=== PATIENT | male | born 1980 | race African-American/Black ===

== ENCOUNTER 2022-12-09 18:18 | Inpatient (IN) | payer MEDICARE, MEDICAID, SELFPAY ==
[2022-12-09 18:20] VITALS: TEMP 36.6
--- NOTE | 2022-12-09 18:24 | CT_ITS ---
We are attempting to reach an attending provider to discuss findings. An addendum with communication details will be sent when the communication is complete. EXAM: CT ANGIOGRAPHY HEAD AND NECK WITH INTRAVENOUS CONTRAST CLINICAL INDICATION: CVA TECHNIQUE: [place]/head and neck CT angiography protocol performed with intravenous contrast. This CT exam was performed using one or more of the following dose reduction techniques: automated exposure control, adjustment of the mA and/or kV according to patient size, and/or use of iterative reconstruction technique. This report was created using [employer] report generation technology. MIP reconstructed images were created and reviewed. CONTRAST: IV 100mL Isovue-370 RADIATION DOSE: CTDIvol = 20.74 mGy, DLP = 809.94 mGy-cm COMPARISON: None. FINDINGS: HEAD: RIGHT ANTERIOR CEREBRAL ARTERY: Unremarkable. No significant stenosis at the visualized segments. Anterior communicating artery is present. No aneurysm. RIGHT MIDDLE CEREBRAL ARTERY: Unremarkable. No significant stenosis at the visualized segments. No aneurysm. RIGHT POSTERIOR CEREBRAL ARTERY: Unremarkable. No occlusion or significant stenosis. No aneurysm. RIGHT INTRACRANIAL INTERNAL CAROTID ARTERY: Unremarkable. No significant stenosis. No dissection or occlusion. RIGHT INTRACRANIAL VERTEBRAL ARTERY: Unremarkable. No significant stenosis. No dissection or occlusion. LEFT ANTERIOR CEREBRAL ARTERY: Unremarkable. No significant stenosis at the visualized segments. No aneurysm. LEFT MIDDLE CEREBRAL ARTERY: Unremarkable. No significant stenosis at the visualized segments. No aneurysm. LEFT POSTERIOR CEREBRAL ARTERY: Unremarkable. No occlusion or significant stenosis. No aneurysm. LEFT INTRACRANIAL INTERNAL CAROTID ARTERY: Unremarkable. No significant stenosis. No dissection or occlusion. LEFT INTRACRANIAL VERTEBRAL ARTERY: Unremarkable. No significant stenosis. No dissection or occlusion. BASILAR ARTERY: Unremarkable. No significant stenosis. No aneurysm. OTHER VASCULATURE: There are no acute findings of the right and left internal carotid artery. ALL ABOVE CRITERIA BY NASCET. No vascular malformation. NECK: RIGHT COMMON CAROTID ARTERY: Unremarkable. No significant stenosis. No dissection or occlusion. RIGHT EXTRACRANIAL INTERNAL CAROTID ARTERY: Unremarkable. No significant stenosis. No dissection or occlusion. RIGHT EXTERNAL CAROTID ARTERY: Unremarkable. No occlusion. RIGHT EXTRACRANIAL VERTEBRAL ARTERY: Unremarkable. No significant stenosis. No dissection or occlusion. LEFT COMMON CAROTID ARTERY: Unremarkable. No significant stenosis. No dissection or occlusion. LEFT EXTRACRANIAL INTERNAL CAROTID ARTERY: Unremarkable. No significant stenosis. No dissection or occlusion. LEFT EXTERNAL CAROTID ARTERY: Unremarkable. No occlusion. LEFT EXTRACRANIAL VERTEBRAL ARTERY: Unremarkable. No significant stenosis. No dissection or occlusion. BRACHIOCEPHALIC AND SUBCLAVIAN ARTERIES: Unremarkable as visualized. No occlusion or significant stenosis. LUNG APICES: Unremarkable as visualized. HEAD and NECK: BONES/JOINTS: Unremarkable. No discrete lytic or blastic abnormalities. SOFT TISSUES: Unremarkable. OTHER FINDINGS: There are no acute findings of the [place] without a demonstrated aneurysm or hemodynamically significant stenosis. ALL ABOVE CRITERIA BY NASCET. CAROTID STENOSIS REFERENCE USING NASCET CRITERIA: % ICA stenosis = (1 - narrowest ICA diameter/diameter of distal cervical ICA) x 100. Mild - <50% stenosis. Moderate - 50-69% stenosis. Severe - 70-94% stenosis. Near occlusion - 95-99% stenosis. Occluded - 100% stenosis. CT/STROKE CTA Head AND Neck W/Con IMPRESSION: 1. There are no acute findings of the [place] without a demonstrated aneurysm or hemodynamically significant stenosis. ALL ABOVE CRITERIA BY NASCET. 2. There are no acute findings of the right and left internal carotid artery. ALL ABOVE CRITERIA BY NASCET. Electronically Signed: Kota Flores MD at 18:51 EDT ,
--- NOTE | 2022-12-09 18:24 | CT_ITS ---
We are attempting to reach an attending provider to discuss findings. An addendum with communication details will be sent when the communication is complete. STUDY: CT BRAIN WITHOUT CONTRAST REASON FOR EXAM: Male, 42 years old. CVA TECHNIQUE: Transaxial CT imaging of the brain was performed without administration of intravenous contrast material. Individualized dose optimization techniques were used for this CT. COMPARISON: None FINDINGS: Normal calvarium. Normal soft tissues. Normal size ventricles and extra-axial spaces for the patient''s age. Normal white matter tracts of the cerebral hemispheres. Normal basal ganglia and thalami. Normal brainstem. Normal cerebellum. There is no intracranial hemorrhage. There are no findings of an acute ischemic infarction. Normal visualized paranasal sinuses. ASPECTS 10 CT/STROKE Brain/Head without Cont IMPRESSION: There are no acute intracranial findings. Electronically Signed: Kota Flores MD at 18:41 EDT ,
[2022-12-09 18:29] VITALS: BP 127/77; BP 132/80; PULSE 88; PULSE 91; RESP 18; TEMP 36.4; O2SAT 100; O2SAT 99
--- NOTE | 2022-12-09 18:29 | EKG12_ITS ---
Test Reason : NEURO Blood Pressure : / mmHG Vent. Rate : 085 BPM Atrial Rate : 085 BPM P-R Int : 148 ms QRS Dur : 078 ms QT Int : 340 ms P-R-T Axes : 029 035 024 degrees QTc Int : 404 ms Normal sinus rhythm Normal ECG Confirmed by YASHIRA SCHULZ ([id number]), newspaper or periodical editor BONNIE HUI ([id number]) on 12/12/2022 7:02:47 AM Referred By: PATRICK Confirmed By:YASHIRA SCHULZ
[2022-12-09 18:34] VITALS: BMI 36.2
[2022-12-09 18:35] VITALS: BP 127/77; PULSE 64; RESP 18; TEMP 36.6; O2SAT 99
[2022-12-09 18:35] LABS: Absolute Lymphocyte Count 2.58 X10^3/uL (0.83-4.51); Absolute Neutrophil Count 3.4 X10^3/uL (2.0-7.7); Basophil# 0.04 X10^3/uL; Basophil% 0.6 % (0-1); Eosinophil# 0.18 X10^3/uL; Eosinophils% 2.5 % (0-5); Hematocrit 38.2 % (40-54); Hemoglobin 12.8 g/dL (13.0-16.5); Lymphocyte # 2.58 X10^3/ul (0.83-4.51); Lymphocyte % 35.8 % (19-41); Mean Corp Hgb Conc 33.5 g/dL (32-36); Mean Corpuscular Hgb 29.2 pg (27.0-32.0); Mean Platelet Vol. 10.7 fl (6.2-12.0); Monocyte# 1.02 X10^3/uL; Monocyte% 14.1 % (0-10); NRBC Flagged by Analyzer 0 % (0-5); Neutrophil # 3.37 X10^3/uL (2.7-7.7); Neutrophil % 46.7 % (47-70); Platelet Count 178 K/mm3 (150-450); RBC Distribution Width CV 13.5 % (11.6-14.6); RBC Distribution Width SD 42.9 fl (35.1-43.9); Red Blood Count 4.39 M/mm3 (4.6-6.2); White Blood Count 7.2 K/mm3 (4.4-11.0)
[2022-12-09 18:46] LABS: Partial Thromboplast Time 30.6 Seconds (24.1-36.2); Prothrombin Time (Protime)PT. 13.2 SECONDS (11.7-14.9)
[2022-12-09 18:49] LABS: Anion Gap 4 (5-15); BUN 16 mg/dL (7-18); BUN/Creat Ratio 11.8 RATIO (10-20); Calcium,Total 9.3 mg/dL (8.5-10.1); Chloride 104 mmol/L (98-107); Creatinine, Serum 1.36 mg/dL (0.70-1.30); EST Glomerular Filtration Rate 61 mL/min (>60); Est Glom Filt Rate - Afr Amer 74 mL/min (>60); Estimated Creatinine Clearance 52.34 ml/min; Glucose 234 mg/dL (74-106); Potassium 3.5 mmol/L (3.5-5.1); Sodium Level 140 mmol/L (136-145); Troponin-I HS 4 pg/mL (3.0-78.0)
--- NOTE | 2022-12-09 18:53 | EDS_ITS ---
HPI History of Present Illness Chief Complaint: Stroke Alert Detail of Chief Complaint: Stroke alert patient Informant: patient and EMS Onset/Context/Timing Onset: Today (Per last known well 0800. Family noted shuffled gait at 10 AM.) Context: Sudden Onset Timing: Continuous Quality and Location: Positive for Left Facial Droop Onset: Last known well 0800 Current Severity: Mild Maximum Severity: Mild Worsened by: Nothing Relieved by: Nothing Associated Symptoms Associated Symptoms: Negative for Headache, Nausea, Vomiting or Chest Pain Narrative Narrative: Patient is a 42-year-old male with significant psychiatric history who presents because of shuffled gait and problems with coordination, difficulty swallowing. He was last known well at 0800. Family noted the supple gait at 1000. Patient not a good informant due to his psychiatric disorder. Stroke alert was initiated. Prior similar symptoms: No Recent Illness/Hospitalization: No PFSH PFS Medical History Anemia Anxiety Bipolar disorder Blindness Cannabis abuse Constipation Glaucoma Hyperlipidemia Insomnia Muscle weakness PVD (peripheral vascular disease) Schizoaffective disorder Seizures TBI (traumatic brain injury) Type 2 diabetes mellitus Social History Smoking Status: Current every day smoker tobacco type: cigarettes ROS ROS ED Review of Systems ROS Unobtainable: due to mental condition and due to mental status EXAM Physical Exam Const Vital Signs: 12/09/22 18:20 12/09/22 18:34 12/09/22 18:35 Temperature 97.8 F 97.8 F Temperature Source Temporal Temporal Pulse Rate 64 Respiratory Rate 18 Blood Pressure 127/77 H Blood Pressure Mean 93 Pulse Ox 99 Oxygen Delivery Method Room Air Room Air 12/09/22 18:29 12/09/22 18:29 Temperature 97.6 F L Temperature Source Temporal Pulse Rate 91 88 Respiratory Rate 18 18 Blood Pressure 127/77 H 132/80 H Blood Pressure Mean 93 97 Pulse Ox 100 99 Oxygen Delivery Method Room Air Room Air Positive well nourished, well developed and unkempt Constitutional Narrative: Patient does have slight drooling noted. Posterior pharynx unremarkable. General Appearance ED: unkempt, well developed and NAD HEENT Reports moist mucous membranes atraumatic Nose: other Other Details: Normal. Patient does have hyperplasia of the gingiva. Eyes PERRL and EOMs intact bilaterally Eyes Narrative: There is no nystagmus. There is no APD. General Eye ED: Negative for pale conjunctiva or scleral icterus Neck no lymphadenopathy, supple and no JVD Neck Narrative: There is no inspiratory expiratory stridor. Chest Wall inspection of chest normal and palpation of chest normal Resp normal respiratory effort and clear to auscultation bilaterally Cardio no murmurs Rate: regular rate Rhythm: regular rhythm Heart Sounds: S1 normal and S2 normal GI normal to inspection, nondistended, normoactive bowel sounds, soft to palpation, non-tender, non-distended and no masses Auscultation: hypoactive bowel sounds Back/Spine no CVA tenderness Extremity Negative for normal to inspection General Extremety ED: Yes edema; Negative for deformity or tenderness General Extremity: edema; Negative for deformity Neuro No oriented x3, No CN's II-XII intact bilaterally and no sensory deficits noted [place] Coma Scale: document GCS findings Spontaneous Obeys Commands Confused 14 Sensorium / Orientation: Negative for alert Motor Exam: strength 5/5 throughout Psych Psych Narrative: Slow psychomotor skills. Appearance: unkempt NIHSS NIHSS Initial: 1a Level of Consciousness: 1 1b LOC Questions (Score 2 if aphasic/stupor): 2 1c LOC Commands (Only score 1st attempt): 0 2 Best Gaze (If aphasic, use reflexive mvmts.): 0 3 Visual: 0 4 Facial Palsy: 1 5 Motor Arm Right (UN = amputation/fusion): 0 5 Motor Arm Left: 0 6 Motor Leg Right: 0 6 Motor Leg Left: 0 7 Limb ataxia (Only + if out of proportion): 0 8 Sensory (Aphasia/stupor=0 or 1, coma=2): 0 9 Best Language: 1 (Patient did not know the names of many objects. He was able to describe the scene that was shown to him. He was able to read sentences and words without any significant abnormality.) 10 Dysarthria (mute, coma=2, intubated=UN): 0 11 Extinction and Inattention (only scored if +): 0 Total Score: 5 MDM MDM MDM Narrative Medical decision making narrative: Stroke alert was initiated. I did receive call from radiologist that read the CT and CTA of the head neck as negative for acute stroke and negative for LVO. The neurologist [facility] Dr. Grace agrees there is a facial droop. She recommended admission unless there was an LVO which would require thrombectomy. Since there is no evidence of LVO will speak with hospitalist for admission. History & Record Review Discussion w/independent historian: EMS personnel and Patient Additional record(s) reviewed:: No prior records Lab Data Attestation: I reviewed the patient's lab results. Lab results narrative: CBC is unremarkable. Coags are unremarkable. Basic metabolic is remarked for an elevated creatinine of 1.36 with a GFR of 74. Troponin is normal. Blood sugar is elevated at 234. CO2 and anion gap are normal. Labs: Laboratory Results - last 24 hr 12/09/22 12/09/22 12/09/22 18:25 18:25 18:25 WBC 7.2 RBC 4.39 L Hgb 12.8 L Hct 38.2 L MCV 87.0 MCH 29.2 MCHC 33.5 RDW Std Deviation 42.9 RDW Coeff of Tana 13.5 Plt Count 178 MPV 10.7 Immature Gran % (Auto) 0.300 Neut % (Auto) 46.7 L Lymph % (Auto) 35.8 [place] % (Auto) 14.1 H Eos % (Auto) 2.5 Baso % (Auto) 0.6 Absolute Neuts (auto) 3.4 Absolute Lymphs (auto) 2.58 Nucleated RBC % 0 PT 13.2 INR 1.0 APTT 30.6 Sodium 140 Potassium 3.5 Chloride 104 Carbon Dioxide 32.0 Anion Gap 4 L BUN 16 Creatinine 1.36 H Estim Creat Clear Calc 52.34 Est GFR (MDRD) Af Amer 74 Est GFR (MDRD) Non-Af 61 BUN/Creatinine Ratio 11.8 Glucose 234 H Calcium 9.3 Troponin I High Sens 4 POC Glucose 12/09/22 18:34 WBC RBC Hgb Hct MCV MCH MCHC RDW Std Deviation RDW Coeff of [place] Plt Count MPV Immature Gran % (Auto) Neut % (Auto) Lymph % (Auto) [place] % (Auto) Eos % (Auto) Baso % (Auto) Absolute Neuts (auto) Absolute Lymphs (auto) Nucleated RBC % PT INR APTT Sodium Potassium Chloride Carbon Dioxide Anion Gap BUN Creatinine Estim Creat Clear Calc Est GFR (MDRD) Af Amer Est GFR (MDRD) Non-Af BUN/Creatinine Ratio Glucose Calcium Troponin I High Sens POC Glucose 267 H Radiography Diagnostic Testing: Clinical Impression(s) from Imaging Studies Brain CT 12/09/22 18:24 IMPRESSION: There are no acute intracranial findings. Electronically Signed: Kota Flores MD at 18:41 EDT , ADDENDUM: 12/09/228 IMPRESSION: There are no acute intracranial findings. N.B. : The above Results were Read Back by Kota Flores MD to Meir Maher MD, and understanding confirmed on 12/09/2022 18:52:03 (ET). Electronically Signed: Kota Flores MD at 18:41 EDT , Head/Neck CTA 12/09/22 18:24 IMPRESSION: 1. There are no acute findings of the [place] without a demonstrated aneurysm or hemodynamically significant stenosis. ALL ABOVE CRITERIA BY NASCET. 2. There are no acute findings of the right and left internal carotid artery. ALL ABOVE CRITERIA BY NASCET. Electronically Signed: Kota Flores MD at 18:51 EDT , ADDENDUM: 12/09/229 IMPRESSION: 1. There are no acute findings of the [place] without a demonstrated aneurysm or hemodynamically significant stenosis. ALL ABOVE CRITERIA BY NASCET. 2. There are no acute findings of the right and left internal carotid artery. ALL ABOVE CRITERIA BY NASCET. N.B. : The above Results were Read Back by Kota Flores MD to MD meir, and understanding confirmed on 12/09/2022 18:52:44 (ET). Electronically Signed: Kota Flores MD at 18:51 EDT , ADDENDUM: 12/09/22 191 IMPRESSION: 1. There are no acute findings of the [place] without a demonstrated aneurysm or hemodynamically significant stenosis. ALL ABOVE CRITERIA BY NASCET. 2. There are no acute findings of the right and left internal carotid artery. ALL ABOVE CRITERIA BY NASCET. N.B. : The above Results were Read Back by Kota Flores MD to Meir Maher MD, and understanding confirmed on 12/09/2022 19:04:48 (ET). Electronically Signed: Kota Flores MD at 18:51 EDT , Chest X-Ray 12/09/22 19:00 IMPRESSION: No radiographic evidence of acute cardiopulmonary disease. Electronically Signed: Kota Flores MD at 19:14 EDT , EKG Initial EKG: Attestation: I personally reviewed and interpreted this EKG as follows: Interpretation: Sinus Rhythm (Rate is 85. EKG is normal. WA interval is under 48 ms. QRS duration 78 ms. QT duration 340 ms. [place] is normal.) Treatment and Re-Evaluation Narrative: Concern patient has stroke since he has a facial droop. Also concerned this may be due to his psychiatric disorder. However with the facial droop would not expect this to be due to a psychiatric sorter. I believe there is an older lady of a stroke and his underlying psychiatric disorder at makes his assessment of objects more difficult. Discharge Plan Dx/Rx/DC Orders Clinical Impression: Acute CVA (cerebrovascular accident), Acute hyperglycemia, Elevated serum creatinine, Dysphagia, History of psychiatric disorder Disposition Disposition: Acute Care [facility]
[2022-12-09 18:54] VITALS: BMI 36.2
[2022-12-09 18:56] LABS: Bedside Glucose 267 mg/dL (74-106)
--- NOTE | 2022-12-09 19:00 | RAD_ITS ---
EXAM: XR CHEST, 1 VIEW CLINICAL INDICATION: Neuro deficit, acute, stroke suspected TECHNIQUE: Frontal view of the chest. This report was created using [employer] report generation technology. COMPARISON: None. FINDINGS: LUNGS AND PLEURAL SPACES: Unremarkable. No consolidation or edema. No pneumothorax. No effusion. HEART: Unremarkable. Cardiac silhouette not enlarged. MEDIASTINUM: Central airways and mediastinal contour are unremarkable. BONES/JOINTS: Unremarkable. SOFT TISSUES: Unremarkable. RAD/Chest 1 View IMPRESSION: No radiographic evidence of acute cardiopulmonary disease. Electronically Signed: Kota Flores MD at 19:14 EDT ,
[2022-12-09 19:29] VITALS: BP 123/68; PULSE 84; RESP 24; O2SAT 98
--- NOTE | 2022-12-09 19:38 | HP.PCM.HOS_ITS ---
HPI - General General Date of Admission: 12/09/22 Date of Service: 12/09/22 Chief Complaint: Unsteady gait HPI Narrative JERMAN ROLAND, is a 42 M with a significant history of bipolar disorder; tobacco abuse; cannabis abuse; hyperlipidemia; schizoaffective disorder; seizures and traumatic brain injury who presents to the emergency department with unsteady gait. Patient reports that anytime that he stood up he fell. Reportedly he was having a shuffling gait at home. Also reportedly he had a facial droop. Last time the patient was known well was 8 AM on the day of presentation and family noticed above symptoms at above 10 AM on the day of presentation. Patient presented to emergency department way beyond n 4.5 hours of last known well. Emergency department doctor reported that patient is unable to swallow. Emergency department doctor reported NIH of 5 on the day of presentation. History was taken from emergency department doctor. Only minimal history could be obtained from patient's secondary to his psychiatry disorder and aphasic speech. [facility] Medical History (Updated 12/10/22 @ 00:[address] Ramesh Randall MD) Anemia Anxiety Bipolar disorder Blindness Cannabis abuse Constipation Glaucoma Hyperlipidemia Insomnia Muscle weakness PVD (peripheral vascular disease) Schizoaffective disorder Seizures TBI (traumatic brain injury) Type 2 diabetes mellitus Home Medications atenolol 25 mg tablet 12.5 mg PO DAILY essential hypertension 12/09/22 [History Last Taken Unknown] cetirizine 10 mg tablet 10 mg PO QHS allergy symptoms 12/09/22 [History Last Taken Unknown] clozapine 100 mg tablet (Clozaril) 200 mg PO BID schizoaffective disorder 12/09/22 [History Last Taken Unknown] diphenhydramine HCl 50 mg tablet 50 mg PO Q8H PRN PRN agitation/anxiety 12/09/22 [History Last Taken Unknown] divalproex 250 mg tablet,delayed release (Depakote) 250 mg PO BID biplolar/schizoaffectoive disorder 12/09/22 [History Last Taken Unknown] divalproex 500 mg tablet,delayed release (Depakote) 500 mg PO BID bipolar disorder/schizoaffective disorder 12/09/22 [History Last Taken Unknown] famotidine 20 mg tablet (Pepcid) 20 mg PO DAILY heartburn 12/09/22 [History Last Taken Unknown] lorazepam 1 mg tablet (Ativan) 1 mg PO Q6H PRN agitiation/anxiety 12/09/22 [History Last Taken Unknown] metformin 500 mg tablet 500 mg PO DAILY type 2 diabetes mellitus 12/09/22 [History Last Taken Unknown] multivitamin 1 tab PO DAILY supplement 12/09/22 [History Last Taken Unknown] paliperidone palmitate 234 mg/1.5 mL intramuscular syringe (Invega Sustenna) 234 mg IM DAILY Check with primary doctor 12/09/22 [History Last Taken Unknown] polyethylene glycol 3350 17 gram oral powder packet (Miralax) 17 g PO DAILY constipation 12/09/22 [History Last Taken Unknown] sennosides 8.6 mg-docusate sodium 50 mg tablet (Senokot-S) 1 tab PO DAILY co nstipation 12/09/22 [History Last Taken Unknown] timolol maleate 0.5 % once daily eye 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 12/09/22 [History Last Taken Unknown] tuberculin PPD 1 unit/0.1 mL intradermal injection solution 1 tb unit intradermal LUNCH tuberculosis surveillance 12/09/22 [History Last Taken 08/27/22] Allergy/AdvReac Type Severity Reaction Status Date / Time No Known Allergies Allergy Verified 12/09/22 20:01 Family History unable to obtain unable to obtain (Mental condition) Surgical History unable to obtain unable to obtain (Mental condition) Social History Smoking Status: Current every day smoker tobacco type: cigarettes ROS Review of Systems ROS Unobtainable: due to mental condition Vital Signs Vital Signs Vital Signs: 12/09/22 18:20 12/09/22 18:34 12/09/22 18:35 Temperature 97.8 F 97.8 F Temperature Source Temporal Temporal Pulse Rate 64 Respiratory Rate 18 Blood Pressure 127/77 H Blood Pressure Mean 93 Pulse Ox 99 Oxygen Delivery Method Room Air Room Air 12/09/22 18:29 12/09/22 18:29 Temperature 97.6 F L Temperature Source Temporal Pulse Rate 91 88 Respiratory Rate 18 18 Blood Pressure 127/77 H 132/80 H Blood Pressure Mean 93 97 Pulse Ox 100 99 Oxygen Delivery Method Room Air Room Air Weight Weight: 87 kg Body Mass Index (BMI) 36.2 Physical Exam Narrative Physical exam: General: Well-nourished, well-developed. Head: Normocephalic, atraumatic, no tenderness Eyes: Vision is grossly intact. EOMI ENT, no trauma, moist mucous membranes, no rhinorrhea Neck: Nontender, No thyromegaly. CVS: Regular rate and rhythm. S1-S2 present. No murmur, gallop or rub. Respiratory : clear to auscultation bilaterally, chest wall nontender Abdomen: Soft, nontender, nondistended, normal bowel sounds, no masses : Deferred Back: Nontender, no CVA tenderness, no midline spinal tenderness, deformities, step-offs Extremities: Nontender full range of motion, no trauma Skin: Normal color, no trauma, abrasions Neuro: Alert, oriented, cranial nerves II through XII grossly intact. Strength in all extremities 5 out of 5 except left lower extremity 4 out of 5. Mild facial droop of left face. Unclear and aphasic speech (unclear whether baseline). No dysmetria. Psychiatry: Normal mood. Normal affect. Not depressed. Not anxious. Results Lab / Micro Data Result Diagrams: 12/09/22 18:25 12/09/22 18:25 Labs: Laboratory Results - last 24 hr 12/09/22 18:25: WBC 7.2, RBC 4.39 L, Hgb 12.8 L, Hct 38.2 L, MCV 87.0, MCH 29.2, MCHC 33.5, RDW Std Deviation 42.9, RDW Coeff of Tana 13.5, Plt Count 178, MPV 10.7, Immature Gran % (Auto) 0.300, Neut % (Auto) 46.7 L, Lymph % (Auto) 35.8, Holmes % (Auto) 14.1 H, Eos % (Auto) 2.5, Baso % (Auto) 0.6, Absolute Neuts (auto) 3.4, Absolute Lymphs (auto) 2.58, Nucleated RBC % 0 12/09/22 18:25: PT 13.2, INR 1.0, APTT 30.6 12/09/22 18:25: Sodium 140, Potassium 3.5, Chloride 104, Carbon Dioxide 32.0, Anion Gap 4 L, BUN 16, Creatinine 1.36 H, Estim Creat Clear Calc 52.34, Est GFR (MDRD) Af Amer 74, Est GFR (MDRD) Non-Af 61, BUN/Creatinine Ratio 11.8, Glucose 234 H, Calcium 9.3, Troponin I High Sens 4 12/09/22 18:34: POC Glucose 267 H Radiology Impression Brain CT 12/09/22 18:24 IMPRESSION: There are no acute intracranial findings. Electronically Signed: Kota Flores MD at 18:41 EDT , ADDENDUM: 12/09/22 1858 IMPRESSION: There are no acute intracranial findings. N.B. : The above Results were Read Back by Kota Flores MD to Meir Maher MD, and understanding confirmed on 12/09/2022 18:52:03 (ET). Electronically Signed: Kota Flores MD at 18:41 EDT , Head/Neck CTA 12/09/22 18:24 IMPRESSION: 1. There are no acute findings of the [place] without a demonstrated aneurysm or hemodynamically significant stenosis. ALL ABOVE CRITERIA BY NASCET. 2. There are no acute findings of the right and left internal carotid artery. ALL ABOVE CRITERIA BY NASCET. Electronically Signed: Kota Flores MD at 18:51 EDT , ADDENDUM: 12/09/22 1859 IMPRESSION: 1. There are no acute findings of the [place] without a demonstrated aneurysm or hemodynamically significant stenosis. ALL ABOVE CRITERIA BY NASCET. 2. There are no acute findings of the right and left internal carotid artery. ALL ABOVE CRITERIA BY NASCET. N.B. : The above Results were Read Back by Kota Flores MD to MD meir, and understanding confirmed on 12/09/2022 18:52:44 (ET). Electronically Signed: Kota Flores MD at 18:51 EDT , ADDENDUM: 12/09/22 1911 IMPRESSION: 1. There are no acute findings of the [place] without a demonstrated aneurysm or hemodynamically significant stenosis. ALL ABOVE CRITERIA BY NASCET. 2. There are no acute findings of the right and left internal carotid artery. ALL ABOVE CRITERIA BY NASCET. N.B. : The above Results were Read Back by Kota Flores MD to Meir Maher MD, and understanding confirmed on 12/09/2022 19:04:48 (ET). Electronically Signed: Kota Flores MD at 18:51 EDT , Chest X-Ray 12/09/22 19:00 IMPRESSION: No radiographic evidence of acute cardiopulmonary disease. Electronically Signed: Kota Flores MD at 19:14 EDT , Assessment & Plan Assessment/Plan (1) Acute CVA (cerebrovascular accident): (2) Diabetes: PLAN: Plan Acute CVA Serial NINDS NIH Scale ordered Impression of head CT by radiology:There are no acute intracranial findings. Upon my personal head CT image review: I agree with radiologist interpretation Head and neck CTA was unrevealing. Lipid profile and A1c ordered. Physical therapy, occupational therapy and speech therapy to work with patient. N.p.o. until bedside swallow eval. Daily aspirin. High intensity statin Permissive hypertension. Control blood pressure with labetalol for systolic blood pressure of more than 220 or diastolic blood pressure of more than 120. Home atenolol held. MRI brain ordered. Echocardiogram ordered. Elevated Creatinine Unclear baseline Gentle IV hydration. Trend BMP. Diabetes mellitus Patient with hyperglycemia on presentation Home metformin held Monitor Accu-Cheks Correction scale insulin ordered. Hypertension Blood pressure is stable Home atenolol held secondary to permissive hypertension. Trend blood pressures. Bipolar disorder/schizoaffective disorder/seizures/history of traumatic brain injury Persistent Home medication continued. DVT prophylaxis: SCDs ordered Charges/Coding Visit Charges Inpatient E&M: 06499 Init Hosp L3
[2022-12-09 20:00] VITALS: BP 111/73; BP 123/68; PULSE 84; PULSE 88; RESP 19; RESP 23; TEMP 36.5; O2SAT 100; O2SAT 99
[2022-12-09 20:03] VITALS: BMI 36.2
--- NOTE | 2022-12-09 21:08 | ECHOD_ITS ---
Reason For Study: TIA Procedure This was a 2D Doppler, Color Flow transthoracic echocardiogram. Exam performed portable in patient room. Left Ventricle Normal left ventricle. The estimated ejection fraction is 55-60 %. Right Ventricle Normal right ventricle. Normal systolic function. Atria Normal left atrium. Normal right atrium. Mitral Valve The mitral valve is structurally normal. No prolapse or stenosis seen. Tricuspid Valve Normal tricuspid valve. Aortic Valve Normal aortic valve. Pulmonic Valve The pulmonic valve is not well visualized. Great Vessels Normal aortic root. Pericardium/Pleural No pericardial effusion. MMode/2D Measurements & Calculations LVIDd: 3.9 cm IVSd: 0.92 cm Ao root diam: 2.7 cm LVIDs: 3.0 cm LVPWd: 0.95 cm RVDd: 3.0 cm FS: 23.2 % LAV(MOD-bp): 27.4 ml EDV(MOD-sp4): 79.5 ml EDV(MOD-sp2): 48.2 ml LAV(MOD-bp) Indexed: 15.3 ml/m2 ESV(MOD-sp4): 22.3 ml ESV(MOD-sp2): 17.7 ml LAV(MOD-sp2): 33.9 ml EF(MOD-sp4): 71.9 % EF(MOD-sp2): 63.2 % LAV(MOD-sp4): 22.1 ml SV(MOD-sp4): 57.2 ml SV(MOD-sp2): 30.5 ml LA A4 area: 10.6 cm2 LA dimension(2D): 2.9 cm RA A4 area: 9.8 cm2 Time Measurements MV dec time: 0.20 sec Doppler Measurements & Calculations MV E max leroy: 54.9 cm/sec Lat Peak E' Leroy: 7.0 cm/sec Med Peak E' Leroy: 8.5 cm/sec MV A max leroy: 68.9 cm/sec E/E' lat: 7.8 E/E' med: 6.4 MV E/A: 0.80 MV dec slope: 271.6 cm/sec2 Ao V2 max: 90.0 cm/sec LV V1 max: 68.6 cm/sec Ao max P.2 mmHg LV V1 max P.9 mmHg Ao V2 mean: 61.5 cm/sec LV V1 mean P.2 mmHg Ao mean P.6 mmHg LV V1 mean: 53.3 cm/sec Ao V2 VTI: 12.4 cm LV V1 VTI: 12.7 cm AV (velocity ratio): 1.0 PA V2 max: 82.7 cm/sec TR max leroy: 169.6 cm/sec TR max P.5 mmHg ECHO/Echo Complete Interpretation Summary The estimated ejection fraction is 55-60 %. No significant valvular abnormality No prior echocardiogram to compare. Ordering Physician: Ramesh Randall Referring Physician: Ever Avila Performed By: Dottie Bashir RDCS, RVT
[2022-12-09 21:15] VITALS: BMI 32.3
[2022-12-09 21:35] VITALS: BP 122/84; PULSE 84; RESP 15; TEMP 36.2; O2SAT 97
[2022-12-09] MEDS: Lactated Ringers 1,000 ML 75 ML IV (22:38)
[2022-12-09] MEDS: Insulin Lispro 100 UNIT/ML INSULN.PEN SC (22:46)
[2022-12-10] VITALS (7 sets, daily range): BP systolic 101–110; BP diastolic 62–77; PULSE 82–97; RESP 15–18; TEMP 36.2–37; O2SAT 94–99; BMI 32.3
[2022-12-10 00:40] LABS: Bedside Glucose 194 mg/dL (74-106)
[2022-12-10] MEDS: Divalproex Sodium 250 MG Tablet 750 MG PO ×3 (00:43→21:03)
[2022-12-10] MEDS: Atorvastatin Calcium 80 MG Tablet PO ×2 (00:43→21:02)
[2022-12-10] MEDS: Insulin Lispro 100 UNIT/ML INSULN.PEN SC ×3 (06:02→16:28)
[2022-12-10 06:57] LABS: Absolute Lymphocyte Count 2.62 X10^3/uL (0.83-4.51); Absolute Neutrophil Count 2.7 X10^3/uL (2.0-7.7); Basophil# 0.03 X10^3/uL; Basophil% 0.5 % (0-1); Eosinophil# 0.29 X10^3/uL; Eosinophils% 4.4 % (0-5); Hematocrit 38.1 % (40-54); Hemoglobin 13.3 g/dL (13.0-16.5); Lymphocyte # 2.62 X10^3/ul (0.83-4.51); Lymphocyte % 40.1 % (19-41); Mean Corp Hgb Conc 34.9 g/dL (32-36); Mean Platelet Vol. 10.3 fl (6.2-12.0); Monocyte# 0.87 X10^3/uL; Monocyte% 13.3 % (0-10); NRBC Flagged by Analyzer 0 % (0-5); Neutrophil # 2.71 X10^3/uL (2.7-7.7); Neutrophil % 41.5 % (47-70); Platelet Count 166 K/mm3 (150-450); RBC Distribution Width CV 13.6 % (11.6-14.6); RBC Distribution Width SD 42.5 fl (35.1-43.9); Red Blood Count 4.43 M/mm3 (4.6-6.2); White Blood Count 6.5 K/mm3 (4.4-11.0)
[2022-12-10 07:01] LABS: Bedside Glucose 170 mg/dL (74-106)
[2022-12-10 07:13] LABS: Anion Gap 5 (5-15); BUN 13 mg/dL (7-18); BUN/Creat Ratio 10.9 RATIO (10-20); Chloride 109 mmol/L (98-107); Cholesterol 179 mg/dL (200); Creatinine, Serum 1.19 mg/dL (0.70-1.30); EST Glomerular Filtration Rate 71 mL/min (>60); Est Glom Filt Rate - Afr Amer 86 mL/min (>60); Estimated Creatinine Clearance 62.45 ml/min; Glucose 168 mg/dL (74-106); High Density Lipoprotein 34 mg/dL; Potassium 3.8 mmol/L (3.5-5.1); Sodium Level 142 mmol/L (136-145); Triglycerides 212 mg/dL; Very Low Density Lipoprotein 42 mg/dL (5-40)
--- NOTE | 2022-12-10 08:01 | PN.HOSP_ITS ---
Reason for Visit Reason for Visit: Diagnoses Type 2 diabetes mellitus without complications (12/09/22) Cerebral infarction, unspecified (12/09/22) Subjective Subjective Patient reports he feels weak and does not feel like he can go home, did not n ote any other specific focal complaints Objective Data Objective Data Vital Signs: Vital Signs Temp Pulse Resp BP Pulse Ox O2 Del Method 98.0 F 97 18 102/63 99 Room Air 12/10/22 05:56 12/10/22 05:56 12/10/22 05:56 12/10/22 05:56 12/10/22 07:33 12/10/22 07:33 Oxygen Delivery Method Room Air Weight: 80.2 kg Body Mass Index (BMI) 32.3 Lab / Micro Data Result Diagrams: 12/10/22 06:35 12/10/22 06:35 Labs: Laboratory Results - last 24 hr 12/09/22 18:25: WBC 7.2, RBC 4.39 L, Hgb 12.8 L, Hct 38.2 L, MCV 87.0, MCH 29.2, MCHC 33.5, RDW Std Deviation 42.9, RDW Coeff of Tana 13.5, Plt Count 178, MPV 10.7, Immature Gran % (Auto) 0.300, Neut % (Auto) 46.7 L, Lymph % (Auto) 35.8, Ware % (Auto) 14.1 H, Eos % (Auto) 2.5, Baso % (Auto) 0.6, Absolute Neuts (auto) 3.4, Absolute Lymphs (auto) 2.58, Nucleated RBC % 0 12/09/22 18:25: PT 13.2, INR 1.0, APTT 30.6 12/09/22 18:25: Sodium 140, Potassium 3.5, Chloride 104, Carbon Dioxide 32.0, Anion Gap 4 L, BUN 16, Creatinine 1.36 H, Estim Creat Clear Calc 52.34, Est GFR (MDRD) Af Amer 74, Est GFR (MDRD) Non-Af 61, BUN/Creatinine Ratio 11.8, Glucose 234 H, Calcium 9.3, Troponin I High Sens 4 12/09/22 18:34: POC Glucose 267 H 12/09/22 22:42: POC Glucose 194 H 12/10/22 05:59: POC Glucose 170 H 12/10/22 06:35: WBC 6.5, RBC 4.43 L, Hgb 13.3, Hct 38.1 L, MCV 86.0, MCH 30.0, MCHC 34.9, RDW Std Deviation 42.5, RDW Coeff of Tana 13.6, Plt Count 166, MPV 10.3, Immature Gran % (Auto) 0.200, Neut % (Auto) 41.5 L, Lymph % (Auto) 40.1, Ware % (Auto) 13.3 H, Eos % (Auto) 4.4, Baso % (Auto) 0.5, Absolute Neuts (auto) 2.7, Absolute Lymphs (auto) 2.62, Nucleated RBC % 0 12/10/22 06:35: Sodium 142, Potassium 3.8, Chloride 109 H, Carbon Dioxide 28.0, Anion Gap 5, BUN 13, Creatinine 1.19, Estim Creat Clear Calc 62.45, Est GFR (MDRD) Af Amer 86, Est GFR (MDRD) Non-Af 71, BUN/Creatinine Ratio 10.9, Glucose 168 H, Calcium 9.0, Triglycerides 212 H, Cholesterol 179, LDL Cholesterol 103, VLDL Cholesterol 42 H, HDL Cholesterol 34 L Radiography Diagnostic Testing: Radiology Impression Brain CT 12/09/22 18:24 IMPRESSION: There are no acute intracranial findings. Electronically Signed: Kota Flores MD at 18:41 EDT , ADDENDUM: 12/09/22 1858 IMPRESSION: There are no acute intracranial findings. N.B. : The above Results were Read Back by Kota Flores MD to Meir Maher MD, and understanding confirmed on 12/09/2022 18:52:03 (ET). Electronically Signed: Kota Flores MD at 18:41 EDT , Head/Neck CTA 12/09/22 18:24 IMPRESSION: 1. There are no acute findings of the [place] without a demonstrated aneurysm or hemodynamically significant stenosis. ALL ABOVE CRITERIA BY NASCET. 2. There are no acute findings of the right and left internal carotid artery. ALL ABOVE CRITERIA BY NASCET. Electronically Signed: Kota Flores MD at 18:51 EDT , ADDENDUM: 12/09/22 1859 IMPRESSION: 1. There are no acute findings of the [place] without a demonstrated aneurysm or hemodynamically significant stenosis. ALL ABOVE CRITERIA BY NASCET. 2. There are no acute findings of the right and left internal carotid artery. ALL ABOVE CRITERIA BY NASCET. N.B. : The above Results were Read Back by Kota Flores MD to MD meir, and understanding confirmed on 12/09/2022 18:52:44 (ET). Electronically Signed: Kota Flores MD at 18:51 EDT , ADDENDUM: 12/09/22 1911 IMPRESSION: 1. There are no acute findings of the [place] without a demonstrated aneurysm or hemodynamically significant stenosis. ALL ABOVE CRITERIA BY NASCET. 2. There are no acute findings of the right and left internal carotid artery. ALL ABOVE CRITERIA BY NASCET. N.B. : The above Results were Read Back by Kota Flores MD to Meir Maher MD, and understanding confirmed on 12/09/2022 19:04:48 (ET). Electronically Signed: Kota Flores MD at 18:51 EDT , Chest X-Ray 12/09/22 19:00 IMPRESSION: No radiographic evidence of acute cardiopulmonary disease. Electronically Signed: Kota Flores MD at 19:14 EDT Reading Location ID and State: [facility] / [place] , Service support , Physical Exam Narrative General: Alert, oriented, no apparent distress HEENT: Atraumatic, normocephalic Eyes: Anicteric, normal conjunctiva, extraocular movements intact, no sustained nystagmus on bilateral lateral gaze Neck: Supple Respiratory: Clear to auscultation bilaterally, normal respiratory effort Cardiovascular: Regular rate and rhythm GI: Soft, nontender, nondistended Extremities: No edema Musculoskeletal: Good and symmetric strength in bilateral upper and lower ext remities Neuro: No overt focal neurological deficits, cranial nerves II through XII intact, [id number] without significant difficulty bilaterally Skin: No rashes appreciated Psych: Cooperative Assessment & Plan Assessment/Plan (1) Acute CVA (cerebrovascular accident): (2) Diabetes: PLAN: Plan #Coordination problems, abnormal gait -Unclear etiology -Stroke call in ED and [facility] neurologist was concerned for facial droop -He was admitted with NIH's and stroke work-up -CT head with no intracranial acute findings -CTA head and neck unrevealing -MRI brain with no acute infarct and mild chronic periventricular white matter disease -PT recommending placement as he is still overall weak -Neuro exam today nonfocal -Patient on aspirin, statin -Cannot r/o elevated VPA level or ammonia as culprit d/t negative stroke -Will check depakote level and ammonia #Diabetes mellitus type II -A1c 6.7 -Glucose checks, sliding scale insulin #Bipolar disorder/schizoaffective disorder/seizures/history of traumatic brain injury -Home medications continued -We will order Depakote level and ammonia as well as liver function for the a.m. DVT prophylaxis: SCDs ordered Charges/Coding Visit Charges Inpatient E&M: 09455 Subs Hosp L2
[2022-12-10 08:46] LABS: Hemoglobin A1c 6.7 % (3.8-5.6)
--- NOTE | 2022-12-10 08:58 | PT ---
B LE exercises program in supine for SLR, gluteal squeezes, SAQ, ankle pumps, and hip abduction/adduction provided with written and pictorial instructions provided
--- NOTE | 2022-12-10 08:58 | OT ---
SANIAE HEP for AROM; handout given
--- NOTE | 2022-12-10 09:00 | MRI_ITS ---
HISTORY: CVAno coronal T2 images Pt was climbing out of coil and scanner. TECHNIQUE: Multiplanar and multisequence MR images of the brain were obtained without contrast. 279 images. COMPARISON: CT prior day. FINDINGS: BRAIN PARENCHYMA: Mild periventricular white matter changes. No abnormal focus of restricted diffusion. No acute intracranial hemorrhage identified. CSF SPACES: Cerebral ventricles, cortical sulci, and other extra-axial CSF spaces within normal limits in size. No significant midline shift or other mass effect.No extra-axial fluid collection. VASCULAR SYSTEM: Major intracranial flow voids are maintained. PARANASAL SINUSES AND MASTOID AIR CELLS: No significant air fluid levels. ORBITS: Chronic left medial orbital wall fracture. MRI/Brain without Contrast IMPRESSION: No evidence for acute infarct. Mild chronic periventricular white matter changes. Electronically Signed: Palak Lugo MD at 10:40 EDT ,
[2022-12-10] MEDS: Timolol 0.5% 5ML OPTH.BTL 1 DRP EACH EYE (11:06)
[2022-12-10] MEDS: Multivitamins,Therapeutic Tablet 1 TABLET PO (11:07)
[2022-12-10] MEDS: Senna/Docusate Sodium 1 Tablet PO (11:07)
[2022-12-10] MEDS: Famotidine 20 MG Tablet PO (11:07)
[2022-12-10] MEDS: Aspirin 81 MG TAB.CHEW PO (11:08)
[2022-12-10] MEDS: Polyethylene Glycol 3350 17 GM PACKET PO (11:08)
[2022-12-10] MEDS: cloZAPine 100 MG TABLET 200 MG PO ×2 (11:11→21:02)
[2022-12-10 12:11] LABS: Bedside Glucose 248 mg/dL (74-106)
[2022-12-10] MEDS: Lactated Ringers 1,000 ML 75 ML IV (13:53)
[2022-12-10 16:50] LABS: Bedside Glucose 235 mg/dL (74-106)
[2022-12-10] MEDS: Loratadine 10 MG Tablet PO (21:02)
[2022-12-11 00:41] LABS: Bedside Glucose 126 mg/dL (74-106)
[2022-12-11 01:23] VITALS: BMI 32.3
[2022-12-11 03:06] VITALS: BP 119/89; PULSE 93; RESP 15; TEMP 36.2; O2SAT 97
[2022-12-11 06:05] LABS: Absolute Lymphocyte Count 2.45 X10^3/uL (0.83-4.51); Basophil# 0.03 X10^3/uL; Basophil% 0.6 % (0-1); Eosinophil# 0.21 X10^3/uL; Eosinophils% 3.9 % (0-5); Hematocrit 42.4 % (40-54); Hemoglobin 14.1 g/dL (13.0-16.5); Lymphocyte # 2.45 X10^3/ul (0.83-4.51); Lymphocyte % 46.1 % (19-41); Mean Corp Hgb Conc 33.3 g/dL (32-36); Mean Corpuscular Hgb 28.8 pg (27.0-32.0); Mean Corpuscular Volume 86.5 fL (80-94); Monocyte# 0.59 X10^3/uL; Monocyte% 11.1 % (0-10); NRBC Flagged by Analyzer 0 % (0-5); Neutrophil # 2.02 X10^3/uL (2.7-7.7); Neutrophil % 37.9 % (47-70); Platelet Count 168 K/mm3 (150-450); RBC Distribution Width CV 13.5 % (11.6-14.6); RBC Distribution Width SD 42.9 fl (35.1-43.9); White Blood Count 5.3 K/mm3 (4.4-11.0)
[2022-12-11 06:38] LABS: Valproic Acid (Depakene) Level 99 ug/mL (50-100)
[2022-12-11 07:00] LABS: ALB/GLOB Ratio 1.1 RATIO (0.9-2.4); AST(SGOT) 14 U/L (15-37); Alanine Aminotransfer ALT/SGPT 13 U/L (16-61); Albumin, Serum 3.3 g/dL (3.2-5.0); Alkaline Phosphatase 62 U/L (45-117); Anion Gap 4 (5-15); BUN 12 mg/dL (7-18); BUN/Creat Ratio 10.5 RATIO (10-20); Calcium,Total 9.1 mg/dL (8.5-10.1); Chloride 109 mmol/L (98-107); Creatinine, Serum 1.14 mg/dL (0.70-1.30); EST Glomerular Filtration Rate 75 mL/min (>60); Est Glom Filt Rate - Afr Amer 90 mL/min (>60); Estimated Creatinine Clearance 65.19 ml/min; Globulin 3.1 g/dL (2.2-4.2); Glucose 156 mg/dL (74-106); Potassium 3.6 mmol/L (3.5-5.1); Protein, Total 6.4 g/dL (6.4-8.2); Sodium Level 142 mmol/L (136-145)
[2022-12-11 07:05] LABS: Bedside Glucose 141 mg/dL (74-106)
[2022-12-11 07:34] VITALS: O2SAT 98
--- NOTE | 2022-12-11 10:38 | CASEMGMT ---
Update sent to [facility] with tentative discharge date. Elicia Rivera
[2022-12-11 11:00] VITALS: BP 109/71; PULSE 91; RESP 16; TEMP 36.8; O2SAT 100
[2022-12-11] MEDS: Timolol 0.5% 5ML OPTH.BTL 1 DRP EACH EYE (11:12)
[2022-12-11] MEDS: Polyethylene Glycol 3350 17 GM PACKET PO (11:13)
[2022-12-11] MEDS: Senna/Docusate Sodium 1 Tablet PO (11:13)
[2022-12-11] MEDS: Famotidine 20 MG Tablet PO (11:13)
[2022-12-11] MEDS: cloZAPine 100 MG TABLET 200 MG PO ×2 (11:13→21:17)
[2022-12-11] MEDS: Lactulose 20 GM/30 ML UDC PO ×3 (11:13→21:17)
[2022-12-11] MEDS: Divalproex Sodium 250 MG Tablet 750 MG PO ×2 (11:13→21:17)
[2022-12-11] MEDS: Aspirin 81 MG TAB.CHEW PO (11:14)
[2022-12-11] MEDS: Multivitamins,Therapeutic Tablet 1 TABLET PO (11:14)
[2022-12-11] MEDS: Insulin Lispro 100 UNIT/ML INSULN.PEN SC ×2 (11:31→21:17)
[2022-12-11 12:25] LABS: Bedside Glucose 295 mg/dL (74-106)
--- NOTE | 2022-12-11 16:08 | PN_ITS ---
Subjective Subjective Patient seen and examined. HE was drowsy and lethargic. He just mumbled in response to questions or answer any questions clearly. Objective Data Objective Data Vital Signs: Vital Signs Temp Pulse Resp BP Pulse Ox O2 Del Method 98.2 F 91 16 109/71 100 Room Air 12/11/22 11:00 12/11/22 11:00 12/11/22 11:00 12/11/22 11:00 12/11/22 11:00 12/11/22 11:00 Oxygen Delivery Method Room Air Weight: 176 lb 12.972 oz Body Mass Index (BMI) 32.3 Intake & Output: Intake and Output for Last 24 Hours 12/09/22 12/10/22 12/11/22 23:59 23:59 23:59 Intake Total 1450.0 / 1450.0 1240 / 1240 Output Total 1075 / 1075 770 / 770 Balance 375.0 / 375.0 470 / 470 Lab / Micro Data Result Diagrams: 12/11/22 05:45 12/11/22 05:45 Labs: Laboratory Results - last 24 hr 12/10/22 16:27: POC Glucose 235 H 12/10/22 21:16: POC Glucose 126 H 12/11/22 05:45: WBC 5.3, RBC 4.90, Hgb 14.1, Hct 42.4, MCV 86.5, MCH 28.8, MCHC 33.3, RDW Std Deviation 42.9, RDW Coeff of Tana 13.5, Plt Count 168, MPV 10.0, Immature Gran % (Auto) 0.400, Neut % (Auto) 37.9 L, Lymph % (Auto) 46.1 H, [place] % (Auto) 11.1 H, Eos % (Auto) 3.9, Baso % (Auto) 0.6, Absolute Neuts (auto) 2.0, Absolute Lymphs (auto) 2.45, Nucleated RBC % 0 12/11/22 05:45: Sodium 142, Potassium 3.6, Chloride 109 H, Carbon Dioxide 29.0, Anion Gap 4 L, BUN 12, Creatinine 1.14, Estim Creat Clear Calc 65.19, Est GFR (MDRD) Af Amer 90, Est GFR (MDRD) Non-Af 75, BUN/Creatinine Ratio 10.5, Glucose 156 H, Calcium 9.1, Total Bilirubin 0.70, AST 14 L, ALT 13 L, Alkaline Phosphatase 62, Total Protein 6.4, Albumin 3.3, Globulin 3.1, Albumin/Globulin Ratio 1.1 12/11/22 05:45: Valproic Acid 99 12/11/22 05:45: Ammonia 60.0 H 12/11/22 06:23: POC Glucose 141 H 12/11/22 11:29: POC Glucose 295 H Radiography Diagnostic Testing: Radiology Impression Echocardiogram 12/09/22 21:08 Interpretation Summary The estimated ejection fraction is 55-60 %. No significant valvular abnormality No prior echocardiogram to compare. Ordering Physician: Ramesh Randall Referring Physician: Ever Avila Performed By: Dottie Bashir, ALISON, RVT Physical Exam Const Constitutional Narrative: lerthargic, drowsy HEENT normocephalic, head/scalp atraumatic and moist oral mucous membranes Neck no lymphadenopathy Lymph Lymphatic: no lymphadenopathy noted Resp normal respiratory effort, normal air movement and clear to auscultation bilaterally Cardio regular rate, regular rhythm, S1 normal heart sound, S2 normal heart sound and no murmurs GI normal to inspection, nondistended, normoactive bowel sounds, soft to palpation, non-tender and non-distended Extremity normal capillary refill, no clubbing, cyanosis or edema and no calf tenderness General Extremity: cyanosis, edema and no tenderness to palpation of joints or extremities Skin General Skin Exam: no breakdown Neuro CN's II-XII intact bilaterally Neuro Narrative: drowsy, moves all extremities. Psych Psych Narrative: lethargic Assessment & Plan Assessment/Plan (1) Altered mental status: PLAN: Plan #Acute metabolic encephalopathy * MRI done today was negative for stroke. He did have a stroke evaluation in the ED on account of concerns for facial droop. * CT of the brain showed no acute intracranial pathology and CT of the head and neck was otherwise unremarkable. * His ammonia level was elevated so I suspect that the hyperammonemia is contributing to his confusion.\ * On lactulose. PT OT on board. Fall precautions * 2D echo showed EF of 55 to 60% with no significant valvular abnormality. * #Type 2 diabetes mellitus: On insulin sliding scale. Accu-Cheks ACHS. #History of bipolar disorder and schizoaffective disorder: #History of seizures: On Depakote. Depakote levels within normal limits. DVT prophylaxis: SCDs Disposition: Anticipate discharge tomorrow once mentation has improved since he has been started on lactulose. Total time spent on evaluation and management of patient, reviewing chart and specialist notes, discussion with nursing and ancillary staff as well as documentation: 38 mins Charges/Coding Visit Charges Inpatient E&M: 51870 Subs Hosp L2
--- NOTE | 2022-12-11 16:14 | CHAPLAIN ---
Type of Pastoral Visit ___ Initial Visit ___ Follow-up Visit ___ On-call Visit ___ General Patient Visit ___ Spiritual Assessment ___ Family Conference ___ Bereavement ___ Rapid Response ___ Code Blue ___ Other (describe below) Pastoral Care Referral From ___ Patient ___ Family ___ Nurse ___ Physician ___ Mail Processing Associate ___ Commercial Green Building Architect ___ Other (describe below) Sacrament/Intervention ___ Active listening ___ Anointing ___ Orthodoxy ___ Bereavement ___ Communion ___ Toyin exploration ___ ___ Life review ___ Prayer ___ Reconciliation ___ Sacrament of Sick ___ Supportive presence ___ Wedding ___ Other (describe below) Pastoral Comments two visit attempts and patient is sleeping soundly both times
[2022-12-11 17:00] VITALS: BP 117/77; PULSE 97; RESP 16; TEMP 37; O2SAT 100; BMI 32.3
[2022-12-11] MEDS: 0.9% Saline Lock 10 ML Syringe IV (17:41)
[2022-12-11 18:20] LABS: Bedside Glucose 125 mg/dL (74-106)
[2022-12-11 21:12] VITALS: BP 108/69; PULSE 82; RESP 20; TEMP 36.6; O2SAT 99
[2022-12-11] MEDS: Loratadine 10 MG Tablet PO (21:17)
[2022-12-11] MEDS: Atorvastatin Calcium 80 MG Tablet PO (21:23)
[2022-12-11 23:06] LABS: Bedside Glucose 207 mg/dL (74-106)
[2022-12-12 03:10] VITALS: BP 110/78; PULSE 98; RESP 20; TEMP 36.4; O2SAT 99
[2022-12-12 05:29] LABS: Absolute Neutrophil Count 2.6 X10^3/uL (2.0-7.7); Basophil# 0.03 X10^3/uL; Basophil% 0.5 % (0-1); Eosinophil# 0.22 X10^3/uL; Eosinophils% 3.6 % (0-5); Hemoglobin 14.5 g/dL (13.0-16.5); Lymphocyte % 39.5 % (19-41); Mean Corp Hgb Conc 33.7 g/dL (32-36); Mean Corpuscular Hgb 29.1 pg (27.0-32.0); Mean Corpuscular Volume 86.3 fL (80-94); Mean Platelet Vol. 10.6 fl (6.2-12.0); Monocyte% 13.2 % (0-10); NRBC Flagged by Analyzer 0 % (0-5); Neutrophil # 2.61 X10^3/uL (2.7-7.7); Platelet Count 191 K/mm3 (150-450); RBC Distribution Width CV 13.6 % (11.6-14.6); RBC Distribution Width SD 42.3 fl (35.1-43.9); Red Blood Count 4.98 M/mm3 (4.6-6.2); White Blood Count 6.1 K/mm3 (4.4-11.0)
[2022-12-12 05:57] LABS: AST(SGOT) 15 U/L (15-37); Alanine Aminotransfer ALT/SGPT 12 U/L (16-61); Albumin, Serum 3.6 g/dL (3.2-5.0); Alkaline Phosphatase 68 U/L (45-117); Anion Gap 5 (5-15); BUN 14 mg/dL (7-18); BUN/Creat Ratio 11.6 RATIO (10-20); Calcium,Total 9.8 mg/dL (8.5-10.1); Chloride 108 mmol/L (98-107); Creatinine, Serum 1.21 mg/dL (0.70-1.30); EST Glomerular Filtration Rate 70 mL/min (>60); Est Glom Filt Rate - Afr Amer 84 mL/min (>60); Estimated Creatinine Clearance 61.42 ml/min; Globulin 3.5 g/dL (2.2-4.2); Glucose 162 mg/dL (74-106); Potassium 3.6 mmol/L (3.5-5.1); Protein, Total 7.1 g/dL (6.4-8.2); Sodium Level 141 mmol/L (136-145)
[2022-12-12] MEDS: Insulin Lispro 100 UNIT/ML INSULN.PEN SC ×2 (06:58→11:14)
[2022-12-12] MEDS: Lactulose 20 GM/30 ML UDC PO (06:58)
[2022-12-12 07:20] LABS: Bedside Glucose 172 mg/dL (74-106)
--- NOTE | 2022-12-12 08:47 | CASEMGMT ---
HAKEEM called patient's guardian Nika and left her a voice mail letting her know about patient's admission to the hospital. HAKEEM let HAKEEM name and number for return call. Abbie GONZÁLES
[2022-12-12 08:50] VITALS: BP 116/80; PULSE 104; RESP 16; TEMP 36.7; O2SAT 94
[2022-12-12] MEDS: Timolol 0.5% 5ML OPTH.BTL 1 DRP EACH EYE (08:56)
[2022-12-12] MEDS: Famotidine 20 MG Tablet PO (08:57)
[2022-12-12] MEDS: Aspirin 81 MG TAB.CHEW PO (08:58)
[2022-12-12] MEDS: Senna/Docusate Sodium 1 Tablet PO (08:58)
[2022-12-12] MEDS: cloZAPine 100 MG TABLET 200 MG PO (08:58)
[2022-12-12] MEDS: Divalproex Sodium 250 MG Tablet 750 MG PO (08:58)
[2022-12-12] MEDS: Polyethylene Glycol 3350 17 GM PACKET PO (08:58)
[2022-12-12] MEDS: Multivitamins,Therapeutic Tablet 1 TABLET PO (08:58)
--- NOTE | 2022-12-12 09:00 | CASEMGMT ---
HAKEEM received a return call from Nika, patient's legal guardian. HAKEEM updated Nika on patient's admission and that patient will return today. She thanked HAKEEM for the update. Abbie GONZÁLES
[2022-12-12 10:25] VITALS: O2SAT 99
[2022-12-12 11:22] VITALS: BMI 32.3
[2022-12-12 11:36] LABS: Bedside Glucose 206 mg/dL (74-106)
--- NOTE | 2022-12-12 11:46 | TREXTCAR_ITS ---
Diet Diet Order/Speech Therapy: 12/09/22 23:27 Diet: Cardiac: Calorie-Controlled Food consistency:: Regular Liquid Consistency:: Regular/Thin Is pt able to select menu?: No Diet Comments: No plastic cups. Please give patient plastic silverware with no knives How many daily calories?: 1800 calorie Routine Orders/Code Status Enema Type: Fleetz Suppository Type: Dulcolax 10mg O2 Frequency: PRN Keep PO Greater than or Equal to (%): 90 Therapies Weight Bearing: Weight bearing as tolerated Physical Therapy: Eval and Treat Occupational Therapy: Eval and Treat Problem/Diagnosis (1) Altered mental status: Status: Acute Code(s): R41.82 - Altered mental status, unspecified Plan #Acute metabolic encephalopathy * MRI done today was negative for stroke. He did have a stroke evaluation in the ED on account of concerns for facial droop. * CT of the brain showed no acute intracranial pathology and CT of the head and neck was otherwise unremarkable. * His ammonia level was elevated so I suspect that the hyperammonemia is contributing to his confusion.\ * On lactulose. PT OT on board. Fall precautions * 2D echo showed EF of 55 to 60% with no significant valvular abnormality. * #Type 2 diabetes mellitus: On insulin sliding scale. Accu-Cheks ACHS. #History of bipolar disorder and schizoaffective disorder: #History of seizures: On Depakote. Depakote levels within normal limits. DVT prophylaxis: SCDs Disposition: Anticipate discharge tomorrow once mentation has improved since he has been started on lactulose. Total time spent on evaluation and management of patient, reviewing chart and specialist notes, discussion with nursing and ancillary staff as well as documentation: 38 mins Allergies/Procedures Done in Hospital Allergies No Known Allergies Allergy (Verified 12/09/22 20:01) Procedures: 2-D Echocardiogram Type of Care/Length of Stay Estimated LOS: Convalescent Care Less Than 30 days Type of Care Needed: Skilled Rehab Potential: Fair Prognosis: Fair Additional Orders/Day of Discharge Day of Discharge: 12/12/22 Dietary and Speech Recommendations Dietitian Recommendations/Changes: Will continue 1800 lulu Cardiac diet as ordered Discharge Plan Admission Admit Date/Time: 12/09/22 19:28 Primary Reason for Your Visit: acute encephalopathy Attending Provider: Adrienne Obrien Primary Care Provider: Ever Avila Consulting Providers: Ramesh Randall ; Ludy Owens Instructions Patient Instructions: ED Confusion Discharge Orders/Prescriptions Prescriptions: New lactulose 20 gram/30 mL solution 20 g PO TID Qty: 3000 0RF Rx Instructions: titrate until 2-3 loose stools daily Continued multivitamin Tablet 1 tab PO DAILY metformin 500 mg Tablet 500 mg PO DAILY divalproex [Depakote] 250 mg Tablet,Delayed Release (Dr/Ec) 250 mg PO BID polyethylene glycol 3350 [Miralax] 17 gram Powder In Packet 17 g PO DAILY cetirizine 10 mg Tablet 10 mg PO QHS diphenhydramine HCl 50 mg Tablet 50 mg PO Q8H PRN PRN (Reason: agitation/anxiety ) clozapine [Clozaril] 100 mg Tablet 200 mg PO BID atenolol 25 mg Tablet 12.5 mg PO DAILY divalproex [Depakote] 500 mg Tablet,Delayed Release (Dr/Ec) 500 mg PO BID lorazepam [Ativan] 1 mg Tablet 1 mg PO Q6H PRN (Reason: agitiation/anxiety ) Invega Sustenna 234 mg/1.5 mL Syringe 234 mg IM DAILY Rx Instructions: give every 28 days tuberculin PPD 1 unit/0.1 mL Solution 1 tb unit INTRADERMAL LUNCH sennosides-docusate sodium [Senokot-S] 8.6-50 mg Tablet 1 tab PO DAILY famotidine [Pepcid] 20 mg Tablet 20 mg PO DAILY timolol maleate 0.5 % Drops, Once Daily 1 drp EACH EYE DAILY Referrals / Follow Up: Ever Avila MD [Primary Care Provider] - Within 2 Weeks Care Physician,No Primary [Non-Staff] - Disposition Disposition (needs filled in before D/C Order can be placed): Senior Living Facility Charges/Coding Visit Charges Inpatient E&M: 58518 Disch Hosp >30min
--- NOTE | 2022-12-12 11:47 | DS.PCM_ITS ---
Providers Date of Admission: 12/09/22 Date of Discharge: 12/12/22 Primary Care Physician: Dr. Ever Avila MD Reason For Visit: CVA Diagnosis Discharge Diagnosis (1) Altered mental status: Status: Acute Code(s): R41.82 - Altered mental status, unspecified Plan #Acute metabolic encephalopathy * MRI done today was negative for stroke. He did have a stroke evaluation in the ED on account of concerns for facial droop. * CT of the brain showed no acute intracranial pathology and CT of the head and neck was otherwise unremarkable. * His ammonia level was elevated so I suspect that the hyperammonemia is contributing to his confusion.\ * On lactulose. PT OT on board. Fall precautions * 2D echo showed EF of 55 to 60% with no significant valvular abnormality. * #Type 2 diabetes mellitus: On insulin sliding scale. Accu-Cheks ACHS. #History of bipolar disorder and schizoaffective disorder: #History of seizures: On Depakote. Depakote levels within normal limits. DVT prophylaxis: SCDs Disposition: Anticipate discharge tomorrow once mentation has improved since he has been started on lactulose. Total time spent on evaluation and management of patient, reviewing chart and specialist notes, discussion with nursing and ancillary staff as well as documentation: 38 mins Medications at Discharge Home Medications atenolol 25 mg tablet 12.5 mg PO DAILY essential hypertension 12/09/22 cetirizine 10 mg tablet 10 mg PO QHS allergy symptoms 12/09/22 clozapine 100 mg tablet (Clozaril) 200 mg PO BID schizoaffective disorder 12/09/22 diphenhydramine HCl 50 mg tablet 50 mg PO Q8H PRN PRN agitation/anxiety 12/09/22 divalproex 250 mg tablet,delayed release (Depakote) 250 mg PO BID biplolar/schizoaffectoive disorder 12/09/22 divalproex 500 mg tablet,delayed release (Depakote) 500 mg PO BID bipolar disorder/schizoaffective disorder 12/09/22 famotidine 20 mg tablet (Pepcid) 20 mg PO DAILY heartburn 12/09/22 lorazepam 1 mg tablet (Ativan) 1 mg PO Q6H PRN agitiation/anxiety 12/09/22 metformin 500 mg tablet 500 mg PO DAILY type 2 diabetes mellitus 12/09/22 multivitamin 1 tab PO DAILY supplement 12/09/22 paliperidone palmitate 234 mg/1.5 mL intramuscular syringe (Invega Sustenna) 234 mg IM DAILY Check with primary doctor 12/09/22 polyethylene glycol 3350 17 gram oral powder packet (Miralax) 17 g PO DAILY constipation 12/09/22 sennosides 8.6 mg-docusate sodium 50 mg tablet (Senokot-S) 1 tab PO DAILY constipation 12/09/22 timolol maleate 0.5 % once daily eye 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 He was admitted through the ED on 12/09/2022 with a complaint of unsteady gait. He had been falling because in his nursing facility and had also been having a softening gait. He had also been noted to have a facial droop. He was therefore admitted to rule out a stroke. He had CT of the brain which showed no acute intracranial pathology. MRI of the brain also showed no evidence of stroke. His ammonia level was however elevated so he was started on lactulose. His ammonia level trended down and his confusion resolved and he felt much better. He was discharged back to intermediate facility on 12/12/2022. His liver enzymes all remained totally within normal limits during the admission. He was therefore question whether his elevated ammonia level may be due to medication side effect. He is to continue with the lactulose and is to follow-up with his primary care doctor and his eye doctor for adjustment of his medication as needed. Patient seen and examined prior to discharge. He was much more alert today and had no active complaints. He was able to answer a few questions and review of systems otherwise negative. Labs and vitals reviewed. Medication reviewed and reconciled. Physical Exam Const Constitutional Narrative: more alert and communicative today General Appearance: comfortable HEENT normocephalic, head/scalp atraumatic, hearing grossly normal bilaterally and mo ist oral mucous membranes Mouth: oral and palatal mucosa normal Eyes PERRL, EOMs intact bilaterally and conjunctivae normal Neck no lymphadenopathy and supple Lymph Lymphatic: no lymphadenopathy noted Resp normal respiratory effort, normal air movement and clear to auscultation bilaterally Cardio regular rate, regular rhythm, S1 normal heart sound, S2 normal heart sound and no murmurs GI normal to inspection, nondistended, normoactive bowel sounds, soft to palpation, non-tender and non-distended Extremity normal capillary refill, no clubbing, cyanosis or edema and no calf tenderness General Extremity: cyanosis, edema and no tenderness to palpation of joints or extremities Skin General Skin Exam: no breakdown Neuro CN's II-XII intact bilaterally Neuro Narrative: moves all extremities. Weight / BMI Weight Weight: 176 lb 12.972 oz Body Mass Index (BMI) 32.3 ABG / Lab / Microbiology Data Result Diagrams: 12/12/22 05:00 12/12/22 05:00 Laboratory: Laboratory Results - last 24 hr 12/11/22 11:29: POC Glucose 295 H 12/11/22 17:38: POC Glucose 125 H 12/11/22 21:14: POC Glucose 207 H 12/12/22 05:00: WBC 6.1, RBC 4.98, Hgb 14.5, Hct 43.0, MCV 86.3, MCH 29.1, MCHC 33.7, RDW Std Deviation 42.3, RDW Coeff of Tana 13.6, Plt Count 191, MPV 10.6, Immature Gran % (Auto) 0.200, Neut % (Auto) 43.0 L, Lymph % (Auto) 39.5, Morrow % (Auto) 13.2 H, Eos % (Auto) 3.6, Baso % (Auto) 0.5, Absolute Neuts (auto) 2.6, Absolute Lymphs (auto) 2.40, Nucleated RBC % 0 12/12/22 05:00: Sodium 141, Potassium 3.6, Chloride 108 H, Carbon Dioxide 28.0, Anion Gap 5, BUN 14, Creatinine 1.21, Estim Creat Clear Calc 61.42, Est GFR (MDRD) Af Amer 84, Est GFR (MDRD) Non-Af 70, BUN/Creatinine Ratio 11.6, Glucose 162 H, Calcium 9.8, Total Bilirubin 0.60, AST 15, ALT 12 L, Alkaline Phosphatase 68, Total Protein 7.1, Albumin 3.6, Globulin 3.5, Albumin/Globulin Ratio 1.0 12/12/22 05:00: Ammonia 24.0 12/12/22 06:56: POC Glucose 172 H 12/12/22 11:13: POC Glucose 206 H Microbiology: Microbiology 12/12/22 10:40 Nasal Secretion SARS-CoV-2 Antigen (Rapid) - Final Radiography Diagnostic Testing: Radiology Impression Echocardiogram 12/09/22 21:08 Interpretation Summary The estimated ejection fraction is 55-60 %. No significant valvular abnormality No prior echocardiogram to compare. Ordering Physician: Ramesh Randall Referring Physician: Ever Avila Performed By: Dottie Bashir, ALISON, RVT D/C Instructions Discharge Diet: Low fat / Low cholesterol Weight Bearing Status: Weight bearing as tolerated Call your doctor if you observe: Fever of 101 or Higher, Shortness of breath, Swelling in the ankles, Increased palpitations (irregular heartbeat) and - (worsening confusion) Meaningful Use Info Meaningful Use Diagnoses (Choose all that apply): None applicable Discharge Plan Admission Admit Date/Time: 12/09/22 19:28 Primary Reason for Your Visit: acute encephalopathy Attending Provider: Adrienne Obrien Primary Care Provider: Ever Avila Consulting Providers: Ramesh Randall ; Ludy Owens Instructions Patient Instructions: ED Confusion Discharge Orders/Prescriptions Prescriptions: New lactulose 20 gram/30 mL solution 20 g PO TID Qty: 3000 0RF Rx Instructions: titrate until 2-3 loose stools daily Continued multivitamin Tablet 1 tab PO DAILY metformin 500 mg Tablet 500 mg PO DAILY divalproex [Depakote] 250 mg Tablet,Delayed Release (Dr/Ec) 250 mg PO BID polyethylene glycol 3350 [Miralax] 17 gram Powder In Packet 17 g PO DAILY cetirizine 10 mg Tablet 10 mg PO QHS diphenhydramine HCl 50 mg Tablet 50 mg PO Q8H PRN PRN (Reason: agitation/anxiety ) clozapine [Clozaril] 100 mg Tablet 200 mg PO BID atenolol 25 mg Tablet 12.5 mg PO DAILY divalproex [Depakote] 500 mg Tablet,Delayed Release (Dr/Ec) 500 mg PO BID lorazepam [Ativan] 1 mg Tablet 1 mg PO Q6H PRN (Reason: agitiation/anxiety ) Invega Sustenna 234 mg/1.5 mL Syringe 234 mg IM DAILY Rx Instructions: give every 28 days tuberculin PPD 1 unit/0.1 mL Solution 1 tb unit INTRADERMAL LUNCH sennosides-docusate sodium [Senokot-S] 8.6-50 mg Tablet 1 tab PO DAILY famotidine [Pepcid] 20 mg Tablet 20 mg PO DAILY timolol maleate 0.5 % Drops, Once Daily 1 drp EACH EYE DAILY Referrals / Follow Up: Ever Avila MD [Primary Care Provider] - Within 2 Weeks Care Physician,No Primary [Non-Staff] - Disposition Disposition (needs filled in before D/C Order can be placed): Alf Facility Charges/Coding Visit Charges Inpatient E&M: 56665 Disch Hosp >30min
--- NOTE | 2022-12-12 12:21 | PHA.DC.MR ---
Pharmacy Service has performed discharge medication reconciliation for this patient. The patient's discharge medication list was reviewed for discrepancies and discrepancies were resolved. Home Medications atenolol 25 mg tablet 12.5 mg PO DAILY essential hypertension 12/09/22 cetirizine 10 mg tablet 10 mg PO QHS allergy symptoms 12/09/22 clozapine 100 mg tablet (Clozaril) 200 mg PO BID schizoaffective disorder 12/09/22 diphenhydramine HCl 50 mg tablet 50 mg PO Q8H PRN PRN agitation/anxiety 12/09/22 divalproex 250 mg tablet,delayed release (Depakote) 250 mg PO BID biplolar/schizoaffectoive disorder 12/09/22 divalproex 500 mg tablet,delayed release (Depakote) 500 mg PO BID bipolar disorder/schizoaffective disorder 12/09/22 famotidine 20 mg tablet (Pepcid) 20 mg PO DAILY heartburn 12/09/22 lorazepam 1 mg tablet (Ativan) 1 mg PO Q6H PRN agitiation/anxiety 12/09/22 metformin 500 mg tablet 500 mg PO DAILY type 2 diabetes mellitus 12/09/22 multivitamin 1 tab PO DAILY supplement 12/09/22 paliperidone palmitate 234 mg/1.5 mL intramuscular syringe (Invega Sustenna) 234 mg IM DAILY Check with primary doctor 12/09/22 polyethylene glycol 3350 17 gram oral powder packet (Miralax) 17 g PO DAILY constipation 12/09/22 sennosides 8.6 mg-docusate sodium 50 mg tablet (Senokot-S) 1 tab PO DAILY constipation 12/09/22 timolol maleate 0.5 % once daily eye 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 12/09/22 tuberculin PPD 1 unit/0.1 mL intradermal injection solution 1 tb unit intradermal LUNCH tuberculosis surveillance 12/09/22 lactulose 20 gram/30 mL oral solution 20 g (30 mL) PO TID #3,000 mL 12/12/22
--- NOTE | 2022-12-12 12:59 | CASEMGMT ---
Discharge orders faxed to patients guardian per her request. Elicia Rivera
[2022-12-12 13:40] VITALS: BP 115/65; PULSE 107; RESP 16; TEMP 36.8; O2SAT 96
--- NOTE | 2022-12-12 14:15 | CASEMGMT ---
Patient is ready for discharge back to [facility]. HAKEEM called [facility] and arranged for patient to get picked up at 2p via cot. Orders and COVID test were faxed to [facility] per their request. SW notified RN, secretary receptionist, and [facility]. Orders were also faxed to patient's legal guardian. Plan: d/c back to [facility] under intermediate level of care. Physicians transported patient via cot. Abbie GONZÁLES
--- NOTE | 2022-12-12 16:08 | NURSING ---
Report Called to [facility]
== END 2022-12-12 15:23 | disposition skilled nursing facility (03) | DRG 91 ==
LOC: ED 19:07 → PCU 19:56
PROVIDERS: Internal Medicine; Admitting Provider Hospitalist; Emergency Provider Emergency Medicine; PCP Family Medicine; Visit Provider Student in an Organized Health Care Education/Training Program
DX: R26.9 Unspecified abnormalities of gait and mobility (principal); G93.41 Metabolic encephalopathy; F25.9 Schizoaffective disorder, unspecified; E11.51 Type 2 diabetes mellitus with diabetic peripheral angiopathy without gangrene; F31.9 Bipolar disorder, unspecified; G40.909 Epilepsy, unspecified, not intractable, without status epilepticus; E78.5 Hyperlipidemia, unspecified; I10 Essential (primary) hypertension; F17.210 Nicotine dependence, cigarettes, uncomplicated; Z79.84 Long term (current) use of oral hypoglycemic drugs; Z87.820 Personal history of traumatic brain injury
CPT/HCPCS: 36415; 70450; 70496; 70498; 70551; 71045; 80048; 80053; 80061; 80164; 82140; 82962; 83036; 84484; 85025; 85610; 85730; 87811; 92507; 92523; 92610; 92611; 93005; 93306; 97110; 97116; 97162; 97166; 97530; 97535; 97802; 99285; J7120; Q9957; Q9967; A4216

== ENCOUNTER → 2023-01-23 | Outpatient (CLI) | payer MEDICARE, MEDICAID, SELFPAY ==
--- NOTE | 2023-01-23 14:45 | CT_ITS ---
INDICATION: R/O GRAVES DISEASE EXAMINATION: CT ORBITS WITH IV - CT IAC/PF/Orbit/Sella W/O Contrast Injection TECHNIQUE: Helically acquired images were obtained of the orbits with sagittal and coronal reconstructed images. Individualized dose optimization techniques were used for this CT. IV contrast dosage and agent: None. COMPARISON: 12/09/2022 CT. FINDINGS: ORBITAL CONTENTS: The extraocular muscles, optic nerves and retrobulbar fat are unremarkable. There is bilateral proptosis. Bilateral lacrimal glands appear normal. BRAIN: Visualized brain is unremarkable. SOFT TISSUES: The periorbital soft tissues are unremarkable. VISUALIZED PARANASAL SINUSES: Clear. BONES: No fracture. CT/Orb Sella Post Fossa Ear w/o IMPRESSION: Bilateral proptosis which is a finding associated with Graves'' disease. Extraocular muscles and retrobulbar fat appear normal. Electronically Signed: Douglas Romero DO at 1:42 EDT ,
== END | disposition home or self-care (01) ==
PROVIDERS: PCP Family Medicine; Referring Provider Family Medicine; Visit Provider Family Medicine
DX: H05.243 Constant exophthalmos, bilateral (principal)
CPT/HCPCS: 70480

== ENCOUNTER 2023-03-02 13:35 | Inpatient (IN) | payer MEDICARE, MEDICAID, SELFPAY ==
[2023-03-02] VITALS (15 sets, daily range): BP systolic 108–143; BP diastolic 62–108; PULSE 111–131; RESP 12–21; TEMP 36.3–36.5; O2SAT 98–100; BMI 28.6; BMI 29.0
--- NOTE | 2023-03-02 13:52 | EDS_ITS ---
HPI <NIXON Tavares - Last Filed: 03/02/23 14:52> History of Present Illness Chief Complaint: Nausea/Vomiting Narrative Narrative: 42-year-old male with past medical history of type 2 diabetes, psychiatric history presents via EMS from his extended care facility for nausea and vomiting. He states for the last 3 weeks he vomits a couple minutes after any p.o. intake. He has abdominal discomfort. He is having normal daily bowel movements and no urinary symptoms. He is on metformin. PFSH <NIXON Tavares - Last Filed: 03/02/23 14:52> [facility] Medical History Alternating exotropia Anemia Anxiety Bipolar disorder Blindness Cannabis abuse Chronic pain syndrome Constant exophthalmos, bilateral Constipation Diabetes Disorder of urea cycle metabolism, unspecified Disturbances of salivary secretion Dysphagia Essential (primary) hypertension GERD (gastroesophageal reflux disease) Glaucoma History of psychiatric disorder Hyperlipidemia Hypertensive retinopathy, right eye Insomnia Muscle weakness Myopia, unspecified eye Posterior subcapsular polar age-related cataract, bilateral PVD (peripheral vascular disease) Schizoaffective disorder Seizures TBI (traumatic brain injury) Type 2 diabetes mellitus Unspecified intellectual disabilities Unspecified psychosis 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 or known physiological condition Home Medications cetirizine 10 mg tablet 10 mg PO QHS allergy symptoms 12/09/22 [History Last Taken 03/01/23] clozapine 100 mg tablet (Clozaril) 200 mg PO BID schizoaffective disorder 12/09/22 [History Last Taken 03/02/23] diphenhydramine HCl 50 mg tablet 50 mg PO Q8H PRN PRN agitation/anxiety 12/09/22 [History Last Taken Unknown] divalproex 500 mg tablet,delayed release (Depakote) 500 mg PO QHS bipolar disorder/schizoaffective disorder 12/09/22 [History Last Taken 03/01/23] lorazepam 1 mg tablet (Ativan) 1 mg PO Q6H PRN agitiation/anxiety 12/09/22 [History Last Taken Unknown] multivitamin 1 tab PO DAILY supplement 12/09/22 [History Last Taken 03/02/23] paliperidone palmitate 234 mg/1.5 mL intramuscular syringe (Invega Sustenna) 234 mg IM DAILY Check with primary doctor 12/09/22 [History Last Taken Unknown] polyethylene glycol 3350 17 gram oral powder packet (Miralax) 17 g PO DAILY constipation 12/09/22 [History Last Taken 03/02/23] timolol maleate 0.5 % once daily eye 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 12/09/22 [History Last Taken 03/02/23] lactulose 20 gram/30 mL oral solution 20 g (30 mL) PO TID #3,000 mL 12/12/22 [Rx Last Taken 03/02/23] latanoprost 0.005 % eye drops 1 drp ophthalmic (eye) QPM 02/20/23 [History Last Taken 03/01/23] metoprolol tartrate 25 mg tablet 25 mg PO DAILY 02/20/23 [History Last Taken 03/02/23] acetaminophen 325 mg tablet 650 mg PO Q4H PRN fever or pain 03/02/23 [History Last Taken Unknown] divalproex 250 mg tablet,delayed release 250 mg PO DAILY BIPOLAR 03/02/23 [ History Last Taken 03/02/23] metformin 1,000 mg tablet 1,000 mg PO BID DM 03/02/23 [History Last Taken 03/02/23] pantoprazole 40 mg tablet,delayed release (Protonix) 40 mg PO DAILY GERD 03/02/23 [History Last Taken Unknown] sennosides 8.6 mg tablet (Senokot) 8.6 mg PO DAILY CONSTIPATION 03/02/23 [History Last Taken 03/02/23] Allergy/AdvReac Type Severity Reaction Status Date / Time Sulfa (Sulfonamide Allergy Mild Other Verified 03/02/23 13:36 Antibiotics) 5HTS Receptor antagonist Allergy Unknown Other Uncoded 02/20/23 13:32 Family History unable to obtain Social History (Updated 03/02/23 @ 15:[address] Cherry Grace, DO) housing: jail other: Patient has a legal guardian and is a long-term resident at [facility] Smoking Status: Unknown if ever smoked details: Unknown substance use type: other details: Unknown ROS <NIXON Tavares - Last Filed: 03/02/23 14:52> ROS ED ROS Narrative Constitutional: Negative for fever, chills, malaise. CVS: Negative for chest pain. Respiratory: Negative for shortness of breath. GI: Positive for abdominal pain, nausea, vomiting. Negative for diarrhea, constipation, melena, hematochezia. : Negative for dysuria, frequency. Neuro: Negative for headache. EXAM <NIXON Tavares - Last Filed: 03/02/23 14:52> Physical Exam Narrative Exam Narrative: CONST: Patient sitting in no acute distress. EYES: Normal inspection. ENT: Normal inspection, dry mucous membranes. NECK: Normal inspection. RESP: No respiratory distress, CTAB. CVS: Rapid but regular rhythm, no murmur, no gallop. ABD: Soft and nontender, no guarding or rebound, nondistended. SKIN: Color normal, no rash, warm, dry, intact. EXTREMITIES: Normal appearance, no pedal edema. NEURO: Oriented x4. PSYCH: Normal affect. Const Vital Signs: 03/02/23 13:41 03/02/23 13:56 03/02/23 14:36 Temperature 97.7 F L Temperature Source Oral Pulse Rate 131 H 130 H 124 H Respiratory Rate 16 18 Blood Pressure 142/77 H 122/80 H 143/84 H Blood Pressure Mean 98 94 103 Pulse Ox 100 100 Oxygen Delivery Method Room Air Room Air <Dr. Hermelindo Carvalho, DO - Last Filed: 03/02/23 22:10> Physical Exam Const Vital Signs: 03/02/23 13:41 03/02/23 13:56 03/02/23 14:36 Temperature 97.7 F L Temperature Source Oral Pulse Rate 131 H 130 H 124 H Respiratory Rate 16 18 Blood Pressure 142/77 H 122/80 H 143/84 H Blood Pressure Mean 98 94 103 Pulse Ox 100 100 Oxygen Delivery Method Room Air Room Air MDM <NIXON Tavares - Last Filed: 03/02/23 14:52> [facility] Narrative Medical decision making narrative: Patient with history of DM2 presents with nausea and vomiting over the last 3 weeks. History somewhat limited due to his psychiatric history. He appears well and nontoxic. Heart rates in the 130s with otherwise normal vital signs. He has dry mucous membranes and a soft, benign abdomen. He was given IV fluids and Zofran while labs were obtained to rule out DKA. CBC is within normal limits. BMP shows glucose of 453, CO2 18, anion gap of 20, positive ketones consistent with DKA. Creatinine is slightly elevated at 1.95 (previously 1.21). UA has ketones and glucosuria but is negative for infection. He was given IV fluids and started on an insulin drip. Case will be discussed with the hospitalist for admission to the ICU. Differential: Diabetic hyperglycemia, DKA, UTI, less likely intra-abdominal process with no abdominal tenderness Tests considered: No indication for CT as there is no abdominal tenderness and no leukocytosis. 35 minutes of critical care time was consumed by evaluation of patient, treatment and planning, and discussion with consultants. Lab Data Attestation: I reviewed the patient's lab results. Labs: Laboratory Results - last 24 hr 03/02/23 03/02/23 13:55 14:15 WBC 7.1 RBC 5.65 Hgb 16.0 Hct 47.5 MCV 84.1 MCH 28.3 MCHC 33.7 RDW Std Deviation 44.7 H RDW Coeff of Tana 14.7 H Plt Count 244 MPV 11.4 Immature Gran % (Auto) 0.400 Neut % (Auto) 59.3 Lymph % (Auto) 26.2 Weber % (Auto) 12.9 H Eos % (Auto) 0.6 Baso % (Auto) 0.6 Absolute Neuts (auto) 4.2 Absolute Lymphs (auto) 1.86 Nucleated RBC % 0 Sodium 133 L Potassium 5.1 Chloride 95 L Carbon Dioxide 18.0 L Anion Gap 20 H BUN 13 Creatinine 1.95 H Estim Creat Clear Calc 38.11 Est GFR (MDRD) Af Amer 49 L Est GFR (MDRD) Non-Af 40 L BUN/Creatinine Ratio 6.7 L Glucose 453 H* Calcium 10.2 H Magnesium 2.1 Lipase 32 Urine Color Yellow Urine Clarity Clear Urine pH 5.0 Ur Specific [place] 1.025 Urine Protein 15 H Urine Glucose (UA) 1000 H Urine Ketones 150 A* Urine Occult Blood Negative Urine Nitrite Negative Urine Bilirubin Negative Urine Urobilinogen Normal Ur Leukocyte Esterase Negative Urine RBC 0 SEEN Urine WBC 0 SEEN Ur Squamous Epith Cells 0 SEEN Urine Bacteria 0 SEEN Urine Mucus 0 SEEN Acetone Level MODERATE H <Dr. Hermelindo Carvalho, DO - Last Filed: 03/02/23 22:10> [facility] Lab Data Labs: Laboratory Results - last 24 hr 03/02/23 03/02/23 13:55 14:15 WBC 7.1 RBC 5.65 Hgb 16.0 Hct 47.5 MCV 84.1 MCH 28.3 MCHC 33.7 RDW Std Deviation 44.7 H RDW Coeff of Tana 14.7 H Plt Count 244 MPV 11.4 Immature Gran % (Auto) 0.400 Neut % (Auto) 59.3 Lymph % (Auto) 26.2 Weber % (Auto) 12.9 H Eos % (Auto) 0.6 Baso % (Auto) 0.6 Absolute Neuts (auto) 4.2 Absolute Lymphs (auto) 1.86 Nucleated RBC % 0 Sodium 133 L Potassium 5.1 Chloride 95 L Carbon Dioxide 18.0 L Anion Gap 20 H BUN 13 Creatinine 1.95 H Estim Creat Clear Calc 38.11 Est GFR (MDRD) Af Amer 49 L Est GFR (MDRD) Non-Af 40 L BUN/Creatinine Ratio 6.7 L Glucose 453 H* Calcium 10.2 H Magnesium 2.1 Lipase 32 Urine Color Yellow Urine Clarity Clear Urine pH 5.0 Ur Specific [place] 1.025 Urine Protein 15 H Urine Glucose (UA) 1000 H Urine Ketones 150 A* Urine Occult Blood Negative Urine Nitrite Negative Urine Bilirubin Negative Urine Urobilinogen Normal Ur Leukocyte Esterase Negative Urine RBC 0 SEEN Urine WBC 0 SEEN Ur Squamous Epith Cells 0 SEEN Urine Bacteria 0 SEEN Urine Mucus 0 SEEN Acetone Level MODERATE H Treatment and Re-Evaluation :: I have personally performed a face to face assessment of the patient and have reviewed the BETTY Note. I performed a substantive portion of the visit including all aspects of the following. My [place] findings include: History: Patient presents with nausea and vomiting that has been constant for the past 3 weeks. Patient states he is able to keep some liquids down. Patient denies any fevers or chills. Patient denies any hematemesis or coffee-ground emesis. Patient denies any diarrhea. Patient is diabetic. Patient is a poor informant. Exam: Vital signs are stable except for tachycardia of 130. Patient is afebrile. Patient is in no acute distress. Oral mucosa is pink and somewhat dry. Neck is supple. Trachea is midline. There is no JVD. Heart was regular and tachycardic. Lungs are clear and equal bilaterally. Abdomen is soft. Bowel sounds are normal. There is mild diffuse tenderness. There is no rebound or guarding noted. Cranial nerves II through XII are grossly intact. There are no focal motor or sensory deficits noted. Medical Decision Making: Differential diagnosis includes DKA, HHNC, electrolyte abnormality, dehydration, and infection. CBC will be obtained to assess for leukocytosis and anemia. Basic metabolic profile will be obtained to assess for electrolyte abnormality, glucose, and renal function. Urinalysis will be obta ined to assess for urinary ketones and urinary tract infection. Serum acetone will be obtained to assess for serum ketones. CBC was reviewed and was essentially within normal limits. Basic metabolic profile was reviewed. Glucose was elevated at 453. Anion gap was elevated at 20. CO2 was low at 18. Serum acetone was reviewed and was moderate. Urinalysis was reviewed. Urine ketones were 150. Urine glucose was 1000. There is no evidence of urinary tract infection. Patient was started on insulin drip. Case was discussed with the hospitalist. Patient will be admitted to ICU. <Dr. Hermelindo Carvalho, DO - Last Filed: 03/02/23 22:10> Critical Care Time Critical Care Time: Yes Critical care time (excluding procedures): 30-74 minutes (34), Including time spent:, Discussing w/Patient &/or Family/World History Teacher, Discussing w/Consultants, Arranging Admission or Transfer and Performing Direct Patient Care at Bedside Discharge Plan Dx/Rx/DC Orders Clinical Impression: Acute kidney injury, Acute dehydration, DKA (diabetic ketoacidosis), Nausea and vomiting Disposition Disposition: [facility] Discharge Date/Time: 03/02/23 16:19
[2023-03-02 14:09] LABS: Absolute Lymphocyte Count 1.86 X10^3/uL (0.83-4.51); Absolute Neutrophil Count 4.2 X10^3/uL (2.0-7.7); Basophil# 0.04 X10^3/uL; Basophil% 0.6 % (0-1); Eosinophil# 0.04 X10^3/uL; Eosinophils% 0.6 % (0-5); Hematocrit 47.5 % (40-54); Lymphocyte # 1.86 X10^3/ul (0.83-4.51); Lymphocyte % 26.2 % (19-41); Mean Corp Hgb Conc 33.7 g/dL (32-36); Mean Corpuscular Hgb 28.3 pg (27.0-32.0); Mean Corpuscular Volume 84.1 fL (80-94); Mean Platelet Vol. 11.4 fl (6.2-12.0); Monocyte# 0.92 X10^3/uL; Monocyte% 12.9 % (0-10); NRBC Flagged by Analyzer 0 % (0-5); Neutrophil # 4.22 X10^3/uL (2.7-7.7); Neutrophil % 59.3 % (47-70); Platelet Count 244 K/mm3 (150-450); RBC Distribution Width CV 14.7 % (11.6-14.6); RBC Distribution Width SD 44.7 fl (35.1-43.9); Red Blood Count 5.65 M/mm3 (4.6-6.2); White Blood Count 7.1 K/mm3 (4.4-11.0)
[2023-03-02] MEDS: Ondansetron 4 MG/2 ML Vial IV ×2 (14:21→18:15)
[2023-03-02] MEDS: 0.9% Normal Saline 1,000 ML 999 ML IV ×3 (14:21→17:29)
[2023-03-02 14:22] LABS: Bacteria 0 SEEN /hpf (None Seen); Mucous, Urine 0 SEEN /hpf (<or=2+); Red Blood Cells-Urine 0 SEEN /hpf (0-5); Squamous Epithelial Cells - UA 0 SEEN /hpf (0-5); White Blood Cells 0 SEEN /hpf (0-5)
[2023-03-02 14:30] LABS: Color, Urine Yellow (Yellow); Glucose, Dipstick 1000 mg/dl (Normal); Leukocyte Esterase-Dipstick Negative /ul (Negative); Nitrite-Dipstick Negative (Negative); Occult Blood-Urine Negative /ul (Negative); Protein-Dipstick 15 mg/dl (Negative); Specific Gravity, Urine 1.025 (1.002-1.030); Urine Bilirubin Dipstick Negative (Negative); Urine Clarity Clear (Clear); Urine Urobilinogen Normal (Normal)
[2023-03-02 14:32] LABS: Ketone-Dipstick 150 mg/dl (Negative)
[2023-03-02 14:37] LABS: Anion Gap 20 (5-15); BUN 13 mg/dL (7-18); BUN/Creat Ratio 6.7 RATIO (10-20); Calcium,Total 10.2 mg/dL (8.5-10.1); Chloride 95 mmol/L (98-107); Creatinine, Serum 1.95 mg/dL (0.70-1.30); EST Glomerular Filtration Rate 40 mL/min (>60); Est Glom Filt Rate - Afr Amer 49 mL/min (>60); Estimated Creatinine Clearance 38.11 ml/min; Glucose 453 mg/dL (74-106); Potassium 5.1 mmol/L (3.5-5.1); Sodium Level 133 mmol/L (136-145)
--- NOTE | 2023-03-02 15:03 | ED.RN ---
Left message for legal guardian Nika Garcia to give consent to treat.
[2023-03-02 15:29] LABS: Lipase 32 U/L (13-75); Magnesium 2.1 mg/dL (1.6-2.6)
--- NOTE | 2023-03-02 15:37 | PCM.HP.STD ---
HPI - General General Date of Admission: 03/02/23 Date of Service: 03/02/23 Chief Complaint: Intractable nausea and vomiting HPI Narrative JERMAN ROLAND, is a 42 M who presented to the emergency department from an [facility], with abdominal pain nausea and vomiting. The patient lives there chronically and has a legal guardian. Patient on presentation is extremely poor historian however he did indicate he had been having nausea and vomiting for what he reports to be 3 weeks. He states he is not having bowel movements but is passing gas. He is unable to really participate any other questioning. On presentation his temperature was 97.7, heart rate 131, blood pressure 142/77, respiratory rate was 16 and oxygen saturations are 100% on room air. CBC is unremarkable. BMP shows hyponatremia the sodium of 133, chloride of 95, serum bicarb of 18, anion gap of 20, serum creatinine of 1.95 with a baseline of 1.1-1.2, blood glucose of 453, normal magnesium level and a normal lipase. His UA shows ketones, glucose, and protein. Acetone level is moderate. The patient did have a recent hospitalization here in November at which time his hemoglobin A1c was assessed and found to be 6.7. He was on metformin prior to this. Fluids and started on insulin drip in the emergency department. [facility] Medical History Alternating exotropia Anemia Anxiety Bipolar disorder Blindness Cannabis abuse Chronic pain syndrome Constant exophthalmos, bilateral Constipation Diabetes Disorder of urea cycle metabolism, unspecified Disturbances of salivary secretion Dysphagia Essential (primary) hypertension GERD (gastroesophageal reflux disease) Glaucoma History of psychiatric disorder Hyperlipidemia Hypertensive retinopathy, right eye Insomnia Muscle weakness Myopia, unspecified eye Posterior subcapsular polar age-related cataract, bilateral PVD (peripheral vascular disease) Schizoaffective disorder Seizures TBI (traumatic brain injury) Type 2 diabetes mellitus Unspecified intellectual disabilities Unspecified psychosis 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 or known physiological condition Home Medications cetirizine 10 mg tablet 10 mg PO QHS allergy symptoms 12/09/22 [History Last Taken 03/01/23] clozapine 100 mg tablet (Clozaril) 200 mg PO BID schizoaffective disorder 12/09/22 [History Last Taken 03/02/23] diphenhydramine HCl 50 mg tablet 50 mg PO Q8H PRN PRN agitation/anxiety 12/09/22 [History Last Taken Unknown] divalproex 500 mg tablet,delayed release (Depakote) 500 mg PO QHS bipolar disorder/schizoaffective disorder 12/09/22 [History Last Taken 03/01/23] lorazepam 1 mg tablet (Ativan) 1 mg PO Q6H PRN agitiation/anxiety 12/09/22 [History Last Taken Unknown] multivitamin 1 tab PO DAILY supplement 12/09/22 [History Last Taken 03/02/23] paliperidone palmitate 234 mg/1.5 mL intramuscular syringe (Invega Sustenna) 234 mg IM DAILY Check with primary doctor 12/09/22 [History Last Taken Unknown] polyethylene glycol 3350 17 gram oral powder packet (Miralax) 17 g PO DAILY constipation 12/09/22 [History Last Taken 03/02/23] timolol maleate 0.5 % once daily eye 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 12/09/22 [History Last Taken 03/02/23] lactulose 20 gram/30 mL oral solution 20 g (30 mL) PO TID #3,000 mL 12/12/22 [Rx Last Taken 03/02/23] latanoprost 0.005 % eye drops 1 drp ophthalmic (eye) QPM 02/20/23 [History Last Taken 03/01/23] metoprolol tartrate 25 mg tablet 25 mg PO DAILY 02/20/23 [History Last Taken 03/02/23] acetaminophen 325 mg tablet 650 mg PO Q4H PRN fever or pain 03/02/23 [History Last Taken Unknown] divalproex 250 mg tablet,delayed release 250 mg PO DAILY BIPOLAR 03/02/23 [History Last Taken 03/02/23] metformin 1,000 mg tablet 1,000 mg PO BID DM 03/02/23 [History Last Taken 03/02/23] pantoprazole 40 mg tablet,delayed release (Protonix) 40 mg PO DAILY GERD 03/02/23 [History Last Taken Unknown] sennosides 8.6 mg tablet (Senokot) 8.6 mg PO DAILY CONSTIPATION 03/02/23 [History Last Taken 03/02/23] Allergy/AdvReac Type Severity Reaction Status Date / Time Sulfa (Sulfonamide Allergy Mild Other Verified 03/02/23 13:36 Antibiotics) 5HTS Receptor antagonist Allergy Unknown Other Uncoded 02/20/23 13:32 Family History unable to obtain unable to obtain Surgical History unable to obtain unable to obtain Social History (Updated 03/02/23 @ 15:[address] Cherry Grace DO) housing: prison other: Patient has a legal guardian and is a long-term resident at [facility] Smoking Status: Unknown if ever smoked details: Unknown substance use type: other details: Unknown ROS ROS Narrative Difficult to obtain review of systems due to the fact that the patient is a poor historian and has schizophrenia at baseline that appears to be fairly severe patient did acknowledge that he was having abdominal pain, nausea, and vomiting for what he reported to be is 3 weeks however history is questionable and very unclear Vital Signs Vital Signs Vital Signs: 03/02/23 13:41 03/02/23 13:56 03/02/23 14:36 Temperature 97.7 F L Temperature Source Oral Pulse Rate 131 H 130 H 124 H Respiratory Rate 16 18 Blood Pressure 142/77 H 122/80 H 143/84 H Blood Pressure Mean 98 94 103 Pulse Ox 100 100 Oxygen Delivery Method Room Air Room Air 03/02/23 15:00 Temperature 97.6 F L Temperature Source Oral Pulse Rate 122 H Respiratory Rate 18 Blood Pressure 140/88 H Blood Pressure Mean 105 Pulse Ox 100 Oxygen Delivery Method Room Air Weight Weight: 71.1 kg Body Mass Index (BMI) 28.6 Physical Exam Const alert and no apparent distress Constitutional Narrative: Middle-aged, -[place], male patient is oriented to place and self but not time, appears nontoxic, somewhat difficult to understand HEENT normocephalic, head/scalp atraumatic and hearing grossly normal bilaterally HEENT Narrative: Dentition is poor, Mallampati is 3, mucous membranes are slightly dry Eyes PERRL, EOMs intact bilaterally and conjunctivae normal Eyes Narrative: Arcus senilis present, no scleral icterus Neck no lymphadenopathy, supple, no JVD and no carotid bruits Resp no retractions, no use of accessory muscles and clear to auscultation bilaterally Resp Narrative: Mild tachypnea Auscultation: rales, rhonchi and wheezes Cardio regular rhythm, S1 normal heart sound, S2 normal heart sound, no murmurs, no rub, no gallops and no clicks Cardio Narrative: Tachycardia GI GI Narrative: Diffuse abdominal tenderness, soft and nondistended with normal bowel sounds Extremity no clubbing, cyanosis or edema Extremity Narrative: Decreased lean muscle mass, pedal pulses are 2+ Skin No skin turgor normal, no jaundice, no petechiae and no mottling Skin Narrative: Scattered tattoos, no significant lesions identified, skin turgor shows tenting Neuro CN's II-XII intact bilaterally, moves all extremities and no focal motor deficits Neuro Narrative: Significant generalized weakness noted, no clonus present, speech is somewhat garbled and at times difficult to understand Sensorium / Orientation: awake, alert, oriented to person and oriented to place Psych Psych Narrative: Affect is extremely flat, eye contact is poor Results Lab / Micro Data 03/02/23 13:55 03/02/23 13:55 Labs: Laboratory Results - last 24 hr 03/02/23 13:55: WBC 7.1, RBC 5.65, Hgb 16.0, Hct 47.5, MCV 84.1, MCH 28.3, MCHC 33.7, RDW Std Deviation 44.7 H, RDW Coeff of Tana 14.7 H, Plt Count 244, MPV 11.4, Immature Gran % (Auto) 0.400, Neut % (Auto) 59.3, Lymph % (Auto) 26.2, [place] % (Auto) 12.9 H, Eos % (Auto) 0.6, Baso % (Auto) 0.6, Absolute Neuts (auto) 4.2, Absolute Lymphs (auto) 1.86, Nucleated RBC % 0, Sodium 133 L, Potassium 5.1, Chloride 95 L, Carbon Dioxide 18.0 L, Anion Gap 20 H, BUN 13, Creatinine 1.95 H, Estim Creat Clear Calc 38.11, Est GFR (MDRD) Af Amer 49 L, Est GFR (MDRD) Non-Af 40 L, BUN/Creatinine Ratio 6.7 L, Glucose 453 H*, Calcium 10.2 H, Magnesium 2.1, Lipase 32, Acetone Level MODERATE H 03/02/23 14:15: Urine Color Yellow, Urine Clarity Clear, Urine pH 5.0, Ur Specific [place] 1.025, Urine Protein 15 H, Urine Glucose (UA) 1000 H, Urine Ketones 150 A*, Urine Occult Blood Negative, Urine Nitrite Negative, Urine Bilirubin Negative, Urine Urobilinogen Normal, Ur Leukocyte Esterase Negative, Urine RBC 0 SEEN, Urine WBC 0 SEEN, Ur Squamous Epith Cells 0 SEEN, Urine Bacteria 0 SEEN, Urine Mucus 0 SEEN Assessment & Plan Assessment/Plan (1) Nausea and vomiting: (2) DKA (diabetic ketoacidosis): (3) Acute dehydration: (4) Acute kidney injury: (5) Hyponatremia: (6) Metabolic acidosis: PLAN: Plan DKA -This picture is somewhat confusing as he had a hemoglobin A1c in November that was 6.7 and only on metformin -We will need to check his pancreas out further once his creatinine improves and check a CT with contrast IV of the abdomen and pelvis -Lipase was normal -Insulin drip -IV fluids per DKA protocol -Every 4 serial BMPs -Repeat a magnesium and phosphorus -Monitor electrolytes for replacement needs -Check hemoglobin A1c -He is on multiple antipsychotics and I would expect diabetes but not fulminant DKA from this KATIA secondary to dehydration -Aggressive IV fluid resuscitation -Current serum creatinine 1.95 -Baseline serum creatinine is between 1.0 and 1.2 -Repeat lab in a.m. Hyponatremia -Pseudohyponatremia with a serum glucose of 453 -Corrected serum sodium is 139 Abdominal pain/nausea and vomiting -May be related to DKA -Patient states that been ongoing however history is somewhat questionable -When renal function improves check CT of the abdomen pelvis with contrast History of hyperammonemia -On lactulose likely related to Depakote -Continue lactulose DM-2 -See above -Hold home metformin -Check hemoglobin A1c Bipolar disorder/schizoaffective disorder -has legal guardian and lives at [facility] -continue Clozaril -Continue diphenhydramine -Continue valproic acid -Continue Invega -Continue home Ativan -Continue home lactone low-dose Glaucoma -Continue eyedrops Constipation -Continue Senokot -Continue MiraLAX -Could conceptually be the etiology of his nausea, abdominal pain and vomiting if it does not improve with treatment of his DKA GERD -Continue Protonix History of TBI -Stable DVT prophylaxis -Heparin twice daily CODE STATUS -Full code Charges/Coding Visit Charges Inpatient E&M: 15546 Init Hosp L3
[2023-03-02 17:11] LABS: Bedside Glucose 316 mg/dL (74-106)
[2023-03-02 17:54] LABS: Bedside Glucose 317 mg/dL (74-106)
[2023-03-02] MEDS: 0.9% Normal Saline 1,000 ML 500 ML IV (18:41)
[2023-03-02 19:00] LABS: Anion Gap 18 (5-15); BUN 11 mg/dL (7-18); BUN/Creat Ratio 6.8 RATIO (10-20); Calcium,Total 8.7 mg/dL (8.5-10.1); Chloride 109 mmol/L (98-107); Creatinine, Serum 1.61 mg/dL (0.70-1.30); EST Glomerular Filtration Rate 50 mL/min (>60); Est Glom Filt Rate - Afr Amer 61 mL/min (>60); Estimated Creatinine Clearance 44.21 ml/min; Glucose 243 mg/dL (74-106); Potassium 4.1 mmol/L (3.5-5.1); Sodium Level 143 mmol/L (136-145)
[2023-03-02 19:02] LABS: Bedside Glucose 180 mg/dL (74-106)
[2023-03-02 20:12] LABS: Hemoglobin A1c 11.5 % (3.8-5.6)
[2023-03-02] MEDS: Divalproex (ER) 500 MG Tablet PO (21:40)
[2023-03-02] MEDS: Latanoprost 0.005% 1 Bottle 1 DRP EACH EYE (21:40)
[2023-03-02] MEDS: cloZAPine 100 MG TABLET 200 MG PO (21:40)
[2023-03-02] MEDS: Lactulose 20 GM/30 ML UDC PO (21:40)
[2023-03-02] MEDS: Heparin Injection (Vial) 5,000 UNIT/ML VIAL 5000 UNIT SC (21:41)
[2023-03-02 22:08] LABS: Bedside Glucose 137 mg/dL (74-106)
[2023-03-02 22:09] LABS: Bedside Glucose 117 mg/dL (74-106)
[2023-03-02 22:20] LABS: Anion Gap 13 (5-15); BUN 10 mg/dL (7-18); BUN/Creat Ratio 6.7 RATIO (10-20); Calcium,Total 8.7 mg/dL (8.5-10.1); Chloride 113 mmol/L (98-107); EST Glomerular Filtration Rate 54 mL/min (>60); Est Glom Filt Rate - Afr Amer 66 mL/min (>60); Estimated Creatinine Clearance 47.46 ml/min; Glucose 155 mg/dL (74-106); Sodium Level 145 mmol/L (136-145)
[2023-03-03] VITALS (12 sets, daily range): BP systolic 94–127; BP diastolic 61–84; PULSE 68–109; RESP 12–26; TEMP 35.7–36.8; O2SAT 97–100; BMI 29.3
[2023-03-03] MEDS: Potassium Chloride Oral Tablet 20 MEQ 40 MEQ PO ×2 (00:15→05:35)
[2023-03-03] MEDS: Dext 5%-0.45% NS 1,000 ML 150 ML IV (00:17)
[2023-03-03 01:18] LABS: Anion Gap 8 (5-15); BUN 8 mg/dL (7-18); BUN/Creat Ratio 5.2 RATIO (10-20); Calcium,Total 8.5 mg/dL (8.5-10.1); Chloride 114 mmol/L (98-107); Creatinine, Serum 1.54 mg/dL (0.70-1.30); EST Glomerular Filtration Rate 53 mL/min (>60); Est Glom Filt Rate - Afr Amer 64 mL/min (>60); Estimated Creatinine Clearance 46.22 ml/min; Glucose 164 mg/dL (74-106); Potassium 3.4 mmol/L (3.5-5.1); Sodium Level 145 mmol/L (136-145)
[2023-03-03 01:40] LABS: Bedside Glucose 136 mg/dL (74-106)
[2023-03-03 01:40] LABS: Bedside Glucose 174 mg/dL (74-106)
[2023-03-03 01:40] LABS: Bedside Glucose 123 mg/dL (74-106)
[2023-03-03 01:40] LABS: Bedside Glucose 126 mg/dL (74-106)
[2023-03-03] MEDS: Insulin Glargine-YFGN 100 UNIT/ML Pen 12 UNIT SC (04:05)
[2023-03-03 04:25] LABS: Bedside Glucose 115 mg/dL (74-106)
[2023-03-03 04:57] LABS: Absolute Lymphocyte Count 2.89 X10^3/uL (0.83-4.51); Absolute Neutrophil Count 2.1 X10^3/uL (2.0-7.7); Basophil# 0.03 X10^3/uL; Basophil% 0.5 % (0-1); Eosinophil# 0.15 X10^3/uL; Eosinophils% 2.5 % (0-5); Hematocrit 37.6 % (40-54); Hemoglobin 12.8 g/dL (13.0-16.5); Lymphocyte # 2.89 X10^3/ul (0.83-4.51); Lymphocyte % 48.6 % (19-41); Mean Corpuscular Hgb 28.3 pg (27.0-32.0); Monocyte# 0.81 X10^3/uL; Monocyte% 13.6 % (0-10); NRBC Flagged by Analyzer 0 % (0-5); Neutrophil # 2.05 X10^3/uL (2.7-7.7); Neutrophil % 34.5 % (47-70); Platelet Count 177 K/mm3 (150-450); RBC Distribution Width CV 14.9 % (11.6-14.6); RBC Distribution Width SD 44.7 fl (35.1-43.9); Red Blood Count 4.53 M/mm3 (4.6-6.2)
[2023-03-03] MEDS: Lactulose 20 GM/30 ML UDC PO ×2 (05:36→13:21)
[2023-03-03 06:10] LABS: AST(SGOT) 7 U/L (15-37); Alanine Aminotransfer ALT/SGPT 9 U/L (16-61); Alkaline Phosphatase 83 U/L (45-117); Anion Gap 7 (5-15); BUN 7 mg/dL (7-18); BUN/Creat Ratio 5.2 RATIO (10-20); Calcium,Total 8.6 mg/dL (8.5-10.1); Chloride 115 mmol/L (98-107); Creatinine, Serum 1.34 mg/dL (0.70-1.30); EST Glomerular Filtration Rate 62 mL/min (>60); Est Glom Filt Rate - Afr Amer 75 mL/min (>60); Estimated Creatinine Clearance 53.12 ml/min; Glucose 126 mg/dL (74-106); Magnesium 1.9 mg/dL (1.6-2.6); Potassium 3.8 mmol/L (3.5-5.1); Sodium Level 146 mmol/L (136-145); Thyroid Stim Hormone (TSH) 6.27 uIU/mL (0.358-3.74)
[2023-03-03 06:22] LABS: Phosphorus 2.1 mg/dL (2.5-4.9)
--- NOTE | 2023-03-03 07:18 | CT_ITS ---
STUDY: CT ABDOMEN AND PELVIS WITH CONTRAST REASON FOR EXAM: Male, 42 years old. Abdominal pain nausea and vomiting x3 weeks RADIATION DOSAGE (If Supplied By Facility): CTDIvol = ( 16.84 ) mGy, DLP = ( 972.16 ) mGycm TECHNIQUE: Transaxial images were obtained from the dome of the diaphragm to the symphysis pubis with oral contrast. Oral and amp; IV Gastrografin and amp; 100mL Isovue-370 was administered. Sagittal and coronal images were reconstructed. Individualized dose optimization techniques were used for this CT. COMPARISON: None. FINDINGS: The visualized lung bases are unremarkable. The visualized portions of the heart are within normal limits. Normal liver. The gallbladder is contracted. Normal spleen. Normal pancreas. Normal bilateral adrenal glands. No obstructive uropathy, or suspicious solid renal lesion, nonobstructing left renal stone. Normal visualized stomach. Normal small intestine. Normal colon. The appendix is visualized and appears normal. Appendix seen on coronal recon images 42 through 56 Normal abdominal aorta. Normal inferior vena cava. Normal retroperitoneum. Normal urinary bladder. Normal abdominal wall. Normal osseous structures. CT/Abdomen/Pelvis WITH Contrast IMPRESSION: No suspicious solid organ abnormality No free intraperitoneal fluid, air, or suspicious adenopathy. Normal appendix visualized Electronically Signed: Joel Brandon MD at 11:13 EDT ,
[2023-03-03] MEDS: 0.45% Normal Saline 1,000 ML 75 ML IV ×2 (08:05→21:58)
[2023-03-03] MEDS: Ondansetron 4 MG/2 ML Vial IV (08:05)
[2023-03-03 08:09] LABS: Bedside Glucose 145 mg/dL (74-106)
[2023-03-03 08:09] LABS: Bedside Glucose 109 mg/dL (74-106)
[2023-03-03 09:41] LABS: Anion Gap 10 (5-15); BUN 7 mg/dL (7-18); BUN/Creat Ratio 5.1 RATIO (10-20); Calcium,Total 8.8 mg/dL (8.5-10.1); Chloride 113 mmol/L (98-107); Creatinine, Serum 1.38 mg/dL (0.70-1.30); EST Glomerular Filtration Rate 60 mL/min (>60); Est Glom Filt Rate - Afr Amer 72 mL/min (>60); Estimated Creatinine Clearance 51.58 ml/min; Glucose 209 mg/dL (74-106); Sodium Level 145 mmol/L (136-145)
[2023-03-03] MEDS: Polyethylene Glycol 3350 17 GM PACKET PO (12:09)
[2023-03-03] MEDS: Metoprolol Tartrate 25 MG Tablet PO (12:09)
[2023-03-03] MEDS: Pantoprazole Sodium 40 MG Tablet PO (12:10)
[2023-03-03] MEDS: Senna/Docusate Sodium 1 Tablet 2 TABLET PO (12:10)
[2023-03-03] MEDS: cloZAPine 100 MG TABLET 200 MG PO ×2 (12:10→22:13)
[2023-03-03] MEDS: Heparin Injection (Vial) 5,000 UNIT/ML VIAL 5000 UNIT SC ×2 (12:11→22:10)
[2023-03-03] MEDS: Divalproex (ER) 250 MG Tablet PO (12:12)
--- NOTE | 2023-03-03 12:19 | PCM.PN.HOSP ---
Reason for Visit Reason for Visit: Abdominal pain/nausea/vomiting Subjective Subjective Patient was converted off the insulin drip this morning. Has not yet had any oral diet. Still complaining abdominal pain so we will check CT of the abdomen pelvis. Did just vomit up the contrast. A1c is markedly elevated 11.5 with previous A1c on 12/10/2022 being 6.7. I am unclear why he has had this dramatic change but now it appears that he will be insulin-dependent at discharge. Objective Data Objective Data Vital Signs: Vital Signs Temp Pulse Resp BP Pulse Ox O2 Del Method 96.7 F L 106 H 17 111/68 97 Room Air 03/03/23 04:00 03/03/23 12:09 03/03/23 07:00 03/03/23 12:09 03/03/23 07:00 03/03/23 07:00 Oxygen Delivery Method Room Air Weight: 72.348 kg Body Mass Index (BMI) 29.3 Intake & Output: Intake and Output for Last 24 Hours 03/01/23 03/02/23 03/03/23 23:59 23:59 23:59 Intake Total 2075.4 / 2075.4 8 / 2008. Output Total 450 / 700 700 / 700 Balance 1625.4 / 1375.4 1309.8 / 1309.8 Lab / Micro Data 03/03/23 04:49 03/03/23 08:55 Labs: Laboratory Results - last 24 hr 03/02/23 13:55: WBC 7.1, RBC 5.65, Hgb 16.0, Hct 47.5, MCV 84.1, MCH 28.3, MCHC 33.7, RDW Std Deviation 44.7 H, RDW Coeff of Tana 14.7 H, Plt Count 244, MPV 11.4, Immature Gran % (Auto) 0.400, Neut % (Auto) 59.3, Lymph % (Auto) 26.2, [place] % (Auto) 12.9 H, Eos % (Auto) 0.6, Baso % (Auto) 0.6, Absolute Neuts (auto) 4.2, Absolute Lymphs (auto) 1.86, Nucleated RBC % 0, Sodium 133 L, Potassium 5.1, Chloride 95 L, Carbon Dioxide 18.0 L, Anion Gap 20 H, BUN 13, Creatinine 1.95 H, Estim Creat Clear Calc 38.11, Est GFR (MDRD) Af Amer 49 L, Est GFR (MDRD) Non-Af 40 L, BUN/Creatinine Ratio 6.7 L, Glucose 453 H*, Calcium 10.2 H, Magnesium 2.1, Lipase 32, Acetone Level MODERATE H 03/02/23 14:15: Urine Color Yellow, Urine Clarity Clear, Urine pH 5.0, Ur Specific [place] 1.025, Urine Protein 15 H, Urine Glucose (UA) 1000 H, Urine Ketones 150 A*, Urine Occult Blood Negative, Urine Nitrite Negative, Urine Bilirubin Negative, Urine Urobilinogen Normal, Ur Leukocyte Esterase Negative, Urine RBC 0 SEEN, Urine WBC 0 SEEN, Ur Squamous Epith Cells 0 SEEN, Urine Bacteria 0 SEEN, Urine Mucus 0 SEEN 03/02/23 16:29: POC Glucose 316 H 03/02/23 16:46: Hemoglobin A1c 11.5 H 03/02/23 17:34: POC Glucose 317 H 03/02/23 18:17: Sodium 143, Potassium 4.1, Chloride 109 H, Carbon Dioxide 16.0 L, Anion Gap 18 H, BUN 11, Creatinine 1.61 H, Estim Creat Clear Calc 44.21, Est GFR (MDRD) Af Amer 61, Est GFR (MDRD) Non-Af 50 L, BUN/Creatinine Ratio 6.8 L, Glucose 243 H, Calcium 8.7 03/02/23 18:39: POC Glucose 180 H 03/02/23 20:23: POC Glucose 137 H 03/02/23 21:36: POC Glucose 117 H 03/02/23 21:39: Sodium 145, Potassium 4.0, Chloride 113 H, Carbon Dioxide 19.0 L, Anion Gap 13, BUN 10, Creatinine 1.50 H, Estim Creat Clear Calc 47.46, Est GFR (MDRD) Af Amer 66, Est GFR (MDRD) Non-Af 54 L, BUN/Creatinine Ratio 6.7 L, Glucose 155 H, Calcium 8.7 03/02/23 22:45: POC Glucose 126 H 03/02/23 23:31: POC Glucose 123 H 03/03/23 00:14: POC Glucose 136 H 03/03/23 00:51: Sodium 145, Potassium 3.4 L, Chloride 114 H, Carbon Dioxide 23.0, Anion Gap 8, BUN 8, Creatinine 1.54 H, Estim Creat Clear Calc 46.22, Est GFR (MDRD) Af Amer 64, Est GFR (MDRD) Non-Af 53 L, BUN/Creatinine Ratio 5.2 L, Glucose 164 H, Calcium 8.5 03/03/23 01:18: POC Glucose 174 H 03/03/23 04:04: POC Glucose 115 H 03/03/23 04:49: WBC 6.0, RBC 4.53 L, Hgb 12.8 L, Hct 37.6 L, MCV 83.0, MCH 28.3, MCHC 34.0, RDW Std Deviation 44.7 H, RDW Coeff of Tana 14.9 H, Plt Count 177, MPV 11.0, Immature Gran % (Auto) 0.300, Neut % (Auto) 34.5 L, Lymph % (Auto) 48.6 H, [place] % (Auto) 13.6 H, Eos % (Auto) 2.5, Baso % (Auto) 0.5, Absolute Neuts (auto) 2.1, Absolute Lymphs (auto) 2.89, Nucleated RBC % 0, Sodium 146 H, Potassium 3.8, Chloride 115 H, Carbon Dioxide 24.0, Anion Gap 7, BUN 7, Creatinine 1.34 H, Estim Creat Clear Calc 53.12, Est GFR (MDRD) Af Amer 75, Est GFR (MDRD) Non-Af 62, BUN/Creatinine Ratio 5.2 L, Glucose 126 H, Calcium 8.6, Phosphorus 2.1 L, Magnesium 1.9, Total Bilirubin 0.50, AST 7 L, ALT 9 L, Alkaline Phosphatase 83, Total Protein 6.0 L, Albumin 3.0 L, Globulin 3.0, Albumin/Globulin Ratio 1.0, TSH 6.27 H 03/03/23 05:26: POC Glucose 109 H 03/03/23 07:49: POC Glucose 145 H 03/03/23 08:55: Sodium 145, Potassium 4.0, Chloride 113 H, Carbon Dioxide 22.0, Anion Gap 10, BUN 7, Creatinine 1.38 H, Estim Creat Clear Calc 51.58, Est GFR (MDRD) Af Amer 72, Est GFR (MDRD) Non-Af 60, BUN/Creatinine Ratio 5.1 L, Glucose 209 H, Calcium 8.8 Radiography Diagnostic Testing: Radiology Impression Abdomen/Pelvis CT 03/03/23 07:18 IMPRESSION: No suspicious solid organ abnormality No free intraperitoneal fluid, air, or suspicious adenopathy. Normal appendix visualized Electronically Signed: Joel Brandon MD at 11:13 EDT , Physical Exam Const alert and no apparent distress Constitutional Narrative: Middle-aged, -Filipino, nasal oriented to self and place but not time appears nontoxic, appears more comfortable today, remains difficult to understand HEENT normocephalic, head/scalp atraumatic and hearing grossly normal bilaterally Resp normal respiratory effort, no retractions, no use of accessory muscles and clear to auscultation bilaterally Auscultation: rales, rhonchi and wheezes Cardio regular rate, regular rhythm, S1 normal heart sound, S2 normal heart sound, no murmurs, no rub, no gallops and no clicks Cardio Narrative: Mild tachycardia GI normal to inspection, nondistended, normoactive bowel sounds and soft to palpation GI Narrative: No significant tenderness noted today Neuro moves all extremities and no focal motor deficits Neuro Narrative: Oriented to self and place but not time, speech is difficult to understand at time Sensorium / Orientation: awake, alert, oriented to person and oriented to place Psych Psych Narrative: Affect is extremely flat, eye contact is poor Assessment & Plan Assessment/Plan (1) Nausea and vomiting: (2) DKA (diabetic ketoacidosis): (3) Acute dehydration: (4) Acute kidney injury: (5) Hyponatremia: (6) Metabolic acidosis: PLAN: Plan DKA -Resolved DM-2 -Hemoglobin A1c in November was 6.7-->Hemoglobin A1c is now 11.5--> unclear on why such a drastic change -No medications that induce DKA or worsening hyperglycemia other than his antipsychotics but it does not appear that these are new since November -We will require insulin at discharge -12 units of subcu Lantus initiated starting this morning just prior to removing insulin drip -Continue lispro 4 units 3 times daily -Sliding scale -Cardiac/carb controlled diet KATIA on CKD stage II -Serum creatinine 1.95 on admission -We will DC IV fluids if oral intake is okay -KATIA is resolved and serum creatinine is close to his baseline -Baseline appears to be between 1.1 and 1.3 -Repeat lab in a.m. Abdominal pain/nausea and vomiting -Patient not having pain right now but reports continued nausea and vomiting -CT of his abdomen is unremarkable -If nausea vomiting persists will check gastric emptying study on Sunday--> if p.o. intake is adequate may possibly be able to discharge back to facility tomorrow if socially that is able to happen History of hyperammonemia -On lactulose likely related to Depakote -Continue lactulose Bipolar disorder/schizoaffective disorder -has legal guardian and lives at [facility] -continue Clozaril -Continue diphenhydramine -Continue valproic acid -Continue Invega -Continue home Ativan -Continue home lactone low-dose Glaucoma -Continue eyedrops Constipation -Continue Senokot -Continue MiraLAX -No significant constipation noted on his CT of abdomen and pelvis GERD -Continue Protonix History of TBI -Stable DVT prophylaxis -Heparin twice daily CODE STATUS -Full code Charges/Coding Visit Charges Inpatient E&M: 26528 Subs Hosp L2
[2023-03-03] MEDS: Insulin Lispro 100 UNIT/ML INSULN.PEN SC ×5 (12:30→22:10)
[2023-03-03 12:34] LABS: Bedside Glucose 235 mg/dL (74-106)
[2023-03-03 12:35] LABS: Bedside Glucose 162 mg/dL (74-106)
[2023-03-03] MEDS: Timolol 0.5% 5ML OPTH.BTL 1 DRP EACH EYE (12:52)
--- NOTE | 2023-03-03 13:15 | NURSING ---
report called to med-surg, transferred with belongings per bed to room 305
[2023-03-03 14:44] LABS: T4 Free Direct 0.82 ng/dL (0.76-1.46)
--- NOTE | 2023-03-03 15:15 | CASEMGMT ---
Social Work SW left VM for legal guardian. [place] [facility] [place] ZAKIYA Silva. RN reviewed legal guardian contact information, no additional phone numbers available. 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 [place] [facility] [place] Tabitha TONEY, ELIECER
[2023-03-03] MEDS: Glucerna Shake 120 ML LIQUID PO (16:39)
[2023-03-03 16:59] LABS: Bedside Glucose 244 mg/dL (74-106)
[2023-03-03] MEDS: Divalproex (ER) 500 MG Tablet PO (22:13)
[2023-03-03] MEDS: Latanoprost 0.005% 1 Bottle 1 DRP EACH EYE (22:14)
[2023-03-03 23:44] LABS: Bedside Glucose 349 mg/dL (74-106)
[2023-03-04 05:33] VITALS: BP 111/71; PULSE 90; RESP 16; TEMP 36.7; O2SAT 97
[2023-03-04 05:36] VITALS: BMI 27.8
[2023-03-04] MEDS: Lactulose 20 GM/30 ML UDC PO (05:47)
[2023-03-04 06:49] LABS: Bedside Glucose 151 mg/dL (74-106)
[2023-03-04 06:54] LABS: Absolute Lymphocyte Count 2.29 X10^3/uL (0.83-4.51); Absolute Neutrophil Count 1.5 X10^3/uL (2.0-7.7); Basophil# 0.02 X10^3/uL; Basophil% 0.4 % (0-1); Eosinophil# 0.25 X10^3/uL; Eosinophils% 5.2 % (0-5); Hematocrit 36.9 % (40-54); Hemoglobin 12.3 g/dL (13.0-16.5); Lymphocyte # 2.29 X10^3/ul (0.83-4.51); Lymphocyte % 47.2 % (19-41); Mean Corp Hgb Conc 33.3 g/dL (32-36); Mean Corpuscular Hgb 27.8 pg (27.0-32.0); Mean Corpuscular Volume 83.5 fL (80-94); Mean Platelet Vol. 11.2 fl (6.2-12.0); Monocyte# 0.77 X10^3/uL; Monocyte% 15.9 % (0-10); NRBC Flagged by Analyzer 0 % (0-5); Neutrophil # 1.51 X10^3/uL (2.7-7.7); Neutrophil % 31.1 % (47-70); Platelet Count 174 K/mm3 (150-450); RBC Distribution Width CV 15.1 % (11.6-14.6); RBC Distribution Width SD 45.7 fl (35.1-43.9); Red Blood Count 4.42 M/mm3 (4.6-6.2); White Blood Count 4.9 K/mm3 (4.4-11.0)
[2023-03-04 07:55] LABS: Anion Gap 7 (5-15); BUN 4 mg/dL (7-18); BUN/Creat Ratio 3.4 RATIO (10-20); Calcium,Total 9.1 mg/dL (8.5-10.1); Chloride 109 mmol/L (98-107); Creatinine, Serum 1.18 mg/dL (0.70-1.30); EST Glomerular Filtration Rate 72 mL/min (>60); Est Glom Filt Rate - Afr Amer 87 mL/min (>60); Estimated Creatinine Clearance 60.33 ml/min; Glucose 153 mg/dL (74-106); Potassium 3.3 mmol/L (3.5-5.1); Sodium Level 142 mmol/L (136-145)
[2023-03-04 08:08] LABS: Phosphorus 2.8 mg/dL (2.5-4.9)
[2023-03-04 08:33] VITALS: BP 116/75; PULSE 92; RESP 18; TEMP 36.6; O2SAT 99
[2023-03-04] MEDS: Glucerna Shake 120 ML LIQUID PO (08:36)
[2023-03-04] MEDS: Insulin Lispro 100 UNIT/ML INSULN.PEN SC ×2 (08:37→11:26)
[2023-03-04] MEDS: Insulin Glargine-YFGN 100 UNIT/ML Pen 12 UNIT SC (08:38)
[2023-03-04] MEDS: Insulin Lispro 100 UNIT/ML INSULN.PEN 8 UNIT SC ×2 (08:38→11:27)
[2023-03-04] MEDS: Potassium Chloride Oral Tablet 20 MEQ 40 MEQ PO (08:39)
[2023-03-04] MEDS: Pantoprazole Sodium 40 MG Tablet PO (08:39)
[2023-03-04] MEDS: Polyethylene Glycol 3350 17 GM PACKET PO (08:40)
[2023-03-04] MEDS: cloZAPine 100 MG TABLET 200 MG PO (08:40)
[2023-03-04] MEDS: Divalproex (ER) 250 MG Tablet PO (08:40)
[2023-03-04 08:41] VITALS: PULSE 97
[2023-03-04] MEDS: Senna/Docusate Sodium 1 Tablet 2 TABLET PO (08:41)
[2023-03-04] MEDS: Metoprolol Tartrate 25 MG Tablet PO (08:41)
[2023-03-04 10:00] VITALS: BP 116/75; PULSE 92; RESP 18; TEMP 36.6; O2SAT 93
--- NOTE | 2023-03-04 11:18 | PCM.TXEXTCAR ---
Diet Diet Order/Speech Therapy: 03/03/23 10:21 Diet: Cardiac: Calorie-Controlled Dietary Modifications:: Cardiac / Heart Healthy How many daily calories?: 1800 calorie Routine Orders/Code Status Routine Lab Work: CBC (1 week), BMP (1 week) and - (A1c 3 months) Code Status: Full Code Problem/Diagnosis (1) Nausea and vomiting: Status: Acute Code(s): R11.2 - Nausea with vomiting, unspecified (2) DKA (diabetic ketoacidosis): Status: Acute Code(s): E11.10 - Type 2 diabetes mellitus with ketoacidosis without coma (3) Acute dehydration: Status: Acute Code(s): E86.0 - Dehydration (4) Acute kidney injury: Status: Acute Code(s): N17.9 - Acute kidney failure, unspecified (5) Hyponatremia: Status: Acute Code(s): E87.1 - Hypo-osmolality and hyponatremia (6) Metabolic acidosis: Status: Acute Code(s): E87.20 - Acidosis, unspecified Allergies/Procedures Done in Hospital Allergies Sulfa (Sulfonamide Antibiotics) Allergy (Mild, Verified 03/02/23 13:36) Other 5HTS Receptor antagonist Allergy (Unknown, Uncoded 02/20/23 13:32) Other Type of Care/Length of Stay Estimated LOS: More Than 30 Days Type of Care Needed: Intermediate Rehab Potential: Fair Prognosis: Fair Additional Orders/Day of Discharge Day of Discharge: 03/04/23 Dietary and Speech Recommendations Dietitian Recommendations/Changes: Change diet to Cardiac / 1800 lulu CHO Consistent diet Order shannon kirkpatrick w/ medpass for increased nutrition if consumed Follow Up Care Please Follow Up With: Ronni Sepulveda MD When: 1 month Discharge Plan Admission Admit Date/Time: 03/02/23 14:49 Attending Provider: Cherry Grace Primary Care Provider: Ever Avila Discharge Orders/Prescriptions Prescriptions: No Action latanoprost 0.005 % drops 1 drp ophthalmic (eye) QPM Rx Instructions: both eyes metoprolol tartrate 25 mg tablet 25 mg PO DAILY multivitamin Tablet 1 tab PO DAILY polyethylene glycol 3350 [Miralax] 17 gram Powder In Packet 17 g PO DAILY cetirizine 10 mg Tablet 10 mg PO QHS diphenhydramine HCl 50 mg Tablet 50 mg PO Q8H PRN PRN (Reason: agitation/anxiety ) Patient Comments: PRN PER [facility] clozapine [Clozaril] 100 mg Tablet 200 mg PO BID divalproex [Depakote] 500 mg Tablet,Delayed Release (Dr/Ec) 500 mg PO QHS Patient Comments: PER [facility] PT TAKES 1 (250 MG) TAB IN THE AM AND 1 (500 MG) TAB IN THE PM. lorazepam [Ativan] 1 mg Tablet 1 mg PO Q6H PRN (Reason: agitiation/anxiety ) Patient Comments: PRN PER [facility] Invega Sustenna 234 mg/1.5 mL Syringe 234 mg IM DAILY Patient Comments: PER ASSISTED [facility] PT IS DUE FOR MONTHLY INJECTION ON 03/12/23. Rx Instructions: give every 28 days timolol maleate 0.5 % Drops, Once Daily 1 drp EACH EYE DAILY lactulose 20 gram/30 mL solution 20 g PO TID Qty: 3000 0RF Rx Instructions: titrate until 2-3 loose stools daily divalproex 250 mg tablet,delayed release (DR/EC) 250 mg PO DAILY Patient Comments: PER [facility] PT TAKES 1 (250 MG) TAB IN THE AM AND 1 (500 MG) TAB IN THE PM. pantoprazole [Protonix] 40 mg tablet,delayed release (DR/EC) 40 mg PO DAILY Patient Comments: PER ASSISTED [facility] PT TO START ON 03/03/23 metformin 1,000 mg tablet 1,000 mg PO BID acetaminophen 325 mg tablet 650 mg PO Q4H PRN (Reason: fever or pain) Patient Comments: PRN PER [facility] sennosides [Senokot] 8.6 mg tablet 8.6 mg PO DAILY Referrals / Follow Up: Ever Avila MD [Primary Care Provider] -
[2023-03-04] MEDS: Timolol 0.5% 5ML OPTH.BTL 1 DRP EACH EYE (11:22)
--- NOTE | 2023-03-04 11:28 | PCM.DC.SUM ---
Providers Date of Admission: 03/02/23 Date of Discharge: 03/04/23 Primary Care Physician: Dr. Ever Avila MD Reason For Visit: DKA Diagnosis Discharge Diagnosis (1) Nausea and vomiting: Status: Acute Code(s): R11.2 - Nausea with vomiting, unspecified (2) DKA (diabetic ketoacidosis): Status: Acute Code(s): E11.10 - Type 2 diabetes mellitus with ketoacidosis without coma (3) Acute dehydration: Status: Acute Code(s): E86.0 - Dehydration (4) Acute kidney injury: Status: Acute Code(s): N17.9 - Acute kidney failure, unspecified (5) Hyponatremia: Status: Acute Code(s): E87.1 - Hypo-osmolality and hyponatremia (6) Metabolic acidosis: Status: Acute Code(s): E87.20 - Acidosis, unspecified Medications at Discharge Home Medications cetirizine 10 mg tablet 10 mg PO QHS allergy symptoms 12/09/22 clozapine 100 mg tablet (Clozaril) 200 mg PO BID schizoaffective disorder 12/09/22 diphenhydramine HCl 50 mg tablet 50 mg PO Q8H PRN PRN agitation/anxiety 12/09/22 divalproex 500 mg tablet,delayed release (Depakote) 500 mg PO QHS bipolar disorder/schizoaffective disorder 12/09/22 lorazepam 1 mg tablet (Ativan) 1 mg PO Q6H PRN agitiation/anxiety 12/09/22 multivitamin 1 tab PO DAILY supplement 12/09/22 paliperidone palmitate 234 mg/1.5 mL intramuscular syringe (Invega Sustenna) 234 mg IM DAILY Check with primary doctor 12/09/22 polyethylene glycol 3350 17 gram oral powder packet (Miralax) 17 g PO DAILY constipation 12/09/22 timolol maleate 0.5 % once daily eye 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 12/09/22 lactulose 20 gram/30 mL oral solution 20 g (30 mL) PO TID #3,000 mL 12/12/22 latanoprost 0.005 % eye drops 1 drp ophthalmic (eye) QPM 02/20/23 metoprolol tartrate 25 mg tablet 25 mg PO DAILY 02/20/23 acetaminophen 325 mg tablet 650 mg PO Q4H PRN fever or pain 03/02/23 divalproex 250 mg tablet,delayed release 250 mg PO DAILY BIPOLAR 03/02/23 metformin 1,000 mg tablet 1,000 mg PO BID DM 03/02/23 pantoprazole 40 mg tablet,delayed release (Protonix) 40 mg PO DAILY GERD 03/02/23 sennosides 8.6 mg tablet (Senokot) 8.6 mg PO DAILY CONSTIPATION 03/02/23 insulin glargine-yfgn 100 unit/mL (3 mL) subcutaneous pen 12 unit (0.12 mL) subcut BREAKFAST #0 mL 03/04/23 insulin lispro 100 unit/mL subcutaneous pen (Humalog KwikPen (U-100) Insulin) 8 unit (0.08 mL) subcut BREAKFAST #0 mL 03/04/23 insulin lispro 100 unit/mL subcutaneous pen (Humalog KwikPen (U-100) Insulin) 8 unit (0.08 mL) subcut DINNER #0 mL 03/04/23 insulin lispro 100 unit/mL subcutaneous pen (Humalog KwikPen (U-100) Insulin) 8 unit (0.08 mL) subcut LUNCH #0 mL 03/04/23 Hospital Course Procedures - (CT of the abdomen and pelvis with IV and p.o. contrast) Summary of Care Provided Minutes Spent on Discharge: 37 Hospital Course: Mr. Packer is a 42-year-old resident of [facility] who presented to the emergency department at [facility] on 03/02/2023 complaining of intractable nausea and vomiting along with abdominal pain. He lives there chronically and has a legal guardian. Placement is for psychiatric purposes with his history of schizoaffective disorder and bipolar disorder. History was difficult on admission as he is extremely poor historian however he reported he had been having nausea and vomiting for what he said was 3 weeks however his labs did not reflect 3 weeks of intractable nausea and vomiting. He indicated he was having bowel movements but not passing flatus. On presentation his temperature was 97.7, heart rate 131, blood pressure 142/77, respiratory rate was 16 and oxygen saturations are 100% on room air. CBC is unremarkable. BMP shows hyponatremia the sodium of 133, chloride of 95, serum bicarb of 18, anion gap of 20, serum creatinine of 1.95 with a baseline of 1.1-1.2, blood glucose of 453, normal magnesium level and a normal lipase. His UA shows ketones, glucose, and protein. Acetone level is moderate. The patient did have a recent hospitalization here in November at which time his hemoglobin A1c was assessed and found to be 6.7. He was on metformin prior to this. Given his diagnosis of DKA, he was started on IV fluids and insulin drip and admitted to the ICU. Serial labs were monitored and he was placed on DKA protocol. His DKA was resolved by the a.m. of 03/03/2023 and we were able to transition him to subcutaneous insulin. His hemoglobin A1c was 11.5 up from 6.7 when he was here in November. It was not clear why he had the dramatic change however it does not sound like he really watches his diet at baseline. With his abdominal pain and the dramatic fluctuation in his A1c we did obtain a CT of his abdomen pelvis with p.o. and IV contrast and was completely unremarkable. I was looking for any changes in the pancreas or elsewhere but none were found. After transition off the insulin drip we started a carb controlled diet of which she tolerated extremely well. When taken off the insulin drip we started 12 units of Lantus and initially 4 units 3 times daily with meals of prandial insulin however his prandial blood sugars remain elevated so we increased the dose to 8 3 times daily with meals. His fasting blood sugar this morning after having 12 units yesterday was 153 so we will maintain this dose at discharge. He had some mild electrolyte disorders during his hospital course which were rectified. His serum creatinine had normalized and at discharge was 1.18. As noted, we will start Lantus 12 units in the morning, Humalog 8 units 3 times a day with meals, and he will continue his metformin. I have asked that he follow-up with endocrinology-Dr. Sepulveda to be seen as soon as appointment is available within the next month. He also will need to follow-up with his primary care physician within the next 1 to 2 weeks. Repeat hemoglobin A1c is advised in 3 months. He was able to be discharged back to his ECF in stable condition on 03/04/2023. He will need to continue a carbohydrate controlled diet and I would recommend repeat lab work with a CBC and a BMP in 1 week. Discharge diagnoses: DKA-resolved [id number] KATIA-resolved Hypophosphatemia-resolved Hypokalemia-resolved CKD stage II Abdominal pain-resolved Nausea vomiting-resolved History of hyperammonemia Bipolar disorder Schizoaffective disorder Glaucoma Constipation GERD History of TBI Physical Exam Const alert, no apparent distress, average body habitus and well nourished Constitutional Narrative: Middle-aged, -Tristanian, nasal oriented to self and place but not time appears nontoxic, appears comfortable, nontoxic, asking to use the bathroom, speech remains difficult at times to understand General Appearance: cooperative, comfortable and well developed Orientation / Consciousness: awake, oriented to person and oriented to place Exam Limitations: no limitations Nutritional Appearance: overweight HEENT normocephalic, head/scalp atraumatic and hearing grossly normal bilaterally HEENT Narrative: Mallampati 2-3, no thrush Eyes PERRL, EOMs intact bilaterally and conjunctivae normal Eyes Narrative: Arcus senilis present, no scleral icterus Neck no lymphadenopathy, supple, no JVD and no carotid bruits Neck Narrative: Trachea midline, no thyroid enlargement Resp normal respiratory effort, no retractions, no use of accessory muscles and clear to auscultation bilaterally Auscultation: rales, rhonchi and wheezes Cardio regular rate, regular rhythm, S1 normal heart sound, S2 normal heart sound, no murmurs, no rub, no gallops and no clicks GI normal to inspection, nondistended, normoactive bowel sounds, soft to palpation and non-tender Extremity no clubbing, cyanosis or edema Extremity Narrative: Decreased lean muscle mass, pedal pulses are 2+ Skin no rashes or lesions noted, no wounds, skin turgor normal, no jaundice, no petechiae and no mottling Skin Narrative: Scattered tattoos Neuro CN's II-XII intact bilaterally, moves all extremities and no focal motor deficits Neuro Narrative: Oriented to self and place but not time, speech is difficult to understand at time Sensorium / Orientation: awake, alert, oriented to person and oriented to place Speech: Negative for speech normal Psych Psych Narrative: Affect is extremely flat, eye contact is poor Weight / BMI Weight Weight: 68.6 kg Body Mass Index (BMI) 27.8 ABG / Lab / Microbiology Data 03/04/23 05:30 03/04/23 05:30 Laboratory: Laboratory Results - last 24 hr 03/03/23 02:35: POC Glucose 162 H 03/03/23 08:55: Free T4 0.82 03/03/23 12:07: POC Glucose 235 H 03/03/23 16:37: POC Glucose 244 H 03/03/23 22:07: POC Glucose 349 H 03/04/23 05:30: WBC 4.9, RBC 4.42 L, Hgb 12.3 L, Hct 36.9 L, MCV 83.5, MCH 27.8, MCHC 33.3, RDW Std Deviation 45.7 H, RDW Coeff of Tana 15.1 H, Plt Count 174, MPV 11.2, Immature Gran % (Auto) 0.200, Neut % (Auto) 31.1 L, Lymph % (Auto) 47.2 H, [place] % (Auto) 15.9 H, Eos % (Auto) 5.2 H, Baso % (Auto) 0.4, Absolute Neuts (auto) 1.5 L, Absolute Lymphs (auto) 2.29, Nucleated RBC % 0, Sodium 142, Potassium 3.3 L, Chloride 109 H, Carbon Dioxide 26.0, Anion Gap 7, BUN 4 L, Creatinine 1.18, Estim Creat Clear Calc 60.33, Est GFR (MDRD) Af Amer 87, Est GFR (MDRD) Non-Af 72, BUN/Creatinine Ratio 3.4 L, Glucose 153 H, Calcium 9.1, Phosphorus 2.8 03/04/23 05:45: POC Glucose 151 H D/C Instructions Discharge Diet: 1800 Calorie Control Diet Discharge Activity: Return to Normal Activity Please Follow Up With: Ronni Sepulveda MD Meaningful Use Info Meaningful Use Diagnoses (Choose all that apply): None applicable Discharge Plan Admission Admit Date/Time: 03/02/23 14:49 Primary Reason for Your Visit: Abdominal pain/nausea/vomiting Attending Provider: Cherry Grace Primary Care Provider: Ever Avila Instructions Additional Instructions / Restrictions: Accu-Cheks 3 times daily before meals Discharge Orders/Prescriptions Prescriptions: New insulin glargine-yfgn 100 unit/mL (3 mL) Insulin Pen 12 unit subcut BREAKFAST Qty: 0 0RF insulin lispro [Humalog KwikPen Insulin] 100 unit/mL Insulin Pen 8 unit subcut BREAKFAST Qty: 0 0RF insulin lispro [Humalog KwikPen Insulin] 100 unit/mL Insulin Pen 8 unit subcut LUNCH Qty: 0 0RF insulin lispro [Humalog KwikPen Insulin] 100 unit/mL Insulin Pen 8 unit subcut DINNER Qty: 0 0RF Continued latanoprost 0.005 % drops 1 drp ophthalmic (eye) QPM Rx Instructions: both eyes metoprolol tartrate 25 mg tablet 25 mg PO DAILY multivitamin Tablet 1 tab PO DAILY polyethylene glycol 3350 [Miralax] 17 gram Powder In Packet 17 g PO DAILY cetirizine 10 mg Tablet 10 mg PO QHS diphenhydramine HCl 50 mg Tablet 50 mg PO Q8H PRN PRN (Reason: agitation/anxiety ) Patient Comments: PRN PER [facility] clozapine [Clozaril] 100 mg Tablet 200 mg PO BID divalproex [Depakote] 500 mg Tablet,Delayed Release (Dr/Ec) 500 mg PO QHS Patient Comments: PER [facility] PT TAKES 1 (250 MG) TAB IN THE AM AND 1 (500 MG) TAB IN THE PM. lorazepam [Ativan] 1 mg Tablet 1 mg PO Q6H PRN (Reason: agitiation/anxiety ) Patient Comments: PRN PER [facility] Invega Sustenna 234 mg/1.5 mL Syringe 234 mg IM DAILY Patient Comments: PER [facility] PT IS DUE FOR MONTHLY INJECTION ON 03/12/23. Rx Instructions: give every 28 days timolol maleate 0.5 % Drops, Once Daily 1 drp EACH EYE DAILY lactulose 20 gram/30 mL solution 20 g PO TID Qty: 3000 0RF Rx Instructions: titrate until 2-3 loose stools daily divalproex 250 mg tablet,delayed release (DR/EC) 250 mg PO DAILY Patient Comments: PER [facility] PT TAKES 1 (250 MG) TAB IN THE AM AND 1 (500 MG) TAB IN THE PM. pantoprazole [Protonix] 40 mg tablet,delayed release (DR/EC) 40 mg PO DAILY Patient Comments: PER [facility] PT TO START ON 03/03/23 metformin 1,000 mg tablet 1,000 mg PO BID acetaminophen 325 mg tablet 650 mg PO Q4H PRN (Reason: fever or pain) Patient Comments: PRN PER [facility] sennosides [Senokot] 8.6 mg tablet 8.6 mg PO DAILY Referrals / Follow Up: Ronni Sepulveda MD [Med Staff - Courtesy Staff] - Within 1 Month Ever Avila MD [Primary Care Provider] - Within 1 Week Disposition Disposition (needs filled in before D/C Order can be placed): NonSkilled NH/Intermed Care Charges/Coding Visit Charges Inpatient E&M: 20750 SNF Disch >30 Min
[2023-03-04 11:47] LABS: Bedside Glucose 176 mg/dL (74-106)
== END 2023-03-04 12:23 | disposition intermediate care facility (04) | DRG 638 ==
LOC: ED 15:00 → ICU 15:08 → MS3 03-03 13:03
PROVIDERS: Hospitalist; Physician Assistant; Admitting Provider Internal Medicine; Emergency Provider Emergency Medicine; PCP Family Medicine; Visit Provider Internal Medicine
DX: E11.10 Type 2 diabetes mellitus with ketoacidosis without coma (principal); N17.9 Acute kidney failure, unspecified; E83.39 Other disorders of phosphorus metabolism; E11.22 Type 2 diabetes mellitus with diabetic chronic kidney disease; E11.51 Type 2 diabetes mellitus with diabetic peripheral angiopathy without gangrene; E11.39 Type 2 diabetes mellitus with other diabetic ophthalmic complication; Z79.4 Long term (current) use of insulin; F31.9 Bipolar disorder, unspecified; F25.9 Schizoaffective disorder, unspecified; E87.6 Hypokalemia; K21.9 Gastro-esophageal reflux disease without esophagitis; K59.00 Constipation, unspecified; N18.2 Chronic kidney disease, stage 2 (mild); I12.9 Hypertensive chronic kidney disease with stage 1 through stage 4 chronic kidney disease, or unspecified chronic kidney disease; E86.0 Dehydration; E78.5 Hyperlipidemia, unspecified; H40.9 Unspecified glaucoma; Z87.820 Personal history of traumatic brain injury
CPT/HCPCS: 36415; 74177; 80048; 80053; 81001; 82009; 82962; 83036; 83690; 83735; 84100; 84439; 84443; 85025; 90471; 97162; 97166; 97802; 99285; J7030; J7050; Q9967; A4216; J2405; J7799

== ENCOUNTER 2023-03-19 09:31 | Emergency (ER) | payer MEDICARE, MEDICAID, SELFPAY ==
[2023-03-19 09:32] VITALS: BP 121/74; TEMP 36.4; BMI 29.8
--- NOTE | 2023-03-19 09:57 | EKG12_ITS ---
Test Reason : SOB Blood Pressure : / mmHG Vent. Rate : 088 BPM Atrial Rate : 088 BPM P-R Int : 142 ms QRS Dur : 080 ms QT Int : 340 ms P-R-T Axes : 048 056 040 degrees QTc Int : 411 ms Normal sinus rhythm Normal ECG No previous ECGs available Confirmed by SHADY MENDIOLA, VERONICA ([id number]), newspaper editor BONNIE HUI ([id number]) on 03/22/2023 1:41:40 PM Referred By: ELEANOR Confirmed By:VERONICA CARUSO MD
--- NOTE | 2023-03-19 09:57 | RAD_ITS ---
STUDY: X-RAY CHEST REASON FOR EXAM: Male, 42 years old. Vomiting. Chest pain. TECHNIQUE: Single frontal view of the chest. COMPARISON: Chest dated December 09, 2022. FINDINGS: Stable low volume inspiration. There is no demonstrated pleural abnormality. Normal size heart. Normal mediastinum and sean. Normal visualized pulmonary arteries. Normal visualized aortic arch and descending thoracic aorta. Normal visualized thoracic spine. Normal visualized ribs, clavicles, and shoulders. No abnormality of the visualized soft tissue structures of the upper abdomen. RAD/Chest 1 View (Portable) IMPRESSION: Stable low volume inspiration with no acute or active cardiopulmonary disease. Electronically Signed: Ever Diane MD at 10:24 EDT ,
--- NOTE | 2023-03-19 10:15 | EX.ED.DYSGE1 ---
HPI History of Present Illness Chief Complaint: Nausea/Vomiting Narrative Narrative: Patient is a 42-year-old male with history of dementia, insulin-dependent diabetes mellitus and recent mission for DKA presenting with nausea and vomiting. Patient states he has been having nausea and vomiting specially after eating since he was in the hospital. (That was his presenting symptom for DKA earlier this month). Patient is a resident of [facility]. He does have a legal guardian is there for psychiatric purposes due to schizoaffective disorder and bipolar disorder. Patient had a CT of his abdomen pelvis in the hospital during his last admission which did not show any acute process. Patient denies any alcohol or illicit drug use. In the hospital patient did have an KATIA however his creatinine normalized to 1.18 and he was discharged on insulin. Patient is also complaining of substernal chest pain. He states he feels mildly short of breath. States this started this morning. Patient is a poor historian but seems to think that these are the same symptoms and that he never got better since his last admission. Patient's blood sugar was 240 per squad. [facility] Medical History Alternating exotropia Anemia Anxiety Bipolar disorder Blindness Cannabis abuse Chronic pain syndrome Constant exophthalmos, bilateral Constipation Diabetes Disorder of urea cycle metabolism, unspecified Disturbances of salivary secretion Dysphagia Essential (primary) hypertension GERD (gastroesophageal reflux disease) Glaucoma History of psychiatric disorder Hyperlipidemia Hypertensive retinopathy, right eye Insomnia Muscle weakness Myopia, unspecified eye Posterior subcapsular polar age-related cataract, bilateral PVD (peripheral vascular disease) Schizoaffective disorder Seizures TBI (traumatic brain injury) Type 2 diabetes mellitus Unspecified intellectual disabilities Unspecified psychosis 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 or known physiological condition Home Medications cetirizine 10 mg tablet 10 mg PO QHS allergy symptoms 12/09/22 [History Last Taken 03/01/23] clozapine 100 mg tablet (Clozaril) 200 mg PO BID schizoaffective disorder 12/09/22 [History Last Taken 03/02/23] diphenhydramine HCl 50 mg tablet 50 mg PO Q8H PRN PRN agitation/anxiety 12/09/22 [History Last Taken Unknown] divalproex 500 mg tablet,delayed release (Depakote) 500 mg PO QHS bipolar disorder/schizoaffective disorder 12/09/22 [History Last Taken 03/01/23] lorazepam 1 mg tablet (Ativan) 1 mg PO Q6H PRN agitiation/anxiety 12/09/22 [History Last Taken Unknown] multivitamin 1 tab PO DAILY supplement 12/09/22 [History Last Taken 03/02/23] paliperidone palmitate 234 mg/1.5 mL intramuscular syringe (Invega Sustenna) 234 mg IM DAILY Check with primary doctor 12/09/22 [History Last Taken Unknown] polyethylene glycol 3350 17 gram oral powder packet (Miralax) 17 g PO DAILY constipation 12/09/22 [History Last Taken 03/02/23] timolol maleate 0.5 % once daily eye 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 12/09/22 [History Last Taken 03/02/23] latanoprost 0.005 % eye drops 1 drp ophthalmic (eye) QPM 02/20/23 [History Last Taken 03/01/23] metoprolol tartrate 25 mg tablet 25 mg PO DAILY 02/20/23 [History Last Taken 03/02/23] acetaminophen 325 mg tablet 650 mg PO Q4H PRN fever or pain 03/02/23 [History Last Taken Unknown] divalproex 250 mg tablet,delayed release 250 mg PO DAILY BIPOLAR 03/02/23 [History Last Taken 03/02/23] metformin 1,000 mg tablet 1,000 mg PO BID DM 03/02/23 [History Last Taken 03/02/23] pantoprazole 40 mg tablet,delayed release (Protonix) 40 mg PO DAILY GERD 03/02/23 [History Last Taken Unknown] sennosides 8.6 mg tablet (Senokot) 8.6 mg PO DAILY CONSTIPATION 03/02/23 [History Last Taken 03/02/23] insulin glargine-yfgn 100 unit/mL (3 mL) subcutaneous pen 12 unit (0.12 mL) subcut BREAKFAST #0 mL 03/04/23 [Rx Last Taken Unknown] insulin lispro 100 unit/mL subcutaneous pen (Humalog KwikPen (U-100) Insulin) 8 unit (0.08 mL) subcut BREAKFAST #0 mL 03/04/23 [Rx Last Taken Unknown] insulin lispro 100 unit/mL subcutaneous pen (Humalog KwikPen (U-100) Insulin) 8 unit (0.08 mL) subcut DINNER #0 mL 03/04/23 [Rx Last Taken Unknown] insulin lispro 100 unit/mL subcutaneous pen (Humalog KwikPen (U-100) Insulin) 8 unit (0.08 mL) subcut LUNCH #0 mL 03/04/23 [Rx Last Taken Unknown] lactulose 20 gram/30 mL oral solution 20 g (30 mL) PO TID #3,000 mL 03/19/23 [Rx Last Taken 03/02/23] Allergy/AdvReac Type Severity Reaction Status Date / Time Sulfa (Sulfonamide Allergy Mild Other Verified 03/19/23 09:55 Antibiotics) 5HTS Receptor antagonist Allergy Unknown Other Uncoded 02/20/23 13:32 Social History housing: senior living other: Patient has a legal guardian and is a long-term resident at [facility] Smoking Status: Unknown if ever smoked details: Unknown substance use type: other details: Unknown ROS ROS ED Review of Systems ROS Unobtainable: due to mental condition Cardiovascular Cardiovascular: Reports chest pain Respiratory/Chest Respiratory/Chest: Reports dyspnea Gastrointestinal Gastrointestinal: Reports abdominal pain, nausea and vomiting Neurologic Neurologic: Reports weakness EXAM Physical Exam Const Vital Signs: 03/19/23 09:32 03/19/23 11:31 03/19/23 13:14 Temperature 97.6 F L Temperature Source Temporal Pulse Rate 78 76 Respiratory Rate 14 14 Blood Pressure 121/74 H 114/78 96/64 Blood Pressure Mean 89 90 74 Pulse Ox 97 99 Oxygen Delivery Method Room Air Room Air Positive well nourished and well developed General Appearance ED: well developed and NAD HEENT Reports dry mucous membranes Mouth ED: Yes dry mucous membranes Mouth: dry mucous membranes Eyes PERRL and EOMs intact bilaterally Eyes Narrative: Slight exophthalmos present Neck supple Chest Wall inspection of chest normal and palpation of chest normal Resp normal respiratory effort and clear to auscultation bilaterally Cardio regular rate, regular rhythm and no murmurs GI normal to inspection, nondistended, normoactive bowel sounds and non-tender Neuro oriented x3 Sensorium / Orientation: alert Motor Exam: general weakness Psych mental status grossly normal Skin no rashes or lesions noted and no wounds MDM MDM MDM Narrative Medical decision making narrative: Patient is evaluated for nausea and vomiting. Nursing facility was concerned about possible obstruction versus esophageal impaction. Patient tells me that this nausea and vomiting is been going on for weeks. Last time he presented like this he was in DKA. DKA work-up is obtained. His abdomen is soft and nontender. He does not have any vomiting while in the emergency room. Is given some IV fluids and Zofran. Work-up is remarkable for mild hyperglycemia with a normal anion gap, normal creatinine and a mild hyponatremia the sodium of 147. Depakote level is obtained which is therapeutic. CT of the abdomen pelvis obtained shows large amount of fecal material in the colon, nonobstructive left intrarenal calculi but no other acute process. Patient is given an enema for his increased fecal material of the colon with some bowel movements. In addition he is given a p.o. challenge with for Sprite and then a turkey sandwich and applesauce. He tolerates all of this. Low suspicion of esophageal impaction or small bowel obstruction given p.o. challenge as well as imaging. Case is discussed with his PCP, Dr. Avila, who is amenable with outpatient treatments given no signs of an impaction or obstruction. We will start the patient on lactulose to help with his bowel movements as he is already on senna. Will return to the emergency room if he has progression or worsening of his symptoms. Patient discharged home Lab Data Labs: Laboratory Results - last 24 hr 03/19/23 03/19/23 03/19/23 10:10 11:05 11:16 WBC 6.0 RBC 4.75 Hgb 13.1 Hct 41.5 MCV 87.4 MCH 27.6 MCHC 31.6 L RDW Std Deviation 51.8 H RDW Coeff of Tana 16.1 H Plt Count 224 MPV 10.5 Immature Gran % (Auto) 0.200 Neut % (Auto) 42.0 L Lymph % (Auto) 43.0 H Meade % (Auto) 10.9 H Eos % (Auto) 3.6 Baso % (Auto) 0.3 Absolute Neuts (auto) 2.5 Absolute Lymphs (auto) 2.59 Nucleated RBC % 0 Sodium 147 H Potassium 3.8 Chloride 110 H Carbon Dioxide 32.0 Anion Gap 5 BUN 7 Creatinine 1.21 Estim Creat Clear Calc 61.42 Est GFR (MDRD) Af Amer 84 Est GFR (MDRD) Non-Af 70 BUN/Creatinine Ratio 5.8 L Glucose 216 H Calcium 9.0 Phosphorus 3.8 Magnesium 2.1 Total Bilirubin 0.30 AST 6 L ALT 10 L Alkaline Phosphatase 70 Troponin I High Sens 3 Total Protein 6.4 Albumin 3.2 Globulin 3.2 Albumin/Globulin Ratio 1.0 Urine Color Urine Clarity Urine pH Ur Specific [place] Urine Protein Urine Glucose (UA) Urine Ketones Urine Occult Blood Urine Nitrite Urine Bilirubin Urine Urobilinogen Ur Leukocyte Esterase Urine RBC Urine WBC Ur Squamous Epith Cells Urine Bacteria Urine Mucus Valproic Acid 76 Acetone Level NEGATIVE POC Glucose 185 H 03/19/23 11:41 WBC RBC Hgb Hct MCV MCH MCHC RDW Std Deviation RDW Coeff of Tana Plt Count MPV Immature Gran % (Auto) Neut % (Auto) Lymph % (Auto) Me[place] % (Auto) Eos % (Auto) Baso % (Auto) Absolute Neuts (auto) Absolute Lymphs (auto) Nucleated RBC % Sodium Potassium Chloride Carbon Dioxide Anion Gap BUN Creatinine Estim Creat Clear Calc Est GFR (MDRD) Af Amer Est GFR (MDRD) Non-Af BUN/Creatinine Ratio Glucose Calcium Phosphorus Magnesium Total Bilirubin AST ALT Alkaline Phosphatase Troponin I High Sens Total Protein Albumin Globulin Albumin/Globulin Ratio Urine Color Yellow Urine Clarity Clear Urine pH 6.5 Ur Specific [place] 1.010 Urine Protein Negative Urine Glucose (UA) 1000 H Urine Ketones 5 H Urine Occult Blood Negative Urine Nitrite Negative Urine Bilirubin Negative Urine Urobilinogen Normal Ur Leukocyte Esterase Negative Urine RBC 0 SEEN Urine WBC 0 SEEN Ur Squamous Epith Cells 0 SEEN Urine Bacteria 0 SEEN Urine Mucus 0 SEEN Valproic Acid Acetone Level POC Glucose ABG Data ABG results: ABG 03/19/23 11:40 Specimen Type GARETH VBG pH 7.35 VBG pO2 54 H VBG HCO3 31 H VBG Total CO2 32 VBG O2 Sat (Calc) 85 H VBG Base Excess 5 H POC Mix VBG pCO2 Pt Tmp 55.5 H Radiography Diagnostic Testing: Clinical Impression(s) from Imaging Studies Chest X-Ray 03/19/23 09:57 IMPRESSION: Stable low volume inspiration with no acute or active cardiopulmonary disease. Electronically Signed: Ever Diane MD at 10:24 EDT , Abdomen/Pelvis CT 03/19/23 11:23 IMPRESSION: Large amount of fecal material is seen in the colon. Stable tiny nonobstructive left intrarenal calculus. Electronically Signed: Pradeep Guerrero MD at 12:00 EDT , Rhythm Strip Rhythm Strip: Sinus Rhythm Rate: 88 Ectopy: None EKG Initial EKG: Attestation: I personally reviewed and interpreted this EKG as follows: Interpretation: Sinus Rhythm Comments: Normal sinus rhythm rate of 88 bpm Normal axis Normal intervals Normal ST segments No change compared to prior EKG Discharge Plan Triage Chief Complaint: Nausea/Vomiting ED Provider: Lita Phillips Dx/Rx/DC Orders Clinical Impression: Hypernatremia, Constipation Instructions: Hypernatremia Dc, ED Constipation (Adult) Prescriptions: Continued lactulose 20 gram/30 mL solution 20 g PO TID Qty: 3000 0RF Rx Instructions: titrate until 2-3 loose stools daily No Action latanoprost 0.005 % drops 1 drp ophthalmic (eye) QPM Rx Instructions: both eyes metoprolol tartrate 25 mg tablet 25 mg PO DAILY multivitamin Tablet 1 tab PO DAILY polyethylene glycol 3350 [Miralax] 17 gram Powder In Packet 17 g PO DAILY cetirizine 10 mg Tablet 10 mg PO QHS diphenhydramine HCl 50 mg Tablet 50 mg PO Q8H PRN PRN (Reason: agitation/anxiety ) Patient Comments: PRN PER OCT clozapine [Clozaril] 100 mg Tablet 200 mg PO BID divalproex [Depakote] 500 mg Tablet,Delayed Release (Dr/Ec) 500 mg PO QHS Patient Comments: PER OCT PT TAKES 1 (250 MG) TAB IN THE AM AND 1 (500 MG) TAB IN THE PM. lorazepam [Ativan] 1 mg Tablet 1 mg PO Q6H PRN (Reason: agitiation/anxiety ) Patient Comments: PRN PER OCT Invega Sustenna 234 mg/1.5 mL Syringe 234 mg IM DAILY Patient Comments: PER LONG-TERM MAR PT IS DUE FOR MONTHLY INJECTION ON 03/12/23. Rx Instructions: give every 28 days timolol maleate 0.5 % Drops, Once Daily 1 drp EACH EYE DAILY divalproex 250 mg tablet,delayed release (DR/EC) 250 mg PO DAILY Patient Comments: PER MAR PT TAKES 1 (250 MG) TAB IN THE AM AND 1 (500 MG) TAB IN THE PM. pantoprazole [Protonix] 40 mg tablet,delayed release (DR/EC) 40 mg PO DAILY Patient Comments: PER LONG-TERM MAR PT TO START ON 03/03/23 metformin 1,000 mg tablet 1,000 mg PO BID acetaminophen 325 mg tablet 650 mg PO Q4H PRN (Reason: fever or pain) Patient Comments: PRN PER OCT sennosides [Senokot] 8.6 mg tablet 8.6 mg PO DAILY insulin glargine-yfgn 100 unit/mL (3 mL) Insulin Pen 12 unit subcut BREAKFAST Qty: 0 0RF insulin lispro [Humalog KwikPen Insulin] 100 unit/mL Insulin Pen 8 unit subcut BREAKFAST Qty: 0 0RF insulin lispro [Humalog KwikPen Insulin] 100 unit/mL Insulin Pen 8 unit subcut LUNCH Qty: 0 0RF insulin lispro [Humalog KwikPen Insulin] 100 unit/mL Insulin Pen 8 unit subcut DINNER Qty: 0 0RF Primary Care Provider: Ever Avila Referrals: Russ Covarrubias DO [Med Staff - Active Staff] - As soon as possible Ever Avila MD [Primary Care Provider] - Activity Restrictions/Additional Instructions: Aureliano sodium is mildly high. Need to increase his free water in addition he has some findings consistent with constipation. It is important that he takes his MiraLAX, senna and lactulose. He might need to increase his lactulose if he is not having regular bowel movements. Please follow closely with his PCP. He has been given referral for GI as well. At this time there is no signs of an obstruction or blockage of food in his GI tract or small bowel obstruction. If his symptoms worsen please return to the emergency room. Disposition Disposition: Assisted Living
[2023-03-19 10:41] LABS: Absolute Lymphocyte Count 2.59 X10^3/uL (0.83-4.51); Absolute Neutrophil Count 2.5 X10^3/uL (2.0-7.7); Basophil# 0.02 X10^3/uL; Basophil% 0.3 % (0-1); Eosinophil# 0.22 X10^3/uL; Eosinophils% 3.6 % (0-5); Hematocrit 41.5 % (40-54); Hemoglobin 13.1 g/dL (13.0-16.5); Lymphocyte # 2.59 X10^3/ul (0.83-4.51); Mean Corp Hgb Conc 31.6 g/dL (32-36); Mean Corpuscular Hgb 27.6 pg (27.0-32.0); Mean Corpuscular Volume 87.4 fL (80-94); Mean Platelet Vol. 10.5 fl (6.2-12.0); Monocyte# 0.66 X10^3/uL; Monocyte% 10.9 % (0-10); NRBC Flagged by Analyzer 0 % (0-5); Neutrophil # 2.53 X10^3/uL (2.7-7.7); Platelet Count 224 K/mm3 (150-450); RBC Distribution Width CV 16.1 % (11.6-14.6); RBC Distribution Width SD 51.8 fl (35.1-43.9); Red Blood Count 4.75 M/mm3 (4.6-6.2)
[2023-03-19 10:57] LABS: AST(SGOT) 6 U/L (15-37); Alanine Aminotransfer ALT/SGPT 10 U/L (16-61); Albumin, Serum 3.2 g/dL (3.2-5.0); Alkaline Phosphatase 70 U/L (45-117); Anion Gap 5 (5-15); BUN 7 mg/dL (7-18); BUN/Creat Ratio 5.8 RATIO (10-20); Chloride 110 mmol/L (98-107); Creatinine, Serum 1.21 mg/dL (0.70-1.30); EST Glomerular Filtration Rate 70 mL/min (>60); Est Glom Filt Rate - Afr Amer 84 mL/min (>60); Estimated Creatinine Clearance 61.42 ml/min; Globulin 3.2 g/dL (2.2-4.2); Glucose 216 mg/dL (74-106); Magnesium 2.1 mg/dL (1.6-2.6); Potassium 3.8 mmol/L (3.5-5.1); Protein, Total 6.4 g/dL (6.4-8.2); Sodium Level 147 mmol/L (136-145)
[2023-03-19 11:01] LABS: Phosphorus 3.8 mg/dL (2.5-4.9); Troponin-I HS 3 pg/mL (3.0-78.0)
[2023-03-19] MEDS: Ondansetron 4 MG/2 ML Vial IV (11:07)
[2023-03-19] MEDS: 0.9% Normal Saline 1,000 ML 999 ML IV (11:07)
[2023-03-19 11:23] LABS: Bedside Glucose 185 mg/dL (74-106)
--- NOTE | 2023-03-19 11:23 | CT_ITS ---
STUDY: CT ABDOMEN AND PELVIS WITH CONTRAST REASON FOR EXAM: Male, 42 years old. Postprandial pain and vomiting. RADIATION DOSAGE (If Supplied By Facility): CTDIvol = ( 14.34 ) mGy, DLP = ( 630.74 ) mGycm TECHNIQUE: Transaxial images were obtained from the dome of the diaphragm to the symphysis pubis without oral contrast. IV 100mL Isovue-300 was administered. Sagittal and coronal images were reconstructed. Individualized dose optimization techniques were used for this CT. COMPARISON: Comparison is made with prior study dated March 03, 2023. FINDINGS: The visualized lung bases are unremarkable. The visualized portions of the heart are within normal limits. There is decreased attenuation of the liver consistent with steatosis. Normal gallbladder and extrahepatic biliary system. Normal spleen. Normal pancreas. Normal bilateral adrenal glands. Normal right kidney. Stable 5 mm nonobstructive calculus in the mid posterior calyx of the left kidney. Normal visualized stomach. Normal small intestine. Large amount of fecal material is seen in the colon. Scattered sigmoid diverticula. The appendix is visualized and appears normal. Normal abdominal aorta. Normal inferior vena cava. Normal retroperitoneum. Normal urinary bladder. There is a small umbilical hernia containing fat. Normal osseous structures. CT/Abdomen/Pelvis W IV Cont ONLY IMPRESSION: Large amount of fecal material is seen in the colon. Stable tiny nonobstructive left intrarenal calculus. Electronically Signed: Pradeep Guerrero MD at 12:00 EDT ,
[2023-03-19 11:31] VITALS: BP 114/78; PULSE 78; RESP 14; O2SAT 97
[2023-03-19 11:45] LABS: Blood Gas Specimen Type VEN; VBG BASE EXCESS 5 mmol/L (-1.0-3.5); VBG Bicarbonate 31 mmol/L (22-26); VBG PO2 54 mmHg (25-40); VBG SO2 85 % (50-70); VBG TCO2 32 mmol/L (23-33); VBG pCO2 55.5 mmHg (41-51); VBG pH 7.35 (7.32-7.42)
[2023-03-19 11:46] LABS: Bacteria 0 SEEN /hpf (None Seen); Mucous, Urine 0 SEEN /hpf (<or=2+); Red Blood Cells-Urine 0 SEEN /hpf (0-5); Squamous Epithelial Cells - UA 0 SEEN /hpf (0-5); White Blood Cells 0 SEEN /hpf (0-5)
[2023-03-19 11:56] LABS: Color, Urine Yellow (Yellow); Glucose, Dipstick 1000 mg/dl (Normal); Ketone-Dipstick 5 mg/dl (Negative); Leukocyte Esterase-Dipstick Negative /ul (Negative); Nitrite-Dipstick Negative (Negative); Occult Blood-Urine Negative /ul (Negative); Protein-Dipstick Negative (Negative); Urine Bilirubin Dipstick Negative (Negative); Urine Clarity Clear (Clear); Urine Urobilinogen Normal (Normal); Urine pH 6.5 (5.0 - 8.0)
[2023-03-19 12:09] LABS: Valproic Acid (Depakene) Level 76 ug/mL (50-100)
[2023-03-19 13:14] VITALS: BP 96/64; PULSE 76; RESP 14; O2SAT 99
[2023-03-19 15:06] VITALS: BP 132/72; PULSE 64; RESP 14; O2SAT 98
== END 2023-03-19 16:35 | disposition home or self-care (01) ==
PROVIDERS: Emergency Provider Emergency Medicine; PCP Family Medicine; Visit Provider Emergency Medicine
DX: E87.0 Hyperosmolality and hypernatremia (principal); F25.9 Schizoaffective disorder, unspecified; F31.9 Bipolar disorder, unspecified; E11.65 Type 2 diabetes mellitus with hyperglycemia; Z79.4 Long term (current) use of insulin; K59.00 Constipation, unspecified; I10 Essential (primary) hypertension; E78.5 Hyperlipidemia, unspecified; F41.9 Anxiety disorder, unspecified; H40.9 Unspecified glaucoma; Z79.899 Other long term (current) drug therapy
CPT/HCPCS: 71045; 74177; 80053; 80164; 81001; 82009; 82803; 82962; 83735; 84100; 84484; 85025; 93005; 96361; 96374; 99285; J7030; Q9967; A4216; J2405

== ENCOUNTER → 2023-04-02 | Outpatient (CLI) | payer MEDICARE, MEDICAID, SELFPAY ==
--- NOTE | 2023-04-02 16:35 | CT_ITS ---
We are attempting to reach an attending provider to discuss findings. An addendum with communication details will be sent when the communication is complete. INDICATION: WEIGHT LOSS, VOMITING, DYSPHAGIA EXAMINATION: CT CHEST WITH CONTRAST - CT Chest W/ Contrast Injection TECHNIQUE: Helically acquired images were obtained of the chest following IV contrast. A radiation dose optimization technique was used for this scan. IV Contrast dosage and agent: COMPARISON: None. FINDINGS: LUNGS, PLEURA AND LARGE AIRWAYS: No masses, consolidation, or edema. No pleural effusion or thickening. No pneumothorax. THYROID: No thyroid lesions. HEART AND PERICARDIUM: Heart size is normal. No pericardial effusion. VESSELS: Thoracic aorta is not dilated. No aortic dissection. No obvious central pulmonary embolism although this study was not performed with the pulmonary embolism protocol. MEDIASTINUM AND ANDRES: No mediastinal or hilar adenopathy. There is dilatation of the proximal cervical and thoracic esophagus to the level of the aortic knob where there is collapse or occlusion of the lumen and the possibility of obstructing lesion at that point cannot be excluded. No hiatal hernia. UPPER ABDOMEN: Tiny nonobstructing left renal calculus. BONES: No suspicious lytic or blastic abnormality. CT/Chest WITH Contrast IMPRESSION: No acute cardiopulmonary pathology. No definitive evidence for pulmonary embolus. Dilatation of the proximal esophagus which becomes collapsed or occluded at the level of aortic knob and possibly obstructing lesion cannot be excluded esophagoscopy or barium swallow recommended for more definitive evaluation Left nephrolithiasis without evidence for obstruction Electronically Signed: Douglas Sosa MD at 17:23 EDT ,
== END | disposition home or self-care (01) ==
LOC: CT 16:34
PROVIDERS: PCP Family Medicine; Referring Provider Family Medicine; Visit Provider Family Medicine
DX: R13.10 Dysphagia, unspecified (principal); R11.10 Vomiting, unspecified; R63.4 Abnormal weight loss
CPT/HCPCS: 71260; Q9967; A4216

== ENCOUNTER → 2023-05-10 | Outpatient (CLI) | payer MEDICARE, MEDICAID, SELFPAY ==
--- NOTE | 2023-05-10 14:19 | US_ITS ---
STUDY: THYROID ULTRASOUND REASON FOR EXAM: Male, 42 years old. Elevated tsh TECHNIQUE: Ultrasound evaluation of the thyroid was performed with real-time and static mi-scale imaging. COMPARISON: None. FINDINGS: RIGHT LOBE: The right lobe of the thyroid gland measures 3.7 cm x 1.3 cm x 1.1 cm. There is a homogeneous echotexture. There are no demonstrated solid, cystic or complex lesions. LEFT LOBE: The left lobe of the thyroid gland measures 3.7 cm x 1.7 cm x 0.9 cm. There is a homogeneous echotexture. There are no demonstrated solid, cystic or complex lesions. ISTHMUS: The isthmus measures 2.1 mm. The regional lymph nodes are normal. US/Thyroid IMPRESSION: Normal ultrasound examination of the thyroid. Electronically Signed: Pradeep Guerrero MD at 15:42 EDT ,
== END | disposition home or self-care (01) ==
PROVIDERS: PCP Family Medicine; Referring Provider Nurse Practitioner Family; Visit Provider Nurse Practitioner Family
DX: R79.89 Other specified abnormal findings of blood chemistry (principal)
CPT/HCPCS: 76536

== ENCOUNTER 2023-11-26 15:06 | Inpatient (IN) | payer MEDICARE, OTHER, SELFPAY ==
[2023-11-26] VITALS (7 sets, daily range): BP systolic 92–115; BP diastolic 60–76; PULSE 87–95; RESP 15–18; TEMP 36.3–36.5; O2SAT 95–100; BMI 23.1
--- NOTE | 2023-11-26 15:44 | CT_ITS ---
EXAMINATION : Head CT w/out contrast HISTORY : ams COMPARISON : None. TECHNIQUE : Multiple contiguous axial images were obtained from the skull base to the vertex without intravenous contrast. A radiation dose optimization technique was used for this scan. FINDINGS : The ventricles and sulci are normal in size. There is no evidence for acute intracranial hemorrhage, mass effect, or midline shift. There is no extra-axial fluid collection. There is normal rhoades-white differentiation, without CT evidence of acute ischemia or infarct. The skull base and calvarium are unremarkable. The orbits are unremarkable. The paranasal sinuses are clear. The mastoid air cells are well-aerated. The soft tissues are unremarkable. CT/Brain/Head without Contrast IMPRESSION: No acute intracranial abnormality. Electronically Signed: Cm Espinal MD at 16:44 EDT ,
--- NOTE | 2023-11-26 15:45 | EKG12_ITS ---
Test Reason : Blood Pressure : / mmHG Vent. Rate : 090 BPM Atrial Rate : 090 BPM P-R Int : 136 ms QRS Dur : 078 ms QT Int : 364 ms P-R-T Axes : 046 048 024 degrees QTc Int : 445 ms Normal sinus rhythm Normal ECG Confirmed by Delfino Jamison ([id number]), manager editorial BONNIE HUI ([id number]) on 11/27/2023 10:10:54 AM Referred By: RADHA Confirmed By:Delfino Jamison
--- NOTE | 2023-11-26 15:46 | EDS_ITS ---
HPI History of Present Illness Chief Complaint: Alt LOC Narrative Narrative: 43-year-old male presented with altered mental status. Is a poor informant as he is very confused. Upon asking him he points to his stomach and he mumbles. Per EMS his blood sugar was 93 and he has a history of diabetes with DKA. Patient denies feeling like he will vomit. He is unable to give further history. [facility] Medical History Alternating exotropia Anemia Anxiety Bipolar disorder Blindness Cannabis abuse Chronic pain syndrome Constant exophthalmos, bilateral Constipation Dementia Diabetes Disorder of urea cycle metabolism, unspecified Disturbances of salivary secretion Dysphagia Essential (primary) hypertension Exophthalmos Generalized muscle weakness GERD (gastroesophageal reflux disease) Glaucoma History of psychiatric disorder Hyperlipidemia Hypertensive retinopathy, right eye Insomnia Muscle weakness Myopia, unspecified eye Posterior subcapsular polar age-related cataract, bilateral PVD (peripheral vascular disease) Schizoaffective disorder Seizures TBI (traumatic brain injury) Type 2 diabetes mellitus Unspecified intellectual disabilities Unspecified psychosis 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 or known physiological condition Home Medications cetirizine 10 mg tablet 10 mg PO QHS allergy symptoms 12/09/22 [History Last Taken 03/01/23] clozapine 100 mg tablet (Clozaril) 200 mg PO BID schizoaffective disorder 12/09/22 [History Last Taken 03/02/23] diphenhydramine HCl 50 mg tablet 50 mg PO Q8H PRN PRN agitation/anxiety 12/09/22 [History Last Taken Unknown] divalproex 500 mg tablet,delayed release (Depakote) 500 mg PO QHS bipolar disorder/schizoaffective disorder 12/09/22 [History Last Taken 03/01/23] lorazepam 1 mg tablet (Ativan) 1 mg PO Q6H PRN agitiation/anxiety 12/09/22 [History Last Taken Unknown] multivitamin 1 tab PO DAILY supplement 12/09/22 [History Last Taken 03/02/23] polyethylene glycol 3350 17 gram oral powder packet (Miralax) 17 g PO DAILY constipation 12/09/22 [History Last Taken 03/02/23] timolol maleate 0.5 % once daily eye 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 12/09/22 [History Last Taken 03/02/23] latanoprost 0.005 % eye drops 1 drp ophthalmic (eye) QPM 02/20/23 [History Last Taken 03/01/23] metoprolol tartrate 25 mg tablet 25 mg PO DAILY 02/20/23 [History Last Taken 03/02/23] acetaminophen 325 mg tablet 650 mg PO Q4H PRN fever or pain 03/02/23 [History Last Taken Unknown] divalproex 250 mg tablet,delayed release 250 mg PO DAILY BIPOLAR 03/02/23 [History Last Taken 03/02/23] metformin 1,000 mg tablet 1,000 mg PO BID DM 03/02/23 [History Last Taken 03/02/23] pantoprazole 40 mg tablet,delayed release (Protonix) 40 mg PO DAILY GERD 03/02/23 [History Last Taken Unknown] sennosides 8.6 mg tablet (Senokot) 8.6 mg PO DAILY CONSTIPATION 03/02/23 [History Last Taken 03/02/23] insulin glargine-yfgn 100 unit/mL (3 mL) subcutaneous pen 12 unit (0.12 mL) sub cut BREAKFAST #0 mL 03/04/23 [Rx Last Taken Unknown] insulin lispro 100 unit/mL subcutaneous pen (Humalog KwikPen (U-100) Insulin) 8 unit (0.08 mL) subcut BREAKFAST #0 mL 03/04/23 [Rx Last Taken Unknown] insulin lispro 100 unit/mL subcutaneous pen (Humalog KwikPen (U-100) Insulin) 8 unit (0.08 mL) subcut DINNER #0 mL 03/04/23 [Rx Last Taken Unknown] insulin lispro 100 unit/mL subcutaneous pen (Humalog KwikPen (U-100) Insulin) 8 unit (0.08 mL) subcut LUNCH #0 mL 03/04/23 [Rx Last Taken Unknown] lactulose 20 gram/30 mL oral solution 20 g (30 mL) PO TID #3,000 mL 03/19/23 [Rx Last Taken 03/02/23] empagliflozin 10 mg tablet (Jardiance) 10 mg PO DAILY 04/25/23 [History Last Taken Unknown] metoclopramide HCl 5 mg tablet (Reglan) 5 mg PO TID 04/25/23 [History Last Taken Unknown] paliperidone palmitate 234 mg/1.5 mL intramuscular syringe (Invega Sustenna) 234 mg IM DAILY Check with primary doctor 04/25/23 [History Last Taken Unknown] Allergy/AdvReac Type Severity Reaction Status Date / Time Sulfa (Sulfonamide Allergy Mild Other Verified 04/25/23 09:55 Antibiotics) 5HTS Receptor antagonist Allergy Unknown Other Uncoded 04/25/23 09:55 Surgical History H/O eye surgery Social History [facility] other: Patient has a legal guardian and is a long-term resident at [facility] Smoking Status: Unknown if ever smoked alcohol intake: never substance use type: does not use and other details: Unknown EXAM Physical Exam Const Vital Signs: 11/26/23 15:09 11/26/23 16:08 11/26/23 17:00 Temperature 97.3 F L Temperature Source Temporal Pulse Rate 94 91 91 Respiratory Rate 16 16 15 Blood Pressure 100/75 106/70 115/76 Blood Pressure Mean 83 82 89 Pulse Ox 98 95 99 Oxygen Delivery Method Room Air Room Air Room Air Positive unkempt General Appearance ED: unkempt Neck no lymphadenopathy and supple Chest Wall inspection of chest normal and palpation of chest normal Resp normal respiratory effort and clear to auscultation bilaterally Auscultation: Negative for rales, rhonchi or wheezes Cardio regular rate and regular rhythm GI normal to inspection, nondistended, normoactive bowel sounds and non-distended Auscultation: normoactive bowel sounds Palpation: soft Narrative: Deferred Extremity normal to inspection Neuro Sensorium / Orientation: alert Psych Psych Narrative: Confused Appearance: unkempt Attitude: No agitated Skin no rashes or lesions noted and no wounds General Skin Exam: Negative for jaundice MDM MDM MDM Narrative Medical decision making narrative: 43-year-old male presenting with altered mental status. Currently has a baseline of dementia but is alert and oriented x 3 and able to ambulate. Patient acute mental status change around 1300 today. No evidence of trauma on examination. Patient is able to indicate that he has a little bit of abdominal pain although his abdominal exam is benign. Patient is on Depakote as well as lactulose. Differential includes Depakote toxicity, hyperammonemia, seizure, stroke, intracranial hemorrhage, dehydration, anemia, electrode abnormalities, dysrhythmia, cardiac ischemia, hypothyroidism, hyperthyroidism, pneumonia, UTI. Patient given IV fluids. CBC was obtained to assess white blood cell count, hemoglobin, platelets CMP to assess liver function, renal function, electrolytes, glucose. High-sensitivity troponin EKG to assess for ischemia/dysrhythmia. Chest x-ray to rule out pneumonia. CT brain was obtained to rule out intracranial abnormality. Ammonia level to assess for hyperammonemia. Depakote level to assess for Depakote toxicity. TSH to assess for hypothyroidism. CBC shows normal white blood count 8.5. Hemoglobin 14.2. Platelets 295. Creatinine elevated today 1.44 the patient was given IV fluids. Electrolytes unremarkable. Ammonia level slightly elevated at 37 which I do not believe explains his altered mental status. TSH is normal at 1.49, T4 is normal at 0.4. Depakote level is low at 22. Chest x-ray on my interpretation shows no acute process. Radiologist interprets and agrees. CT of the brain was negative for acute intracranial process. Given the patient's altered mental status will need to be admitted for further evaluation. It is possible patient had a seizure at some point. Impression: 1. Acute delirium 2. Debility 3. Dehydration 4. History of epilepsy 5. Subtherapeutic Depakote level Lab Data Attestation: I reviewed the patient's lab results. Labs: Laboratory Results - last 24 hr 11/26/23 11/26/23 15:40 17:06 WBC 8.5 RBC 5.37 Hgb 14.2 Hct 42.9 MCV 79.9 L MCH 26.4 L MCHC 33.1 RDW Std Deviation 40.3 RDW Coeff of Tana 14.2 Plt Count 295 MPV 10.0 Immature Gran % (Auto) 0.400 Neut % (Auto) 54.8 Lymph % (Auto) 26.4 [place] % (Auto) 14.6 H Eos % (Auto) 3.3 Baso % (Auto) 0.5 Absolute Neuts (auto) 4.7 Absolute Lymphs (auto) 2.24 Nucleated RBC % 0 Sodium 138 Potassium 4.1 Chloride 106 Carbon Dioxide 28.0 Anion Gap 4 L BUN 15 Creatinine 1.44 H Est GFR (MDRD) Af Amer 69 Est GFR (MDRD) Non-Af 57 L BUN/Creatinine Ratio 10.4 Glucose 83 Calcium 8.8 Total Bilirubin 0.60 Direct Bilirubin 0.13 AST 20 ALT 13 L Alkaline Phosphatase 69 Ammonia 37.0 H Troponin I High Sens < 3 L Total Protein 6.9 Albumin 3.1 L Globulin 3.8 Lipase 29 TSH 1.49 Free T4 0.84 Free T3 pg/dL 1.5 L Valproic Acid 22 L Radiography Diagnostic Testing: Clinical Impression(s) from Imaging Studies Brain CT 11/26/23 15:44 IMPRESSION: No acute intracranial abnormality. Electronically Signed: Cm Espinal MD at 16:44 EDT , Chest X-Ray 11/26/23 16:09 IMPRESSION: No acute radiographic abnormalities. Electronically Signed: Cm Espinal MD at 16:44 EDT , Discharge Plan Triage Chief Complaint: Alt LOC ED Provider: Patricio Gaitan Dx/Rx/DC Orders Prescriptions: No Action Jardiance 10 mg tablet 10 mg PO DAILY metoclopramide HCl [Reglan] 5 mg tablet 5 mg PO TID Rx Instructions: 30 mins before meal latanoprost 0.005 % drops 1 drp ophthalmic (eye) QPM Rx Instructions: both eyes metoprolol tartrate 25 mg tablet 25 mg PO DAILY multivitamin Tablet 1 tab PO DAILY polyethylene glycol 3350 [Miralax] 17 gram Powder In Packet 17 g PO DAILY cetirizine 10 mg Tablet 10 mg PO QHS diphenhydramine HCl 50 mg Tablet 50 mg PO Q8H PRN PRN (Reason: agitation/anxiety ) Patient Comments: PRN PER OCT clozapine [Clozaril] 100 mg Tablet 200 mg PO BID divalproex [Depakote] 500 mg Tablet,Delayed Release (Dr/Ec) 500 mg PO QHS Patient Comments: PER OCT PT TAKES 1 (250 MG) TAB IN THE AM AND 1 (500 MG) TAB IN THE PM. lorazepam [Ativan] 1 mg Tablet 1 mg PO Q6H PRN (Reason: agitiation/anxiety ) Patient Comments: PRN PER MAR timolol maleate 0.5 % Drops, Once Daily 1 drp EACH EYE DAILY Invega Sustenna 234 mg/1.5 mL syringe 234 mg IM DAILY Patient Comments: PER CUSTODIAL MAR PT IS DUE FOR MONTHLY INJECTION ON 03/12/23. Rx Instructions: give every 28 days divalproex 250 mg tablet,delayed release (DR/EC) 250 mg PO DAILY Patient Comments: PER MAR PT TAKES 1 (250 MG) TAB IN THE AM AND 1 (500 MG) TAB IN THE PM. pantoprazole [Protonix] 40 mg tablet,delayed release (DR/EC) 40 mg PO DAILY Patient Comments: PER CUSTODIAL [facility] PT TO START ON 03/03/23 metformin 1,000 mg tablet 1,000 mg PO BID acetaminophen 325 mg tablet 650 mg PO Q4H PRN (Reason: fever or pain) Patient Comments: PRN PER MAR sennosides [Senokot] 8.6 mg tablet 8.6 mg PO DAILY insulin glargine-yfgn 100 unit/mL (3 mL) Insulin Pen 12 unit subcut BREAKFAST Qty: 0 0RF insulin lispro [Humalog KwikPen Insulin] 100 unit/mL Insulin Pen 8 unit subcut BREAKFAST Qty: 0 0RF insulin lispro [Humalog KwikPen Insulin] 100 unit/mL Insulin Pen 8 unit subcut LUNCH Qty: 0 0RF insulin lispro [Humalog KwikPen Insulin] 100 unit/mL Insulin Pen 8 unit subcut DINNER Qty: 0 0RF lactulose 20 gram/30 mL solution 20 g PO TID Qty: 3000 0RF Rx Instructions: titrate until 2-3 loose stools daily Primary Care Provider: Ever Avila Referrals: Ever Avila MD [Primary Care Provider] -
[2023-11-26] MEDS: 0.9% Normal Saline (1000mL) 1,000 ML 1000 ML IV (15:53)
[2023-11-26 16:02] LABS: Absolute Lymphocyte Count 2.24 X10^3/uL (0.83-4.51); Absolute Neutrophil Count 4.7 X10^3/uL (2.0-7.7); Basophil# 0.04 X10^3/uL; Basophil% 0.5 % (0-1); Eosinophil# 0.28 X10^3/uL; Eosinophils% 3.3 % (0-5); Hematocrit 42.9 % (40-54); Hemoglobin 14.2 g/dL (13.0-16.5); Lymphocyte # 2.24 X10^3/ul (0.83-4.51); Lymphocyte % 26.4 % (19-41); Mean Corp Hgb Conc 33.1 g/dL (32-36); Mean Corpuscular Hgb 26.4 pg (27.0-32.0); Mean Corpuscular Volume 79.9 fL (80-94); Monocyte# 1.24 X10^3/uL; Monocyte% 14.6 % (0-10); NRBC Flagged by Analyzer 0 % (0-5); Neutrophil # 4.65 X10^3/uL (2.7-7.7); Neutrophil % 54.8 % (47-70); Platelet Count 295 K/mm3 (150-450); RBC Distribution Width CV 14.2 % (11.6-14.6); RBC Distribution Width SD 40.3 fl (35.1-43.9); Red Blood Count 5.37 M/mm3 (4.6-6.2); White Blood Count 8.5 K/mm3 (4.4-11.0)
--- NOTE | 2023-11-26 16:09 | RAD_ITS ---
INDICATION: weaknes EXAMINATION/TECHNIQUE: X-RAY - XR Chest 1 View COMPARISON: None. FINDINGS: The lungs are clear. The cardiomediastinal silhouette is unremarkable. No pleural effusion or pneumothorax. No acute osseous abnormalities. RAD/Chest 1 View (Portable) IMPRESSION: No acute radiographic abnormalities. Electronically Signed: Cm Espinal MD at 16:44 EDT ,
[2023-11-26 16:37] LABS: Glucose 83 mg/dL (74-106)
[2023-11-26 16:38] LABS: Albumin, Serum 3.1 g/dL (3.2-5.0); BUN 15 mg/dL (7-18); BUN/Creat Ratio 10.4 RATIO (10-20); Calcium,Total 8.8 mg/dL (8.5-10.1); Creatinine, Serum 1.44 mg/dL (0.70-1.30); EST Glomerular Filtration Rate 57 mL/min (>60); Est Glom Filt Rate - Afr Amer 69 mL/min (>60); Globulin 3.8 g/dL (2.2-4.2); Lipase 29 U/L (13-75); Protein, Total 6.9 g/dL (6.4-8.2)
[2023-11-26 16:39] LABS: AST(SGOT) 20 U/L (15-37); Alanine Aminotransfer ALT/SGPT 13 U/L (16-61); Alkaline Phosphatase 69 U/L (45-117); Bilirubin, Direct 0.13 mg/dL (0.00-0.30); Chloride 106 mmol/L (98-107); Potassium 4.1 mmol/L (3.5-5.1); Sodium Level 138 mmol/L (136-145); Troponin-I HS < 3 pg/mL (3.0-78.0)
[2023-11-26 16:40] LABS: Anion Gap 4 (5-15); Free T3 1.5 pg/mL (2.18-3.98); T4 Free Direct 0.84 ng/dL (0.76-1.46); Thyroid Stim Hormone (TSH) 1.49 uIU/mL (0.358-3.74)
--- NOTE | 2023-11-26 17:12 | ED.RN ---
GEAR [employer]APER SET UP OPERATOR at [facility] informed of plan to admit patient to [facility].
[2023-11-26 17:37] LABS: Valproic Acid (Depakene) Level 22 ug/mL (50-100)
[2023-11-26 17:42] LABS: Bacteria 0 SEEN /hpf (None Seen); Mucous, Urine 0 SEEN /hpf (<or=2+); Red Blood Cells-Urine 0 SEEN /hpf (0-5); White Blood Cells 0 SEEN /hpf (0-5)
[2023-11-26 18:00] LABS: Color, Urine Yellow (Yellow); Glucose, Dipstick 250 mg/dl (Normal); Ketone-Dipstick Negative (Negative); Leukocyte Esterase-Dipstick Negative /ul (Negative); Nitrite-Dipstick Negative (Negative); Occult Blood-Urine Negative /ul (Negative); Protein-Dipstick Negative (Negative); Urine Bilirubin Dipstick Negative (Negative); Urine Clarity Sl. Cloudy (Clear); Urine Urobilinogen Normal (Normal)
[2023-11-26 18:55] LABS: Squamous Epithelial Cells - UA 0-5 SEEN /hpf (0-5)
--- NOTE | 2023-11-26 20:43 | HP.PCM.HOS_ITS ---
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 According to the nursing staff at the psychiatric senior living, patient was found approximately 1 PM this afternoon and was not able to speak and appeared confused. He was transferred to the emergency room at [facility] for evaluation. Examination of the patient revealed him to be nonverbal, he was alert and responded to painful stimuli but was not able to carry on a conversation. Labs were obtained in the emergency room, other than a slightly elevated creatinine, patient's labs are unremarkable. Patient had a CT of the brain which was also unremarkable. Patient's ammonia level was 37, patient's valproic acid level was 22. Urinalysis was unremarkable. During the time the patient was in the emergency room, patient gradually began to be more alert and was able to say a few words but still has slurred speech. I think the most likely explanation for what happened to the patient is that he had an unwitnessed seizure and he was postictal. Patient was admitted to PCU, he will have an EEG, I have elected to increase the patient's Keppra dosage to 1500 mg twice daily, he is on valproic acid for behavioral control but I have decided to increase his valproic acid to 500 twice daily. [facility] Medical History (Updated 11/26/23 @ 20:11 by Virginia Fuentes) Alcohol abuse Alternating exotropia Anemia Anxiety Asthma Bipolar disorder Blindness Cannabis abuse Chronic pain syndrome Constant exophthalmos, bilateral Constipation Dementia Depression Diabetes Diabetes Disorder of urea cycle metabolism, unspecified Disturbances of salivary secretion Dysphagia Essential (primary) hypertension Exophthalmos Generalized muscle weakness GERD (gastroesophageal reflux disease) GI bleed Glaucoma History of psychiatric disorder Hyperlipidemia Hypertension Hypertensive retinopathy, right eye Insomnia Kidney stones Muscle weakness Myopia, unspecified eye Posterior subcapsular polar age-related cataract, bilateral Pulmonary embolism PVD (peripheral vascular disease) Schizoaffective disorder Schizophrenia Seizures Substance abuse TBI (traumatic brain injury) Type 2 diabetes mellitus Unspecified intellectual disabilities Unspecified psychosis 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 or known physiological condition Home Medications cetirizine 10 mg tablet 10 mg PO QHS allergy symptoms 12/09/22 [History Last Taken 03/01/23] clozapine 100 mg tablet (Clozaril) 100 mg PO DAILY schizoaffective disorder 12/09/22 [History Last Taken 03/02/23] diphenhydramine HCl 50 mg tablet 50 mg PO Q8H PRN PRN agitation/anxiety 12/09/22 [History Last Taken Unknown] lorazepam 1 mg tablet (Ativan) 1 mg PO Q6H PRN agitiation/anxiety 12/09/22 [History Last Taken Unknown] multivitamin 1 tab PO DAILY supplement 12/09/22 [History Last Taken 03/02/23] polyethylene glycol 3350 17 gram oral powder packet (Miralax) 17 g PO DAILY constipation 12/09/22 [History Last Taken 03/02/23] timolol maleate 0.5 % once daily eye 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 12/09/22 [History Last Taken 03/02/23] latanoprost 0.005 % eye drops 1 drp ophthalmic (eye) QPM eyes 02/20/23 [History Last Taken 03/01/23] metoprolol tartrate 25 mg tablet 25 mg PO DAILY hypertension 02/20/23 [History Last Taken 03/02/23] acetaminophen 325 mg tablet 650 mg PO Q4H PRN fever or pain 03/02/23 [History Last Taken Unknown] divalproex 250 mg tablet,delayed release 250 mg PO DAILY BIPOLAR 03/02/23 [History Last Taken 03/02/23] metformin 1,000 mg tablet 1,000 mg PO BID DM 03/02/23 [History Last Taken 03/02/23] pantoprazole 40 mg tablet,delayed release (Protonix) 40 mg PO BID GERD 03/02/23 [History Last Taken Unknown] sennosides 8.6 mg tablet (Senokot) 8.6 mg PO DAILY CONSTIPATION 03/02/23 [History Last Taken 03/02/23] insulin lispro 100 unit/mL subcutaneous pen (Humalog KwikPen (U-100) Insulin) 8 unit (0.08 mL) subcut BREAKFAST #0 mL 03/04/23 [Rx Last Taken Unknown] insulin lispro 100 unit/mL subcutaneous pen (Humalog KwikPen (U-100) Insulin) 8 unit (0.08 mL) subcut DINNER #0 mL 03/04/23 [Rx Last Taken Unknown] insulin lispro 100 unit/mL subcutaneous pen (Humalog KwikPen (U-100) Insulin) 8 unit (0.08 mL) subcut LUNCH #0 mL 03/04/23 [Rx Last Taken Unknown] lactulose 20 gram/30 mL oral solution 20 g (30 mL) PO TID elevated ammonia #3,000 mL 03/19/23 [Rx Last Taken 03/02/23] empagliflozin 10 mg tablet (Jardiance) 10 mg PO DAILY diabetes 04/25/23 [History Last Taken Unknown] metoclopramide HCl 5 mg tablet (Reglan) 5 mg PO TID gastroparesis 04/25/23 [History Last Taken Unknown] paliperidone palmitate 234 mg/1.5 mL intramuscular syringe (Invega Sustenna) 234 mg IM DAILY Check with primary doctor 04/25/23 [History Last Taken Unknown] citalopram 10 mg tablet (Celexa) 10 mg PO DAILY depression 11/26/23 [History Last Taken Unknown] clozapine 200 mg tablet 200 mg PO DAILY bipolar 11/26/23 [History Last Taken Unknown] hydroxyzine pamoate 50 mg capsule 50 mg PO TID anxiety 11/26/23 [History Last Taken Unknown] insulin glargine-yfgn 100 unit/mL (3 mL) subcutaneous pen 15 unit subcut BREAKFAST diabetes 11/26/23 [History Last Taken Unknown] levetiracetam 1,000 mg tablet (Keppra) 1,000 mg PO Q12H epilepsy 11/26/23 [History Last Taken Unknown] Allergy/AdvReac Type Severity Reaction Status Date / Time Sulfa (Sulfonamide Allergy Mild Other Verified 04/25/23 09:55 Antibiotics) 5HTS Receptor antagonist Allergy Unknown Other Uncoded 04/25/23 09:55 Surgical History H/O eye surgery Social History housing: senior living other: Patient has a legal guardian and is a long-term resident at [facility] Smoking Status: Unknown if ever smoked alcohol intake: never substance use type: does not use and other details: Unknown ROS ROS Narrative Review of systems was unobtainable due to patient's encephalopathy Review of Systems ROS Unobtainable: due to encephalopathy, due to mental condition and due to mental status Vital Signs Vital Signs Vital Signs: 11/26/23 15:09 11/26/23 16:08 11/26/23 17:00 Temperature 97.3 F L Temperature Source Temporal Pulse Rate 94 91 91 Respiratory Rate 16 16 15 Blood Pressure 100/75 106/70 115/76 Blood Pressure Mean 83 82 89 Pulse Ox 98 95 99 Oxygen Delivery Method Room Air Room Air Room Air 11/26/23 18:00 11/26/23 19:00 11/26/23 19:38 Temperature 97.6 F L Temperature Source Pulse Rate 91 95 87 Respiratory Rate 18 17 18 Blood Pressure 99/66 109/73 96/60 Blood Pressure Mean 77 85 72 Pulse Ox 99 100 97 Oxygen Delivery Method Room Air Room Air Weight Weight: 62.9 kg Body Mass Index (BMI) 23.1 Physical Exam Const alert, no apparent distress and healthy appearing General Appearance: well developed Orientation / Consciousness: awake HEENT normocephalic, head/scalp atraumatic and moist oral mucous membranes Eyes PERRL, EOMs intact bilaterally and conjunctivae normal Neck supple, no JVD, thyroid normal and no carotid bruits General: trachea midline Resp normal respiratory effort, no retractions, no use of accessory muscles and clear to auscultation bilaterally Auscultation: Negative for rales, rhonchi or wheezes Cardio regular rate, regular rhythm, S1 normal heart sound, S2 normal heart sound, no murmurs, no rub and no gallops GI normal to inspection, nondistended, normoactive bowel sounds, soft to palpation, non-tender and non-distended Extremity no clubbing, cyanosis or edema Skin no rashes or lesions noted General Skin Exam: no breakdown Neuro CN's II-XII intact bilaterally, moves all extremities and no focal motor deficits Neuro Narrative: Patient appears confused and is not able to carry on conversation Sensorium / Orientation: awake and alert Psych Psych Narrative: Patient is confused, he is not able to carry on a conversation Results Lab / Micro Data 11/26/23 15:40 11/26/23 15:40 Labs: Laboratory Results - last 24 hr 11/26/23 15:40: WBC 8.5, RBC 5.37, Hgb 14.2, Hct 42.9, MCV 79.9 L, MCH 26.4 L, MCHC 33.1, RDW Std Deviation 40.3, RDW Coeff of Tana 14.2, Plt Count 295, MPV 10.0, Immature Gran % (Auto) 0.400, Neut % (Auto) 54.8, Lymph % (Auto) 26.4, [place] % (Auto) 14.6 H, Eos % (Auto) 3.3, Baso % (Auto) 0.5, Absolute Neuts (auto) 4.7, Absolute Lymphs (auto) 2.24, Nucleated RBC % 0, Sodium 138, Potassium 4.1, Chloride 106, Carbon Dioxide 28.0, Anion Gap 4 L, BUN 15, Creatinine 1.44 H, Est GFR (MDRD) Af Amer 69, Est GFR (MDRD) Non-Af 57 L, BUN/Creatinine Ratio 10.4, Glucose 83, Calcium 8.8, Total Bilirubin 0.60, Direct Bilirubin 0.13, AST 20, ALT 13 L, Alkaline Phosphatase 69, Ammonia 37.0 H, Troponin I High Sens < 3 L, T otal Protein 6.9, Albumin 3.1 L, Globulin 3.8, Lipase 29, TSH 1.49, Free T4 0 .84, Free T3 pg/dL 1.5 L 11/26/23 17:06: Valproic Acid 22 L 11/26/23 17:30: Urine Color Yellow, Urine Clarity Sl. Cloudy, Urine pH 6.0, Ur Specific [place] 1.010, Urine Protein Negative, Urine Glucose (UA) 250 H, Urine Ketones Negative, Urine Occult Blood Negative, Urine Nitrite Negative, Urine Bilirubin Negative, Urine Urobilinogen Normal, Ur Leukocyte Esterase Negative, Urine RBC 0 SEEN, Urine WBC 0 SEEN, Ur Squamous Epith Cells 0-5 SEEN, Urine Bacteria 0 SEEN, Urine Mucus 0 SEEN Imaging Radiology Impression Brain CT 11/26/23 15:44 IMPRESSION: No acute intracranial abnormality. Electronically Signed: Cm Espinal MD at 16:44 EDT , Chest X-Ray 11/26/23 16:09 IMPRESSION: No acute radiographic abnormalities. Electronically Signed: Cm Espinal MD at 16:44 EDT , Assessment & Plan Assessment/Plan (1) Type 2 diabetes mellitus: QUALIFIERS: Diabetes mellitus custodial insulin use: with terminal make up operator use Diabetes mellitus complication status: with hyperglycemia Qualified Code(s): E11.65 - Type 2 diabetes mellitus with hyperglycemia; Z79.4 - MCFP (current) use of insulin PLAN: Plan 1. Acute encephalopathy-most probably secondary to postictal state, I think this likely the patient had a seizure which was unwitnessed at his psychiatric senior living. Patient was admitted to PCU, EEG will be obtained, patient's Keppra dose was adjusted, his valproic acid dosage was adjusted. #2 type 2 diabetes-patient's blood sugars will be monitored, sliding scale insulin be given as needed, patient will be kept on his current insulin dose in the psychiatric senior living #3 bipolar disorder-complicates care, management, recovery, and prognosis #4 right eye blindness-complicates care, management, recovery, and prognosis #5 behavioral disturbances-secondary to illicit drug usage and bipolar disorder- complicates care, management, recovery, and prognosis, patient will need to return to his psychiatric senior living when he is discharged to the hospital here #6 schizoaffective disorder-complicates care, management, recovery, and prognosis #7 seizure disorder-again I have a adjusted the patient's Keppra dosage and he is also on valproic acid which is actually used for a mood stabilizer, I have elected to increase his valproic acid dosage also. EEG will be performed. Total clinical time spent by myself addressing the patient's medical issues, reviewing all of his data, and collaborating with patient's care team: 75 minutes Charges/Coding Visit Charges Inpatient E&M: 31220 Init Hosp L3
[2023-11-26] MEDS: Lactulose 20 GM/30 ML UDC PO (21:31)
[2023-11-26] MEDS: levETIRAcetam 500 MG Tablet 1500 MG PO (21:31)
[2023-11-26] MEDS: Pantoprazole Sodium 40 MG Tablet PO (21:31)
[2023-11-26] MEDS: Latanoprost 0.005% 1 Bottle 1 DRP EACH EYE (21:31)
[2023-11-26 22:08] LABS: Bedside Glucose 81 mg/dL (74-106)
[2023-11-27] VITALS (7 sets, daily range): BP systolic 93–107; BP diastolic 64–88; PULSE 90–103; RESP 18–20; TEMP 36.3–36.6; O2SAT 94–95
[2023-11-27] MEDS: cloZAPine 100 MG TABLET 200 MG PO ×2 (00:08→21:20)
[2023-11-27] MEDS: Acetaminophen 325 MG Tablet 650 MG PO (00:14)
[2023-11-27 04:16] LABS: Bedside Glucose 184 mg/dL (74-106)
[2023-11-27 05:56] LABS: Absolute Lymphocyte Count 2.11 X10^3/uL (0.83-4.51); Absolute Neutrophil Count 2.5 X10^3/uL (2.0-7.7); Basophil# 0.04 X10^3/uL; Basophil% 0.7 % (0-1); Eosinophil# 0.25 X10^3/uL; Eosinophils% 4.3 % (0-5); Hemoglobin 14.3 g/dL (13.0-16.5); Lymphocyte # 2.11 X10^3/ul (0.83-4.51); Lymphocyte % 36.3 % (19-41); Mean Corp Hgb Conc 33.3 g/dL (32-36); Mean Corpuscular Hgb 26.1 pg (27.0-32.0); Mean Corpuscular Volume 78.5 fL (80-94); Mean Platelet Vol. 9.6 fl (6.2-12.0); Monocyte# 0.92 X10^3/uL; Monocyte% 15.8 % (0-10); NRBC Flagged by Analyzer 0 % (0-5); Neutrophil # 2.49 X10^3/uL (2.7-7.7); Neutrophil % 42.7 % (47-70); Platelet Count 301 K/mm3 (150-450); RBC Distribution Width CV 13.8 % (11.6-14.6); Red Blood Count 5.48 M/mm3 (4.6-6.2); White Blood Count 5.8 K/mm3 (4.4-11.0)
[2023-11-27 06:20] LABS: ALB/GLOB Ratio 0.9 RATIO (0.9-2.4); AST(SGOT) 16 U/L (15-37); Alanine Aminotransfer ALT/SGPT 14 U/L (16-61); Albumin, Serum 3.2 g/dL (3.2-5.0); Alkaline Phosphatase 71 U/L (45-117); Anion Gap 6 (5-15); BUN 13 mg/dL (7-18); BUN/Creat Ratio 9.9 RATIO (10-20); Calcium,Total 8.9 mg/dL (8.5-10.1); Chloride 103 mmol/L (98-107); Creatinine, Serum 1.31 mg/dL (0.70-1.30); EST Glomerular Filtration Rate 63 mL/min (>60); Est Glom Filt Rate - Afr Amer 77 mL/min (>60); Estimated Creatinine Clearance 63.25 ml/min; Globulin 3.5 g/dL (2.2-4.2); Glucose 164 mg/dL (74-106); Protein, Total 6.7 g/dL (6.4-8.2); Sodium Level 141 mmol/L (136-145)
[2023-11-27 08:09] LABS: Bedside Glucose 107 mg/dL (74-106)
--- NOTE | 2023-11-27 09:07 | PN.HOSP_ITS ---
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 Patient could not provide much history. There was a suspicion of possible postictal phase following seizure. Admitted to a monitored bed Objective Data Objective Data Vital Signs: Vital Signs Temp Pulse Resp BP Pulse Ox O2 Del Method 97.4 F L 90 18 94/64 95 Room Air 11/27/23 05:08 11/27/23 09:01 11/27/23 05:08 11/27/23 05:08 11/27/23 05:08 11/27/23 05:08 Oxygen Delivery Method Room Air Weight: 62.9 kg Body Mass Index (BMI) 23.1 Intake & Output: Intake and Output for Last 24 Hours 11/25/23 11/26/23 11/27/23 23:59 23:59 23:59 Intake Total 1000 / 1700 940 / 940 Output Total 250 / 250 Balance 1000 / 1700 690 / 690 Lab / Micro Data 11/27/23 05:32 11/27/23 05:32 Labs: Laboratory Results - last 24 hr 11/26/23 15:40: WBC 8.5, RBC 5.37, Hgb 14.2, Hct 42.9, MCV 79.9 L, MCH 26.4 L, MCHC 33.1, RDW Std Deviation 40.3, RDW Coeff of Tana 14.2, Plt Count 295, MPV 10.0, Immature Gran % (Auto) 0.400, Neut % (Auto) 54.8, Lymph % (Auto) 26.4, [place] % (Auto) 14.6 H, Eos % (Auto) 3.3, Baso % (Auto) 0.5, Absolute Neuts (auto) 4.7, Absolute Lymphs (auto) 2.24, Nucleated RBC % 0, Sodium 138, Potassium 4.1, Chloride 106, Carbon Dioxide 28.0, Anion Gap 4 L, BUN 15, Creatinine 1.44 H, Est GFR (MDRD) Af Amer 69, Est GFR (MDRD) Non-Af 57 L, BUN/Creatinine Ratio 10.4, Glucose 83, Calcium 8.8, Total Bilirubin 0.60, Direct Bilirubin 0.13, AST 20, ALT 13 L, Alkaline Phosphatase 69, Ammonia 37.0 H, Troponin I High Sens < 3 L, Total Protein 6.9, Albumin 3.1 L, Globulin 3.8, Lipase 29, TSH 1.49, Free T4 0.84, Free T3 pg/dL 1.5 L 11/26/23 17:06: Valproic Acid 22 L 11/26/23 17:30: Urine Color Yellow, Urine Clarity Sl. Cloudy, Urine pH 6.0, Ur Specific [place] 1.010, Urine Protein Negative, Urine Glucose (UA) 250 H, Urine Ketones Negative, Urine Occult Blood Negative, Urine Nitrite Negative, Urine Bilirubin Negative, Urine Urobilinogen Normal, Ur Leukocyte Esterase Negative, Urine RBC 0 SEEN, Urine WBC 0 SEEN, Ur Squamous Epith Cells 0-5 SEEN, Urine Bacteria 0 SEEN, Urine Mucus 0 SEEN 11/26/23 21:43: POC Glucose 81 11/27/23 03:57: POC Glucose 184 H 11/27/23 05:32: WBC 5.8, RBC 5.48, Hgb 14.3, Hct 43.0, MCV 78.5 L, MCH 26.1 L, MCHC 33.3, RDW Std Deviation 39.0, RDW Coeff of Tana 13.8, Plt Count 301, MPV 9.6, Immature Gran % (Auto) 0.200, Neut % (Auto) 42.7 L, Lymph % (Auto) 36.3, [place] % (Auto) 15.8 H, Eos % (Auto) 4.3, Baso % (Auto) 0.7, Absolute Neuts (auto) 2.5, Absolute Lymphs (auto) 2.11, Nucleated RBC % 0, Sodium 141, Potassium 3.0 L , Chloride 103, Carbon Dioxide 32.0, Anion Gap 6, BUN 13, Creatinine 1.31 H, Estim Creat Clear Calc 63.25, Est GFR (MDRD) Af Amer 77, Est GFR (MDRD) Non-Af 63, BUN/Creatinine Ratio 9.9 L, Glucose 164 H, Calcium 8.9, Total Bilirubin 0.40, AST 16, ALT 14 L, Alkaline Phosphatase 71, Total Protein 6.7, Albumin 3.2, Globulin 3.5, Albumin/Globulin Ratio 0.9 11/27/23 07:44: POC Glucose 107 H Radiography Diagnostic Testing: Radiology Impression Brain CT 11/26/23 15:44 IMPRESSION: No acute intracranial abnormality. Electronically Signed: Cm Espinal MD at 16:44 EDT , Chest X-Ray 11/26/23 16:09 IMPRESSION: No acute radiographic abnormalities. Electronically Signed: Cm Espinal MD at 16:44 EDT , Physical Exam Narrative GENERAL: cooperative HEENT: Atraumatic; normocephalic EYES; Anicteric, Normal Conjunctiva NECK; supple, normal thyroid, RESPIRATORY: Diminished to auscultation CARDIOVASCULAR: Regular S1 S2, GI: soft, normoactive bowel sounds, : No Renal angle tenderness; EXTREMITIES: No edema, no clubbing, MUSCULOSKELETAL: no muscle wasting NEURO: Awake; no lateralizing signs. SKIN: No Rash PSYCH; Flat affect Assessment & Plan Assessment/Plan (1) Type 2 diabetes mellitus: QUALIFIERS: Diabetes mellitus complication status: with hyperglycemia Diabetes mellitus terminal operations manager insulin use: with terminal operations manager use Qualified Code(s): E11.65 - Type 2 diabetes mellitus with hyperglycemia; Z79.4 - intermediate (current) use of insulin PLAN: Plan Patient is a 43-year-old gentleman with history of schizoaffective disorder resident at the psychiatric facility brought to the emergency department with altered mental status. Patient could not provide much history. There was a suspicion of possible postictal phase following seizure. Admitted to a monitored bed 1. Acute encephalopathy ? Suspected to be secondary to postictal phase. Admitted to a monitored bed EEG ordered. Patient is on Keppra as well as valproic acid. Doses adjusted on a dmission. Consult placed to teleneurology 2. Diabetes mellitus type II -patient's oral hypoglycemics held. Placed on long acting insulin, Accu-Cheks a.c. and at bedtime and covered with sliding scale insulin 3. Schizoaffective disorder ? Home meds continue 4. Right eye blindness -Complicating care 5. Hypokalemia -Corrected per protocol, repeat labs ordered for monitoring 6. Chronic kidney disease stage III ? Kidney function at baseline 6. DVT prophylaxis ? SC Lovenox Time spent in the patient's overall evaluation,decision-making process, review of diagnostic data, adjustment of management, discussion with other providers, nursing nursing and ancillary staff involved in patient's care documentation, 38 Minutes Charges/Coding Visit Charges Inpatient E&M: 58395 Subs Hosp L2
[2023-11-27] MEDS: cloZAPine 100 MG TABLET PO (09:14)
[2023-11-27] MEDS: levETIRAcetam 500 MG Tablet 1500 MG PO ×2 (09:15→21:19)
[2023-11-27] MEDS: Pantoprazole Sodium 40 MG Tablet PO ×2 (09:16→21:20)
[2023-11-27] MEDS: Divalproex Sodium 250 MG Tablet 500 MG PO ×2 (09:16→18:09)
[2023-11-27] MEDS: Citalopram 10 MG Tablet PO (09:17)
[2023-11-27] MEDS: Timolol 0.5% 5ML OPTH.BTL 1 DRP EACH EYE (09:17)
[2023-11-27] MEDS: metFORMIN HCl 1,000 MG Tablet 1000 MG PO (09:17)
[2023-11-27] MEDS: Metoprolol Tartrate 25 MG Tablet PO (09:17)
[2023-11-27] MEDS: Insulin Glargine-YFGN 100 UNIT/ML Pen 15 UNIT SC (09:18)
[2023-11-27] MEDS: Senna Tablet 1 TABLET PO (09:18)
[2023-11-27] MEDS: Insulin Lispro 100 UNIT/ML INSULN.PEN 8 UNIT SC (09:24)
[2023-11-27] MEDS: Potassium Chloride Oral Tablet 20 MEQ 40 MEQ PO (09:39)
[2023-11-27] MEDS: Enoxaparin 40 MG/0.4 ML Syringe SC (09:39)
[2023-11-27] MEDS: 0.9% Saline Lock 10 ML Syringe IV (11:32)
[2023-11-27] MEDS: Dextrose 50%-Water 25 GM/50 ML DISP.SYRIN IV (11:32)
--- NOTE | 2023-11-27 11:54 | NURSING ---
1120 pt slightly shakey and slurred speech. low blood glucose. Dr Malik aware. 1147 15 minutes after an amp of d50 was given, pt is more alert, no shaking noted.
--- NOTE | 2023-11-27 12:56 | CHAPLAIN ---
Type of Pastoral Visit _x__ Initial Visit ___ Follow-up Visit ___ On-call Visit ___ General Patient Visit ___ Spiritual Assessment ___ Family Conference ___ Bereavement ___ Rapid Response ___ Code Blue ___ Other (describe below) Pastoral Care Referral From _x__ Patient ___ Family ___ Nurse ___ Physician ___ Facing End Trimmer ___ Quantitative Analyst Developer ___ Other (describe below) Sacrament/Intervention _x__ Active listening ___ Anointing ___ Tenriism ___ Bereavement ___ Communion ___ Toyin exploration ___ ___ Life review _x__ Prayer ___ Reconciliation ___ Sacrament of Sick _x__ Supportive presence ___ Wedding ___ Other (describe below) Pastoral Comments patient was writing on his visitor information and TV guide sheets supplied in patient packet; pt repeatedly asked this clothing sorter to put these papers into the mail so the workers will get them; this clothing sorter explained that the papers were for him and did not need to be returned or mailed to anyone; offered supportive presence and listening ear; pt states that he is not going back to where he came from; he said things are no good there; when explaining what this clothing sorter could do for the pt, he responded that you can pray; led pt in a prayer; pt did not come up with other needs or concerns for an action at this point
[2023-11-27] MEDS: Lactulose 20 GM/30 ML UDC PO ×2 (13:10→21:19)
--- NOTE | 2023-11-27 13:35 | CASEMGMT ---
Social Work Pt has a guardian through [facility] Guardian Services Board. There is a copy of the guardianship form on file here. SW called Yvette [facility], at present is guardian is Sherrill Ramos, . ANGELITA Fernandez
--- NOTE | 2023-11-27 13:37 | CASEMGMT ---
Social Work Pt is here from [facility] [place], [place]. SW spoke w/[facility] [place], [place], given new guardianship information. Pt has been there since August of 2022. SW called pt's guardian Sherrill Richard, verified plan will be for pt to return when medically ready. She is okay w/SW leaving her a voicemail if she does not answer letting her know pt is returning. SW also let Sherrill know that pt has expressed not wanting to return. She states that pt wants to live back in the community and unfortunately at this time due to his diagnoses this is not possible. Elicia, d/c email marketing assistant, will send updates in [facility] today. Plan will be for pt return to [facility] [place], [place] when medically ready. ANGELITA Fernandez
--- NOTE | 2023-11-27 14:36 | CASEMGMT ---
Discharge Planning Updates sent via fax to [facility] Annette. Elicia Rivera, Discharge Planning Asst.
[2023-11-27 15:27] LABS: Bedside Glucose 217 mg/dL (74-106)
[2023-11-27 15:27] LABS: Bedside Glucose 107 mg/dL (74-106)
[2023-11-27 15:27] LABS: Bedside Glucose 61 mg/dL (74-106)
[2023-11-27 15:27] LABS: Bedside Glucose 96 mg/dL (74-106)
[2023-11-27 15:30] LABS: Bedside Glucose 54 mg/dL (74-106)
[2023-11-27 15:30] LABS: Bedside Glucose 49 mg/dL (74-106)
[2023-11-27 16:14] LABS: Bedside Glucose 98 mg/dL (74-106)
[2023-11-27] MEDS: Potassium Chloride Oral Tablet 20 MEQ PO (18:10)
[2023-11-27] MEDS: Glucerna Shake 120 ML LIQUID PO ×2 (18:11→21:20)
[2023-11-27] MEDS: Latanoprost 0.005% 1 Bottle 1 DRP EACH EYE (21:19)
[2023-11-28 00:21] LABS: Bedside Glucose 98 mg/dL (74-106)
[2023-11-28 05:43] LABS: Absolute Lymphocyte Count 3.17 X10^3/uL (0.83-4.51); Basophil# 0.04 X10^3/uL; Basophil% 0.5 % (0-1); Eosinophil# 0.34 X10^3/uL; Eosinophils% 4.5 % (0-5); Hematocrit 47.4 % (40-54); Hemoglobin 15.8 g/dL (13.0-16.5); Lymphocyte # 3.17 X10^3/ul (0.83-4.51); Lymphocyte % 41.5 % (19-41); Mean Corp Hgb Conc 33.3 g/dL (32-36); Mean Corpuscular Hgb 26.4 pg (27.0-32.0); Mean Corpuscular Volume 79.1 fL (80-94); Mean Platelet Vol. 9.4 fl (6.2-12.0); Monocyte# 1.04 X10^3/uL; Monocyte% 13.6 % (0-10); NRBC Flagged by Analyzer 0 % (0-5); Neutrophil # 3.04 X10^3/uL (2.7-7.7); Neutrophil % 39.8 % (47-70); Platelet Count 328 K/mm3 (150-450); RBC Distribution Width CV 13.9 % (11.6-14.6); RBC Distribution Width SD 39.8 fl (35.1-43.9); Red Blood Count 5.99 M/mm3 (4.6-6.2); White Blood Count 7.6 K/mm3 (4.4-11.0)
[2023-11-28 06:25] LABS: Anion Gap 5 (5-15); BUN 13 mg/dL (7-18); BUN/Creat Ratio 10.3 RATIO (10-20); Calcium,Total 9.5 mg/dL (8.5-10.1); Chloride 104 mmol/L (98-107); Creatinine, Serum 1.26 mg/dL (0.70-1.30); EST Glomerular Filtration Rate 66 mL/min (>60); Est Glom Filt Rate - Afr Amer 80 mL/min (>60); Estimated Creatinine Clearance 65.76 ml/min; Glucose 103 mg/dL (74-106); Magnesium 2.1 mg/dL (1.6-2.6); Phosphorus 3.7 mg/dL (2.5-4.9); Sodium Level 141 mmol/L (136-145)
[2023-11-28] MEDS: Lactulose 20 GM/30 ML UDC PO ×3 (06:37→21:04)
[2023-11-28 06:45] VITALS: BP 92/66; PULSE 94; RESP 18; TEMP 36.7; O2SAT 97
[2023-11-28 07:07] LABS: Bedside Glucose 112 mg/dL (74-106)
[2023-11-28 08:02] VITALS: BP 109/88; PULSE 80; RESP 18; TEMP 36.6; O2SAT 98
[2023-11-28 08:09] VITALS: PULSE 80
[2023-11-28] MEDS: Potassium Chloride Oral Tablet 20 MEQ PO ×2 (08:09→16:16)
[2023-11-28] MEDS: Metoprolol Tartrate 25 MG Tablet PO (08:09)
[2023-11-28] MEDS: levETIRAcetam 500 MG Tablet 1500 MG PO ×2 (08:09→21:04)
[2023-11-28] MEDS: Citalopram 10 MG Tablet PO (08:10)
[2023-11-28] MEDS: Pantoprazole Sodium 40 MG Tablet PO ×2 (08:10→21:04)
[2023-11-28] MEDS: cloZAPine 100 MG TABLET PO (08:10)
[2023-11-28] MEDS: Divalproex Sodium 250 MG Tablet 500 MG PO ×2 (08:10→16:16)
[2023-11-28] MEDS: Senna Tablet 1 TABLET PO (08:10)
[2023-11-28] MEDS: Enoxaparin 40 MG/0.4 ML Syringe SC (08:11)
[2023-11-28] MEDS: Insulin Glargine-YFGN 100 UNIT/ML Pen 15 UNIT SC (08:12)
[2023-11-28] MEDS: Timolol 0.5% 5ML OPTH.BTL 1 DRP EACH EYE (08:12)
--- NOTE | 2023-11-28 08:41 | PCM.PN.HOSP ---
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 Do suspect that is the reason for his altered mental status prior to his admission. Subsequent adjustment made to his insulin regimen Objective Data Objective Data Vital Signs: Vital Signs Temp Pulse Resp BP Pulse Ox O2 Del Method 97.9 F 80 18 109/88 H 98 Room Air 11/28/23 08:02 11/28/23 08:09 11/28/23 08:02 11/28/23 08:02 11/28/23 08:02 11/28/23 08:02 Oxygen Delivery Method Room Air Weight: 62.9 kg Body Mass Index (BMI) 23.1 Intake & Output: Intake and Output for Last 24 Hours 11/26/23 11/27/23 11/28/23 23:59 23:59 23:59 Intake Total 1000 / 1700 1522 / 1922 800 / 800 Output Total 250 / 250 Balance 1000 / 1700 1272 / 1672 800 / 800 Lab / Micro Data 11/28/23 05:18 11/28/23 05:18 Labs: Laboratory Results - last 24 hr 11/27/23 11:09: POC Glucose 49 L 11/27/23 11:23: POC Glucose 54 L 11/27/23 11:43: POC Glucose 217 H 11/27/23 12:32: POC Glucose 61 L 11/27/23 13:08: POC Glucose 96 11/27/23 13:57: POC Glucose 107 H 11/27/23 15:52: POC Glucose 98 11/27/23 21:29: POC Glucose 98 11/28/23 05:18: WBC 7.6, RBC 5.99, Hgb 15.8, Hct 47.4, MCV 79.1 L, MCH 26.4 L, MCHC 33.3, RDW Std Deviation 39.8, RDW Coeff of Tana 13.9, Plt Count 328, MPV 9.4, Immature Gran % (Auto) 0.100, Neut % (Auto) 39.8 L, Lymph % (Auto) 41.5 H, Kay % (Auto) 13.6 H, Eos % (Auto) 4.5, Baso % (Auto) 0.5, Absolute Neuts (auto) 3.0, Absolute Lymphs (auto) 3.17, Nucleated RBC % 0, Sodium 141, Potassium 4.0, Chloride 104, Carbon Dioxide 32.0, Anion Gap 5, BUN 13, Creatinine 1.26, Estim Creat Clear Calc 65.76, Est GFR (MDRD) Af Amer 80, Est GFR (MDRD) Non-Af 66, BUN/Creatinine Ratio 10.3, Glucose 103, Calcium 9.5, Phosphorus 3.7, Magnesium 2.1 11/28/23 06:43: POC Glucose 112 H Physical Exam Narrative GENERAL: cooperative HEENT: Atraumatic; normocephalic EYES; Anicteric, Normal Conjunctiva NECK; supple, normal thyroid, RESPIRATORY: Diminished to auscultation CARDIOVASCULAR: Regular S1 S2, GI: soft, normoactive bowel sounds, : No Renal angle tenderness; EXTREMITIES: No edema, no clubbing, MUSCULOSKELETAL: no muscle wasting NEURO: Awake; no lateralizing signs. SKIN: No Rash PSYCH; Flat affect Assessment & Plan Assessment/Plan (1) Type 2 diabetes mellitus: QUALIFIERS: Diabetes mellitus terminal gauger insulin use: with terminal gauger use Diabetes mellitus complication status: with hyperglycemia Qualified Code(s): E11.65 - Type 2 diabetes mellitus with hyperglycemia; Z79.4 - penitentiary (current) use of insulin PLAN: Plan Patient is a 43-year-old gentleman with history of schizoaffective disorder resident at the psychiatric facility brought to the emergency department with altered mental status. Patient could not provide much history. There was a suspicion of possible postictal phase following seizure. Admitted to a monitored bed 1. Acute encephalopathy suspected to be secondary to hypoglycemia ? Initial suspicion was that patient was postictal from a possible breakthrough seizure (unwitnessed) admitted to a monitored bed EEG ordered. Patient is on Keppra as well as valproic acid. Doses adjusted on admission. Consult placed to teleneurology ? 11/28/2023 given patient hypoglycemic episode the day prior to suspect his encephalopathy to be secondary to hypoglycemia rather than breakthrough seizure with a postictal phase 2. Diabetes mellitus type II -patient's oral hypoglycemics held. Placed on long acting insulin, Accu-Cheks a.c. and at bedtime and covered with sliding scale insulin 3. Schizoaffective disorder ? Home meds continue 4. Right eye blindness -Complicating care 5. Hypokalemia -Corrected per protocol, repeat labs ordered for monitoring 6. Chronic kidney disease stage III ? Kidney function at baseline 6. DVT prophylaxis ? SC Lovenox Time spent in the patient's overall evaluation,decision-making process, review of diagnostic data, adjustment of management, discussion with other providers, nursing nursing and ancillary staff involved in patient's care documentation, 38 Minutes Charges/Coding Visit Charges Inpatient E&M: 33364 Subs Hosp L2
--- NOTE | 2023-11-28 09:39 | NURSING ---
PCU charge nurse monitoring tele prn
--- NOTE | 2023-11-28 11:36 | NURSING ---
face to face via computer at bedside with .
[2023-11-28 11:42] LABS: Bedside Glucose 136 mg/dL (74-106)
--- NOTE | 2023-11-28 11:48 | NEURO.CONS ---
Assessment and Plan: Neuro Assessment/Plan JERMAN ROLAND is a 43 M being evaluated by Teleneurology for episode of unresponsiveness.,resolved on my evaluation and he appears to be a baseline . As per documentation, patient lives in nursing facility and had one episode of unresponsiveness but does not appear to have shaking,B/B incontinence or tongue biting. Unclear reason for unresponsiveness however breakthrough seizure is a possibility. Toxic metabolic encephalopathy cannot be ruled out . Agree with increasing dose of VPA given subtherapeutic level. Continue with Keppra at same dose. I have reviewed EEG which is consistent with mild diffuse encephalopathy, no IEA or seizures noted . Can check LFT, ammonia and VPA in 6-[address] head reviewed that is wnl. At this point, patient appears to be at baseline and MRI brain was deemed unnecessary, if he is not at baseline ,recommend MRI brain. I personally attended this patient and spent a total time of 50 minutes evaluating this patient including clinical assessment, review of chart, medical history imaging, and determining appropriate treatment and workup. Socorro Armstrong MD [facility] Teleneurology Department HPI Consult Data Date of Consult: 11/28/23 HPI Narrative HPI Narrative: JERMAN ROLAND, is a 43 M who presents to the emergency room at 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 According to the nursing staff at the psychiatric long term, patient was found approximately 1 PM this afternoon and was not able to speak and appeared confused. He was transferred to the emergency room at [facility] for evaluation. On my evaluation, patient had non sense speech and was able to answer some of questions appropriately. Patient had a CT of the brain which was also unremarkable. Patient's ammonia level was 37, patient's valproic acid level was 22. Urinalysis was unremarkable. [facility] Medical History (Updated 11/26/23 @ 20:11 by Virginia Fuentes) Alcohol abuse Alternating exotropia Anemia Anxiety Asthma Bipolar disorder Blindness Cannabis abuse Chronic pain syndrome Constant exophthalmos, bilateral Constipation Dementia Depression Diabetes Diabetes Disorder of urea cycle metabolism, unspecified Disturbances of salivary secretion Dysphagia Essential (primary) hypertension Exophthalmos Generalized muscle weakness GERD (gastroesophageal reflux disease) GI bleed Glaucoma History of psychiatric disorder Hyperlipidemia Hypertension Hypertensive retinopathy, right eye Insomnia Kidney stones Muscle weakness Myopia, unspecified eye Posterior subcapsular polar age-related cataract, bilateral Pulmonary embolism PVD (peripheral vascular disease) Schizoaffective disorder Schizophrenia Seizures Substance abuse TBI (traumatic brain injury) Type 2 diabetes mellitus Unspecified intellectual disabilities Unspecified psychosis 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 or known physiological condition Home Medications cetirizine 10 mg tablet 10 mg PO QHS allergy symptoms 12/09/22 [History Last Taken 03/01/23] clozapine 100 mg tablet (Clozaril) 100 mg PO DAILY schizoaffective disorder 12/09/22 [History Last Taken 03/02/23] diphenhydramine HCl 50 mg tablet 50 mg PO Q8H PRN PRN agitation/anxiety 12/09/22 [History Last Taken Unknown] lorazepam 1 mg tablet (Ativan) 1 mg PO Q6H PRN agitiation/anxiety 12/09/22 [History Last Taken Unknown] multivitamin 1 tab PO DAILY supplement 12/09/22 [History Last Taken 03/02/23] polyethylene glycol 3350 17 gram oral powder packet (Miralax) 17 g PO DAILY constipation 12/09/22 [History Last Taken 03/02/23] timolol maleate 0.5 % once daily eye 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 12/09/22 [History Last Taken 03/02/23] latanoprost 0.005 % eye drops 1 drp ophthalmic (eye) QPM eyes 02/20/23 [History Last Taken 03/01/23] metoprolol tartrate 25 mg tablet 25 mg PO DAILY hypertension 02/20/23 [History Last Taken 03/02/23] acetaminophen 325 mg tablet 650 mg PO Q4H PRN fever or pain 03/02/23 [History Last Taken Unknown] divalproex 250 mg tablet,delayed release 250 mg PO DAILY BIPOLAR 03/02/23 [History Last Taken 03/02/23] metformin 1,000 mg tablet 1,000 mg PO BID DM 03/02/23 [History Last Taken 03/02/23] pantoprazole 40 mg tablet,delayed release (Protonix) 40 mg PO BID GERD 03/02/23 [History Last Taken Unknown] sennosides 8.6 mg tablet (Senokot) 8.6 mg PO DAILY CONSTIPATION 03/02/23 [History Last Taken 03/02/23] insulin lispro 100 unit/mL subcutaneous pen (Humalog KwikPen (U-100) Insulin) 8 unit (0.08 mL) subcut BREAKFAST #0 mL 03/04/23 [Rx Last Taken Unknown] insulin lispro 100 unit/mL subcutaneous pen (Humalog KwikPen (U-100) Insulin) 8 unit (0.08 mL) subcut DINNER #0 mL 03/04/23 [Rx Last Taken Unknown] insulin lispro 100 unit/mL subcutaneous pen (Humalog KwikPen (U-100) Insulin) 8 unit (0.08 mL) subcut LUNCH #0 mL 03/04/23 [Rx Last Taken Unknown] lactulose 20 gram/30 mL oral solution 20 g (30 mL) PO TID elevated ammonia #3,000 mL 03/19/23 [Rx Last Taken 03/02/23] empagliflozin 10 mg tablet (Jardiance) 10 mg PO DAILY diabetes 04/25/23 [History Last Taken Unknown] metoclopramide HCl 5 mg tablet (Reglan) 5 mg PO TID gastroparesis 04/25/23 [History Last Taken Unknown] paliperidone palmitate 234 mg/1.5 mL intramuscular syringe (Invega Sustenna) 234 mg IM DAILY Check with primary doctor 04/25/23 [History Last Taken Unknown] citalopram 10 mg tablet (Celexa) 10 mg PO DAILY depression 11/26/23 [History Last Taken Unknown] clozapine 200 mg tablet 200 mg PO DAILY bipolar 11/26/23 [History Last Taken Unknown] hydroxyzine pamoate 50 mg capsule 50 mg PO TID anxiety 11/26/23 [History Last Taken Unknown] insulin glargine-yfgn 100 unit/mL (3 mL) subcutaneous pen 15 unit subcut BREAKFAST diabetes 11/26/23 [History Last Taken Unknown] levetiracetam 1,000 mg tablet (Keppra) 1,000 mg PO Q12H epilepsy 11/26/23 [History Last Taken Unknown] Allergy/AdvReac Type Severity Reaction Status Date / Time Sulfa (Sulfonamide Allergy Mild Other Verified 04/25/23 09:55 Antibiotics) 5HTS Receptor antagonist Allergy Unknown Other Uncoded 04/25/23 09:55 Surgical History H/O eye surgery Social History housing: long term other: Patient has a legal guardian and is a long-term resident at [facility] Smoking Status: Unknown if ever smoked alcohol intake: never substance use type: does not use and other details: Unknown Vital Signs Vital Signs Vital Signs: 11/27/23 13:59 11/27/23 14:02 11/27/23 22:00 Temperature 97.6 F L Temperature Source Temporal Pulse Rate 90 97 Pulse Strength Normal (2+) Respiratory Rate 20 H Respiratory Effort Normal Respiratory Depth Respiratory Pattern Blood Pressure 93/72 Blood Pressure [BP] Blood Pressure Mean 79 Blood Pressure Mean [BP] Blood Pressure Source Monitor Blood Pressure Source [BP] Blood Pressure Position Semi-Fowlers Blood Pressure Position [BP] Blood Pressure Location Right Arm Blood Pressure Location [BP] Pulse Ox 94 Oxygen Delivery Method Room Air Room Air 11/27/23 22:00 11/28/23 02:53 11/27/23 22:40 Temperature 97.4 F L Temperature Source Temporal Pulse Rate 96 Pulse Strength Respiratory Rate 18 Respiratory Effort Normal Non-Labored Normal Non-Labored Respiratory Depth Normal Normal Respiratory Pattern Normal Normal Blood Pressure 97/74 Blood Pressure [BP] Blood Pressure Mean 81 Blood Pressure Mean [BP] Blood Pressure Source Monitor Blood Pressure Source [BP] Blood Pressure Position Semi-Fowlers Blood Pressure Position [BP] Blood Pressure Location Right Arm Blood Pressure Location [BP] Pulse Ox 94 Oxygen Delivery Method Room Air Room Air Room Air 11/28/23 06:45 11/28/23 08:02 11/28/23 08:09 Temperature 98.0 F 97.9 F Temperature Source Temporal Temporal Pulse Rate 94 80 80 Pulse Strength Respiratory Rate 18 18 Respiratory Effort Respiratory Depth Respiratory Pattern Blood Pressure 92/66 Blood Pressure [BP] 109/88 H Blood Pressure Mean 74 Blood Pressure Mean [BP] 95 Blood Pressure Source Monitor Blood Pressure Source [BP] Monitor Blood Pressure Position Semi-Fowlers Blood Pressure Position [BP] Semi-Fowlers Blood Pressure Location Left Arm Blood Pressure Location [BP] Right Arm Pulse Ox 97 98 Oxygen Delivery Method Room Air Room Air Weight Weight: 62.9 kg Body Mass Index (BMI) 23.1 EEG Results Procedure Details EEG Procedure Details: EEG consistent with mild diffuse encephalopathy. Final report will be faxed over. Physical Exam Neuro Neuro Narrative: -? General: Laying comfortably in bed; in no acute distress. -? HENT: Normal oropharynx and mucosa. Normal external appearance of ears and nose. Exophthalmos. -? Neck: Supple, no pain or tenderness -? CV:? No peripheral edema. -? Pulmonary:? Normal respiratory effort. -? Ext: No cyanosis, edema, or deformity -? Skin: No rash. Normal palpation of skin.? -? Musculoskeletal: full range of motion; no joint tenderness. Normal digits and nails by inspection. No clubbing. -? NEURO: -? Mental Status: The patient was alert and was not oriented to time, place and person. -? Language: speech is fluent but content was out of context and at times incomprehensible. -? Cranial Nerves: PERRL 3mm/brisk. EOMI, visual cardoso full, no facial asymmetry, facial sensation intact, hearing intact, tongue midline, no evidence of atrophy or fibrillations. As performed by the nurse. Sternocleidomastoid and trapezius were equally strong. Soft palate raises equally, no uvular deviations -? Motor: normal bulk, tone, and strength throughout. No pronator drift Upper and lower extremities equal bilaterally. R L R L -? Tone: is normal and bulk is normal -? Sensation- Intact to light touch bilaterally -? Coordination: No dysmetria on [id number], -? Gait- deferred Lab / Micro Data 11/28/23 05:18 11/28/23 05:18 Labs: Laboratory Results - last 24 hr 11/27/23 11:09: POC Glucose 49 L 11/27/23 11:23: POC Glucose 54 L 11/27/23 11:43: POC Glucose 217 H 11/27/23 12:32: POC Glucose 61 L 11/27/23 13:08: POC Glucose 96 11/27/23 13:57: POC Glucose 107 H 11/27/23 15:52: POC Glucose 98 11/27/23 21:29: POC Glucose 98 11/28/23 05:18: WBC 7.6, RBC 5.99, Hgb 15.8, Hct 47.4, MCV 79.1 L, MCH 26.4 L, MCHC 33.3, RDW Std Deviation 39.8, RDW Coeff of Tana 13.9, Plt Count 328, MPV 9.4, Immature Gran % (Auto) 0.100, Neut % (Auto) 39.8 L, Lymph % (Auto) 41.5 H, [place] % (Auto) 13.6 H, Eos % (Auto) 4.5, Baso % (Auto) 0.5, Absolute Neuts (auto) 3.0, Absolute Lymphs (auto) 3.17, Nucleated RBC % 0, Sodium 141, Potassium 4.0, Chloride 104, Carbon Dioxide 32.0, Anion Gap 5, BUN 13, Creatinine 1.26, Estim Creat Clear Calc 65.76, Est GFR (MDRD) Af Amer 80, Est GFR (MDRD) Non-Af 66, BUN/Creatinine Ratio 10.3, Glucose 103, Calcium 9.5, Phosphorus 3.7, Magnesium 2.1 11/28/23 06:43: POC Glucose 112 H 11/28/23 11:24: POC Glucose 136 H Active Medications Active Medications Active Medications: Current Medications Generic Name Dose Route Start Last Admin Trade Name Familiaq PRN Reason Stop Dose Admin Acetaminophen 650 mg 11/26/23 20:34 11/27/23 00:14 Acetaminophen 325 Mg Tablet PO 650 mg Q4H PRN PRN Administration fever or pain 1-10 Citalopram Hydrobromide 10 mg 11/27/23 10:00 11/28/23 08:10 Citalopram 10 Mg Tablet PO 10 mg DAILY ALEXANDRA Administration Clozapine 100 mg 11/27/23 10:00 11/28/23 08:10 Clozapine 100 Mg Tablet PO 100 mg DAILY ALEXANDRA Administration Protocol Clozapine 200 mg 11/26/23 23:45 11/27/23 21:20 Clozapine 100 Mg Tablet PO 200 mg QHS ALEXANDRA Administration Dextrose 0 gm 11/27/23 11:36 11/27/23 11:32 Dextrose 50%-Water 25 Gm/50 Ml Disp.Syrin IV 25 gm X1 PRN Administration Hypoglycemia Protocol Divalproex Sodium 500 mg 11/27/23 08:00 11/28/23 08:10 Divalproex Sodium 250 Mg Tablet PO 500 mg BIDCM ALEXANDRA Administration Enoxaparin Sodium 40 mg 11/27/23 10:00 11/28/23 08:11 Enoxaparin 40 Mg/0.4 Ml Syringe SC 40 mg DAILY ALEXANDRA Administration Glucagon 1 mg 11/27/23 11:36 Glucagon 1 Mg/Ml Syringe IM X1 PRN Hypoglycemia Insulin Glargine 15 unit 11/27/23 08:00 11/28/23 08:12 Insulin Glargine-Yfgn 100 Unit/Ml Pen SC 15 unit BREAKFAST ALEXANDRA Administration Insulin Human Lispro 0 unit 11/27/23 16:00 11/28/23 11:36 Insulin Lispro 100 Unit/Ml Insuln.Pen SC Not Given ACHS ALEXANDRA Protocol Lactulose 20 gm 11/26/23 22:00 11/28/23 06:37 Lactulose 20 Gm/30 Ml Udc PO 20 gm TID ALEXANDRA Administration Latanoprost 1 drp 11/26/23 22:00 11/27/23 21:19 Latanoprost 0.005% 1 Bottle EACH EYE 1 drp QHS ALEXANDRA Administration Levetiracetam 1,500 mg 11/26/23 22:00 11/28/23 08:09 Levetiracetam 500 Mg Tablet PO 1,500 mg BID ALEXANDRA Administration Metoprolol Tartrate 25 mg 11/27/23 10:00 11/28/23 08:09 Metoprolol Tartrate 25 Mg Tablet PO 25 mg DAILY ALEXANDRA Administration Protocol Nutritional Formula (Lactose Free) 120 ml 11/27/23 18:00 11/28/23 08:11 Glucerna Shake 120 Ml Liquid PO Not Given 4X/DAY ALEXANDRA Pantoprazole Sodium 40 mg 11/26/23 22:00 11/28/23 08:10 Pantoprazole Sodium 40 Mg Tablet PO 40 mg BID ALEXANDRA Administration Potassium Chloride 20 meq 11/27/23 17:00 11/28/23 08:09 Potassium Chloride Oral Tablet 20 Meq PO 20 meq BIDCM ALEXANDRA Administration Senna 1 tablet 11/27/23 10:00 11/28/23 08:10 Senna Tablet PO 1 tablet DAILY ALEXANDRA Administration Sodium Chloride 10 - 40 ml 11/26/23 20:01 11/27/23 11:32 0.9% Saline Lock 10 Ml Syringe IV 10 ml UD PRN Administration SALINE FLUSH Timolol Maleate 1 drp 11/27/23 10:00 11/28/23 08:12 Timolol 0.5% 5ml Opth.Btl EACH EYE 1 dose DAILY ALEXANDRA Administration
[2023-11-28 14:11] VITALS: BP 104/84; PULSE 87; RESP 16; TEMP 36.6; O2SAT 94
[2023-11-28] MEDS: Glucerna Shake 120 ML LIQUID PO ×3 (14:19→21:07)
[2023-11-28 16:38] LABS: Bedside Glucose 105 mg/dL (74-106)
[2023-11-28] MEDS: Latanoprost 0.005% 1 Bottle 1 DRP EACH EYE (21:03)
[2023-11-28] MEDS: cloZAPine 100 MG TABLET 200 MG PO (21:04)
[2023-11-28 21:13] VITALS: BP 108/79; PULSE 91; RESP 20; TEMP 36.7; O2SAT 99
[2023-11-28 22:50] LABS: Bedside Glucose 149 mg/dL (74-106)
[2023-11-29 04:30] VITALS: BP 112/78; PULSE 94; RESP 16; TEMP 36.7; O2SAT 98
[2023-11-29] MEDS: Lactulose 20 GM/30 ML UDC PO (06:29)
[2023-11-29] MEDS: Insulin Lispro 100 UNIT/ML INSULN.PEN SC (06:33)
[2023-11-29 06:54] LABS: Bedside Glucose 157 mg/dL (74-106)
[2023-11-29 08:05] LABS: Absolute Lymphocyte Count 2.44 X10^3/uL (0.83-4.51); Absolute Neutrophil Count 3.3 X10^3/uL (2.0-7.7); Basophil# 0.08 X10^3/uL; Basophil% 1.1 % (0-1); Eosinophil# 0.38 X10^3/uL; Eosinophils% 5.2 % (0-5); Hematocrit 47.9 % (40-54); Hemoglobin 16.1 g/dL (13.0-16.5); Lymphocyte # 2.44 X10^3/ul (0.83-4.51); Lymphocyte % 33.4 % (19-41); Mean Corp Hgb Conc 33.6 g/dL (32-36); Mean Corpuscular Hgb 26.5 pg (27.0-32.0); Mean Corpuscular Volume 78.8 fL (80-94); Mean Platelet Vol. 9.8 fl (6.2-12.0); Monocyte# 1.05 X10^3/uL; Monocyte% 14.4 % (0-10); NRBC Flagged by Analyzer 0 % (0-5); Neutrophil # 3.32 X10^3/uL (2.7-7.7); Neutrophil % 45.5 % (47-70); Platelet Count 328 K/mm3 (150-450); RBC Distribution Width CV 13.9 % (11.6-14.6); RBC Distribution Width SD 39.3 fl (35.1-43.9); Red Blood Count 6.08 M/mm3 (4.6-6.2); White Blood Count 7.3 K/mm3 (4.4-11.0)
[2023-11-29 08:33] LABS: Anion Gap 5 (5-15); BUN 15 mg/dL (7-18); BUN/Creat Ratio 11.9 RATIO (10-20); Calcium,Total 9.5 mg/dL (8.5-10.1); Chloride 104 mmol/L (98-107); Creatinine, Serum 1.26 mg/dL (0.70-1.30); EST Glomerular Filtration Rate 66 mL/min (>60); Est Glom Filt Rate - Afr Amer 80 mL/min (>60); Estimated Creatinine Clearance 65.76 ml/min; Glucose 139 mg/dL (74-106); Potassium 3.9 mmol/L (3.5-5.1); Sodium Level 140 mmol/L (136-145)
[2023-11-29 09:04] VITALS: BP 106/79; PULSE 93; RESP 16; TEMP 36.5; O2SAT 97
[2023-11-29] MEDS: Pantoprazole Sodium 40 MG Tablet PO (09:07)
[2023-11-29] MEDS: Senna Tablet 1 TABLET PO (09:07)
[2023-11-29] MEDS: Divalproex Sodium 250 MG Tablet 500 MG PO (09:07)
[2023-11-29] MEDS: Potassium Chloride Oral Tablet 20 MEQ PO (09:07)
[2023-11-29 09:08] VITALS: PULSE 93
[2023-11-29] MEDS: Metoprolol Tartrate 25 MG Tablet PO (09:08)
[2023-11-29] MEDS: cloZAPine 100 MG TABLET PO (09:08)
[2023-11-29] MEDS: levETIRAcetam 500 MG Tablet 1500 MG PO (09:08)
[2023-11-29] MEDS: Citalopram 10 MG Tablet PO (09:08)
[2023-11-29] MEDS: Insulin Glargine-YFGN 100 UNIT/ML Pen 15 UNIT SC (09:09)
[2023-11-29] MEDS: Enoxaparin 40 MG/0.4 ML Syringe SC (09:09)
[2023-11-29] MEDS: Timolol 0.5% 5ML OPTH.BTL 1 DRP EACH EYE (09:10)
--- NOTE | 2023-11-29 11:06 | PCM.DC.SUM ---
Providers Date of Admission: 11/26/23 Date of Discharge: 11/29/23 Primary Care Physician: Dr. Ever Avila MD Consultations 11/27/23 10:20 Tele [Consult: Tele-Neurology] Routine Consulting Provider: [facility] Reason for Consult: seizures EMERGENT Consult: No MD Notified: Yes Date Notified: 11/27/23 Time Notified: 10:20 Method of Notification: Answering Service Nursing Unit Staff Notify [facility] of Tele-Neurology Consult: Yes Reason For Visit: ENCEPHALOPATHY Diagnosis Discharge Diagnosis (1) Type 2 diabetes mellitus: Status: Chronic Code(s): E11.9 - Type 2 diabetes mellitus without complications Qualifiers: Diabetes mellitus complication status: with hyperglycemia Diabetes mellitus chcf insulin use: with chcf use Qualified Code(s): E11.65 - Type 2 diabetes mellitus with hyperglycemia; Z79.4 - [facility] (current) use of insulin Plan Patient is a 43-year-old gentleman with history of schizoaffective disorder resident at the psychiatric facility brought to the emergency department with altered mental status. Patient could not provide much history. There was a suspicion of possible postictal phase following seizure. Admitted to a monitored bed 1. Acute metabolic encephalopathy suspected to be secondary to hypoglycemia ? Initial suspicion was that patient was postictal from a possible breakthrough seizure (unwitnessed) admitted to a monitored bed EEG ordered. Patient is on Keppra as well as valproic acid. Doses adjusted on admission. Consult placed to teleneurology ? 11/28/2023 given patient hypoglycemic episode the day prior to suspect his encephalopathy to be secondary to hypoglycemia rather than breakthrough seizure with a postictal phase ? For 12/15/2023 patient was initially seen in consultation by teleneuro recommended for continuation of patient's home Keppra dose with adjustment of his valproic acid dose. 2. Diabetes mellitus type II -patient's oral hypoglycemics held. Placed on long acting insulin, Accu-Cheks a.c. and at bedtime and covered with sliding scale insulin 3. Schizoaffective disorder ? Home meds continue 4. Right eye blindness -Complicating care 5. Hypokalemia -Corrected per protocol, repeat labs ordered for monitoring 6. Chronic kidney disease stage III ? Kidney function at baseline 6. DVT prophylaxis ? SC Lovenox Time spent in the patient's overall evaluation,decision-making process, review of diagnostic data, adjustment of management, discussion with other providers, nursing nursing and ancillary staff involved in patient's care documentation, 38 Minutes Medications at Discharge Home Medications cetirizine 10 mg tablet 10 mg PO QHS allergy symptoms 12/09/22 clozapine 100 mg tablet (Clozaril) 100 mg PO DAILY schizoaffective disorder 12/09/22 diphenhydramine HCl 50 mg tablet 50 mg PO Q8H PRN PRN agitation/anxiety 12/09/22 multivitamin 1 tab PO DAILY supplement 12/09/22 polyethylene glycol 3350 17 gram oral powder packet (Miralax) 17 g PO DAILY constipation 12/09/22 timolol maleate 0.5 % once daily eye 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 12/09/22 latanoprost 0.005 % eye drops 1 drp ophthalmic (eye) QPM eyes 02/20/23 metoprolol tartrate 25 mg tablet 25 mg PO DAILY hypertension 02/20/23 acetaminophen 325 mg tablet 650 mg PO Q4H PRN fever or pain 03/02/23 metformin 1,000 mg tablet 1,000 mg PO BID DM 03/02/23 pantoprazole 40 mg tablet,delayed release (Protonix) 40 mg PO BID GERD 03/02/23 sennosides 8.6 mg tablet (Senokot) 8.6 mg PO DAILY CONSTIPATION 03/02/23 lactulose 20 gram/30 mL oral solution 20 g (30 mL) PO TID elevated ammonia #3,000 mL 03/19/23 empagliflozin 10 mg tablet (Jardiance) 10 mg PO DAILY diabetes 04/25/23 metoclopramide HCl 5 mg tablet (Reglan) 5 mg PO TID gastroparesis 04/25/23 paliperidone palmitate 234 mg/1.5 mL intramuscular syringe (Invega Sustenna) 234 mg IM DAILY Check with primary doctor 04/25/23 citalopram 10 mg tablet (Celexa) 10 mg PO DAILY depression 11/26/23 clozapine 200 mg tablet 200 mg PO DAILY bipolar 11/26/23 hydroxyzine pamoate 50 mg capsule 50 mg PO TID anxiety 11/26/23 insulin glargine-yfgn 100 unit/mL (3 mL) subcutaneous pen 15 unit subcut BREAKFAST diabetes 11/26/23 levetiracetam 1,000 mg tablet (Keppra) 1,000 mg PO Q12H epilepsy 11/26/23 divalproex 250 mg tablet,delayed release 500 mg (2 x 250 mg) PO BIDCM #0 tabs 11/29/23 insulin lispro 100 unit/mL subcutaneous pen (Humalog KwikPen (U-100) Insulin) See Protocol subcut ACHS #0 mL 11/29/23 lorazepam 1 mg tablet (Ativan) 1 mg PO Q6H PRN agitiation/anxiety #3 tabs 11/29/23 potassium chloride 20 mEq tablet,extended release(part/cryst) 20 meq PO BIDCM #0 tabs 11/29/23 Physical Exam Narrative GENERAL: cooperative HEENT: Atraumatic; normocephalic EYES; Anicteric, Normal Conjunctiva NECK; supple, normal thyroid, RESPIRATORY: Diminished to auscultation CARDIOVASCULAR: Regular S1 S2, GI: soft, normoactive bowel sounds, : No Renal angle tenderness; EXTREMITIES: No edema, no clubbing, MUSCULOSKELETAL: no muscle wasting NEURO: Awake; no lateralizing signs. SKIN: No Rash PSYCH; Flat affect Weight / BMI Weight Weight: 62.9 kg Body Mass Index (BMI) 23.1 ABG / Lab / Microbiology Data 11/29/23 07:40 11/29/23 07:40 Laboratory: Laboratory Results - last 24 hr 11/28/23 11:24: POC Glucose 136 H 11/28/23 16:12: POC Glucose 105 11/28/23 21:00: POC Glucose 149 H 11/29/23 06:32: POC Glucose 157 H 11/29/23 07:40: WBC 7.3, RBC 6.08, Hgb 16.1, Hct 47.9, MCV 78.8 L, MCH 26.5 L, MCHC 33.6, RDW Std Deviation 39.3, RDW Coeff of Tana 13.9, Plt Count 328, MPV 9.8, Immature Gran % (Auto) 0.400, Neut % (Auto) 45.5 L, Lymph % (Auto) 33.4, [place] % (Auto) 14.4 H, Eos % (Auto) 5.2 H, Baso % (Auto) 1.1 H, Absolute Neuts (auto) 3.3, Absolute Lymphs (auto) 2.44, Nucleated RBC % 0, Sodium 140, Potassium 3.9, Chloride 104, Carbon Dioxide 31.0, Anion Gap 5, BUN 15, Creatinine 1.26, Estim Creat Clear Calc 65.76, Est GFR (MDRD) Af Amer 80, Est GFR (MDRD) Non-Af 66, BUN/Creatinine Ratio 11.9, Glucose 139 H, Calcium 9.5 D/C Instructions Discharge Diet: 1800 Calorie Control Diet Discharge Activity: Return to Normal Activity Call your doctor if you observe: Fever of 101 or Higher, Shortness of breath, Fainting spells and Chest pain Meaningful Use Info Meaningful Use Diagnoses (Choose all that apply): None applicable Discharge Plan Admission Admit Date/Time: 11/26/23 19:20 Attending Provider: Tanner Malik Primary Care Provider: Ever Avila Consulting Providers: Kailash Marcum; Jacinto De La Paz; Valentine Chu; Socorro Armstrong; Karin Thomason; Mendoza Baig; Kaylynn Owusu; Sue Nixon; Konstantin Rivero; Lenore Valente; Jaison Mathis; Aureliano Starr; Ed Andrade; Bev Finch; Laura Guerra; Duke Orellana; Shalonda Daniel; David Wynn; Mary Grace; Emilia Sanchez; Nika Rosenberg; Duncan Arechiga; Jean Hardwick; LILIA MEJIA; Dom Paulino; Lexie Gaviria Discharge Orders/Prescriptions Prescriptions: New insulin lispro [Humalog KwikPen Insulin] 100 unit/mL Insulin Pen See Protocol subcut ACHS Qty: 0 0RF Protocol: 4. Sliding Scale Insulin High-Med Dosing Condition: 150-199 mg/dl = 2 units Condition: 200-259 mg/dl = 4 units Condition: 260-324 mg/dl = 6 units Condition: 325-374 mg/dl = 8 units Condition: 375-409 mg/dl = 10 units Condition: 410-449 mg/dl = 11 units Condition: Greater than 449 call physician Protocol Text: - Use for Total Daily Dose of Insulin 56-80 units - Patient who are insulin resistant or septic HIGH MEDIUM DOSING ALGORITHM divalproex 250 mg Tablet,Delayed Release (Dr/Ec) 500 mg PO BIDCM Qty: 0 0RF potassium chloride 20 mEq Tablet,Er Particles/Crystals 20 meq PO BIDCM Qty: 0 0RF Continued Jardiance 10 mg tablet 10 mg PO DAILY metoclopramide HCl [Reglan] 5 mg tablet 5 mg PO TID Rx Instructions: 30 mins before meal latanoprost 0.005 % drops 1 drp ophthalmic (eye) QPM Rx Instructions: both eyes metoprolol tartrate 25 mg tablet 25 mg PO DAILY multivitamin Tablet 1 tab PO DAILY polyethylene glycol 3350 [Miralax] 17 gram Powder In Packet 17 g PO DAILY cetirizine 10 mg Tablet 10 mg PO QHS diphenhydramine HCl 50 mg Tablet 50 mg PO Q8H PRN PRN (Reason: agitation/anxiety ) Patient Comments: PRN PER [facility] clozapine [Clozaril] 100 mg Tablet 100 mg PO DAILY timolol maleate 0.5 % Drops, Once Daily 1 drp EACH EYE DAILY Invega Sustenna 234 mg/1.5 mL syringe 234 mg IM DAILY Patient Comments: [facility] PT IS DUE FOR MONTHLY INJECTION ON 03/12/23. Rx Instructions: give every 28 days pantoprazole [Protonix] 40 mg tablet,delayed release (DR/EC) 40 mg PO BID Patient Comments: PER [facility] PT TO START ON 03/03/23 metformin 1,000 mg tablet 1,000 mg PO BID acetaminophen 325 mg tablet 650 mg PO Q4H PRN (Reason: fever or pain) Patient Comments: PRN PER [facility] sennosides [Senokot] 8.6 mg tablet 8.6 mg PO DAILY lactulose 20 gram/30 mL solution 20 g PO TID Qty: 3000 0RF Rx Instructions: titrate until 2-3 loose stools daily citalopram [Celexa] 10 mg tablet 10 mg PO DAILY clozapine 200 mg tablet 200 mg PO DAILY levetiracetam [Keppra] 1,000 mg tablet 1,000 mg PO Q12H hydroxyzine pamoate 50 mg capsule 50 mg PO TID insulin glargine-yfgn 100 unit/mL (3 mL) Insulin Pen 15 unit subcut BREAKFAST lorazepam [Ativan] 1 mg Tablet 1 mg PO Q6H PRN (Reason: agitiation/anxiety ) Qty: 3 0RF Discontinued divalproex 250 mg tablet,delayed release (DR/EC) 250 mg PO DAILY Patient Comments: PER [facility] PT TAKES 1 (250 MG) TAB IN THE AM AND 1 (500 MG) TAB IN THE PM. insulin lispro [Humalog KwikPen Insulin] 100 unit/mL Insulin Pen 8 unit subcut BREAKFAST Qty: 0 0RF insulin lispro [Humalog KwikPen Insulin] 100 unit/mL Insulin Pen 8 unit subcut LUNCH Qty: 0 0RF insulin lispro [Humalog KwikPen Insulin] 100 unit/mL Insulin Pen 8 unit subcut DINNER Qty: 0 0RF Referrals / Follow Up: Ever Avila MD [Primary Care Provider] - Disposition Disposition (needs filled in before D/C Order can be placed): NonSkilled NH/Intermed Care Charges/Coding Visit Charges Inpatient E&M: 44706 Disch Hosp >30min
--- NOTE | 2023-11-29 11:15 | TREXTCAR_ITS ---
Diet Diet Order/Speech Therapy: 11/27/23 17:18 Diet: Consistent Carb - Calorie Controlled Is pt able to select menu?: No How many daily calories?: 2000 calorie Therapies Physical Therapy: Eval and Treat Occupational Therapy: Eval and Treat Problem/Diagnosis (1) Type 2 diabetes mellitus: Status: Chronic Code(s): E11.9 - Type 2 diabetes mellitus without complications Plan Patient is a 43-year-old gentleman with history of schizoaffective disorder resident at the psychiatric facility brought to the emergency department with altered mental status. Patient could not provide much history. There was a suspicion of possible postictal phase following seizure. Admitted to a monitor ed bed 1. Acute encephalopathy suspected to be secondary to hypoglycemia ? Initial suspicion was that patient was postictal from a possible breakthrough seizure (unwitnessed) admitted to a monitored bed EEG ordered. Patient is on Keppra as well as valproic acid. Doses adjusted on admission. Consult placed to teleneurology ? 11/28/2023 given patient hypoglycemic episode the day prior to suspect his encephalopathy to be secondary to hypoglycemia rather than breakthrough seizure with a postictal phase 2. Diabetes mellitus type II -patient's oral hypoglycemics held. Placed on long acting insulin, Accu-Cheks a.c. and at bedtime and covered with sliding scale insulin 3. Schizoaffective disorder ? Home meds continue 4. Right eye blindness -Complicating care 5. Hypokalemia -Corrected per protocol, repeat labs ordered for monitoring 6. Chronic kidney disease stage III ? Kidney function at baseline 6. DVT prophylaxis ? SC Lovenox Time spent in the patient's overall evaluation,decision-making process, review of diagnostic data, adjustment of management, discussion with other providers, nursing nursing and ancillary staff involved in patient's care documentation, 38 Minutes Allergies/Procedures Done in Hospital Allergies Sulfa (Sulfonamide Antibiotics) Allergy (Mild, Verified 04/25/23 09:55) Other 5HTS Receptor antagonist Allergy (Unknown, Uncoded 04/25/23 09:55) Other Type of Care/Length of Stay Estimated LOS: More Than 30 Days Type of Care Needed: Intermediate Rehab Potential: Fair Prognosis: Fair Additional Orders/Day of Discharge Day of Discharge: 11/29/23 Dietary and Speech Recommendations Dietitian Recommendations/Changes: Will change diet to 2000 lulu diet Will order 4 oz glucerna shake 4x/day w/ medpass for increased nutrition if consumed. Discharge Plan Admission Admit Date/Time: 11/26/23 19:20 Attending Provider: Tanner Malik Primary Care Provider: Ever Avila Consulting Providers: Kailash Marcum; Jacinto De La Paz; Valentine Chu; Socorro Armstrong; Karin Thomason; Mendoza Baig; Kaylynn Owusu; Sue Nixon; Konstantin Rivero; Lenore Valente; Jaison Mathis; Aureliano Starr; Ed Andrade; Bev Finch; Mari,bisi Feldman; Duke Orellana; Shalonda Daniel; David Wynn; aMry Grace; Emilia Sanchez; Nika Rosenberg; Duncan Arechiga; Jean Hardwick; LILIA MEJIA; Dom Paulino; Lexie Gaviria Discharge Orders/Prescriptions Prescriptions: New insulin lispro [Humalog KwikPen Insulin] 100 unit/mL Insulin Pen See Protocol subcut ACHS Qty: 0 0RF Protocol: 4. Sliding Scale Insulin High-Med Dosing Condition: 150-199 mg/dl = 2 units Condition: 200-259 mg/dl = 4 units Condition: 260-324 mg/dl = 6 units Condition: 325-374 mg/dl = 8 units Condition: 375-409 mg/dl = 10 units Condition: 410-449 mg/dl = 11 units Condition: Greater than 449 call physician Protocol Text: - Use for Total Daily Dose of Insulin 56-80 units - Patient who are insulin resistant or septic HIGH MEDIUM DOSING ALGORITHM divalproex 250 mg Tablet,Delayed Release (Dr/Ec) 500 mg PO BIDCM Qty: 0 0RF potassium chloride 20 mEq Tablet,Er Particles/Crystals 20 meq PO BIDCM Qty: 0 0RF Continued Jardiance 10 mg tablet 10 mg PO DAILY metoclopramide HCl [Reglan] 5 mg tablet 5 mg PO TID Rx Instructions: 30 mins before meal latanoprost 0.005 % drops 1 drp ophthalmic (eye) QPM Rx Instructions: both eyes metoprolol tartrate 25 mg tablet 25 mg PO DAILY multivitamin Tablet 1 tab PO DAILY polyethylene glycol 3350 [Miralax] 17 gram Powder In Packet 17 g PO DAILY cetirizine 10 mg Tablet 10 mg PO QHS diphenhydramine HCl 50 mg Tablet 50 mg PO Q8H PRN PRN (Reason: agitation/anxiety ) Patient Comments: PRN PER MAR clozapine [Clozaril] 100 mg Tablet 100 mg PO DAILY timolol maleate 0.5 % Drops, Once Daily 1 drp EACH EYE DAILY Invega Sustenna 234 mg/1.5 mL syringe 234 mg IM DAILY Patient Comments: PER [facility] PT IS DUE FOR MONTHLY INJECTION ON 03/12/23. Rx Instructions: give every 28 days pantoprazole [Protonix] 40 mg tablet,delayed release (DR/EC) 40 mg PO BID Patient Comments: PER [facility] PT TO START ON 03/03/23 metformin 1,000 mg tablet 1,000 mg PO BID acetaminophen 325 mg tablet 650 mg PO Q4H PRN (Reason: fever or pain) Patient Comments: PRN PER MAR sennosides [Senokot] 8.6 mg tablet 8.6 mg PO DAILY lactulose 20 gram/30 mL solution 20 g PO TID Qty: 3000 0RF Rx Instructions: titrate until 2-3 loose stools daily citalopram [Celexa] 10 mg tablet 10 mg PO DAILY clozapine 200 mg tablet 200 mg PO DAILY levetiracetam [Keppra] 1,000 mg tablet 1,000 mg PO Q12H hydroxyzine pamoate 50 mg capsule 50 mg PO TID insulin glargine-yfgn 100 unit/mL (3 mL) Insulin Pen 15 unit subcut BREAKFAST lorazepam [Ativan] 1 mg Tablet 1 mg PO Q6H PRN (Reason: agitiation/anxiety ) Qty: 3 0RF Discontinued divalproex 250 mg tablet,delayed release (DR/EC) 250 mg PO DAILY Patient Comments: PER MAR PT TAKES 1 (250 MG) TAB IN THE AM AND 1 (500 MG) TAB IN THE PM. insulin lispro [Humalog KwikPen Insulin] 100 unit/mL Insulin Pen 8 unit subcut BREAKFAST Qty: 0 0RF insulin lispro [Humalog KwikPen Insulin] 100 unit/mL Insulin Pen 8 unit subcut LUNCH Qty: 0 0RF insulin lispro [Humalog KwikPen Insulin] 100 unit/mL Insulin Pen 8 unit subcut DINNER Qty: 0 0RF Referrals / Follow Up: Ever Avila MD [Primary Care Provider] - Disposition Disposition (needs filled in before D/C Order can be placed): NonSkilled NH/Intermed Care (1) Type 2 diabetes mellitus Qualifiers: Diabetes mellitus senior living insulin use: with senior living use Diabetes mellitus complication status: with hyperglycemia Qualified Code(s): E11.65 - Type 2 diabetes mellitus with hyperglycemia; Z79.4 - nursing home (current) use of insulin
[2023-11-29 12:01] LABS: Bedside Glucose 142 mg/dL (74-106)
[2023-11-29 14:05] VITALS: BP 100/75; PULSE 85; RESP 17; TEMP 36.4; O2SAT 95
--- NOTE | 2023-11-29 14:15 | NURSING ---
Report called to [facility] to nurse Reid.
== END 2023-11-29 14:05 | DRG 637 ==
LOC: ED 17:28 → PCU 19:27
PROVIDERS: Family Medicine; Admitting Provider Internal Medicine; Emergency Provider Student in an Organized Health Care Education/Training Program; PCP Family Medicine; Visit Provider Internal Medicine
DX: E11.649 Type 2 diabetes mellitus with hypoglycemia without coma (principal); G93.41 Metabolic encephalopathy; E11.22 Type 2 diabetes mellitus with diabetic chronic kidney disease; F25.9 Schizoaffective disorder, unspecified; G40.909 Epilepsy, unspecified, not intractable, without status epilepticus; N18.30 Chronic kidney disease, stage 3 unspecified; E11.65 Type 2 diabetes mellitus with hyperglycemia; Z79.4 Long term (current) use of insulin; F31.9 Bipolar disorder, unspecified; I12.9 Hypertensive chronic kidney disease with stage 1 through stage 4 chronic kidney disease, or unspecified chronic kidney disease; E78.5 Hyperlipidemia, unspecified; E86.0 Dehydration; E87.6 Hypokalemia; F41.9 Anxiety disorder, unspecified; H54.7 Unspecified visual loss; F59 Unspecified behavioral syndromes associated with physiological disturbances and physical factors; R53.81 Other malaise; Z79.899 Other long term (current) drug therapy
CPT/HCPCS: 36415; 70450; 71045; 80048; 80053; 80076; 80164; 81001; 82140; 82962; 83690; 83735; 84100; 84439; 84443; 84481; 84484; 85025; 93005; 95819; 97162; 97166; 97535; 97802; 99283; 99406; J7030; A4216

== ENCOUNTER 2024-01-08 08:43 | Emergency (ER) | payer MEDICARE, OTHER, SELFPAY ==
[2024-01-08] VITALS (10 sets, daily range): BP systolic 99–134; BP diastolic 64–81; PULSE 64–104; RESP 11–17; TEMP -8.8–35.9; O2SAT 97–98; BMI 23.1
--- NOTE | 2024-01-08 08:47 | CT_ITS ---
STUDY: CT BRAIN WITHOUT CONTRAST REASON FOR EXAM: Male, 43 years old. Altered mental status RADIATION DOSAGE (If Supplied By Facility): CTDIvol = ( 44.99 ) mGy, DLP = ( 762.36 ) mGycm TECHNIQUE: Transaxial CT imaging of the brain was performed without administration of intravenous contrast material. Individualized dose optimization techniques were used for this CT. COMPARISON: Comparison is made with prior study dated November 26, 2023. FINDINGS: Normal soft tissue structures. Normal calvarium. Normal size ventricles and extra-axial spaces for the patient''s age. Normal white matter tracts of the cerebral hemispheres. There are small punctate calcifications of the bilateral basal ganglia. The differential diagnostic considerations includes: Fahrs disease, or endocrine disorders (hyperparathyroidism, hypoparathyroidism, pseudohypoparathyroidism). The incidental discovery of basal ganglia calcifications in a patient less than 50 years of age merits investigation. Normal brainstem. Normal cerebellum. There is no intracranial hemorrhage. There are no findings of an acute ischemic infarction. Mild degree mucosal thickening of the ethmoid sinuses. CT/Brain/Head without Contrast IMPRESSION: Small punctate calcifications are seen in the basal ganglia bilaterally. No other abnormality is seen. Electronically Signed: Pradeep Guerrero MD at 10:59 EDT ,
--- NOTE | 2024-01-08 09:02 | EX.ED.DYSGE1 ---
HPI History of Present Illness Chief Complaint: Alt LOC Detail of Chief Complaint: Unresponsiveness, history of seizures Informant: SNF (Documents that accompanied and what nurse relayed to me.) Onset/Context/Timing Onset: - (Exact time unknown) Context: - (Presumed sudden) Timing: Continuous (Patient is presently nonresponsive.) Quality: Patient is lying on examination bed with head turned to the left in no dist Current Severity: Per HPI narrative Maximum Severity: Per HPI Worsened by: Uncertain Relieved by: Apparently nothing Associated Symptoms Associated Symptoms: Unable to determine Narrative Narrative: Patient is a 43-year-old male. He has history of dementia, elevated TSH, seizure disorder. He does have history of diabetes. He is on insulin. He also has history of glaucoma per notes from nursing facility as well as hypertensive retinopathy with blindness in his right eye. Presently patient does not respond to verbal or tactile stimuli. Prior similar symptoms: No Recent Illness/Hospitalization: Yes (Reportedly recent seizure. He was seen November 26, 2023 for Acute delirium) [facility] Medical History Substance abuse Alcohol abuse Schizophrenia Depression Diabetes Kidney stones GI bleed Pulmonary embolism Asthma Hypertension Dementia Exophthalmos Generalized muscle weakness Constant exophthalmos, bilateral Disorder of urea cycle metabolism, unspecified Unspecified psychosis 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 or known physiological condition Chronic pain syndrome Disturbances of salivary secretion Essential (primary) hypertension Myopia, unspecified eye Alternating exotropia Hypertensive retinopathy, right eye Posterior subcapsular polar age-related cataract, bilateral Unspecified intellectual disabilities GERD (gastroesophageal reflux disease) Diabetes History of psychiatric disorder Dysphagia PVD (peripheral vascular disease) Constipation Seizures Anemia Schizoaffective disorder Cannabis abuse TBI (traumatic brain injury) Blindness Hyperlipidemia Muscle weakness Anxiety Insomnia Glaucoma Bipolar disorder Type 2 diabetes mellitus Home Medications ?Medication ?Instructions ?Recorded ?Last Taken ?Type cetirizine 10 mg tablet 10 mg PO QHS allergy symptoms 12/09/22 03/01/23 History clozapine 100 mg tablet (Clozaril) 100 mg PO DAILY schizoaffective 12/09/22 03/02/23 History disorder diphenhydramine HCl 50 mg tablet 50 mg PO Q8H PRN PRN 12/09/22 Unknown History agitation/anxiety multivitamin 1 tab PO DAILY supplement 12/09/22 03/02/23 History polyethylene glycol 3350 17 gram 17 g PO DAILY constipation 12/09/22 03/02/23 History oral powder packet (Miralax) timolol maleate 0.5 % once daily 1 drp EACH EYE DAILY congenital 12/09/22 03/02/23 History eye drops glaucoma latanoprost 0.005 % eye drops 1 drp ophthalmic (eye) QPM eyes 02/20/23 03/01/23 History metoprolol tartrate 25 mg tablet 25 mg PO DAILY hypertension 02/20/23 03/02/23 History acetaminophen 325 mg tablet 650 mg PO Q4H PRN fever or pain 03/02/23 Unknown History metformin 1,000 mg tablet 1,000 mg PO BID DM 03/02/23 03/02/23 History pantoprazole 40 mg tablet,delayed 40 mg PO BID GERD 03/02/23 Unknown History release (Protonix) sennosides 8.6 mg tablet (Senokot) 8.6 mg PO DAILY CONSTIPATION 03/02/23 03/02/23 History lactulose 20 gram/30 mL oral 20 g (30 mL) PO TID elevated 03/19/23 03/02/23 Rx solution ammonia #3,000 mL empagliflozin 10 mg tablet 10 mg PO DAILY diabetes 04/25/23 Unknown History (Jardiance) metoclopramide HCl 5 mg tablet 5 mg PO TID gastroparesis 04/25/23 Unknown History (Reglan) paliperidone palmitate 234 mg/1.5 234 mg IM DAILY Check with primary 04/25/23 Unknown History mL intramuscular syringe (Emmy doctor Marichuy) citalopram 10 mg tablet (Celexa) 10 mg PO DAILY depression 11/26/23 Unknown History clozapine 200 mg tablet 200 mg PO DAILY bipolar 11/26/23 Unknown History hydroxyzine pamoate 50 mg capsule 50 mg PO TID anxiety 11/26/23 Unknown History insulin glargine-yfgn 100 unit/mL 15 unit subcut BREAKFAST diabetes 11/26/23 Unknown History (3 mL) subcutaneous pen levetiracetam 1,000 mg tablet 1,000 mg PO Q12H epilepsy 11/26/23 Unknown History (Keppra) divalproex 250 mg tablet,delayed 500 mg (2 x 250 mg) PO BIDCM #0 11/29/23 Unknown Rx release tabs insulin lispro 100 unit/mL See Protocol subcut ACHS #0 mL 11/29/23 Unknown Rx subcutaneous pen (Humalog KwikPen (U-100) Insulin) lorazepam 1 mg tablet (Ativan) 1 mg PO Q6H PRN agitiation/anxiety 11/29/23 Unknown Rx #3 tabs potassium chloride 20 mEq 20 meq PO BIDCM #0 tabs 11/29/23 Unknown Rx tablet,extended release(part/cryst) ciprofloxacin HCl 0.3 % eye drops 1 drp EACH EYE Q2H #5 mL 01/08/24 Unknown Rx Allergy/AdvReac Type Severity Reaction Status Date / Time Sulfa (Sulfonamide Allergy Mild Other Verified 01/08/24 10:06 Antibiotics) 5HTS Receptor antagonist Allergy Unknown Other Uncoded 04/25/23 09:55 Surgical History H/O eye surgery Social History housing: jail other: Patient has a legal guardian and is a long-term resident at [facility] Smoking Status: Unknown if ever smoked alcohol intake: never substance use type: does not use and other details: Unknown ROS ROS ED Review of Systems ROS Unobtainable: due to mental condition and due to mental status EXAM Physical Exam Const Vital Signs: 01/08/24 08:42 01/08/24 08:43 01/08/24 09:42 Temperature 96.7 F L Temperature Source Temporal Pulse Rate 94 96 104 H Respiratory Rate 11 L 16 16 Blood Pressure 103/76 99/75 104/78 Blood Pressure Mean 85 83 86 Pulse Ox 98 98 98 Oxygen Delivery Method Room Air Room Air Room Air 01/08/24 10:00 01/08/24 11:00 01/08/24 12:00 Temperature Temperature Source Pulse Rate 104 H 64 78 Respiratory Rate 16 16 16 Blood Pressure 108/76 101/76 107/64 Blood Pressure Mean 86 84 78 Pulse Ox 98 98 97 Oxygen Delivery Method Room Air Room Air Room Air Positive well nourished and well developed General Appearance ED: well developed and NAD; Negative for cyanotic, diaphoretic or pallor HEENT Reports moist mucous membranes HEENT Narrative: Head is atraumatic normocephalic. Ears normal. Nares patent. Unable to see posterior pharynx. Eyes Eyes Narrative: Pupils are pinpoint. Patient has proptosis on the right. His sclera is injected on the right. Conjunctive is injected bilaterally with what appears to be purulent drainage. General Eye ED: Negative for pale conjunctiva or scleral icterus Neck no lymphadenopathy, supple and no JVD Neck Narrative: There is no JVD. Chest Wall inspection of chest normal and palpation of chest normal Resp normal respiratory effort and clear to auscultation bilaterally Cardio regular rate, regular rhythm, S1 normal heart sound, S2 normal heart sound and no murmurs GI normal to inspection, nondistended, normoactive bowel sounds, non-tender, non-distended and no masses; Negative for hepatosplenomegaly Back/Spine no CVA tenderness Extremity normal to inspection General Extremety ED: Negative for edema or tenderness General Extremity: Negative for edema Neuro Neuro Narrative: Unable to determine. Patient has a positive arm avoidance test. Patient has a startle response to lung collapse. Patient withdraws to Babinski testing. Suspect there is a psychogenic component to this. Psych Psych Narrative: Unable to determine Skin no rashes or lesions noted, no wounds and skin turgor normal General Skin Exam: Negative for jaundice or pallor MDM MDM MDM Narrative Medical decision making narrative: Differential diagnosis would include conversion reaction, postictal state, malingering, metabolic or infectious abnormality. Will obtain CT, appropriate blood work including tox screen and UA. Since patient is on Keppra level was obtained. History & Record Review Additional record(s) reviewed:: Prior ED visit (Seen November 26, [address] Gaitan for acute delirium, debility, dehydration. He was subtherapeutic on his Depakote dose at that time.) and Prior labs Lab Data Attestation: I reviewed the patient's lab results. Lab results narrative: Comprehensive metabolic panel is unremarkable. Creatinine is slightly elevated at 1.31 with an estimated GFR of 63. Glucose is 108 with a normal CO2 anion gap. Urinalysis reveals glucosuria and ketones. Otherwise unremarkable. CBC is remarkable for slight shift. Otherwise unremarkable. Labs: Laboratory Results - last 24 hr 01/08/24 01/08/24 01/08/24 09:57 10:30 11:10 WBC 9.1 RBC 6.18 Hgb 16.5 Hct 50.5 MCV 81.7 MCH 26.7 L MCHC 32.7 RDW Std Deviation 46.9 H RDW Coeff of Tana 16.4 H Plt Count 246 MPV 10.2 Immature Gran % (Auto) 0.300 Neut % (Auto) 70.4 H Lymph % (Auto) 19.8 [place] % (Auto) 7.1 Eos % (Auto) 2.1 Baso % (Auto) 0.3 Absolute Neuts (auto) 6.4 Absolute Lymphs (auto) 1.80 Nucleated RBC % 0 Sodium 143 Potassium 4.4 Chloride 107 Carbon Dioxide 31.0 Anion Gap 5 BUN 11 Creatinine 1.31 H Estim Creat Clear Calc 63.25 Est GFR (MDRD) Af Amer 77 Est GFR (MDRD) Non-Af 63 BUN/Creatinine Ratio 8.4 L Glucose 108 H Lactic Acid 1.8 Calcium 9.7 Total Bilirubin 0.50 AST 15 ALT 14 L Alkaline Phosphatase 62 Total Protein 7.0 Albumin 3.8 Globulin 3.2 Albumin/Globulin Ratio 1.2 Urine Color Yellow Urine Clarity Clear Urine pH 5.0 Ur Specific Raymond 1.015 Urine Protein Negative Urine Glucose (UA) 1000 H Urine Ketones 15 H Urine Occult Blood Negative Urine Nitrite Negative Urine Bilirubin Negative Urine Urobilinogen Normal Ur Leukocyte Esterase Negative Urine RBC 0 SEEN Urine WBC 0 SEEN Ur Squamous Epith Cells 0 SEEN Urine Bacteria 0 SEEN Urine Mucus 0 SEEN Urine Opiates Screen NEGATIVE Urine Methadone Screen NEGATIVE Ur Barbiturates Screen NEGATIVE Ur Phencyclidine Scrn NEGATIVE Ur Amphetamines Screen NEGATIVE MDMA (Ecstasy) Screen NEGATIVE U Benzodiazepines Scrn NEGATIVE Urine Cocaine Screen NEGATIVE U Cannabinoids Screen NEGATIVE Ur Drug Screen Comment Talk screen is negative. Lactate was normal. Apparently the Keppra level is a send out. Radiography Diagnostic Testing: Clinical Impression(s) from Imaging Studies Brain CT 01/08/24 08:47 IMPRESSION: Small punctate calcifications are seen in the basal ganglia bilaterally. No other abnormality is seen. Electronically Signed: Pradeep Guerrero MD at 10:59 EDT , CAT scan was reviewed by me and interpretation by Dr. Guerrero was read. Treatment and Re-Evaluation :: Patient was reassessed at 0939. Nurse informing that he arouses to pain only. Patient was evaluated 2 additional times prior to going in with nurse to informed that he will be discharged. Patient was able to respond. My opinion patient is aware of his surroundings. He does have conjunctivitis. Will place on ophthalmic drops to treat this. Since his vitals are normal his workup is unremarkable he will be discharged back to the nursing facility. One of his diagnosis is dementia with behavioral issues as well. Discharge Plan Triage Chief Complaint: Alt LOC ED Provider: Meir Maher Dx/Rx/DC Orders Clinical Impression: Conversion reaction, Dementia in other diseases classified elsewhere, unspecified severity, with other behavioral disturbance, Poor venous access, Acute conjunctivitis of both eyes, History of seizure disorder, Hx of schizophrenia, Type 2 diabetes mellitus treated with insulin Instructions: ED Conjunctivitis, Nonspecific, ED Conversion Reaction Prescriptions: New ciprofloxacin HCl 0.3 % drops 1 drp EACH EYE Q2H Qty: 5 0RF Rx Instructions: 1 drp into Each EYE; No Action Jardiance 10 mg tablet 10 mg PO DAILY metoclopramide HCl [Reglan] 5 mg tablet 5 mg PO TID Rx Instructions: 30 mins before meal latanoprost 0.005 % drops 1 drp ophthalmic (eye) QPM Rx Instructions: both eyes metoprolol tartrate 25 mg tablet 25 mg PO DAILY multivitamin Tablet 1 tab PO DAILY polyethylene glycol 3350 [Miralax] 17 gram Powder In Packet 17 g PO DAILY cetirizine 10 mg Tablet 10 mg PO QHS diphenhydramine HCl 50 mg Tablet 50 mg PO Q8H PRN PRN (Reason: agitation/anxiety ) Patient Comments: PRN PER [facility] clozapine [Clozaril] 100 mg Tablet 100 mg PO DAILY timolol maleate 0.5 % Drops, Once Daily 1 drp EACH EYE DAILY Invega Sustenna 234 mg/1.5 mL syringe 234 mg IM DAILY Patient Comments: PER [facility] PT IS DUE FOR MONTHLY INJECTION ON 03/12/23. Rx Instructions: give every 28 days pantoprazole [Protonix] 40 mg tablet,delayed release (DR/EC) 40 mg PO BID Patient Comments: PER [facility] PT TO START ON 03/03/23 metformin 1,000 mg tablet 1,000 mg PO BID acetaminophen 325 mg tablet 650 mg PO Q4H PRN (Reason: fever or pain) Patient Comments: PRN PER [facility] sennosides [Senokot] 8.6 mg tablet 8.6 mg PO DAILY lactulose 20 gram/30 mL solution 20 g PO TID Qty: 3000 0RF Rx Instructions: titrate until 2-3 loose stools daily citalopram [Celexa] 10 mg tablet 10 mg PO DAILY clozapine 200 mg tablet 200 mg PO DAILY levetiracetam [Keppra] 1,000 mg tablet 1,000 mg PO Q12H hydroxyzine pamoate 50 mg capsule 50 mg PO TID insulin glargine-yfgn 100 unit/mL (3 mL) Insulin Pen 15 unit subcut BREAKFAST insulin lispro [Humalog KwikPen Insulin] 100 unit/mL Insulin Pen See Protocol subcut ACHS Qty: 0 0RF Protocol: 4. Sliding Scale Insulin High-Med Dosing Condition: 150-199 mg/dl = 2 units Condition: 200-259 mg/dl = 4 units Condition: 260-324 mg/dl = 6 units Condition: 325-374 mg/dl = 8 units Condition: 375-409 mg/dl = 10 units Condition: 410-449 mg/dl = 11 units Condition: Greater than 449 call physician Protocol Text: - Use for Total Daily Dose of Insulin 56-80 units - Patient who are insulin resistant or septic HIGH MEDIUM DOSING ALGORITHM divalproex 250 mg Tablet,Delayed Release (Dr/Ec) 500 mg PO BIDCM Qty: 0 0RF potassium chloride 20 mEq Tablet,Er Particles/Crystals 20 meq PO BIDCM Qty: 0 0RF lorazepam [Ativan] 1 mg Tablet 1 mg PO Q6H PRN (Reason: agitiation/anxiety ) Qty: 3 0RF Primary Care Provider: Ever Avila Referrals: Ever Avila MD [Primary Care Provider] - Print Language: Namibian Disposition Disposition: Home, Self Care
[2024-01-08 10:30] LABS: Absolute Neutrophil Count 6.4 X10^3/uL (2.0-7.7); Basophil# 0.03 X10^3/uL; Basophil% 0.3 % (0-1); Eosinophil# 0.19 X10^3/uL; Eosinophils% 2.1 % (0-5); Hematocrit 50.5 % (40-54); Hemoglobin 16.5 g/dL (13.0-16.5); Lymphocyte % 19.8 % (19-41); Mean Corp Hgb Conc 32.7 g/dL (32-36); Mean Corpuscular Hgb 26.7 pg (27.0-32.0); Mean Corpuscular Volume 81.7 fL (80-94); Mean Platelet Vol. 10.2 fl (6.2-12.0); Monocyte# 0.64 X10^3/uL; Monocyte% 7.1 % (0-10); NRBC Flagged by Analyzer 0 % (0-5); Neutrophil # 6.38 X10^3/uL (2.7-7.7); Neutrophil % 70.4 % (47-70); Platelet Count 246 K/mm3 (150-450); RBC Distribution Width CV 16.4 % (11.6-14.6); RBC Distribution Width SD 46.9 fl (35.1-43.9); Red Blood Count 6.18 M/mm3 (4.6-6.2); White Blood Count 9.1 K/mm3 (4.4-11.0)
[2024-01-08 10:36] LABS: ALB/GLOB Ratio 1.2 RATIO (0.9-2.4); AST(SGOT) 15 U/L (15-37); Alanine Aminotransfer ALT/SGPT 14 U/L (16-61); Albumin, Serum 3.8 g/dL (3.2-5.0); Alkaline Phosphatase 62 U/L (45-117); Anion Gap 5 (5-15); BUN 11 mg/dL (7-18); BUN/Creat Ratio 8.4 RATIO (10-20); Calcium,Total 9.7 mg/dL (8.5-10.1); Chloride 107 mmol/L (98-107); Creatinine, Serum 1.31 mg/dL (0.70-1.30); EST Glomerular Filtration Rate 63 mL/min (>60); Est Glom Filt Rate - Afr Amer 77 mL/min (>60); Estimated Creatinine Clearance 63.25 ml/min; Globulin 3.2 g/dL (2.2-4.2); Glucose 108 mg/dL (74-106); Potassium 4.4 mmol/L (3.5-5.1); Sodium Level 143 mmol/L (136-145)
[2024-01-08 10:47] LABS: Bacteria 0 SEEN /hpf (None Seen); Color, Urine Yellow (Yellow); Glucose, Dipstick 1000 mg/dl (Normal); Ketone-Dipstick 15 mg/dl (Negative); Leukocyte Esterase-Dipstick Negative /ul (Negative); Mucous, Urine 0 SEEN /hpf (<or=2+); Nitrite-Dipstick Negative (Negative); Occult Blood-Urine Negative /ul (Negative); Protein-Dipstick Negative (Negative); Red Blood Cells-Urine 0 SEEN /hpf (0-5); Specific Gravity, Urine 1.015 (1.002-1.030); Squamous Epithelial Cells - UA 0 SEEN /hpf (0-5); Urine Bilirubin Dipstick Negative (Negative); Urine Clarity Clear (Clear); Urine Urobilinogen Normal (Normal); White Blood Cells 0 SEEN /hpf (0-5)
--- NOTE | 2024-01-08 11:48 | PCM.OP.PRO ---
Procedure Report Date of Procedure: 01/08/24 Assessment & Plan Assessment/Plan (1) Poor venous access: PLAN: PROCEDURE: IV Placement under Ultrasound Guidance PERFORMED BY: ELIZABETH Tyson INDICATION: IV access required. Poor venous access. TECHNIQUE: Patient identity was verified with two patient identifiers. Hands were sanitized. The patient was positioned supine with left arm at 90 degrees. The patient's upper arm vasculature was assessed using ultrasound, and the left brachial vein was externally marked. The vein was suitable for insertion of a 20 gauge 8 cm extended dwell catheter. The sterile kit was opened with additional supplies dropped in. Mask and prep gloves were donned. The underdrape was placed under the patient's arm. The site was prepped with chlorhexidine, and tourniquet was loosely applied. Prep gloves were discarded, and hands were sanitized. Sterile gloves were donned, and the patient's arm was draped. The sterile kit was assembled with needless connector and loop flushed with sterile normal saline. The left brachial vein was then accessed using dynamic ultrasound guidance, and the catheter advanced easily. 1 attempt was required. The tourniquet was released. The flushed loop and needless connector were attached. Blood return was easily aspirated. 10 ml sterile normal saline was delivered via pulsatile flush, and the loop was clamped prior to removal of the syringe to prevent back flow. Skin was prepped and followed by application of a stat-lock and a clear dressing was applied to secure the IV. The patient tolerated the procedure well. The tourniquet was removed, waist obtained, and lactic acid was drawn and placed on ice. This was sent to the laboratory. The line was then flushed again with 10 mL of normal saline in a pulsatile fashion and clamped. Procedures Radiology Radiology Access Procedures: MIDL
[2024-01-08 12:09] LABS: Lactic Acid 1.8 mmol/L (0.4-1.9)
[2024-01-08 12:25] LABS: Amphetamine Urine VISTA NEGATIVE (<1000 ng/mL); Barbiturate Urine VISTA NEGATIVE (< 200 ng/mL); Benzodiazepine Urine VISTA NEGATIVE (< 200 ng/mL); Cocaine Urine VISTA NEGATIVE (< 300 ng/mL); Ecstacy Urine VISTA NEGATIVE (< 500 ng/mL); Methadone Urine VISTA NEGATIVE (< 300 ng/mL); PCP Urine VISTA NEGATIVE (< 25 ng/mL); THC Urine VISTA NEGATIVE (< 50 ng/mL); Vista UDS pH Range 5
[2024-01-10 15:08] LABS: KEPPRA (LEVETIRACETAM) 16.5 ug/mL (10.0-40.0)
== END 2024-01-08 16:10 | disposition home or self-care (01) ==
PROVIDERS: Emergency Provider Emergency Medicine; PCP Family Medicine; Visit Provider Emergency Medicine
DX: F44.9 Dissociative and conversion disorder, unspecified (principal); F20.9 Schizophrenia, unspecified; F31.9 Bipolar disorder, unspecified; F03.918 Unspecified dementia, unspecified severity, with other behavioral disturbance; G40.909 Epilepsy, unspecified, not intractable, without status epilepticus; E11.9 Type 2 diabetes mellitus without complications; Z79.4 Long term (current) use of insulin; H10.33 Unspecified acute conjunctivitis, bilateral; I10 Essential (primary) hypertension; E78.5 Hyperlipidemia, unspecified; Z79.899 Other long term (current) drug therapy; Z79.84 Long term (current) use of oral hypoglycemic drugs; K21.9 Gastro-esophageal reflux disease without esophagitis; F41.9 Anxiety disorder, unspecified
CPT/HCPCS: 70450; 80053; 80177; 80307; 81001; 83605; 85025; 99285; P9612; A4216

== ENCOUNTER 2024-05-30 14:52 | Inpatient (IN) | payer MEDICARE, MEDICAID, SELFPAY ==
[2024-05-30] VITALS (7 sets, daily range): BP systolic 99–122; BP diastolic 60–92; PULSE 92–110; RESP 12–19; TEMP 36.3–36.6; O2SAT 99–100; BMI 24.3; BMI 20.7
--- NOTE | 2024-05-30 15:17 | EX.ED.DYSGE1 ---
HPI History of Present Illness Chief Complaint: Seizure Informant: patient and EMS Onset/Context/Timing Onset: Today Context: Sudden Onset Timing: Intermittent Quality: Shaking Location: Generalized Worsened by: Nothing Relieved by: Nothing Narrative Narrative: Patient presents with seizure that occurred today. Patient has a history of seizures. Patient does not remember any events around the seizure. Patient states that he has had some visual changes, back pain, and abdominal pain since the seizure. Patient is a poor informant and does not answer questions appropriately. [facility] Medical History Substance abuse Alcohol abuse Schizophrenia Depression Diabetes Kidney stones GI bleed Pulmonary embolism Asthma Hypertension Dementia Exophthalmos Generalized muscle weakness Constant exophthalmos, bilateral Disorder of urea cycle metabolism, unspecified Unspecified psychosis 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 or known physiological condition Chronic pain syndrome Disturbances of salivary secretion Essential (primary) hypertension Myopia, unspecified eye Alternating exotropia Hypertensive retinopathy, right eye Posterior subcapsular polar age-related cataract, bilateral Unspecified intellectual disabilities GERD (gastroesophageal reflux disease) Diabetes History of psychiatric disorder Dysphagia PVD (peripheral vascular disease) Constipation Seizures Anemia Schizoaffective disorder Cannabis abuse TBI (traumatic brain injury) Blindness Hyperlipidemia Muscle weakness Anxiety Insomnia Glaucoma Bipolar disorder Type 2 diabetes mellitus Home Medications ?Medication ?Instructions ?Recorded ?Last Taken ?Type cetirizine 10 mg tablet 10 mg PO QHS allergy symptoms 12/09/22 03/01/23 History clozapine 100 mg tablet (Clozaril) 100 mg PO DAILY schizoaffective 12/09/22 03/02/23 History disorder diphenhydramine HCl 50 mg tablet 50 mg PO Q8H PRN PRN 12/09/22 Unknown History agitation/anxiety multivitamin 1 tab PO DAILY supplement 12/09/22 03/02/23 History polyethylene glycol 3350 17 gram 17 g PO DAILY constipation 12/09/22 03/02/23 History oral powder packet (Miralax) timolol maleate 0.5 % once daily 1 drp EACH EYE DAILY congenital 12/09/22 03/02/23 History eye drops glaucoma latanoprost 0.005 % eye drops 1 drp ophthalmic (eye) QPM eyes 02/20/23 03/01/23 History metoprolol tartrate 25 mg tablet 25 mg PO DAILY hypertension 02/20/23 03/02/23 History acetaminophen 325 mg tablet 650 mg PO Q4H PRN fever or pain 03/02/23 Unknown History metformin 1,000 mg tablet 1,000 mg PO BID DM 03/02/23 03/02/23 History pantoprazole 40 mg tablet,delayed 40 mg PO BID GERD 03/02/23 Unknown History release (Protonix) sennosides 8.6 mg tablet (Senokot) 8.6 mg PO DAILY CONSTIPATION 03/02/23 03/02/23 History lactulose 20 gram/30 mL oral 20 g (30 mL) PO TID elevated 03/19/23 03/02/23 Rx solution ammonia #3,000 mL empagliflozin 10 mg tablet 10 mg PO DAILY diabetes 04/25/23 Unknown History (Jardiance) metoclopramide HCl 5 mg tablet 5 mg PO TID gastroparesis 04/25/23 Unknown History (Reglan) paliperidone palmitate 234 mg/1.5 234 mg IM DAILY Check with primary 04/25/23 Unknown History mL intramuscular syringe (Invega doctor Marichuy) citalopram 10 mg tablet (Celexa) 10 mg PO DAILY depression 11/26/23 Unknown History clozapine 200 mg tablet 200 mg PO DAILY bipolar 11/26/23 Unknown History hydroxyzine pamoate 50 mg capsule 50 mg PO TID anxiety 11/26/23 Unknown History insulin glargine-yfgn 100 unit/mL 15 unit subcut BREAKFAST diabetes 11/26/23 Unknown History (3 mL) subcutaneous pen levetiracetam 1,000 mg tablet 1,000 mg PO Q12H epilepsy 11/26/23 Unknown History (Keppra) divalproex 250 mg tablet,delayed 500 mg (2 x 250 mg) PO BIDCM #0 11/29/23 Unknown Rx release tabs lorazepam 1 mg tablet (Ativan) 1 mg PO Q6H PRN agitiation/anxiety 11/29/23 Unknown Rx #3 tabs potassium chloride 20 mEq 20 meq PO BIDCM #0 tabs 11/29/23 Unknown Rx tablet,extended release(part/cryst) ciprofloxacin HCl 0.3 % eye drops 1 drp EACH EYE Q2H 5 days #5 mL 01/08/24 Unknown Rx Allergy/AdvReac Type Severity Reaction Status Date / Time Sulfa (Sulfonamide Allergy Mild Other Verified 05/30/24 14:58 Antibiotics) 5HTS Receptor antagonist Allergy Unknown Other Uncoded 04/25/23 09:55 Family History unable to obtain Surgical History H/O eye surgery Social History housing: prison other: Patient has a legal guardian and is a long-term resident at [facility] Smoking Status: Current every day smoker tobacco type: cigarettes alcohol intake: never substance use type: does not use and other details: Unknown ROS ROS ED Review of Systems ROS Unobtainable: due to mental condition EXAM Physical Exam Const Vital Signs: 05/30/24 14:53 05/30/24 16:52 05/30/24 18:00 Temperature 97.6 F L Temperature Source Oral Pulse Rate 110 H 103 H 104 H Respiratory Rate 18 18 16 Blood Pressure 113/80 105/71 115/60 Blood Pressure Mean 91 82 78 Pulse Ox 100 99 100 Oxygen Delivery Method Room Air Room Air Room Air 05/30/24 19:36 Temperature 98 F Temperature Source Pulse Rate 110 H Respiratory Rate 15 Blood Pressure 114/92 H Blood Pressure Mean 99 Pulse Ox 100 Oxygen Delivery Method Positive well nourished and well developed General Appearance ED: well developed and NAD HEENT Reports moist mucous membranes Neck supple and no JVD Chest Wall palpation of chest normal Resp normal respiratory effort and clear to auscultation bilaterally Cardio regular rhythm Rate: tachycardic GI non-tender and non-distended Palpation: soft Neuro CN's II-XII intact bilaterally and no sensory deficits noted Sensorium / Orientation: alert Motor Exam: strength 5/5 throughout MDM MDM MDM Narrative Medical decision making narrative: Differential diagnosis includes seizure with postictal episode, stroke, intracranial bleeding, substance abuse, infection, sepsis, electrolyte abnormality, and schizophrenia. CT scan of the brain will be obtained to assess for intracranial bleeding and stroke. CBC will be obtained to assess for leukocytosis and anemia. Basic metabolic profile will be obtained to assess for electrolyte abnormality and renal function. Serum lactate will be obtained to assess for sepsis. Urinalysis will be obtained to assess for urinary tract infection and hematuria. Chest x-ray will be obtained to assess for pneumonia and pneumothorax. Valproic acid level and Keppra level will be obtained to assess for medication compliance. Lab Data Attestation: I reviewed the patient's lab results. Lab results narrative: CBC was reviewed and was within normal limits. Comprehensive metabolic profile was reviewed and was within normal limits. Serum lactate was reviewed and was elevated at 4.5. Urinalysis was reviewed. There is no evidence of urinary tract infection or hematuria. Valproic acid level was reviewed and was therapeutic at 80. Labs: Laboratory Results - last 24 hr 05/30/24 05/30/24 05/30/24 15:00 15:00 17:44 WBC 8.0 RBC 5.09 Hgb 13.5 Hct 41.1 MCV 80.7 MCH 26.5 L MCHC 32.8 RDW Std Deviation 42.5 RDW Coeff of Tana 14.6 Plt Count 272 MPV 9.8 Immature Gran % (Auto) 0.400 Neut % (Auto) 61.7 Lymph % (Auto) 24.1 Dixon % (Auto) 11.5 H Eos % (Auto) 2.0 Baso % (Auto) 0.3 Absolute Neuts (auto) 4.9 Absolute Lymphs (auto) 1.93 Nucleated RBC % 0 Sodium 142 Potassium 4.9 Chloride 108 H Carbon Dioxide 29.0 Anion Gap 5 BUN 10 Creatinine 1.30 Estim Creat Clear Calc 63.73 Est GFR (MDRD) Af Amer 77 Est GFR (MDRD) Non-Af 64 BUN/Creatinine Ratio 7.7 L Glucose 134 H Lactic Acid 4.5 H* Calcium 9.4 Total Bilirubin 0.30 AST 50 H ALT 12 L Alkaline Phosphatase 62 Total Protein 7.1 Albumin 3.3 Globulin 3.8 Albumin/Globulin Ratio 0.9 Urine Color Yellow Urine Clarity Clear Urine pH 6.0 Ur Specific [place] 1.015 Urine Protein 15 H Urine Glucose (UA) 1000 H Urine Ketones 5 H Urine Occult Blood Negative Urine Nitrite Negative Urine Bilirubin Negative Urine Urobilinogen Normal Ur Leukocyte Esterase Negative Urine RBC 0 SEEN Urine WBC 0 SEEN Ur Squamous Epith Cells 0 SEEN Urine Bacteria 0 SEEN Urine Mucus 0 SEEN Valproic Acid Cancelled 80 Radiography Chest X-Ray - ED: 2 View, Read by ED Physician, Read by Radiologist and No Acute Disease Diagnostic Testing: Clinical Impression(s) from Imaging Studies Brain CT 05/30/24 17:12 IMPRESSION: No acute intracranial abnormality. Electronically Signed: Cm Espinal MD at 17:30 EDT , Chest X-Ray 05/30/24 17:15 IMPRESSION: Low lung volumes. Electronically Signed: Cm Espinal MD at 17:57 EDT , CT scan of the brain was obtained. There is no acute intracranial abnormality. This was interpreted by the radiologist and was also independently reviewed by myself. PA and lateral chest x-ray was obtained. There are 2 views. On my independent interpretation, lung cardoso are clear. There is normal cardiac silhouette. Bony thorax is normal. There is no acute process noted. Radiologist also interpreted the x-ray and agrees. Management Discussion w/another healthcare provider: Hospitalist Treatment and Re-Evaluation :: Patient was still not making any sense on reevaluation. shelter where he lives was contacted and stated that he is normally alert and oriented x 3 and is able to sustain conversations. Because of his mental status changes, will discuss case with the hospitalist. Case was discussed hospitalist. She will admit the patient to her service. She requested patient was given IV doses of his antiepileptic medications. These were ordered. Discharge Plan Triage Chief Complaint: Seizure ED Provider: Hermelindo Carvalho Dx/Rx/DC Orders Clinical Impression: Altered mental status, Nicotine dependence, unspecified, uncomplicated, Seizure, Lactic acidosis Prescriptions: No Action Jardiance 10 mg tablet 10 mg PO DAILY metoclopramide HCl [Reglan] 5 mg tablet 5 mg PO TID Rx Instructions: 30 mins before meal latanoprost 0.005 % drops 1 drp ophthalmic (eye) QPM Rx Instructions: both eyes metoprolol tartrate 25 mg tablet 25 mg PO DAILY multivitamin Tablet 1 tab PO DAILY polyethylene glycol 3350 [Miralax] 17 gram Powder In Packet 17 g PO DAILY cetirizine 10 mg Tablet 10 mg PO QHS diphenhydramine HCl 50 mg Tablet 50 mg PO Q8H PRN PRN (Reason: agitation/anxiety ) Patient Comments: PRN PER MAR clozapine [Clozaril] 100 mg Tablet 100 mg PO DAILY timolol maleate 0.5 % Drops, Once Daily 1 drp EACH EYE DAILY Invega Sustenna 234 mg/1.5 mL syringe 234 mg IM DAILY Patient Comments: PER SKILLED NURSING MAR PT IS DUE FOR MONTHLY INJECTION ON 03/12/23. Rx Instructions: give every 28 days pantoprazole [Protonix] 40 mg tablet,delayed release (DR/EC) 40 mg PO BID Patient Comments: PER SKILLED NURSING MAR PT TO START ON 03/03/23 metformin 1,000 mg tablet 1,000 mg PO BID acetaminophen 325 mg tablet 650 mg PO Q4H PRN (Reason: fever or pain) Patient Comments: PRN PER MAR sennosides [Senokot] 8.6 mg tablet 8.6 mg PO DAILY lactulose 20 gram/30 mL solution 20 g PO TID Qty: 3000 0RF Rx Instructions: titrate until 2-3 loose stools daily citalopram [Celexa] 10 mg tablet 10 mg PO DAILY clozapine 200 mg tablet 200 mg PO DAILY levetiracetam [Keppra] 1,000 mg tablet 1,000 mg PO Q12H Rx Instructions: TAKE 1000 MG IN MORNING, 1500 AT BEDTIME hydroxyzine pamoate 50 mg capsule 50 mg PO TID insulin glargine-yfgn 100 unit/mL (3 mL) Insulin Pen 15 unit subcut BREAKFAST divalproex 250 mg Tablet,Delayed Release (Dr/Ec) 500 mg PO BIDCM Qty: 0 0RF potassium chloride 20 mEq Tablet,Er Particles/Crystals 20 meq PO BIDCM Qty: 0 0RF lorazepam [Ativan] 1 mg Tablet 1 mg PO Q6H PRN (Reason: agitiation/anxiety ) Qty: 3 0RF ciprofloxacin HCl 0.3 % drops 1 drp EACH EYE Q2H 5 Days Qty: 5 0RF Rx Instructions: administer while awake Primary Care Provider: Ever Avila Referrals: Ever Avila MD [Primary Care Provider] - Print Language: Wolof Disposition Disposition: [facility]
[2024-05-30 15:58] LABS: Absolute Lymphocyte Count 1.93 X10^3/uL (0.83-4.51); Absolute Neutrophil Count 4.9 X10^3/uL (2.0-7.7); Basophil# 0.02 X10^3/uL; Basophil% 0.3 % (0-1); Eosinophil# 0.16 X10^3/uL; Hematocrit 41.1 % (40-54); Hemoglobin 13.5 g/dL (13.0-16.5); Lymphocyte # 1.93 X10^3/ul (0.83-4.51); Lymphocyte % 24.1 % (19-41); Mean Corp Hgb Conc 32.8 g/dL (32-36); Mean Corpuscular Hgb 26.5 pg (27.0-32.0); Mean Corpuscular Volume 80.7 fL (80-94); Mean Platelet Vol. 9.8 fl (6.2-12.0); Monocyte# 0.92 X10^3/uL; Monocyte% 11.5 % (0-10); NRBC Flagged by Analyzer 0 % (0-5); Neutrophil # 4.94 X10^3/uL (2.7-7.7); Neutrophil % 61.7 % (47-70); Platelet Count 272 K/mm3 (150-450); RBC Distribution Width CV 14.6 % (11.6-14.6); RBC Distribution Width SD 42.5 fl (35.1-43.9); Red Blood Count 5.09 M/mm3 (4.6-6.2)
[2024-05-30 16:19] LABS: ALB/GLOB Ratio 0.9 RATIO (0.9-2.4); AST(SGOT) 50 U/L (15-37); Alanine Aminotransfer ALT/SGPT 12 U/L (16-61); Albumin, Serum 3.3 g/dL (3.2-5.0); Alkaline Phosphatase 62 U/L (45-117); Anion Gap 5 (5-15); BUN 10 mg/dL (7-18); BUN/Creat Ratio 7.7 RATIO (10-20); Calcium,Total 9.4 mg/dL (8.5-10.1); Chloride 108 mmol/L (98-107); EST Glomerular Filtration Rate 64 mL/min (>60); Est Glom Filt Rate - Afr Amer 77 mL/min (>60); Estimated Creatinine Clearance 63.73 ml/min; Globulin 3.8 g/dL (2.2-4.2); Glucose 134 mg/dL (74-106); Potassium 4.9 mmol/L (3.5-5.1); Protein, Total 7.1 g/dL (6.4-8.2); Sodium Level 142 mmol/L (136-145)
[2024-05-30 16:32] LABS: Valproic Acid (Depakene) Level 80 ug/mL (50-100)
[2024-05-30 16:39] LABS: Lactic Acid 4.5 mmol/L (0.4-1.9)
--- NOTE | 2024-05-30 17:12 | CT_ITS ---
EXAMINATION : Head CT w/out contrast HISTORY : Seizure COMPARISON : None. TECHNIQUE : Multiple contiguous axial images were obtained from the skull base to the vertex without intravenous contrast. A radiation dose optimization technique was used for this scan. FINDINGS : The ventricles and sulci are normal in size. There is no evidence for acute intracranial hemorrhage, mass effect, or midline shift. There is no extra-axial fluid collection. There is normal rhoades-white differentiation, without CT evidence of acute ischemia or infarct. The skull base and calvarium are unremarkable. The orbits are unremarkable. The paranasal sinuses are clear. The mastoid air cells are well-aerated. The soft tissues are unremarkable. CT/Brain/Head without Contrast IMPRESSION: No acute intracranial abnormality. Electronically Signed: Cm Espinal MD at 17:30 EDT ,
--- NOTE | 2024-05-30 17:15 | RAD_ITS ---
INDICATION: Seizure EXAMINATION/TECHNIQUE: X-RAY - XR Chest 2 Views COMPARISON: 11/26/2023. FINDINGS: Low lung volumes. Lungs are otherwise clear. The cardiomediastinal silhouette is unremarkable. No pleural effusion or pneumothorax. No acute osseous abnormalities. RAD/Chest PA and Lateral IMPRESSION: Low lung volumes. Electronically Signed: Cm Espinal MD at 17:57 EDT ,
[2024-05-30 17:49] LABS: Bacteria 0 SEEN /hpf (None Seen); Mucous, Urine 0 SEEN /hpf (<or=2+); Red Blood Cells-Urine 0 SEEN /hpf (0-5); Squamous Epithelial Cells - UA 0 SEEN /hpf (0-5); White Blood Cells 0 SEEN /hpf (0-5)
[2024-05-30 17:54] LABS: Color, Urine Yellow (Yellow); Glucose, Dipstick 1000 mg/dl (Normal); Ketone-Dipstick 5 mg/dl (Negative); Leukocyte Esterase-Dipstick Negative /ul (Negative); Nitrite-Dipstick Negative (Negative); Occult Blood-Urine Negative /ul (Negative); Protein-Dipstick 15 mg/dl (Negative); Specific Gravity, Urine 1.015 (1.002-1.030); Urine Bilirubin Dipstick Negative (Negative); Urine Clarity Clear (Clear); Urine Urobilinogen Normal (Normal)
[2024-05-30 19:49] LABS: Reflex Lactate? Y
--- NOTE | 2024-05-30 20:07 | HP.PCM.HOS_ITS ---
HPI - General General Date of Admission: 05/30/24 Date of Service: 05/30/24 Chief Complaint: Breakthrough seizure HPI Narrative The patient is a 43 y/o M residing in a nursing facility with a legal guardian in place w/ PMHx: EtOH abuse, Polysubstance abuse, Anxiety and Depression/Bipolar disorder/Schizophrenia/Schizoaffective disorder, Dementia with significant intellectual disabilities unclear type with unclear behavioral disturbance history but reportedly per skilled facility patient is normally alert and oriented x 3 and able to sustain conversations, Hx VTE (DVT, PE), Hx GI bleed, HTN, HLD, GERD, Diabetes mellitus type II, legal blindness with significant myopia/congenital glaucoma, history of significant hypertensive retinopathy, posterior subcapsular polar age-related cataract bilaterally with history of previous eye surgeries, Tobacco use who presents to the [facility] ED on 05/30/24 with sudden onset seizure activity occurring today with history of seizures with no recollection of the event with some abdominal discomfort as well as back discomfort since the seizure however patient is a poor historian prompting skilled facility to transition to the ED for evaluation. Workup in the ED included T97.6, heart rate 110, BP 113/80, respiratory rate 18, 100% on room air, CBC with WBC 8, human 13.5, platelet 272 without marked shift, CMP with chloride 108, glucose 134, lactic acid 4.5, total bilirubin 0.30, AST/LT 50/12 otherwise not marked appearing, urinalysis not marked aside from protein 15, glucose of thousand, ketone 5, valproic acid level normal range at 80, Keppra level pending, CT of the brain with no acute intracranial findings, chest x-ray with decreased lung volume otherwise no acute cardiopulmonary findings. Discussed current status with ED physician and requested that Depacon and Keppra at home dosing be administered as unclear last timeline of intake. [facility] Medical History Substance abuse Alcohol abuse Schizophrenia Depression Diabetes Kidney stones GI bleed Pulmonary embolism Asthma Hypertension Dementia Exophthalmos Generalized muscle weakness Constant exophthalmos, bilateral Disorder of urea cycle metabolism, unspecified Unspecified psychosis 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 or known physiological condition Chronic pain syndrome Disturbances of salivary secretion Essential (primary) hypertension Myopia, unspecified eye Alternating exotropia Hypertensive retinopathy, right eye Posterior subcapsular polar age-related cataract, bilateral Unspecified intellectual disabilities GERD (gastroesophageal reflux disease) Diabetes History of psychiatric disorder Dysphagia PVD (peripheral vascular disease) Constipation Seizures Anemia Schizoaffective disorder Cannabis abuse TBI (traumatic brain injury) Blindness Hyperlipidemia Muscle weakness Anxiety Insomnia Glaucoma Bipolar disorder Type 2 diabetes mellitus Home Medications ?Medication ?Instructions ?Recorded ?Last Taken ?Type cetirizine 10 mg tablet 10 mg PO QHS allergy symptoms 12/09/22 03/01/23 History clozapine 100 mg tablet (Clozaril) 100 mg PO DAILY schizoaffective 12/09/22 03/02/23 History disorder diphenhydramine HCl 50 mg tablet 50 mg PO Q8H PRN PRN 12/09/22 Unknown History agitation/anxiety multivitamin 1 tab PO DAILY supplement 12/09/22 03/02/23 History polyethylene glycol 3350 17 gram 17 g PO DAILY constipation 12/09/22 03/02/23 History oral powder packet (Miralax) timolol maleate 0.5 % once daily 1 drp EACH EYE DAILY congenital 12/09/22 03/02/23 History eye drops glaucoma latanoprost 0.005 % eye drops 1 drp ophthalmic (eye) QPM eyes 02/20/23 03/01/23 History metoprolol tartrate 25 mg tablet 25 mg PO DAILY hypertension 02/20/23 03/02/23 History acetaminophen 325 mg tablet 650 mg PO Q4H PRN fever or pain 03/02/23 Unknown History metformin 1,000 mg tablet 1,000 mg PO BID DM 03/02/23 03/02/23 History pantoprazole 40 mg tablet,delayed 40 mg PO BID GERD 03/02/23 Unknown History release (Protonix) sennosides 8.6 mg tablet (Senokot) 8.6 mg PO DAILY CONSTIPATION 03/02/23 03/02/23 History lactulose 20 gram/30 mL oral 20 g (30 mL) PO TID elevated 03/19/23 03/02/23 Rx solution ammonia #3,000 mL empagliflozin 10 mg tablet 10 mg PO DAILY diabetes 04/25/23 Unknown History (Jardiance) metoclopramide HCl 5 mg tablet 5 mg PO TID gastroparesis 04/25/23 Unknown History (Reglan) paliperidone palmitate 234 mg/1.5 234 mg IM DAILY Check with primary 04/25/23 Unknown History mL intramuscular syringe (Invega doctor Marichuy) citalopram 10 mg tablet (Celexa) 10 mg PO DAILY depression 11/26/23 Unknown History clozapine 200 mg tablet 200 mg PO DAILY bipolar 11/26/23 Unknown History hydroxyzine pamoate 50 mg capsule 50 mg PO TID anxiety 11/26/23 Unknown History insulin glargine-yfgn 100 unit/mL 15 unit subcut BREAKFAST diabetes 11/26/23 Unknown History (3 mL) subcutaneous pen levetiracetam 1,000 mg tablet 1,000 mg PO Q12H epilepsy 11/26/23 Unknown History (Keppra) divalproex 250 mg tablet,delayed 500 mg (2 x 250 mg) PO BIDCM #0 11/29/23 Unknown Rx release tabs lorazepam 1 mg tablet (Ativan) 1 mg PO Q6H PRN agitiation/anxiety 11/29/23 Unknown Rx #3 tabs potassium chloride 20 mEq 20 meq PO BIDCM #0 tabs 11/29/23 Unknown Rx tablet,extended release(part/cryst) ciprofloxacin HCl 0.3 % eye drops 1 drp EACH EYE Q2H 5 days #5 mL 01/08/24 Unknown Rx Allergy/AdvReac Type Severity Reaction Status Date / Time Sulfa (Sulfonamide Allergy Mild Other Verified 05/30/24 14:58 Antibiotics) 5HTS Receptor antagonist Allergy Unknown Other Uncoded 04/25/23 09:55 Family History unable to obtain unable to obtain Surgical History H/O eye surgery Social History (Updated 05/30/24 @ 21:[address] Denise Ashby MD) housing: [facility] other: Patient has a legal guardian and is a long-term resident at [facility] Smoking Status: Current every day smoker tobacco type: cigarettes alcohol intake: former substance use type: former substance user ROS Review of Systems ROS Unobtainable: due to encephalopathy and due to mental condition Vital Signs Vital Signs Vital Signs: 05/30/24 14:53 05/30/24 16:52 05/30/24 18:00 Temperature 97.6 F L Temperature Source Oral Pulse Rate 110 H 103 H 104 H Respiratory Rate 18 18 16 Blood Pressure 113/80 105/71 115/60 Blood Pressure Mean 91 82 78 Pulse Ox 100 99 100 Oxygen Delivery Method Room Air Room Air Room Air 05/30/24 19:36 Temperature 98 F Temperature Source Pulse Rate 110 H Respiratory Rate 15 Blood Pressure 114/92 H Blood Pressure Mean 99 Pulse Ox 100 Oxygen Delivery Method Weight Weight: 146 lb 6.191 oz Body Mass Index (BMI) 24.3 Physical Exam Narrative Physical Examination: General: Patient does awaken, alert but not oriented and conversation is very nonsensical, patient initially sleeping, fatigued, does follow some commands but likely not at baseline based on description from facility, laying in the ED bed. Skin: Normal color, normal turgor, no icterus, no cyanosis. HEENT: AT/NC, EOM appear intact but difficult as patient is legally blind and not following commands well, patient with significant underlying glaucoma/legal blindness with exophthalmos demonstrated, dry MM, no carotid bruits or JVD noted. Lungs: Diminished, greater bases, appropriate effort, no rales, ronchi or wheezing. Heart: Mildly tachycardic with regular rhythm; no gallop, rub audible. Abdomen: Soft, NTTP, ND, hyperactive BS, no appreciated HSM. Extremities: No cyanosis, clubbing, or edema. Neurological: Patient does awaken, alert but not oriented and conversation is very nonsensical, patient initially sleeping, fatigued, does follow some commands but likely not at baseline based on description from facility, laying in the ED bed, cognitive function not baseline ntact; cranial nerves difficult to assess given current status but aside from vision issues appear grossly normal, moving all 4 extremities, no obvious focal deficits, strength impaired, moderately to severely globally decreased Psychiatric: Affect appears fatigued and lethargic, conversation is nonsensical, no acute evidence of depressive or anxiety feelings but does have extensive psychiatric history as noted. Results Lab / Micro Data 05/30/24 15:00 05/30/24 15:00 Labs: Laboratory Results - last 24 hr 05/30/24 15:00: WBC 8.0, RBC 5.09, Hgb 13.5, Hct 41.1, MCV 80.7, MCH 26.5 L, MCHC 32.8, RDW Std Deviation 42.5, RDW Coeff of Tana 14.6, Plt Count 272, MPV 9.8, Immature Gran % (Auto) 0.400, Neut % (Auto) 61.7, Lymph % (Auto) 24.1, [place] % (Auto) 11.5 H, Eos % (Auto) 2.0, Baso % (Auto) 0.3, Absolute Neuts (auto) 4.9, Absolute Lymphs (auto) 1.93, Nucleated RBC % 0, Sodium 142, Potassium 4.9, C hloride 108 H, Carbon Dioxide 29.0, Anion Gap 5, BUN 10, Creatinine 1.30, Estim Creat Clear Calc 63.73, Est GFR (MDRD) Af Amer 77, Est GFR (MDRD) Non-Af 64, B UN/Creatinine Ratio 7.7 L, Glucose 134 H, Lactic Acid 4.5 H*, Calcium 9.4, Total Bilirubin 0.30, AST 50 H, ALT 12 L, Alkaline Phosphatase 62, Total Protein 7.1, Albumin 3.3, Globulin 3.8, Albumin/Globulin Ratio 0.9, Valproic Acid Cancelled 05/30/24 15:00: Valproic Acid 80 05/30/24 17:44: Urine Color Yellow, Urine Clarity Clear, Urine pH 6.0, Ur Specific [place] 1.015, Urine Protein 15 H, Urine Glucose (UA) 1000 H, Urine Ketones 5 H, Urine Occult Blood Negative, Urine Nitrite Negative, Urine Bilirubin Negative, Urine Urobilinogen Normal, Ur Leukocyte Esterase Negative, Urine RBC 0 SEEN, Urine WBC 0 SEEN, Ur Squamous Epith Cells 0 SEEN, Urine Bacteria 0 SEEN, Urine Mucus 0 SEEN Imaging Radiology Impression Brain CT 05/30/24 17:12 IMPRESSION: No acute intracranial abnormality. Electronically Signed: Cm Espinal MD at 17:30 EDT , Chest X-Ray 05/30/24 17:15 IMPRESSION: Low lung volumes. Electronically Signed: Cm Espinal MD at 17:57 EDT , Assessment & Plan Assessment/Plan (1) Seizure: PLAN: Plan The patient is a 43 y/o M residing in a nursing facility with a legal guardian in place w/ PMHx: EtOH abuse, Polysubstance abuse, Anxiety and Depression/Bipolar disorder/Schizophrenia/Schizoaffective disorder, Dementia with significant intellectual disabilities unclear type with unclear behavioral disturbance history but reportedly per skilled facility patient is normally alert and oriented x 3 and able to sustain conversations, Hx VTE (DVT, PE), Hx GI bleed, HTN, HLD, GERD, Diabetes mellitus type II, legal blindness with significant myopia/congenital glaucoma, history of significant hypertensive retinopathy, posterior subcapsular polar age-related cataract bilaterally with history of previous eye surgeries, Tobacco use who presents to the [facility] ED on 05/30/24 with sudden onset seizure activity occurring today with history of seizures with no recollection of the event with some abdominal discomfort as well as back discomfort since the seizure however patient is a poor historian prompting skilled facility to transition to the ED for evaluation. #1. Seizure disorder with breakthrough seizures with prolonged post-ictal phase/acute encephalopathy w/ associated lactic acidosis secondary to his seizure activity, low suspicion for infectious process: Seizure witnessed with postictal state. Still not at baseline in the ED per skilled facility. CT head without acute intracranial pathology. Will additionally obtain TSH and free T4, urine tox, NH level, alcohol level to be cautious. Depakote level appropriate, pending Keppra level. Will admit to PCU, maintain on telemetry in PCU on seizure precautions, obtain EEG, obtain brain MRI. Will place on Keppra and Depakote IV given encephalopathy with concern for possibility of inappropriate oral intake. Will request neurology consultation. PRN ativan IV for seizure activity. NPO until cleared per RN swallow. #2. Questionable ongoing EtOH Abuse: Per reports patient may be allowed 1 alcoholic drink per day at facility but unsure. To be cautious given presentation will maintain on CIWA protocol, MVI, thiamine and folic acid. Case management consulted. Magnesium and phosphorus levels requested. #3. Diabetes mellitus type II: Hold oral home regimen, n.p.o. until assure oral intake safe, will allow long-acting with potential for half dosing pending blood sugar trending until oral intake safe, maintain on every 6 hours accu checks w/ ISS. #4. Anxiety and Depression/Bipolar disorder/Schizophrenia/Schizoaffective disorder: Given unsafe oral intake with postictal phase temporarily holding patient oral psychiatric regimen, add back once appropriate especially given extensive history and on several medications. #5. Dementia with significant intellectual disabilities unclear type with unclear behavioral disturbance history: Complicates presentation, chart reported history of mental intellectual debility, maintain on fall and aspiration precautions, may consider therapy additions once improved from current encephalopathic state. #6. Hx VTE (DVT, PE): Per current list does not appear to be on any anticoagulant therapy, possibly remote history, will maintain on chemoprophylaxis is noted. #7. Hx GI bleed, GERD: Will maintain on IV PPI until assure oral intake safe. #8. Legal blindness with significant myopia/congenital glaucoma, history of significant hypertensive retinopathy, posterior subcapsular polar age-related cataract bilaterally: Patient with significant eye surgery history but uncertain exact interventions, maintain on fall precautions and continue eyedrops. #9. Hypertension: Until assure appropriate oral intake holding all home regimen, PRN IV hydralazine. #10. Hyperlipidemia: Noted chart history, not on regimen, defer to outpatient. #11. History of polysubstance abuse: Urine drug screen requested, unclear if any current use. #12. Tobacco Abuse: Encouraged cessation, inpatient consultation per RT, NR if desired. #13. DVT prophylaxis: Lovenox. #14. CODE STATUS: Full code per facility paperwork. Charges/Coding Visit Charges Inpatient E&M: 75640 Init Hosp L3
[2024-05-30] MEDS: Valproate Sodium 500 MG in Dextrose 5%-Water (50mL Bag) 50 ML 50 MG IV (20:37)
[2024-05-30 21:07] LABS: Lactic Acid 3.4 mmol/L (0.4-1.9)
[2024-05-30 22:02] LABS: Alcohol, Blood (Medical)-Serum < 3.0 mg/dL
[2024-05-30 22:04] LABS: Magnesium 2.2 mg/dL (1.6-2.6)
[2024-05-30 22:11] LABS: Procalcitonin 0.05 ng/mL (0.00-0.09)
[2024-05-30 22:18] LABS: Amphetamine Urine VISTA NEGATIVE (<1000 ng/mL); Barbiturate Urine VISTA NEGATIVE (< 200 ng/mL); Benzodiazepine Urine VISTA NEGATIVE (< 200 ng/mL); Cocaine Urine VISTA NEGATIVE (< 300 ng/mL); Ecstacy Urine VISTA NEGATIVE (< 500 ng/mL); Methadone Urine VISTA NEGATIVE (< 300 ng/mL); PCP Urine VISTA NEGATIVE (< 25 ng/mL); THC Urine VISTA NEGATIVE (< 50 ng/mL); Vista UDS pH Range 5
[2024-05-30] MEDS: Pantoprazole Sodium 40 MG in 0.9% Normal Saline (100mL MB+) 100 ML 330 MG IV (22:48)
[2024-05-30] MEDS: levETIRAcetam IV 1,000 MG/100 ML BAG 400 MG IV (22:48)
[2024-05-30] MEDS: Latanoprost 0.005% 1 Bottle 1 DRP EACH EYE (22:49)
[2024-05-30] MEDS: 0.9% Normal Saline (1000mL) 1,000 ML 100 ML IV (22:51)
[2024-05-30 23:09] LABS: Ammonia < 10.0 umol/L (11-32)
[2024-05-31] VITALS (9 sets, daily range): BP systolic 92–118; BP diastolic 55–78; PULSE 82–101; RESP 20–22; TEMP 36.5–36.6; O2SAT 96–98; BMI 20.7
[2024-05-31] MEDS: Valproate Sodium 500 MG in Dextrose 5%-Water (50mL Bag) 50 ML 50 MG IV (05:23)
[2024-05-31 07:14] LABS: Absolute Lymphocyte Count 2.35 X10^3/uL (0.83-4.51); Absolute Neutrophil Count 6.4 X10^3/uL (2.0-7.7); Basophil# 0.04 X10^3/uL; Basophil% 0.4 % (0-1); Eosinophil# 0.37 X10^3/uL; Eosinophils% 3.5 % (0-5); Hematocrit 38.7 % (40-54); Hemoglobin 12.9 g/dL (13.0-16.5); Lymphocyte # 2.35 X10^3/ul (0.83-4.51); Lymphocyte % 22.2 % (19-41); Mean Corp Hgb Conc 33.3 g/dL (32-36); Mean Corpuscular Hgb 26.9 pg (27.0-32.0); Mean Corpuscular Volume 80.6 fL (80-94); Mean Platelet Vol. 9.4 fl (6.2-12.0); Monocyte# 1.45 X10^3/uL; Monocyte% 13.7 % (0-10); NRBC Flagged by Analyzer 0 % (0-5); Neutrophil # 6.36 X10^3/uL (2.7-7.7); Neutrophil % 59.9 % (47-70); Platelet Count 250 K/mm3 (150-450); RBC Distribution Width CV 14.4 % (11.6-14.6); RBC Distribution Width SD 41.8 fl (35.1-43.9); White Blood Count 10.6 K/mm3 (4.4-11.0)
--- NOTE | 2024-05-31 07:40 | PN.HOSP_ITS ---
Reason for Visit Reason for Visit: Diagnoses Unspecified convulsions (05/30/24) Subjective Subjective Patient is a 43-year-old gentleman resident at an extended care facility with significant past medical history including bipolar disorder, depression, schizoaffective disorder seizure disorder who was admitted with breakthrough seizure Objective Data Objective Data Vital Signs: Vital Signs Temp Pulse Resp BP Pulse Ox O2 Del Method 97.3 F L 82 12 122/76 H 100 Room Air 05/30/24 22:54 05/31/24 03:44 05/30/24 22:54 05/30/24 22:54 05/30/24 22:54 05/30/24 23:53 Oxygen Delivery Method Room Air Weight: 63.8 kg Body Mass Index (BMI) 20.7 Lab / Micro Data 05/31/24 06:45 05/31/24 06:45 Labs: Laboratory Results - last 24 hr 05/30/24 15:00: WBC 8.0, RBC 5.09, Hgb 13.5, Hct 41.1, MCV 80.7, MCH 26.5 L, MCHC 32.8, RDW Std Deviation 42.5, RDW Coeff of Tana 14.6, Plt Count 272, MPV 9.8, Immature Gran % (Auto) 0.400, Neut % (Auto) 61.7, Lymph % (Auto) 24.1, [place] % (Auto) 11.5 H, Eos % (Auto) 2.0, Baso % (Auto) 0.3, Absolute Neuts (auto) 4.9, Absolute Lymphs (auto) 1.93, Nucleated RBC % 0, Sodium 142, Potassium 4.9, C hloride 108 H, Carbon Dioxide 29.0, Anion Gap 5, BUN 10, Creatinine 1.30, Estim Creat Clear Calc 63.73, Est GFR (MDRD) Af Amer 77, Est GFR (MDRD) Non-Af 64, B UN/Creatinine Ratio 7.7 L, Glucose 134 H, Lactic Acid 4.5 H*, Calcium 9.4, Phosphorus 3.0, Magnesium 2.2, Total Bilirubin 0.30, AST 50 H, ALT 12 L, Alkaline Phosphatase 62, Total Protein 7.1, Albumin 3.3, Globulin 3.8, Albumin/Globulin Ratio 0.9, Procalcitonin 0.05, Valproic Acid Cancelled 05/30/24 15:00: Valproic Acid 80, Ethyl Alcohol < 3.0 05/30/24 17:44: Urine Color Yellow, Urine Clarity Clear, Urine pH 6.0, Ur Specific [place] 1.015, Urine Protein 15 H, Urine Glucose (UA) 1000 H, Urine Ketones 5 H, Urine Occult Blood Negative, Urine Nitrite Negative, Urine Bilirubin Negative, Urine Urobilinogen Normal, Ur Leukocyte Esterase Negative, Urine RBC 0 SEEN, Urine WBC 0 SEEN, Ur Squamous Epith Cells 0 SEEN, Urine Bacteria 0 SEEN, Urine Mucus 0 SEEN, Urine Opiates Screen NEGATIVE, Urine Methadone Screen NEGATIVE, Ur Barbiturates Screen NEGATIVE, Ur Phencyclidine Scrn NEGATIVE, Ur Amphetamines Screen NEGATIVE, MDMA (Ecstasy) Screen NEGATIVE, U Benzodiazepines Scrn NEGATIVE, Urine Cocaine Screen NEGATIVE, U Cannabinoids Screen NEGATIVE, Ur Drug Screen Comment 05/30/24 20:17: Lactic Acid 3.4 H* 05/30/24 22:30: Ammonia < 10.0 L 05/31/24 06:45: WBC 10.6, RBC 4.80, Hgb 12.9 L, Hct 38.7 L, MCV 80.6, MCH 26.9 L , MCHC 33.3, RDW Std Deviation 41.8, RDW Coeff of Tana 14.4, Plt Count 250, MPV 9.4, Immature Gran % (Auto) 0.300, Neut % (Auto) 59.9, Lymph % (Auto) 22.2, [place] % (Auto) 13.7 H, Eos % (Auto) 3.5, Baso % (Auto) 0.4, Absolute Neuts (auto) 6.4, Absolute Lymphs (auto) 2.35, Nucleated RBC % 0 Radiography Diagnostic Testing: Radiology Impression Brain CT 05/30/24 17:12 IMPRESSION: No acute intracranial abnormality. Electronically Signed: Cm Espinal MD at 17:30 EDT , Chest X-Ray 05/30/24 17:15 IMPRESSION: Low lung volumes. Electronically Signed: Cm Espinal MD at 17:57 EDT , Physical Exam Narrative GENERAL: Patient in no apparent distress but keeps on ruminating HEENT: Atraumatic; normocephalic EYES; Anicteric, Normal Conjunctiva NECK; supple, normal thyroid, RESPIRATORY: Diminished to auscultation CARDIOVASCULAR: Regular S1 S2, GI: soft, normoactive bowel sounds, : No Renal angle tenderness; EXTREMITIES: No edema, no clubbing, MUSCULOSKELETAL: no muscle wasting NEURO: Awake; no lateralizing signs. SKIN: No Rash PSYCH; Flat affect Assessment & Plan Assessment/Plan (1) Seizure: PLAN: Plan Patient is a 43-year-old gentleman resident at an extended care facility with significant past medical history including bipolar disorder, depression, schizoaffective disorder seizure disorder who was admitted with breakthrough seizure 1. Seizure disorder ? With breakthrough seizure. Did continue patient antiseizure medications with consultation placed to neurology on admission 2.. Diabetes mellitus type II -patient's oral hypoglycemics held. Placed on long acting insulin, Accu-Cheks a.c. and at bedtime and covered with sliding scale insulin 3. Schizoaffective disorder ? Home meds continue 4. Right eye blindness -Complicating care 5. Hypokalemia -Corrected per protocol, repeat labs ordered for monitoring 6. Chronic kidney disease stage III ? Kidney function at baseline 7. Lactic acidosis ? Secondary to patient breakthrough seizure no evidence of factious etiology 8. DVT prophylaxis ? [place] Lovenox Time spent in the patient's overall evaluation,decision-making process, review of diagnostic data, adjustment of management, discussion with other providers, nursing nursing and ancillary staff involved in patient's care documentation, 40 Minutes Charges/Coding Visit Charges Inpatient E&M: 36131 Subs Hosp L2
[2024-05-31 07:44] LABS: ALB/GLOB Ratio 0.9 RATIO (0.9-2.4); AST(SGOT) 9 U/L (15-37); Alanine Aminotransfer ALT/SGPT 8 U/L (16-61); Alkaline Phosphatase 65 U/L (45-117); Anion Gap 6 (5-15); BUN 9 mg/dL (7-18); BUN/Creat Ratio 9.1 RATIO (10-20); Calcium,Total 9.2 mg/dL (8.5-10.1); Chloride 108 mmol/L (98-107); Creatinine, Serum 0.99 mg/dL (0.70-1.30); EST Glomerular Filtration Rate 87 mL/min (>60); Est Glom Filt Rate - Afr Amer 105 mL/min (>60); Estimated Creatinine Clearance 86.82 ml/min; Globulin 3.3 g/dL (2.2-4.2); Glucose 105 mg/dL (74-106); Potassium 3.7 mmol/L (3.5-5.1); Protein, Total 6.3 g/dL (6.4-8.2); Sodium Level 142 mmol/L (136-145); T4 Free Direct 1.14 ng/dL (0.76-1.46)
[2024-05-31] MEDS: Folic Acid 1 MG Tablet PO (09:40)
[2024-05-31] MEDS: Multivitamins,Ther W-Minerals Tablet 1 TABLET PO (09:40)
[2024-05-31] MEDS: Thiamine Hydrochloride 100 MG Tablet PO (09:40)
[2024-05-31] MEDS: Citalopram 10 MG Tablet PO (09:41)
[2024-05-31] MEDS: cloZAPine 100 MG TABLET PO (09:42)
[2024-05-31] MEDS: levETIRAcetam 1,000 MG Tablet 1000 MG PO ×2 (09:43→21:55)
[2024-05-31] MEDS: Metoprolol Tartrate 25 MG Tablet PO (09:44)
[2024-05-31] MEDS: Enoxaparin 40 MG/0.4 ML Syringe SC (09:44)
[2024-05-31] MEDS: Timolol 0.5% 5ML OPTH.BTL 1 DRP EACH EYE (09:45)
[2024-05-31] MEDS: hydrOXYzine PAM 25 MG Capsule 50 MG PO ×3 (09:47→21:55)
[2024-05-31] MEDS: Divalproex Sodium 250 MG Tablet 500 MG PO ×2 (09:48→17:22)
--- NOTE | 2024-05-31 10:00 | MRI_ITS ---
HISTORY: H/O seizure, BREAK THROUGH SEIZURE. TECHNIQUE: Multiplanar and multisequence MR images of the brain were obtained without contrast. 427 images. COMPARISON: CT prior day, MR 12/10/2022. FINDINGS: BRAIN PARENCHYMA: Very mild periventricular white matter changes. Grossly symmetric morphology and signal of the medial temporal lobes. No abnormal focus of restricted diffusion. No acute intracranial hemorrhage identified. CSF SPACES: Cerebral ventricles, cortical sulci, and other extra-axial CSF spaces within normal limits in size for age. No significant midline shift or other mass effect.No extra-axial fluid collection. VASCULAR SYSTEM: Major intracranial flow voids are maintained. PARANASAL SINUSES AND MASTOID AIR CELLS: No significant air fluid levels. OTHER: Mildly enlarged adenoids again seen. Symmetrical orbital contents. MRI/Brain without Contrast IMPRESSION: No evidence for acute infarct. Mild chronic periventricular white matter changes. Electronically Signed: Palak Lugo MD at 11:55 EDT ,
--- NOTE | 2024-05-31 10:24 | CASEMGMT ---
Social Work SW reviewed chart, pt is here from [facility]. SW called [facility], spoke w/Kathy. SW confirmed pt is residential and can return when medically ready. Pt has a guardian through [facility] [employer]. The document is in [employer], as per [facility] their contact officer at this time is Sherrill Kingsleyst. [facility], left a message letting them know pt is here and he may be discharged on the weekend. SW faxed updates to [facility] as they do not use [facility] as per Kathy. SW will place green sheet w/transport forms on chart in event pt is ready for d/c on the weekend. ANGELITA Fernandez
--- NOTE | 2024-05-31 11:53 | NEURO.CONS ---
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 Questionable compliance on PO meds Toxic/metabolic/infectious workup has been negative MRI brain with no acute findings He seems to be returning to baseline with some speech difficulties, but he also has dementia and cognitive impairment at baseline. Recommendations: - Continue the same Keppra and VPA maintenance doses Will follow clinically see how he is doing tomorrow I personally attended this patient and spent a total time of 50 minutes evaluating this patient including clinical assessment, review of chart, medical history imaging, and determining appropriate treatment and workup. HPI Consult Data Date of Consult: 05/31/24 HPI Narrative HPI Narrative: JERMAN ROLAND, is a 43 man with alcohol use, polysubstance use, cognitive impairment secondary to drug use, schizophernia, seizures on home VPA ER 500 mg BID, and Keppra 1 gram BID, who is presenting from long term with breakthrough witnessed grand mal seizure. There was questionable complaince with PO meds. In the ER, Na 142, WBC normal. Ammonia normal. UA not consistent with infection CTH with no acute findings He was confused and postictal upon arrival, he did not have safe PO access. His VPA and Keppra were resumed IV. His psych meds were hel for the past 24 hours. MRI brain with no acute findings or stroke At baseline, he is reportedly alert oriented can have a conversation [facility] Medical History Substance abuse Alcohol abuse Schizophrenia Depression Diabetes Kidney stones GI bleed Pulmonary embolism Asthma Hypertension Dementia Exophthalmos Generalized muscle weakness Constant exophthalmos, bilateral Disorder of urea cycle metabolism, unspecified Unspecified psychosis 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 or known physiological condition Chronic pain syndrome Disturbances of salivary secretion Essential (primary) hypertension Myopia, unspecified eye Alternating exotropia Hypertensive retinopathy, right eye Posterior subcapsular polar age-related cataract, bilateral Unspecified intellectual disabilities GERD (gastroesophageal reflux disease) Diabetes History of psychiatric disorder Dysphagia PVD (peripheral vascular disease) Constipation Seizures Anemia Schizoaffective disorder Cannabis abuse TBI (traumatic brain injury) Blindness Hyperlipidemia Muscle weakness Anxiety Insomnia Glaucoma Bipolar disorder Type 2 diabetes mellitus Home Medications ?Medication ?Instructions ?Recorded ?Last Taken ?Type cetirizine 10 mg tablet 10 mg PO QHS allergy symptoms 12/09/22 03/01/23 History clozapine 100 mg tablet (Clozaril) 100 mg PO DAILY schizoaffective 12/09/22 03/02/23 History disorder diphenhydramine HCl 50 mg tablet 50 mg PO Q8H PRN PRN 12/09/22 Unknown History agitation/anxiety multivitamin 1 tab PO DAILY supplement 12/09/22 03/02/23 History polyethylene glycol 3350 17 gram 17 g PO DAILY constipation 12/09/22 03/02/23 History oral powder packet (Miralax) timolol maleate 0.5 % once daily 1 drp EACH EYE DAILY congenital 12/09/22 03/02/23 History eye drops glaucoma latanoprost 0.005 % eye drops 1 drp ophthalmic (eye) QPM eyes 02/20/23 03/01/23 History metoprolol tartrate 25 mg tablet 25 mg PO DAILY hypertension 02/20/23 03/02/23 History acetaminophen 325 mg tablet 650 mg PO Q4H PRN fever or pain 03/02/23 Unknown History metformin 1,000 mg tablet 1,000 mg PO BID DM 03/02/23 03/02/23 History pantoprazole 40 mg tablet,delayed 40 mg PO BID GERD 03/02/23 Unknown History release (Protonix) sennosides 8.6 mg tablet (Senokot) 8.6 mg PO DAILY CONSTIPATION 03/02/23 03/02/23 History lactulose 20 gram/30 mL oral 20 g (30 mL) PO TID elevated 03/19/23 03/02/23 Rx solution ammonia #3,000 mL empagliflozin 10 mg tablet 10 mg PO DAILY diabetes 04/25/23 Unknown History (Jardiance) metoclopramide HCl 5 mg tablet 5 mg PO TID gastroparesis 04/25/23 Unknown History (Reglan) paliperidone palmitate 234 mg/1.5 234 mg IM DAILY Check with primary 04/25/23 Unknown History mL intramuscular syringe (Invega doctor Marichuy) citalopram 10 mg tablet (Celexa) 10 mg PO DAILY depression 11/26/23 Unknown History clozapine 200 mg tablet 200 mg PO DAILY bipolar 11/26/23 Unknown History hydroxyzine pamoate 50 mg capsule 50 mg PO TID anxiety 11/26/23 Unknown History insulin glargine-yfgn 100 unit/mL 15 unit subcut BREAKFAST diabetes 11/26/23 Unknown History (3 mL) subcutaneous pen levetiracetam 1,000 mg tablet 1,000 mg PO Q12H epilepsy 11/26/23 Unknown History (Keppra) divalproex 250 mg tablet,delayed 500 mg (2 x 250 mg) PO BIDCM #0 11/29/23 Unknown Rx release tabs lorazepam 1 mg tablet (Ativan) 1 mg PO Q6H PRN agitiation/anxiety 11/29/23 Unknown Rx #3 tabs potassium chloride 20 mEq 20 meq PO BIDCM #0 tabs 11/29/23 Unknown Rx tablet,extended release(part/cryst) ciprofloxacin HCl 0.3 % eye drops 1 drp EACH EYE Q2H 5 days #5 mL 01/08/24 Unknown Rx Allergy/AdvReac Type Severity Reaction Status Date / Time Sulfa (Sulfonamide Allergy Mild Other Verified 05/30/24 14:58 Antibiotics) 5HTS Receptor antagonist Allergy Unknown Other Uncoded 04/25/23 09:55 Family History unable to obtain Surgical History H/O eye surgery Social History (Updated 05/30/24 @ 21:[address] Denise Ashby MD) housing: long term other: Patient has a legal guardian and is a long-term resident at [facility] Smoking Status: Current every day smoker tobacco type: cigarettes alcohol intake: former substance use type: former substance user Vital Signs Vital Signs Vital Signs: 05/30/24 14:53 05/30/24 16:52 05/30/24 18:00 Temperature 97.6 F L Temperature Source Oral Pulse Rate 110 H 103 H 104 H Respiratory Rate 18 18 16 Blood Pressure 113/80 105/71 115/60 Blood Pressure Mean 91 82 78 Blood Pressure Source Blood Pressure Position Blood Pressure Location Pulse Ox 100 99 100 Oxygen Delivery Method Room Air Room Air Room Air 05/30/24 19:36 05/30/24 20:00 05/30/24 22:11 Temperature 98 F Temperature Source Pulse Rate 110 H 110 H 92 Respiratory Rate 15 19 H Blood Pressure 114/92 H 99/74 Blood Pressure Mean 99 82 Blood Pressure Source Blood Pressure Position Blood Pressure Location Pulse Ox 100 100 Oxygen Delivery Method Room Air 05/30/24 22:54 05/30/24 23:53 05/31/24 03:44 Temperature 97.3 F L Temperature Source Oral Pulse Rate 92 82 Respiratory Rate 12 Blood Pressure 122/76 H Blood Pressure Mean 91 Blood Pressure Source Monitor Blood Pressure Position Supine Blood Pressure Location Right Arm Pulse Ox 100 Oxygen Delivery Method Room Air Room Air 05/31/24 07:00 05/31/24 07:31 05/31/24 08:25 Temperature 97.8 F Temperature Source Oral Pulse Rate 101 H 92 Respiratory Rate 22 H Blood Pressure 111/78 Blood Pressure Mean 89 Blood Pressure Source Monitor Blood Pressure Position Semi-Fowlers Blood Pressure Location Right Arm Pulse Ox 96 98 Oxygen Delivery Method Room Air Room Air 05/31/24 09:44 Temperature Temperature Source Pulse Rate 92 Respiratory Rate Blood Pressure 111/78 Blood Pressure Mean Blood Pressure Source Blood Pressure Position Blood Pressure Location Pulse Ox Oxygen Delivery Method Weight Weight: 63.8 kg Body Mass Index (BMI) 20.7 EEG Results Procedure Details EEG Procedure Details: JERMAN ROLAND is a 43 year old M with a past medical history of , who presents for evaluation of Electroencephalogram on DATE at TIME Physical Exam Narrative On exam, he is alert, oriented to self, year, knows who the president is Speech is slurred and hard to understand, he is saying sentences that are not making sense Face symmetric He follows simple and complex commands All extremities antigravity Lab / Micro Data 05/31/24 06:45 05/31/24 06:45 Labs: Laboratory Results - last 24 hr 05/30/24 15:00: WBC 8.0, RBC 5.09, Hgb 13.5, Hct 41.1, MCV 80.7, MCH 26.5 L, MCHC 32.8, RDW Std Deviation 42.5, RDW Coeff of Tana 14.6, Plt Count 272, MPV 9.8, Immature Gran % (Auto) 0.400, Neut % (Auto) 61.7, Lymph % (Auto) 24.1, [place] % (Auto) 11.5 H, Eos % (Auto) 2.0, Baso % (Auto) 0.3, Absolute Neuts (auto) 4.9, Absolute Lymphs (auto) 1.93, Nucleated RBC % 0, Sodium 142, Potassium 4.9, Chloride 108 H, Carbon Dioxide 29.0, Anion Gap 5, BUN 10, Creatinine 1.30, Estim Creat Clear Calc 63.73, Est GFR (MDRD) Af Amer 77, Est GFR (MDRD) Non-Af 64, BUN/Creatinine Ratio 7.7 L, Glucose 134 H, Lactic Acid 4.5 H*, Calcium 9.4, Phosphorus 3.0, Magnesium 2.2, Total Bilirubin 0.30, AST 50 H, ALT 12 L, Alkaline Phosphatase 62, Total Protein 7.1, Albumin 3.3, Globulin 3.8, Albumin/Globulin Ratio 0.9, Procalcitonin 0.05, Valproic Acid Cancelled 05/30/24 15:00: Valproic Acid 80, Ethyl Alcohol < 3.0 05/30/24 17:44: Urine Color Yellow, Urine Clarity Clear, Urine pH 6.0, Ur Specific [place] 1.015, Urine Protein 15 H, Urine Glucose (UA) 1000 H, Urine Ketones 5 H, Urine Occult Blood Negative, Urine Nitrite Negative, Urine Bilirubin Negative, Urine Urobilinogen Normal, Ur Leukocyte Esterase Negative, Urine RBC 0 SEEN, Urine WBC 0 SEEN, Ur Squamous Epith Cells 0 SEEN, Urine Bacteria 0 SEEN, Urine Mucus 0 SEEN, Urine Opiates Screen NEGATIVE, Urine Methadone Screen NEGATIVE, Ur Barbiturates Screen NEGATIVE, Ur Phencyclidine Scrn NEGATIVE, Ur Amphetamines Screen NEGATIVE, MDMA (Ecstasy) Screen NEGATIVE, U Benzodiazepines Scrn NEGATIVE, Urine Cocaine Screen NEGATIVE, U Cannabinoids Screen NEGATIVE, Ur Drug Screen Comment 05/30/24 20:17: Lactic Acid 3.4 H* 05/30/24 22:30: Ammonia < 10.0 L 05/31/24 06:45: WBC 10.6, RBC 4.80, Hgb 12.9 L, Hct 38.7 L, MCV 80.6, MCH 26.9 L, MCHC 33.3, RDW Std Deviation 41.8, RDW Coeff of Tana 14.4, Plt Count 250, MPV 9.4, Immature Gran % (Auto) 0.300, Neut % (Auto) 59.9, Lymph % (Auto) 22.2, [place] % (Auto) 13.7 H, Eos % (Auto) 3.5, Baso % (Auto) 0.4, Absolute Neuts (auto) 6.4, Absolute Lymphs (auto) 2.35, Nucleated RBC % 0, Sodium 142, Potassium 3.7, Chloride 108 H, Carbon Dioxide 29.0, Anion Gap 6, BUN 9, Creatinine 0.99, Estim Creat Clear Calc 86.82, Est GFR (MDRD) Af Amer 105, Est GFR (MDRD) Non-Af 87, BUN/Creatinine Ratio 9.1 L, Glucose 105, Calcium 9.2, Total Bilirubin 0.70, AST 9 L, ALT 8 L, Alkaline Phosphatase 65, Total Protein 6.3 L, Albumin 3.0 L, Globulin 3.3, Albumin/Globulin Ratio 0.9, TSH 3.780 H, Free T4 1.14 Imaging Radiology Impression Brain CT 05/30/24 17:12 IMPRESSION: No acute intracranial abnormality. Electronically Signed: Cm Espinal MD at 17:30 EDT , Chest X-Ray 05/30/24 17:15 IMPRESSION: Low lung volumes. Electronically Signed: Cm Espinal MD at 17:57 EDT , Active Medications Active Medications Active Medications: Current Medications Generic Name Dose Route Start Last Admin Trade Name Freq PRN Reason Stop Dose Admin Acetaminophen 650 mg 05/30/24 22:13 Acetaminophen 650 Mg Suppository RC Q4H PRN PRN Fever, pain 1-10 Acetaminophen 650 mg 05/30/24 22:13 Acetaminophen 325 Mg Tablet PO Q4H PRN PRN Fever, pain 1-1010 Al Hydroxide/Mg Hydroxide 30 ml 05/30/24 22:13 Mag Hydrox/Al Hydrox/Simeth 30 Ml Udc PO Q6H PRN PRN Gastric Burning Albuterol Sulfate 2.5 mg 05/30/24 22:13 Albuterol 2.5 Mg/3 Ml Vial.Neb. INHALATION Q2H PRN PRN Dyspnea, wheezing Budesonide 0.5 mg 05/30/24 22:13 Budesonide Respules 0.5 Mg/2 Ml Ampul.Neb. INHALATION BID.RT ALEXANDRA Citalopram Hydrobromide 10 mg 05/31/24 10:00 05/31/24 09:41 Citalopram 10 Mg Tablet PO 10 mg DAILY ALEXANDRA Administration Clozapine 200 mg 05/31/24 22:00 Clozapine 100 Mg Tablet PO QHS ALEXANDRA Clozapine 100 mg 05/31/24 10:00 05/31/24 09:42 Clozapine 100 Mg Tablet PO 100 mg DAILY ALEXANDRA Administration Protocol Divalproex Sodium 500 mg 05/31/24 17:00 05/31/24 09:48 Divalproex Sodium 250 Mg Tablet PO 500 mg BIDCM ALEXANDRA Administration Enoxaparin Sodium 40 mg 05/31/24 10:00 05/31/24 09:44 Enoxaparin 40 Mg/0.4 Ml Syringe SC 40 mg DAILY ALEXANDRA Administration Folic Acid 1 mg 05/31/24 08:00 05/31/24 09:40 Folic Acid 1 Mg Tablet PO 1 mg BREAKFAST ALEXANDRA Administration Glucagon 1 mg 05/30/24 22:13 Glucagon 1 Mg/Ml Syringe IM X1 PRN HYPOGLYCEMIA Protocol Guaifenesin 20 ml 05/30/24 22:13 Guaifenesin 10 Ml Udc (200mg/10ml) PO Q4H PRN PRN COUGH Hydralazine HCl 10 mg 05/30/24 22:13 Hydralazine 20 Mg/Ml Vial IV Q4H PRN PRN SBP > 160 Protocol Hydroxyzine Pamoate 50 mg 05/31/24 14:00 05/31/24 09:47 Hydroxyzine Mónica 25 Mg Capsule PO 50 mg TID ALEXANDRA Administration Sodium Chloride 250 mls @ 15 mls/hr 05/30/24 22:12 IV .[id number] PRN Additional IVPB Infusion Sodium Chloride 250 mls @ 15 mls/hr 05/30/24 22:12 IV .[id number] PRN Saline Flush Valproic Acid 500 mg/ Dextrose 55 mls @ 50 mls/hr 05/31/24 06:00 05/31/24 09:45 IV Infused Q8 ALEXANDRA Infusion Pantoprazole Sodium 40 mg/ 110 mls @ 330 mls/hr 05/30/24 22:13 05/31/24 09:44 Sodium Chloride IV Infused Q12 ALEXANDRA Infusion Dextrose 250 mls @ 0 mls/hr 05/30/24 22:13 Dextrose 10%-Water IV .Q0M PRN HYPOGLYCEMIA Protocol As Directed Insulin Glargine 15 unit 05/31/24 08:00 Insulin Glargine-Yfgn 100 Unit/Ml Pen SC BREAKFAST [facility] Insulin Human Lispro 0 unit 05/30/24 22:13 05/31/24 08:27 Insulin Lispro 100 Unit/Ml Insuln.Pen SC Not Given ACHS [facility] Protocol Latanoprost 1 drp 05/30/24 22:13 05/30/24 22:49 Latanoprost 0.005% 1 Bottle EACH EYE 1 drp QHS ALEXANDRA Administration Levetiracetam 1,000 mg 05/31/24 10:00 05/31/24 09:43 Levetiracetam 1,000 Mg Tablet PO 1,000 mg Q12 ALEXANDRA Administration Levetiracetam 500 mg 05/31/24 22:00 Levetiracetam 500 Mg Tablet PO QHS ALEXANDRA Loratadine 10 mg 05/31/24 22:00 Loratadine 10 Mg Tablet PO QHS ALEXANDRA Lorazepam 1 mg 05/30/24 22:13 Lorazepam 2 Mg/Ml Syringe IV PRN PRN Seizure, notify MD of use Lorazepam 0.5 - 1 mg 05/30/24 22:13 Lorazepam 2 Mg/Ml Syringe IV X1 PRN Agitation with MRI Lorazepam 2 mg 05/30/24 22:13 Lorazepam 2 Mg/Ml Syringe IV UD PRN CIWA score >/=15. Protocol Lorazepam 2 mg 05/30/24 22:13 Lorazepam 2 Mg/Ml Syringe IV Q2H PRN PRN CIWA score > 8 but <15 Protocol Lorazepam 2 mg 05/30/24 22:13 Lorazepam 1 Mg Tablet PO UD PRN CIWA score >/=15. Protocol Lorazepam 2 mg 05/30/24 22:13 Lorazepam 1 Mg Tablet PO Q2H PRN PRN CIWA score > 8 but <15 Protocol Lorazepam 1 mg 05/31/24 08:36 Lorazepam 1 Mg Tablet PO Q6H PRN agitiation/anxiety Melatonin 3 mg 05/30/24 22:13 Melatonin 3 Mg Tablet PO QHS PRN PRN INSOMNIA Metoprolol Tartrate 25 mg 05/31/24 10:00 05/31/24 09:44 Metoprolol Tartrate 25 Mg Tablet PO 25 mg DAILY ALEXANDRA Administration Protocol Multivitamins/Minerals 1 tablet 05/31/24 08:00 05/31/24 09:40 Multivitamins,Ther W-Minerals Tablet PO 1 tablet BREAKFAST ALEXANDRA Administration Non-Formulary Medication 50 mg 05/31/24 08:36 Diphenhydramine Hcl PO Q8H PRN PRN agitation/anxiety Ondansetron HCl 4 mg 05/30/24 22:13 Ondansetron 4 Mg/2 Ml Vial IV Q8H PRN PRN NAUSEA/VOMITING Prochlorperazine Edisylate 5 mg 05/30/24 22:13 Prochlorperazine 10 Mg/2 Ml Vial IV Q4H PRN PRN Breakthrough Nausea/Vomiting Senna/Docusate Sodium 2 tablet 05/30/24 22:13 Senna/Docusate Sodium 1 Tablet PO BID PRN PRN Constipation Sodium Chloride 10 - 40 ml 05/30/24 22:12 0.9% Saline Lock 10 Ml Syringe IV UD PRN SALINE FLUSH Thiamine HCl 100 mg 05/31/24 08:00 05/31/24 09:40 Thiamine Hydrochloride 100 Mg Tablet PO 100 mg BREAKFAST ALEXANDRA Administration Timolol Maleate 1 drp 05/31/24 10:00 05/31/24 09:45 Timolol 0.5% 5ml Opth.Btl EACH EYE 1 drp DAILY ALEXANDRA Administration
[2024-05-31 14:29] LABS: Bedside Glucose 137 mg/dL (74-106)
[2024-05-31] MEDS: Valproic Acid 250 MG/5 ML UDC 500 MG PO ×2 (14:35→21:55)
[2024-05-31] MEDS: Pantoprazole Sodium 40 MG Tablet PO (14:36)
[2024-05-31] MEDS: 0.9% Saline Lock 10 ML Syringe IV (14:37)
[2024-05-31] MEDS: Insulin Lispro 100 UNIT/ML INSULN.PEN SC (17:21)
[2024-05-31 17:42] LABS: Bedside Glucose 168 mg/dL (74-106)
[2024-05-31] MEDS: Loratadine 10 MG Tablet PO (21:55)
[2024-05-31] MEDS: levETIRAcetam 500 MG Tablet PO (21:55)
[2024-05-31] MEDS: cloZAPine 100 MG TABLET 200 MG PO (21:55)
[2024-05-31] MEDS: Latanoprost 0.005% 1 Bottle 1 DRP EACH EYE (21:56)
[2024-05-31 22:49] LABS: Bedside Glucose 133 mg/dL (74-106)
[2024-06-01 03:00] VITALS: BP 89/59; PULSE 87; RESP 16; TEMP 36.8; O2SAT 98
[2024-06-01 03:45] VITALS: BMI 21.3
[2024-06-01 05:18] VITALS: BP 111/69; PULSE 88; RESP 16; TEMP 36.8; O2SAT 98
[2024-06-01] MEDS: hydrOXYzine PAM 25 MG Capsule 50 MG PO (05:19)
--- NOTE | 2024-06-01 07:28 | PCM.PN.HOSP ---
Reason for Visit Reason for Visit: Diagnoses Unspecified convulsions (05/30/24) Subjective Subjective Case was discussed with [facility] the day prior. Plan is to continue patient's current antiepileptic drug regimen with no additional changes recommended Objective Data Objective Data Vital Signs: Vital Signs Temp Pulse Resp BP Pulse Ox O2 Del Method 98.2 F 88 16 111/69 98 Room Air 06/01/24 05:18 06/01/24 05:18 06/01/24 05:18 06/01/24 05:18 06/01/24 05:18 06/01/24 05:18 Oxygen Delivery Method Room Air Weight: 65.6 kg Body Mass Index (BMI) 21.3 Intake & Output: Intake and Output for Last 24 Hours 05/30/24 05/31/24 06/01/24 23:59 23:59 23:59 Intake Total 1740 / 1740 100 / 100 Balance 1740 / 1740 100 / 100 Lab / Micro Data 05/31/24 06:45 05/31/24 06:45 Labs: Laboratory Results - last 24 hr 05/31/24 06:45: Sodium 142, Potassium 3.7, Chloride 108 H, Carbon Dioxide 29.0, Anion Gap 6, BUN 9, Creatinine 0.99, Estim Creat Clear Calc 86.82, Est GFR (MDRD) Af Amer 105, Est GFR (MDRD) Non-Af 87, BUN/Creatinine Ratio 9.1 L, Glucose 105, Calcium 9.2, Total Bilirubin 0.70, AST 9 L, ALT 8 L, Alkaline Phosphatase 65, Total Protein 6.3 L, Albumin 3.0 L, Globulin 3.3, Albumin/Globulin Ratio 0.9, TSH 3.780 H, Free T4 1.14 05/31/24 12:28: POC Glucose 137 H 05/31/24 17:11: POC Glucose 168 H 05/31/24 21:44: POC Glucose 133 H Radiography Diagnostic Testing: Radiology Impression Brain MRI 05/31/24 10:00 IMPRESSION: No evidence for acute infarct. Mild chronic periventricular white matter changes. Electronically Signed: Palak Lugo MD at 11:55 EDT , Physical Exam Narrative GENERAL: Patient in no apparent distress but keeps on ruminating HEENT: Atraumatic; normocephalic EYES; Anicteric, Normal Conjunctiva NECK; supple, normal thyroid, RESPIRATORY: Diminished to auscultation CARDIOVASCULAR: Regular S1 S2, GI: soft, normoactive bowel sounds, : No Renal angle tenderness; EXTREMITIES: No edema, no clubbing, MUSCULOSKELETAL: no muscle wasting NEURO: Awake; no lateralizing signs. SKIN: No Rash PSYCH; Flat affect Assessment & Plan Assessment/Plan (1) Seizure: PLAN: Plan Patient is a 43-year-old gentleman resident at an extended care facility with significant past medical history including bipolar disorder, depression, schizoaffective disorder seizure disorder who was admitted with breakthrough seizure 1. Seizure disorder ? With breakthrough seizure. Did continue patient antiseizure medications with consultation placed to neurology on admission ? 06/01/2024;Case was discussed with [facility] the day prior. Plan is to continue patient's current antiepileptic drug regimen with no additional changes recommended 2.. Diabetes mellitus type II -patient's oral hypoglycemics held. Placed on long acting insulin, Accu-Cheks a.c. and at bedtime and covered with sliding scale insulin 3. Schizoaffective disorder ? Home meds continue 4. Right eye blindness -Complicating care 5. Hypokalemia -Corrected per protocol, repeat labs ordered for monitoring 6. Chronic kidney disease stage III ? Kidney function at baseline 7. Lactic acidosis ? Secondary to patient breakthrough seizure no evidence of factious etiology 8. DVT prophylaxis ? GA Lovenox Time spent in the patient's overall evaluation,decision-making process, review of diagnostic data, adjustment of management, discussion with other providers, nursing nursing and ancillary staff involved in patient's care documentation, 40 Minutes
[2024-06-01 07:54] LABS: Bedside Glucose 121 mg/dL (74-106)
--- NOTE | 2024-06-01 08:46 | DS.PCM_ITS ---
Providers Date of Admission: 05/30/24 Primary Care Physician: Dr. Ever Avila MD Consultations 05/30/24 22:13 Consult: Tele-Neurology Routine Consulting Provider: [facility] Reason for Consult: breakthrough seizure EMERGENT Consult: No MD Notified: Yes Date Notified: 05/30/24 Time Notified: 22:40 Method of Notification: Answering Service Nursing Unit Staff Notify [facility] of Tele-Neurology Consult: Yes Reason For Visit: BREAKTHROUGH SEIZURE Diagnosis Discharge Diagnosis (1) Seizure: Status: Acute Code(s): R56.9 - Unspecified convulsions Plan Patient is a 43-year-old gentleman resident at an extended care facility with significant past medical history including bipolar disorder, depression, schizoaffective disorder seizure disorder who was admitted with breakthrough seizure 1. Seizure disorder ? With breakthrough seizure. Did continue patient antiseizure medications with consultation placed to neurology on admission ? 06/01/2024;Case was discussed with [facility] the day prior. Plan is to continue patient's current antiepileptic drug regimen with no additional changes recommended 2.. Diabetes mellitus type II -patient's oral hypoglycemics held. Placed on long acting insulin, Accu-Cheks a.c. and at bedtime and covered with sliding scale insulin 3. Schizoaffective disorder ? Home meds continue 4. Right eye blindness -Complicating care 5. Hypokalemia -Corrected per protocol, repeat labs ordered for monitoring 6. Chronic kidney disease stage III ? Kidney function at baseline 7. Lactic acidosis ? Secondary to patient breakthrough seizure no evidence of factious etiology 8. DVT prophylaxis ? SC Lovenox Time spent in the patient's overall evaluation,decision-making process, review of diagnostic data, adjustment of management, discussion with other providers, nursing nursing and ancillary staff involved in patient's care documentation, 40 Minutes Medications at Discharge Home Medications cetirizine 10 mg tablet 10 mg PO QHS allergy symptoms 12/09/22 clozapine 100 mg tablet (Clozaril) 100 mg PO DAILY schizoaffective disorder 12/09/22 diphenhydramine HCl 50 mg tablet 50 mg PO Q8H PRN PRN agitation/anxiety 12/09/22 multivitamin 1 tab PO DAILY supplement 12/09/22 polyethylene glycol 3350 17 gram oral powder packet (Miralax) 17 g PO DAILY constipation 12/09/22 timolol maleate 0.5 % once daily eye 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 12/09/22 latanoprost 0.005 % eye drops 1 drp ophthalmic (eye) QPM eyes 02/20/23 metoprolol tartrate 25 mg tablet 25 mg PO DAILY hypertension 02/20/23 acetaminophen 325 mg tablet 650 mg PO Q4H PRN fever or pain 03/02/23 metformin 1,000 mg tablet 1,000 mg PO BID DM 03/02/23 pantoprazole 40 mg tablet,delayed release (Protonix) 40 mg PO BID GERD 03/02/23 sennosides 8.6 mg tablet (Senokot) 8.6 mg PO DAILY CONSTIPATION 03/02/23 lactulose 20 gram/30 mL oral solution 20 g (30 mL) PO TID elevated ammonia #3,000 mL 03/19/23 empagliflozin 10 mg tablet (Jardiance) 10 mg PO DAILY diabetes 04/25/23 metoclopramide HCl 5 mg tablet (Reglan) 5 mg PO TID gastroparesis 04/25/23 paliperidone palmitate 234 mg/1.5 mL intramuscular syringe (Invega Sustenna) 234 mg IM DAILY Check with primary doctor 04/25/23 citalopram 10 mg tablet (Celexa) 10 mg PO DAILY depression 11/26/23 clozapine 200 mg tablet 200 mg PO DAILY bipolar 11/26/23 hydroxyzine pamoate 50 mg capsule 50 mg PO TID anxiety 11/26/23 insulin glargine-yfgn 100 unit/mL (3 mL) subcutaneous pen 15 unit subcut BREAKFAST diabetes 11/26/23 levetiracetam 1,000 mg tablet (Keppra) 1,000 mg PO Q12H epilepsy 11/26/23 divalproex 250 mg tablet,delayed release 500 mg (2 x 250 mg) PO BIDCM #0 tabs 11/29/23 potassium chloride 20 mEq tablet,extended release(part/cryst) 20 meq PO BIDCM #0 tabs 11/29/23 ciprofloxacin HCl 0.3 % eye drops 1 drp EACH EYE Q2H 5 days #5 mL 01/08/24 aluminum-mag hydroxide-simethicone 400 mg-400 mg-40 mg/5 mL oral susp (Mag-Al Plus Extra Strength) 30 ml PO Q6H PRN PRN Gastric Burning #0 mL 06/01/24 folic acid 1 mg tablet 1 mg PO BREAKFAST #0 tabs 06/01/24 guaifenesin 100 mg/5 mL oral liquid 10 mg (0.5 mL) PO Q4H PRN PRN Cough #0 mL 06/01/24 lorazepam 1 mg tablet (Ativan) 1 mg PO Q6H PRN agitiation/anxiety #6 tabs 06/01/24 multivitamin-iron 9 mg-folic acid 400 mcg-calcium and minerals tablet (Therapeutic-M) 1 tab PO BREAKFAST #0 tabs 06/01/24 sennosides 8.6 mg-docusate sodium 50 mg tablet (Stimulant Laxative Plus) 2 tab PO BID PRN PRN Constipation #0 tabs 06/01/24 thiamine HCl (vitamin B1) 100 mg tablet 100 mg PO BREAKFAST #0 tabs 06/01/24 Physical Exam Narrative GENERAL: Patient in no apparent distress but keeps on ruminating HEENT: Atraumatic; normocephalic EYES; Anicteric, Normal Conjunctiva NECK; supple, normal thyroid, RESPIRATORY: Diminished to auscultation CARDIOVASCULAR: Regular S1 S2, GI: soft, normoactive bowel sounds, : No Renal angle tenderness; EXTREMITIES: No edema, no clubbing, MUSCULOSKELETAL: no muscle wasting NEURO: Awake; no lateralizing signs. SKIN: No Rash PSYCH; Flat affect Weight / BMI Weight Weight: 65.6 kg Body Mass Index (BMI) 21.3 ABG / Lab / Microbiology Data 05/31/24 06:45 05/31/24 06:45 Laboratory: Laboratory Results - last 24 hr 05/31/24 12:28: POC Glucose 137 H 05/31/24 17:11: POC Glucose 168 H 05/31/24 21:44: POC Glucose 133 H 06/01/24 05:17: POC Glucose 121 H Radiography Diagnostic Testing: Radiology Impression Brain MRI 05/31/24 10:00 IMPRESSION: No evidence for acute infarct. Mild chronic periventricular white matter changes. Electronically Signed: Palak Lugo MD at 11:55 EDT , D/C Instructions Discharge Diet: 1800 Calorie Control Diet Call your doctor if you observe: Fever of 101 or Higher, Shortness of breath, Fainting spells and Chest pain Meaningful Use Info Meaningful Use Meaningful Use Diagnoses (Choose all that apply): None applicable Ischemic Stroke Statin Dosing Therapy Reference: STATIN DOSE THERAPY REFERENCE: * Patients > 75 years receive moderate or high dose statin therapy. * Patients 75 years or YOUNGER should receive HIGH intensity statin dose unless contraindicated. You will be required to document reason for non-treatment if statin daily dose does not meet guidelines. HIGH DOSE STATIN THERAPY DAILY Atorvastatin > than or = to 40 mg Rosuvastatin > than or = to 20 mg Amlodipine + Atorvastatin > than or = to 2.5/40 mg Ezetimibe + Simvastatin 10/80 mg Simvastatin 80mg Discharge Plan Admission Admit Date/Time: 05/30/24 20:25 Attending Provider: Tanner Malik Primary Care Provider: Ever Avila Consulting Providers: Mendoza Baig; Jacinto De La Paz; Kaylynn Owusu; Sue Nixon; Karin Thomason; Konstantin Rivero; Lenore Valente; Jaison Mathis; Aureliano Starr; Sonu Kirkland; Valentine Chu; Ed Andrade; Socorro Armstrong; Bev Finch; Laura Guerra; Duke Orellana; Shalonda Daniel; David Wynn; Mary Grace; Emilia Sanchez; Denise Ashby Discharge Orders/Prescriptions Prescriptions: New sennosides-docusate sodium [Stimulant Laxative Plus] 8.6-50 mg Tablet 2 tab PO BID PRN PRN (Reason: Constipation) Qty: 0 0RF thiamine HCl (vitamin B1) 100 mg Tablet 100 mg PO BREAKFAST Qty: 0 0RF guaifenesin 100 mg/5 mL Liquid 10 mg PO Q4H PRN PRN (Reason: Cough) Qty: 0 0RF folic acid 1 mg Tablet 1 mg PO BREAKFAST Qty: 0 0RF alum-mag hydroxide-simeth [Mag-Al Plus Extra Strength] 400-400-40 mg/5 mL Suspension 30 ml PO Q6H PRN PRN (Reason: Gastric Burning) Qty: 0 0RF Therapeutic-M 9 mg iron-400 mcg Tablet 1 tab PO BREAKFAST Qty: 0 0RF Continued Jardiance 10 mg tablet 10 mg PO DAILY metoclopramide HCl [Reglan] 5 mg tablet 5 mg PO TID Rx Instructions: 30 mins before meal latanoprost 0.005 % drops 1 drp ophthalmic (eye) QPM Rx Instructions: both eyes metoprolol tartrate 25 mg tablet 25 mg PO DAILY multivitamin Tablet 1 tab PO DAILY polyethylene glycol 3350 [Miralax] 17 gram Powder In Packet 17 g PO DAILY cetirizine 10 mg Tablet 10 mg PO QHS diphenhydramine HCl 50 mg Tablet 50 mg PO Q8H PRN PRN (Reason: agitation/anxiety ) Patient Comments: PRN PER [facility] clozapine [Clozaril] 100 mg Tablet 100 mg PO DAILY timolol maleate 0.5 % Drops, Once Daily 1 drp EACH EYE DAILY Invega Sustenna 234 mg/1.5 mL syringe 234 mg IM DAILY Patient Comments: PER LONGTERM [facility] PT IS DUE FOR MONTHLY INJECTION ON 03/12/23. Rx Instructions: give every 28 days pantoprazole [Protonix] 40 mg tablet,delayed release (DR/EC) 40 mg PO BID Patient Comments: PER LONGTERM [facility] PT TO START ON 03/03/23 metformin 1,000 mg tablet 1,000 mg PO BID acetaminophen 325 mg tablet 650 mg PO Q4H PRN (Reason: fever or pain) Patient Comments: PRN PER [facility] sennosides [Senokot] 8.6 mg tablet 8.6 mg PO DAILY lactulose 20 gram/30 mL solution 20 g PO TID Qty: 3000 0RF Rx Instructions: titrate until 2-3 loose stools daily citalopram [Celexa] 10 mg tablet 10 mg PO DAILY clozapine 200 mg tablet 200 mg PO DAILY levetiracetam [Keppra] 1,000 mg tablet 1,000 mg PO Q12H Rx Instructions: TAKE 1000 MG IN MORNING, 1500 AT BEDTIME hydroxyzine pamoate 50 mg capsule 50 mg PO TID insulin glargine-yfgn 100 unit/mL (3 mL) Insulin Pen 15 unit subcut BREAKFAST divalproex 250 mg Tablet,Delayed Release (Dr/Ec) 500 mg PO BIDCM Qty: 0 0RF potassium chloride 20 mEq Tablet,Er Particles/Crystals 20 meq PO BIDCM Qty: 0 0RF ciprofloxacin HCl 0.3 % drops 1 drp EACH EYE Q2H 5 Days Qty: 5 0RF Rx Instructions: administer while awake lorazepam [Ativan] 1 mg Tablet 1 mg PO Q6H PRN (Reason: agitiation/anxiety ) Qty: 6 0RF Referrals / Follow Up: Ever Avila MD [Primary Care Provider] - Disposition Disposition (needs filled in before D/C Order can be placed): NonSkilled NH/Intermed Care Charges/Coding Visit Charges Inpatient E&M: 35207 Disch Hosp >30min
[2024-06-01 09:02] VITALS: BP 93/65; PULSE 91; RESP 16; TEMP 36.6; O2SAT 98
[2024-06-01] MEDS: Thiamine Hydrochloride 100 MG Tablet PO (09:08)
[2024-06-01] MEDS: Pantoprazole Sodium 40 MG Tablet PO (09:08)
[2024-06-01] MEDS: Multivitamins,Ther W-Minerals Tablet 1 TABLET PO (09:08)
[2024-06-01] MEDS: Folic Acid 1 MG Tablet PO (09:09)
[2024-06-01] MEDS: levETIRAcetam 1,000 MG Tablet 1000 MG PO (09:09)
[2024-06-01] MEDS: cloZAPine 100 MG TABLET PO (09:09)
[2024-06-01] MEDS: Divalproex Sodium 250 MG Tablet 500 MG PO (09:09)
[2024-06-01] MEDS: Citalopram 10 MG Tablet PO (09:09)
[2024-06-01] MEDS: Insulin Glargine-YFGN 100 UNIT/ML Pen 15 UNIT SC (09:10)
[2024-06-01] MEDS: Enoxaparin 40 MG/0.4 ML Syringe SC (09:11)
[2024-06-01] MEDS: Timolol 0.5% 5ML OPTH.BTL 1 DRP EACH EYE (09:11)
[2024-06-03 13:08] LABS: KEPPRA (LEVETIRACETAM) 31.2 ug/mL (10.0-40.0)
== END 2024-06-01 10:25 | disposition intermediate care facility (04) | DRG 101 ==
LOC: ED 20:25 → PCU 21:08
PROVIDERS: Admitting Provider Family Medicine; Emergency Provider Emergency Medicine; PCP Family Medicine; Visit Provider Internal Medicine
DX: G40.909 Epilepsy, unspecified, not intractable, without status epilepticus (principal); E87.20 Acidosis, unspecified; E11.22 Type 2 diabetes mellitus with diabetic chronic kidney disease; F25.9 Schizoaffective disorder, unspecified; F03.90 Unspecified dementia, unspecified severity, without behavioral disturbance, psychotic disturbance, mood disturbance, and anxiety; N18.30 Chronic kidney disease, stage 3 unspecified; I12.9 Hypertensive chronic kidney disease with stage 1 through stage 4 chronic kidney disease, or unspecified chronic kidney disease; F31.9 Bipolar disorder, unspecified; F41.9 Anxiety disorder, unspecified; Z79.4 Long term (current) use of insulin; E87.6 Hypokalemia; K21.9 Gastro-esophageal reflux disease without esophagitis; E78.5 Hyperlipidemia, unspecified; F17.210 Nicotine dependence, cigarettes, uncomplicated; Z79.84 Long term (current) use of oral hypoglycemic drugs; F79 Unspecified intellectual disabilities; Z79.899 Other long term (current) drug therapy
CPT/HCPCS: 36415; 70450; 70551; 71046; 80053; 80164; 80177; 80307; 81001; 82077; 82140; 82962; 83605; 83735; 84100; 84145; 84439; 84443; 85025; 99285; J7030; A4216

== ENCOUNTER 2024-07-21 09:31 | Emergency (ER) | payer MEDICARE, MEDICAID, SELFPAY ==
[2024-07-21 09:32] VITALS: BP 111/80; PULSE 110; RESP 17; TEMP 36.6; O2SAT 98; BMI 21.9
--- NOTE | 2024-07-21 10:32 | CT_ITS ---
HISTORY: Head injury, AMS. TECHNIQUE: Multiple axial images were obtained of the head without intravenous contrast. A radiation dose optimization technique was used for this scan. 241 images. COMPARISON: 05/30/2024. FINDINGS: BRAIN PARENCHYMA: No significant attenuation abnormality. No acute intra-axial hemorrhage. CSF SPACES: Cerebral ventricles, cortical sulci, and other extra-axial CSF spaces within normal limits in size for age. No midline shift or other significant mass effect. No acute extra-axial hemorrhage. OTHER: Intact calvarium. No significant air fluid levels in the paranasal sinuses or mastoid air cells. Old left lamina papyracea fracture. CT/Brain/Head without Contrast IMPRESSION: No acute intracranial process identified. Electronically Signed: Palak Lugo MD at 11:21 EST ,
--- NOTE | 2024-07-21 10:33 | EKG12_ITS ---
Test Reason : Blood Pressure : */* mmHG Vent. Rate : 96 BPM Atrial Rate : 96 BPM P-R Int : 136 ms QRS Dur : 76 ms QT Int : 354 ms P-R-T Axes : 24 33 22 degrees QTcB Int : 447 ms Normal sinus rhythm Normal ECG Confirmed by Dlefino Jamison [id number]), movie editor BONNIE HUI ([id number]) on 07/22/2024 10:35:05 AM Referred By: Confirmed By: Delfino Jamison
[2024-07-21 10:45] LABS: Absolute Lymphocyte Count 1.83 X10^3/uL (0.83-4.51); Basophil# 0.02 X10^3/uL; Basophil% 0.4 % (0-1); Eosinophils% 1.8 % (0-5); Hematocrit 43.5 % (40-54); Hemoglobin 14.6 g/dL (13.0-16.5); Lymphocyte # 1.83 X10^3/ul (0.83-4.51); Lymphocyte % 32.3 % (19-41); Mean Corp Hgb Conc 33.6 g/dL (32-36); Mean Corpuscular Volume 80.6 fL (80-94); Mean Platelet Vol. 10.9 fl (6.2-12.0); Monocyte# 0.66 X10^3/uL; Monocyte% 11.6 % (0-10); NRBC Flagged by Analyzer 0 % (0-5); Neutrophil # 3.04 X10^3/uL (2.7-7.7); Neutrophil % 53.5 % (47-70); Platelet Count 218 K/mm3 (150-450); RBC Distribution Width SD 43.6 fl (35.1-43.9); White Blood Count 5.7 K/mm3 (4.4-11.0)
[2024-07-21 10:57] LABS: Anion Gap 8 (5-15); BUN 11 mg/dL (7-18); BUN/Creat Ratio 9.1 RATIO (10-20); Calcium,Total 9.2 mg/dL (8.5-10.1); Chloride 106 mmol/L (98-107); Creatinine, Serum 1.21 mg/dL (0.70-1.30); EST Glomerular Filtration Rate 69 mL/min (>60); Est Glom Filt Rate - Afr Amer 84 mL/min (>60); Estimated Creatinine Clearance 74.38 ml/min; Glucose 141 mg/dL (74-106); Potassium 3.4 mmol/L (3.5-5.1); Sodium Level 143 mmol/L (136-145)
--- NOTE | 2024-07-21 11:00 | EX.ED.DYSGE1 ---
HPI History of Present Illness Chief Complaint: Seizure Informant: patient, EMS and SNF Narrative Narrative: Patient is a 44-year-old male with history of psychiatric disorder, schizophrenia, alcohol abuse, mild cognitive impairment, seizure disorder, traumatic brain injury, diabetes mellitus and hypertension presenting for evaluation of mental status change. Per nursing report, patient was found on the floor at his nursing facility face up. It is unclear how he got on the floor whether he fell or had seizure activity. Patient states he hit the back of his head. Patient was not acting at his baseline as he is normally verbal, communicative and ambulatory. He was brought into the ER for further evaluation. On exam patient has mumbling speech and does tell me that he hit the back of his head. He alludes to the fact that he had a seizure but this is not entirely clear. When asked if patient has any pain he states no but then when asked of his head hurts he states yes. No report of any recent fever or infectious symptoms. [facility] Medical History Substance abuse Alcohol abuse Schizophrenia Depression Diabetes Kidney stones GI bleed Pulmonary embolism Asthma Hypertension Dementia Exophthalmos Generalized muscle weakness Constant exophthalmos, bilateral Disorder of urea cycle metabolism, unspecified Unspecified psychosis 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 or known physiological condition Chronic pain syndrome Disturbances of salivary secretion Essential (primary) hypertension Myopia, unspecified eye Alternating exotropia Hypertensive retinopathy, right eye Posterior subcapsular polar age-related cataract, bilateral Unspecified intellectual disabilities GERD (gastroesophageal reflux disease) Diabetes History of psychiatric disorder Dysphagia PVD (peripheral vascular disease) Constipation Seizures Anemia Schizoaffective disorder Cannabis abuse TBI (traumatic brain injury) Blindness Hyperlipidemia Muscle weakness Anxiety Insomnia Glaucoma Bipolar disorder Type 2 diabetes mellitus Home Medications ?Medication ?Instructions ?Recorded ?Last Taken ?Type cetirizine 10 mg tablet 10 mg PO QHS allergy symptoms 12/09/22 03/01/23 History clozapine 100 mg tablet (Clozaril) 100 mg PO DAILY schizoaffective 12/09/22 03/02/23 History disorder diphenhydramine HCl 50 mg tablet 50 mg PO Q8H PRN PRN 12/09/22 Unknown History agitation/anxiety multivitamin 1 tab PO DAILY supplement 12/09/22 03/02/23 History polyethylene glycol 3350 17 gram 17 g PO DAILY constipation 12/09/22 03/02/23 History oral powder packet (Miralax) timolol maleate 0.5 % once daily 1 drp EACH EYE DAILY congenital 12/09/22 03/02/23 History eye drops glaucoma latanoprost 0.005 % eye drops 1 drp ophthalmic (eye) QPM eyes 02/20/23 03/01/23 History metoprolol tartrate 25 mg tablet 25 mg PO DAILY hypertension 02/20/23 03/02/23 History acetaminophen 325 mg tablet 650 mg PO Q4H PRN fever or pain 03/02/23 Unknown History metformin 1,000 mg tablet 1,000 mg PO BID DM 03/02/23 03/02/23 History pantoprazole 40 mg tablet,delayed 40 mg PO BID GERD 03/02/23 Unknown History release (Protonix) sennosides 8.6 mg tablet (Senokot) 8.6 mg PO DAILY CONSTIPATION 03/02/23 03/02/23 History lactulose 20 gram/30 mL oral 20 g (30 mL) PO TID elevated 03/19/23 03/02/23 Rx solution ammonia #3,000 mL empagliflozin 10 mg tablet 10 mg PO DAILY diabetes 04/25/23 Unknown History (Jardiance) metoclopramide HCl 5 mg tablet 5 mg PO TID gastroparesis 04/25/23 Unknown History (Reglan) paliperidone palmitate 234 mg/1.5 234 mg IM DAILY Check with primary 04/25/23 Unknown History mL intramuscular syringe (Emmy doctor Marichuy) citalopram 10 mg tablet (Celexa) 10 mg PO DAILY depression 11/26/23 Unknown History clozapine 200 mg tablet 200 mg PO DAILY bipolar 11/26/23 Unknown History hydroxyzine pamoate 50 mg capsule 50 mg PO TID anxiety 11/26/23 Unknown History insulin glargine-yfgn 100 unit/mL 15 unit subcut BREAKFAST diabetes 11/26/23 Unknown History (3 mL) subcutaneous pen levetiracetam 1,000 mg tablet 1,000 mg PO Q12H epilepsy 11/26/23 Unknown History (Keppra) divalproex 250 mg tablet,delayed 500 mg (2 x 250 mg) PO BIDCM #0 11/29/23 Unknown Rx release tabs potassium chloride 20 mEq 20 meq PO BIDCM #0 tabs 11/29/23 Unknown Rx tablet,extended release(part/cryst) ciprofloxacin HCl 0.3 % eye drops 1 drp EACH EYE Q2H 5 days #5 mL 01/08/24 Unknown Rx aluminum-mag hydroxide-simethicone 30 ml PO Q6H PRN PRN Gastric 06/01/24 Unknown Rx 400 mg-400 mg-40 mg/5 mL oral susp Burning #0 mL (Mag-Al Plus Extra Strength) folic acid 1 mg tablet 1 mg PO BREAKFAST #0 tabs 06/01/24 Unknown Rx guaifenesin 100 mg/5 mL oral liquid 10 mg (0.5 mL) PO Q4H PRN PRN 06/01/24 Unknown Rx Cough #0 mL lorazepam 1 mg tablet (Ativan) 1 mg PO Q6H PRN agitiation/anxiety 06/01/24 Unknown Rx #6 tabs multivitamin-iron 9 mg-folic acid 1 tab PO BREAKFAST #0 tabs 06/01/24 Unknown Rx 400 mcg-calcium and minerals tablet (Therapeutic-M) sennosides 8.6 mg-docusate sodium 2 tab PO BID PRN PRN Constipation 06/01/24 Unknown Rx 50 mg tablet (Stimulant Laxative #0 tabs Plus) thiamine HCl (vitamin B1) 100 mg 100 mg PO BREAKFAST #0 tabs 06/01/24 Unknown Rx tablet Allergy/AdvReac Type Severity Reaction Status Date / Time Sulfa (Sulfonamide Allergy Mild Other Verified 05/30/24 14:58 Antibiotics) 5HTS Receptor antagonist Allergy Unknown Other Uncoded 04/25/23 09:55 Family History unable to obtain Surgical History H/O eye surgery Social History (Updated 05/30/24 @ 21:[address] Denise Ashby MD) housing: retirement other: Patient has a legal guardian and is a long-term resident at [facility] Smoking Status: Current every day smoker tobacco type: cigarettes alcohol intake: former substance use type: former substance user ROS ROS ED Review of Systems ROS Unobtainable: due to mental status Neurologic Neurologic: Reports headache(s) EXAM Physical Exam Const Vital Signs: 07/21/24 09:32 07/21/24 11:32 07/21/24 12:11 Temperature 97.8 F Temperature Source Oral Pulse Rate 110 H 101 H 95 Respiratory Rate 17 17 15 Blood Pressure 111/80 112/70 107/80 Blood Pressure Mean 90 84 89 Pulse Ox 98 95 98 Oxygen Delivery Method Room Air Room Air Room Air 07/21/24 14:03 Temperature Temperature Source Pulse Rate 95 Respiratory Rate 18 Blood Pressure 115/83 H Blood Pressure Mean 93 Pulse Ox 100 Oxygen Delivery Method Constitutional Narrative: Chronically ill-appearing, no acute distress HEENT Reports TM's clear and moist mucous membranes Negative for trauma Tympanic Membrane ED: Yes TM's clear Eyes EOMs intact bilaterally Eyes Narrative: Discoloration of the right eye Neck supple Neck Narrative: No midline tenderness, normal range of motion Chest Wall inspection of chest normal Resp normal respiratory effort and clear to auscultation bilaterally Cardio regular rate and regular rhythm GI normal to inspection, nondistended, normoactive bowel sounds and non-tender Extremity normal to inspection General Extremety ED: Negative for edema or tenderness General Extremity: Negative for edema Neuro Neuro Narrative: Mildly somnolent. Mumbling speech. Generally weak. No focal deficits appreciated Sensorium / Orientation: alert Psych mental status grossly normal Skin no rashes or lesions noted and no wounds MDM MDM MDM Narrative Medical decision making narrative: Patient's evaluated after he was found on the floor at his nursing facility. He seemed more confused and weaker than normal. Had questionable if he had a seizure which she does have a history of seizures. Patient states he hit his head so CT of the brain is obtained. While in the ER patient neno hemodynamic stable. His workup is largely normal with no evidence of any acute infection, electrolyte abnormalities, renal injury or other acute abnormalities. Patient is able to eat and ambulate in the ER. Will be discharged back to his nursing facility. Lab Data Attestation: I reviewed the patient's lab results. Labs: Laboratory Results - last 24 hr 07/21/24 07/21/24 09:49 11:18 WBC 5.7 RBC 5.40 Hgb 14.6 Hct 43.5 MCV 80.6 MCH 27.0 MCHC 33.6 RDW Std Deviation 43.6 RDW Coeff of Tana 15.0 H Plt Count 218 MPV 10.9 Immature Gran % (Auto) 0.400 Neut % (Auto) 53.5 Lymph % (Auto) 32.3 [place] % (Auto) 11.6 H Eos % (Auto) 1.8 Baso % (Auto) 0.4 Absolute Neuts (auto) 3.0 Absolute Lymphs (auto) 1.83 Nucleated RBC % 0 Sodium 143 Potassium 3.4 L Chloride 106 Carbon Dioxide 29.0 Anion Gap 8 BUN 11 Creatinine 1.21 Estim Creat Clear Calc 74.38 Est GFR (MDRD) Af Amer 84 Est GFR (MDRD) Non-Af 69 BUN/Creatinine Ratio 9.1 L Glucose 141 H Calcium 9.2 Urine Color Yellow Urine Clarity Clear Urine pH 6.0 Ur Specific [place] 1.015 Urine Protein 15 H Urine Glucose (UA) 1000 H Urine Ketones 15 H Urine Occult Blood Negative Urine Nitrite Negative Urine Bilirubin Negative Urine Urobilinogen Normal Ur Leukocyte Esterase Negative Urine RBC 0 SEEN Urine WBC 0 SEEN Ur Squamous Epith Cells 0 SEEN Urine Bacteria 0 SEEN Urine Mucus 0 SEEN Radiography Chest X-Ray - ED: 1 View, Read by ED Physician, Read by Radiologist and No Acute Disease Diagnostic Testing: Clinical Impression(s) from Imaging Studies Brain CT 07/21/24 10:32 IMPRESSION: No acute intracranial process identified. Electronically Signed: Palak Lugo MD at 11:21 EST , Chest X-Ray 07/21/24 11:05 IMPRESSION: No acute cardiopulmonary process identified. Electronically Signed: Palak Lugo MD at 11:22 EST , Rhythm Strip Rhythm Strip: Sinus Rhythm Rate: 96 Ectopy: None EKG Initial EKG: Attestation: I personally reviewed and interpreted this EKG as follows: Interpretation: Sinus Rhythm Comments: Normal sinus rhythm rate 96 bpm Normal axis Normal intervals Normal ST segments Discharge Plan Triage Chief Complaint: Seizure ED Provider: Lita Phillips Dx/Rx/DC Orders Clinical Impression: Altered mental status, Closed head injury, Unwitnessed fall Instructions: ED Confusion, ED Fall with Uncertain Cause Prescriptions: No Action Jardiance 10 mg tablet 10 mg PO DAILY metoclopramide HCl [Reglan] 5 mg tablet 5 mg PO TID Rx Instructions: 30 mins before meal latanoprost 0.005 % drops 1 drp ophthalmic (eye) QPM Rx Instructions: both eyes metoprolol tartrate 25 mg tablet 25 mg PO DAILY multivitamin Tablet 1 tab PO DAILY polyethylene glycol 3350 [Miralax] 17 gram Powder In Packet 17 g PO DAILY cetirizine 10 mg Tablet 10 mg PO QHS diphenhydramine HCl 50 mg Tablet 50 mg PO Q8H PRN PRN (Reason: agitation/anxiety ) Patient Comments: PRN PER [facility] clozapine [Clozaril] 100 mg Tablet 100 mg PO DAILY timolol maleate 0.5 % Drops, Once Daily 1 drp EACH EYE DAILY Invega Sustenna 234 mg/1.5 mL syringe 234 mg IM DAILY Patient Comments: PER ASSISTED [facility] PT IS DUE FOR MONTHLY INJECTION ON 03/12/23. Rx Instructions: give every 28 days pantoprazole [Protonix] 40 mg tablet,delayed release (DR/EC) 40 mg PO BID Patient Comments: PER ASSISTED [facility] PT TO START ON 03/03/23 metformin 1,000 mg tablet 1,000 mg PO BID acetaminophen 325 mg tablet 650 mg PO Q4H PRN (Reason: fever or pain) Patient Comments: PRN PER [facility] sennosides [Senokot] 8.6 mg tablet 8.6 mg PO DAILY lactulose 20 gram/30 mL solution 20 g PO TID Qty: 3000 0RF Rx Instructions: titrate until 2-3 loose stools daily citalopram [Celexa] 10 mg tablet 10 mg PO DAILY clozapine 200 mg tablet 200 mg PO DAILY levetiracetam [Keppra] 1,000 mg tablet 1,000 mg PO Q12H Rx Instructions: TAKE 1000 MG IN MORNING, 1500 AT BEDTIME hydroxyzine pamoate 50 mg capsule 50 mg PO TID insulin glargine-yfgn 100 unit/mL (3 mL) Insulin Pen 15 unit subcut BREAKFAST divalproex 250 mg Tablet,Delayed Release (Dr/Ec) 500 mg PO BIDCM Qty: 0 0RF potassium chloride 20 mEq Tablet,Er Particles/Crystals 20 meq PO BIDCM Qty: 0 0RF ciprofloxacin HCl 0.3 % drops 1 drp EACH EYE Q2H 5 Days Qty: 5 0RF Rx Instructions: administer while awake sennosides-docusate sodium [Stimulant Laxative Plus] 8.6-50 mg Tablet 2 tab PO BID PRN PRN (Reason: Constipation) Qty: 0 0RF thiamine HCl (vitamin B1) 100 mg Tablet 100 mg PO BREAKFAST Qty: 0 0RF guaifenesin 100 mg/5 mL Liquid 10 mg PO Q4H PRN PRN (Reason: Cough) Qty: 0 0RF folic acid 1 mg Tablet 1 mg PO BREAKFAST Qty: 0 0RF alum-mag hydroxide-simeth [Mag-Al Plus Extra Strength] 400-400-40 mg/5 mL Suspension 30 ml PO Q6H PRN PRN (Reason: Gastric Burning) Qty: 0 0RF Therapeutic-M 9 mg iron-400 mcg Tablet 1 tab PO BREAKFAST Qty: 0 0RF lorazepam [Ativan] 1 mg Tablet 1 mg PO Q6H PRN (Reason: agitiation/anxiety ) Qty: 6 0RF Primary Care Provider: Ever Avila Referrals: Ever Avila MD [Primary Care Provider] - Activity Restrictions/Additional Instructions: Aureliano workup was largely negative today. It is unclear if he had a breakthrough seizure and will cause him to fall. His vital signs remained stable. His CT did not show any acute intracranial process. At this time there are no signs of dehydration or other infection. Can be discharged back and follow-up with primary care doctor. Print Language: Belarusian Disposition Disposition: Jail Facility
--- NOTE | 2024-07-21 11:05 | RAD_ITS ---
HISTORY: AMS. TECHNIQUE: XR Chest 1 View. COMPARISON: 05/30/2024. FINDINGS: CARDIOMEDIASTINAL BORDERS: Cardiac silhouette within normal limits in size. Mediastinal contour unremarkable. LUNGS: Radiographically clear. PLEURA: No pleural effusion or pneumothorax seen. OSSEOUS STRUCTURES: Unremarkable. RAD/Chest 1 View (Portable) IMPRESSION: No acute cardiopulmonary process identified. Electronically Signed: Palak Lugo MD at 11:22 EST ,
[2024-07-21 11:32] VITALS: BP 112/70; PULSE 101; RESP 17; O2SAT 95
[2024-07-21 12:00] LABS: Bacteria 0 SEEN /hpf (None Seen); Mucous, Urine 0 SEEN /hpf (<or=2+); Red Blood Cells-Urine 0 SEEN /hpf (0-5); Squamous Epithelial Cells - UA 0 SEEN /hpf (0-5); White Blood Cells 0 SEEN /hpf (0-5)
--- NOTE | 2024-07-21 12:10 | ED.RN ---
Patient observed yelling from room. When the patient was asked how he was feeling, he responded with alright. Patient resumed yelling one word at a time king plummer charles, reese.
[2024-07-21 12:11] VITALS: BP 107/80; PULSE 95; RESP 15; O2SAT 98
[2024-07-21 12:34] LABS: Color, Urine Yellow (Yellow); Glucose, Dipstick 1000 mg/dl (Normal); Ketone-Dipstick 15 mg/dl (Negative); Leukocyte Esterase-Dipstick Negative /ul (Negative); Nitrite-Dipstick Negative (Negative); Occult Blood-Urine Negative /ul (Negative); Protein-Dipstick 15 mg/dl (Negative); Specific Gravity, Urine 1.015 (1.002-1.030); Urine Bilirubin Dipstick Negative (Negative); Urine Clarity Clear (Clear); Urine Urobilinogen Normal (Normal)
[2024-07-21 14:03] VITALS: BP 115/83; PULSE 95; RESP 18; O2SAT 100
--- NOTE | 2024-07-21 15:11 | ED.RN ---
Report given to [facility]
[2024-07-21 15:37] VITALS: BP 115/83; PULSE 95; RESP 18; TEMP 36.6; O2SAT 100
[2024-07-21 15:55] LABS: Valproic Acid (Depakene) Level 50 ug/mL (50-100)
== END 2024-07-21 15:43 | disposition skilled nursing facility (03) ==
PROVIDERS: Emergency Provider Emergency Medicine; PCP Family Medicine; Visit Provider Emergency Medicine
DX: S09.90XA Unspecified injury of head, initial encounter (principal); G40.909 Epilepsy, unspecified, not intractable, without status epilepticus; E11.9 Type 2 diabetes mellitus without complications; Z79.4 Long term (current) use of insulin; R41.82 Altered mental status, unspecified; W19.XXXA Unspecified fall, initial encounter; I10 Essential (primary) hypertension; E78.5 Hyperlipidemia, unspecified; F17.210 Nicotine dependence, cigarettes, uncomplicated; Z79.84 Long term (current) use of oral hypoglycemic drugs; Z79.899 Other long term (current) drug therapy; Z87.820 Personal history of traumatic brain injury
CPT/HCPCS: 70450; 71045; 80048; 80164; 81001; 85025; 93005; 99285; A4216